=== PATIENT | female | born 1940 | race Caucasian/White ===

== ENCOUNTER 2018-02-03 22:22 | Emergency (ER) | payer OTHER ==
[2018-02-03 22:56] LABS: Absolute Lymphocytes (CBC) 1.5 K/uL (0.7-4.9); Absolute Monocytes 1.8 K/uL (0.1-1.3); Absolute Neutrophil 13.5 K/uL (1.8-8.0); Basophils % 0.5 % (0-1.3); Eosinophils % 0.7 % (0-4.4); Hematocrit 46.3 % (36.0-45.0); Lymphocytes % 8.8 % (15.3-44.8); MCH 29.5 pg (27.0-35.0); MCV 87.9 fL (80-100); Monocytes % 10.4 % (3.3-12.3); RBC Red Blood Cell Count 5.27 M/uL (3.86-4.86)
[2018-02-03 22:58] LABS: Protime INR 1.09
[2018-02-03] MEDS ORDERED: NA CHLORIDE 0.9% 1,000 ML ONE (23:01)
[2018-02-03] MEDS ORDERED: ONDANSETRON 4 MG/2 ML VIAL ONE (23:01)
[2018-02-03] MEDS ORDERED: FAMOTIDINE 20 MG/2 ML VIAL IV ONE (23:01)
[2018-02-03 23:16] LABS: ALT/SGPT 21 U/L (12-78); AST/SGOT 21 U/L (15-37); Albumin 3.5 g/dL (3.4-5.0); Alkaline Phosphatase 68 U/L (45-117); BUN Blood Urea Nitrogen 16 mg/dL (7-18); Bicarbonate 34 mmol/L (21-32); Bilirubin Direct 0.2 mg/dL (0-0.2); Bilirubin Total 0.7 mg/dL (0.2-1.0); Glucose Level 125 mg/dL (74-106); Magnesium 2.1 mg/dL (1.8-2.4); NT PRO-BNP 1253 pg/mL (<450); Potassium 3.6 mmol/L (3.5-5.1); Protein, Total 7.5 g/dL (6.4-8.2); Sodium Level 139 mmol/L (136-145); Troponin (Emerg Dept Use Only) < 0.02 ng/mL (0.0-0.045)
[2018-02-03] MEDS ORDERED: IPRATROPIUM BROM 0.5MG/2.5ML ONE (23:23)
[2018-02-03] MEDS ORDERED: ALBUTEROL 2.5 MG/3 ML NEB SOL ONE (23:23)
[2018-02-04] MEDS ORDERED: METHYLPREDNISOLONE 40 MG INJ ONE (00:29)
--- NOTE | 2018-02-04 00:34 | EDPHYS ---
Physician Documentation [facility] Name: Yeni Mcclendon Age: 77 yrs Sex: Female : 1940 Arrival Date: 02/03/2018 Time: 22:25 Bed 2 Private MD: Pasquale Catalan C ED Physician Ezequiel Alegre HPI: 02/03 22:37 This 77 yrs old Female presents to ER via Unassigned with complaints of High cp Blood Pressure, Nausea/Vomiting, took too much bp meds. 22:37 The patient complains of pain to the top of head and forehead. cp 22:37 The patient describes the headache as aching, constant. Onset: The symptoms/episode cp began/occurred suddenly, at 20:00. Associated signs and symptoms: Pertinent positives: nausea, vomiting. Historical: - Allergies: 22:41 CEPHALOSPORINS; ak1 22:41 PENICILLINS; ak1 22:41 Sulfa (Sulfonamide Antibiotics); ak1 22:41 Furadantin; ak1 22:41 duracef; ak1 - Home Meds: 22:41 aspirin 81 mg Oral chew 1 tab once daily [Active]; lisinopril 5 mg Oral tab 1 tab once ak1 daily [Active]; Livalo 2 mg Oral tab 1 tab once daily [Active]; Pepcid 20 mg Oral tab 1 tab 2 times per day [Active]; carvedilol 25 mg Oral tab 1 tab 2 times per day [Active]; Cardizem 120 mg Oral tab 1 tab daily [Active]; prednisone 5 mg Oral tab once daily [Active]; brimonidine 0.15 % ophthalmic drop 1 drop twice a day [Active]; multivitamin Oral tab daily [Active]; Advair Diskus 250-50 mcg/dose Inhl dsdv 1 puff 2 times per day [Active]; Claritin 10 mg Oral tab 1 tab as needed [Active]; cml rx 250/50 [Active]; lanaprost [Active]; imprimis [Active]; amlodipine 10 mg tab 1 tab once daily [Active]; - PMHx: 22:41 vasculitis; Hypertension; High Cholesterol; GERD; Asthma; ak1 - PSHx: 22:41 Heart stents; Appendectomy; Tonsillectomy; Tubal ligation; ak1 - Immunization history:: Adult Immunizations unknown. - Social history:: Smoking status: Patient/guardian denies using tobacco. - Ebola Screening: : No symptoms or risks identified at this time. ROS: 22:40 Constitutional: Negative for body aches, chills, fever, poor PO intake. cp 22:40 Eyes: Negative for injury, pain, redness, and discharge. cp 22:40 ENT: Negative for drainage from ear(s), ear pain, sore throat, difficulty swallowing, difficulty handling secretions. 22:40 Neck: Negative for pain with movement, pain at rest, stiffness, tenderness. 22:40 Cardiovascular: Negative for chest pain, edema, palpitations. 22:40 Respiratory: Negative for cough, shortness of breath, wheezing. 22:40 Abdomen/GI: Positive for nausea, vomiting, Negative for abdominal pain, diarrhea, constipation, anorexia, black/tarry stool, rectal bleeding. 22:40 Back: Negative for pain at rest, pain with movement, radiated pain. 22:40 : Negative for urinary symptoms. 22:40 Skin: Negative for cellulitis, rash. 22:40 Neuro: Positive for headache, Negative for altered mental status, syncope, near syncope, weakness. 22:40 All other systems are negative. Exam: 22:47 Constitutional: The patient appears in no acute distress, alert, awake, cp non-diaphoretic, well developed, well nourished, uncomfortable. 22:47 Head/Face: Normocephalic, atraumatic. Eyes: Pupils equal round and reactive to light, cp extra-ocular motions intact. Lids and lashes normal. Conjunctiva and sclera are non-icteric and not injected. Cornea within normal limits. Periorbital areas with no swelling, redness, or edema. ENT: Nares patent. No nasal discharge, no septal abnormalities noted. Tympanic membranes are normal and external auditory canals are clear. Oropharynx with no redness, swelling, or masses, exudates, or evidence of obstruction, uvula midline. Mucous membranes moist. Neck: Trachea midline, no thyromegaly or masses palpated, and no cervical lymphadenopathy. Supple, full range of motion without nuchal rigidity, or vertebral point tenderness. No Meningismus. Chest/axilla: Normal chest wall appearance and motion. Nontender with no deformity. No lesions are appreciated. 22:47 Cardiovascular: Rate: normal, Rhythm: regular, Pulses: Pulses are 2+ in right radial artery and left radial artery. Heart sounds: murmur, not appreciated, Edema: is not appreciated, JVD: is not appreciated. 22:47 Respiratory: the patient does not display signs of respiratory distress, Respirations: labored breathing, that is mild, intercostal retractions, are absent, Breath sounds: decreased breath sounds, that are mild, are located in both bases, stridor, is not appreciated, + upper airway congestion. wheezing: is not appreciated. 22:47 Abdomen/GI: Inspection: abdomen appears normal, Bowel sounds: active, all quadrants, Palpation: abdomen is soft and non-tender, in all quadrants, rebound tenderness, is not appreciated, voluntary guarding, is not appreciated, involuntary guarding, is not appreciated. 22:47 Back: pain, is absent, ROM is normal. 22:47 Skin: cellulitis, is not appreciated, no rash present. 22:47 Neuro: Orientation: to person, place \T\ time. Mentation: lucid, able to follow commands, Cerebellar function: is grossly normal, Motor: moves all fours, strength is normal, Sensation: no obvious gross deficits. 23:15 ECG was reviewed by the Attending Physician. cp Vital Signs: 22:42 BP 174 / 61; Pulse 88; Resp 20; Temp 98.4(O); Pulse Ox 90% on R/A; Weight 66.68 kg (R); ak1 Height 5 ft. 5 in. (165.10 cm) (R); Pain 5/10; 23:30 BP 158 / 54; Pulse 82; Resp 20; Pulse Ox 89% on R/A; Pain 0/10; ak1 02/04 00:06 BP 159 / 54; Pulse 85; Resp 20; Pulse Ox 86% on R/A; Pain 0/10; ak1 02/03 22:42 Body Mass Index 24.46 (66.68 kg, 165.10 cm) ak1 MDM: 02/03 22:30 Patient medically screened. cp 23:45 Data reviewed: vital signs, nurses notes, lab test result(s), EKG, radiologic studies, cp plain films. 23:45 Test interpretation: by ED physician or midlevel provider: ECG, plain radiologic cp studies. Response to treatment: the patient's symptoms have mildly improved after treatment, and as a result, I will admit patient. 02/04 00:25 Refusal of service: The patient/guardian displays adequate decision making capability cp and despite a detailed discussion of alternatives, benefits, risks, and consequences refuses: Admission to the hospital for further work-up and treatment. 01:01 ED course: Spoke with patient and informed her of [facility] chest xray results showing cp concerning for nodular densities in right midlung and right lung base. Concern for pneumonia expressed and recommend return to ED for admittance. Patient continues to refuse admittance and reports will f/u with DR Catalan. 02/03 22:36 Order name: Basic Metabolic Panel; Complete Time: 23:16 02/03 23:33 Interpretation: Normal except: CO2 34; GLUC 125; GFR 60. 02/03 22:36 Order name: CBC with Diff; Complete Time: 23:13 02/03 23:13 Interpretation: Normal except: WBC 16.9; RBC 5.27; HGB 15.5; HCT 46.3; ALMITA% 79.6; LYM% cp 8.8; NEUT A 13.5; MNA 1.8. 02/03 22:36 Order name: LFT's; Complete Time: 23:16 cp 02/04 00:02 Interpretation: Normal except: GLOB 4.0; A/G 0.9. 02/03 22:36 Order name: Magnesium; Complete Time: 23:16 02/03 22:36 Order name: NT PRO-BNP; Complete Time: 23:16 02/03 23:33 Interpretation: Abnormal: NT PRO-BNP 1253. 02/03 22:36 Order name: PT-INR; Complete Time: 23:32 cp 02/04 00:03 Interpretation: PT 12.9; Reviewed. 02/03 22:36 Order name: Troponin (emerg Dept Use Only); Complete Time: 23:16 cp 02/03 22:36 Order name: XRAY Chest (1 view) 02/03 22:36 Order name: CT Head Brain wo Cont cp 02/03 22:36 Order name: EKG; Complete Time: 22:37 02/03 22:36 Order name: Cardiac monitoring; Complete Time: 22:46 02/03 22:36 Order name: EKG - Nurse/Tech; Complete Time: 23:22 02/03 22:36 Order name: IV Saline Lock; Complete Time: 22:46 cp 09 22:36 Order name: Labs collected and sent; Complete Time: 22:46 cp 02/03 22:36 Order name: O2 Per Protocol; Complete Time: 22:46 cp 02/03 22:36 Order name: O2 Sat Monitoring; Complete Time: 22:46 cp EC/23 23:15 Rate is 83 beats/min. Rhythm is regular. [place] interval is normal. QRS interval is normal. cp QT interval is normal. Interpreted by me. Reviewed by me. Administered Medications: 23:05 Drug: NS 0.9% 500 ml Route: IV; Rate: bolus; Site: right antecubital; ak1 23:37 Follow up: IV Status: Completed infusion ak1 23:05 Not Given (Patient Refused): Pepcid 20 mg IVP once ak1 23:21 Drug: Albuterol - atroVENT (3:1) (2.5 mg - 0.5 mg) 3 ml Route: Nebulizer; ak1 02/04 00:13 Follow up: Response: No adverse reaction ak1 00:26 Drug: SOLU-Medrol 60 mg Route: IVP; Site: right antecubital; ak1 00:26 Follow up: Response: No adverse reaction ak1 00:32 Not Given (Patient Refused): Zofran 4 mg IVP once; over 2 minutes ak1 Disposition: 06:56 Co-signature as Attending Physician, Ezequiel Alegre MD. rn Disposition: 02/04/18 00:32 Patient has left against medical advice. - Patients states they are going to Home. - Condition is Stable. - Prescriptions for Zithromax Z- Karsten 250 mg Oral Tablet - take 1 tablet by ORAL route as directed for 5 days Day 1 - take two (2) tablets one time. Day 2, 3, 4 , 5 take one (1) tablet once daily.; 6 tablet. Prednisone 20 mg Oral Tablet - take 2 tablet by ORAL route once daily for 5 days; 10 tablet. Zofran 4 mg Oral Tablet - take 1 tablet by ORAL route every 12 hours As needed; 20 tablet. Signatures: Dispatcher [employer] EDEzequiel Sexton MD MD rn Krenek, Amber, RN RN ak1 Kings Fischer PA PA cp Corrections: (The following items were deleted from the chart) 02/03 22:46 22:00 Constitutional: Negative for body aches, chills, fever, cp cp 22:46 22:00 Eyes: Negative for injury, pain, redness, and discharge, cp cp 22:46 22:00 ENT: Negative for drainage from ear(s), ear pain, sore throat, difficulty cp swallowing, difficulty handling secretions, cp 22:46 22:00 Cardiovascular: Negative for chest pain, edema, palpitations, cp cp 22:46 22:00 Respiratory: Negative for cough, shortness of breath, wheezing, cp cp 22:46 22:00 Abdomen/GI: Positive for nausea, vomiting, Negative for abdominal pain, diarrhea, cp constipation, anorexia, black/tarry stool, rectal bleeding, cp 22:46 22:00 Back: Negative for pain at rest, pain with movement, cp cp 22:46 22:00 : Negative for urinary symptoms, cp cp :46 22:00 Skin: Negative for cellulitis, rash, cp cp 22:46 22:00 Neuro: Positive for headache, Negative for altered mental status, weakness, cp cp 22:46 22:00 All other systems are negative, cp cp 23:13 23:13 Normal except: WBC 16.9; RBC 5.27; HGB 15.5; HCT 46.3; ALMITA% 79.6; LYM% 8.8; NEUT cp A 13.5. cp
--- NOTE | 2018-02-04 00:34 | ER ---
Nurse's Notes [facility] Name: Yeni Mcclendon Age: 77 yrs Sex: Female : 1940 Arrival Date: 02/03/2018 Time: 22:25 Bed 2 Private MD: Pasquale Catalan C Diagnosis: Presentation: 02/03 22:42 Presenting complaint: Patient states: increased blood pressure with headache and ak1 vomiting starting at 2000. pt has been taking mucinex at home. pt took amlodipine 10mg prior to vomiting starting. Transition of care: patient was not received from another setting of care. Onset of symptoms was February 03, 2018. Risk Assessment: Do you want to hurt yourself or someone else? Patient reports no desire to harm self or others. Initial Sepsis Screen: Does the patient meet any 2 criteria? No. Patient's initial sepsis screen is negative. Does the patient have a suspected source of infection? No. Patient's initial sepsis screen is negative. Care prior to arrival: None. 22:42 Method Of Arrival: Wheelchair ak1 22:42 Acuity: DENISA 2 ak1 Triage Assessment: 22:42 General: Appears uncomfortable, Behavior is calm, cooperative. Pain: Complains of pain ak1 in headache. 23:14 GI: Reports nausea. ao Historical: - Allergies: 22:41 CEPHALOSPORINS; ak1 22:41 PENICILLINS; ak1 22:41 Sulfa (Sulfonamide Antibiotics); ak1 22:41 Furadantin; ak1 22:41 duracef; ak1 - Home Meds: 22:41 aspirin 81 mg Oral chew 1 tab once daily [Active]; lisinopril 5 mg Oral tab 1 tab once ak1 daily [Active]; Livalo 2 mg Oral tab 1 tab once daily [Active]; Pepcid 20 mg Oral tab 1 tab 2 times per day [Active]; carvedilol 25 mg Oral tab 1 tab 2 times per day [Active]; Cardizem 120 mg Oral tab 1 tab daily [Active]; prednisone 5 mg Oral tab once daily [Active]; brimonidine 0.15 % ophthalmic drop 1 drop twice a day [Active]; multivitamin Oral tab daily [Active]; Advair Diskus 250-50 mcg/dose Inhl dsdv 1 puff 2 times per day [Active]; Claritin 10 mg Oral tab 1 tab as needed [Active]; cml rx 250/50 [Active]; lanaprost [Active]; imprimis [Active]; amlodipine 10 mg tab 1 tab once daily [Active]; - PMHx: 22:41 vasculitis; Hypertension; High Cholesterol; GERD; Asthma; ak1 - PSHx: 22:41 Heart stents; Appendectomy; Tonsillectomy; Tubal ligation; ak1 - Immunization history:: Adult Immunizations unknown. - Social history:: Smoking status: Patient/guardian denies using tobacco. - Ebola Screening: : No symptoms or risks identified at this time. Screenin:44 Abuse screen: Denies threats or abuse. Denies injuries from another. Nutritional ak1 screening: No deficits noted. Tuberculosis screening: No symptoms or risk factors identified. Fall Risk None identified. Assessment: 22:50 General: Appears in no apparent distress. uncomfortable, Behavior is calm, cooperative, ao appropriate for age. Pain: Complains of pain in Headache. Neuro: Level of Consciousness is awake, alert, obeys commands, Oriented to person, place, time, situation, Appropriate for age Moves all extremities. Full function Speech is normal. Cardiovascular: Capillary refill is > 3 seconds Patient's skin is warm and dry. Respiratory: Airway is patent Respiratory effort is even, unlabored, Respiratory pattern is regular, symmetrical. GI: Abdomen is non-distended. : No signs and/or symptoms were reported regarding the genitourinary system. EENT: No signs and/or symptoms were reported regarding the EENT system. Derm: No signs and/or symptoms reported regarding the dermatologic system. Musculoskeletal: No signs and/or symptoms reported regarding the musculoskeletal system. 23:05 Reassessment: pt denies nausea asking to hold off on giving her Zofran. pt refused ak1 Pepcid stating she took Pepcid at home [employer]. 02/04 00:05 Reassessment: Patient appears in no apparent distress at this time. No changes from ak1 previously documented assessment. Patient states feeling better. Patient states symptoms have improved. 00:10 Reassessment: Patient O2 is low. Patient refused to get O2. Patient was educated in why ao O2 would benefic her. Patient stated she think she doesn't need O2. 00:27 Reassessment: pt refused admission, ERP notified. pt signed AMA form and instructed to ak1 follow up with PCP in the morning or return if she worsens. Vital Signs: 02/03 22:42 BP 174 / 61; Pulse 88; Resp 20; Temp 98.4(O); Pulse Ox 90% on R/A; Weight 66.68 kg (R); ak1 Height 5 ft. 5 in. (165.10 cm) (R); Pain 5/10; 23:30 BP 158 / 54; Pulse 82; Resp 20; Pulse Ox 89% on R/A; Pain 0/10; ak1 02/04 00:06 BP 159 / 54; Pulse 85; Resp 20; Pulse Ox 86% on R/A; Pain 0/10; ak1 02/03 22:42 Body Mass Index 24.46 (66.68 kg, 165.10 cm) ak1 ED Course: 02/03 22:25 Patient arrived in ED. es 22:26 Nam Austin MD is Private Physician. es 22:26 Pasquale Catalan MD is Private Physician. es 22:30 Kings Fischer PA is PHCP. cp 22:30 Ezequiel Alegre MD is Attending Physician. cp 22:42 Arm band placed on Patient placed in an exam room, on a stretcher, on cardiac specialist, ak1 on pulse oximetry, Patient notified of wait time. 22:43 Triage completed. ak1 22:44 Patient has correct armband on for positive identification. Placed in gown. Bed in low ak1 position. Call light in reach. Side rails up X 1. Adult w/ patient. awake overnight monitor on. Pulse ox on. NIBP on. 22:45 Brown Hooks RN is Primary Nurse. ao 22:46 Inserted saline lock: 20 gauge in right antecubital area, using aseptic technique. ao ,using aseptic technique. [facility] Blood collected. 22:50 CT completed. Patient moved to CT via stretcher. Patient moved back from CT. cw1 22:55 CT Head Brain wo Cont In Process Unspecified. EDMS 22:59 X-ray completed. Patient tolerated procedure well. tm4 22:59 Patient moved back from radiology. tm4 23:37 XRAY Chest (1 view) In Process Unspecified. EDMS 02/04 00:07 No provider procedures requiring assistance completed. ak1 00:28 IV discontinued, intact, bleeding controlled, No redness/swelling at site. Pressure ak1 dressing applied. Administered Medications: 02/03 23:05 Drug: NS 0.9% 500 ml Route: IV; Rate: bolus; Site: right antecubital; ak1 23:37 Follow up: IV Status: Completed infusion ak1 23:05 Not Given (Patient Refused): Pepcid 20 mg IVP once ak1 23:21 Drug: Albuterol - atroVENT (3:1) (2.5 mg - 0.5 mg) 3 ml Route: Nebulizer; ak1 02/04 00:13 Follow up: Response: No adverse reaction ak1 00:26 Drug: SOLU-Medrol 60 mg Route: IVP; Site: right antecubital; ak1 00:26 Follow up: Response: No adverse reaction ak1 00:32 Not Given (Patient Refused): Zofran 4 mg IVP once; over 2 minutes ak1 Outcome: 00:26 AMA AMA form signed ak1 00:26 Condition: stable 00:26 Instructed on the need for admit. 00:32 Patient left the ED. ak1 Signatures: Dispatcher [employer] Coral Abebe Tracy tm4 Iris Jarrett cw1 Cristy Elkins RN RN ak1 Kings Fischer PA PA cp Ortiz, Alex, SELVIN RN ao Corrections: (The following items were deleted from the chart) 02/03 23:06 22:42 BP 174 / 61; Pulse 88bpm; Resp 20bpm; Pulse Ox 97% RA; Temp 98.4F Oral; 66.68 kg ak1 Reported; Height 5 ft. 5 in. Reported; BMI: 24.4; Pain 5/10; ak1 02/04 00:07 02/03 22:42 BP 158 / 54; Pulse 82bpm; Resp 20bpm; Pulse Ox 89% RA; Pain 0/10; ak1 ak1
[2018-02-04 00:44] VITALS: TEMP 98.4
[2018-02-04 00:47] VITALS: BP 159/54; O2SAT 86
--- NOTE | 2018-02-04 07:55 | RAD REPORT ---
EXAM DESCRIPTION: RAD - Chest Single View - 02/03/2018 11:37 pm CLINICAL HISTORY: Abdominal pain, hypertension, vomiting A preliminary report was provided at the time of the study and reviewed prior to final report. COMPARISON: Chest exam November 19, 2016, CT chest November 17, 2016 TECHNIQUE: AP portable chest image was obtained 2236 hours . FINDINGS: Prior CT chest study showed multiple bilateral lung parenchymal opacities most likely a mu ltifocal pneumonia pattern. Those findings have generally cleared. However, the patient has ill-defin ed nodularity in the right mid lung field superimposed on the anterior right fourth rib. There is a s maller focus of nodularity near the diaphragm on the right. Interstitial markings are mildly prominen t believed to be baseline condition for the patient. Trachea is midline. Heart and vasculature are no rmal. No measurable pleural effusion and no pneumothorax. No gross bony abnormality seen. No acute ao rtic findings suspected. IMPRESSION: No large mass or consolidations seen. Areas of nodularity in the right lung field could be atypical pneumonia presentations. Neoplastic gabriele g nodules are not excluded in a patient this age. A follow-up CT chest study is recommended.
--- NOTE | 2018-02-04 07:58 | RAD REPORT ---
EXAM DESCRIPTION: CT - Head Brain Wo Cont - 02/04/2018 5:03 am CLINICAL HISTORY: Hypertension, headache A preliminary report was provided at the time of the study and reviewed prior to final report. COMPARISON: None. TECHNIQUE: Axial 5 mm thick images of the head were obtained without IV contrast. All CT scans are performed using dose optimization technique as appropriate and may include automated exposure control or mA/KV adjustment according to patient size. FINDINGS: No intracranial hemorrhage, mass, edema or shift of mid-line structures. No acute cortical based infarction. A couple small areas of volume averaging noted at the mckeon matter deep sulci front al lobe region. Patient has underlying mild atrophy and chronic ischemic change. No abnormal extra-ax ial fluid collections. Ventricles are in proportion to volume loss. Physiologic and arterial calcific ations are present. Mastoid air cells are clear. Patient has bilateral chronic and acute maxillary sinusitis. Frontal sin uses are not pneumatized as a normal variant. No acute bony findings. IMPRESSION: No hemorrhage, mass or acute intracranial finding identifiable. Mild atrophy and chronic ischemic changes are present. Nonhemorrhagic infarction and small neoplastic lesions can be obscured or occult on a noncontrast CT study. If there is concern for neoplastic process or the patient has persistent neurologic symptoms, contrast MRI imaging could be performed. Bilateral maxillary sinus acute and chronic sinusitis.
--- NOTE | 2018-02-04 08:07 | EKG ---
Test Date: 2018-02-03 Test Time: 23:07:05 [place]: KRYSTAL MEASUREMENT RESULTS: Intervals: Rate: 83 MT: 150 QRSD: 90 QT: 346 QTc: 406 [place]: P: 73 MT: 150 QRS: 80 T: 70 INTERPRETIVE STATEMENTS: Normal sinus rhythm Possible Left atrial enlargement Septal infarct, age undetermined Abnormal ECG Compared to ECG 11/17/2016 05:09:45 Myocardial infarct finding now present Electronically Signed On 02-04-18 08:06:42 CDT by Andrés Frias
--- OUTSIDE RECORDS SUMMARY | 2018-02-04 12:21 | XMS REPORT | Clinical Summary ---
:1940 Author Organization [facility] Address [address] [place] [address] Care Team Providers Name Role Phone Elver Catalan MD Primary Care Provider Allergies Active Allergy Reactions Severity Noted Date Comments Amoxicillin-Pot Clavulanate 02/18/2016 Ampicillin 02/18/2016 Cephalosporins 02/18/2016 Duract 02/18/2016 Penicillin G 02/18/2016 Sulfa (Sulfonamide Antibiotics) 02/18/2016 Current Medications Prescription Sig. Disp. Refills Start Date End Date Status NORVASC 5 mg tablet TAKE 1 3 01/25/2016 Active TABLET(S) EVERY DAY BY ORAL ROUTE. brimonidine PUT 1 DROP INTO 1 03/28/2016 Active (ALPHAGAN) 0.15 % BOTH EYES EVERY ophthalmic solution 12 HOURS clopidogrel Take 75 mg by 3 01/31/2016 Active (PLAVIX) 75 mg mouth once tablet daily. ciprofloxacin HCl Take 250 mg by 0 04/03/2016 Active (CIPRO) 250 MG mouth every 12 tablet (twelve) hours. diltiazem CD TAKE 1 6 02/15/2016 Active (CardIZEM CD) 180 CAPSULE(S) MG 24 hr capsule EVERY DAY BY ORAL ROUTE AT BEDTIME. gabapentin Take 100 mg by 3 03/23/2016 Active (NEURONTIN) 100 MG mouth 2 (two) capsule times a day. latanoprost USE 1 DROP IN 0 04/04/2016 Active (XALATAN) 0.005 % BOTH EYES AT ophthalmic solution BEDTIME LIVALO 2 mg tablet 1 mg nightly. 04/08/2016 Active predniSONE Take 5 mg by 3 03/09/2016 Active (DELTASONE) 5 MG mouth once tablet daily. fluticasone-salmete Inhale 1 puff 2 Active rol (ADVAIR) 250-50 (two) times a mcg/dose DISKUS day. MULTIVIT Take by mouth. Active &MINERALS/FERROUS FUM (MULTI VITAMIN ORAL) CALCIUM Take 600 mg by Active CARBONATE/VITAMIN mouth 2 (two) D3 (CALCIUM 600 + times a day. D,3, ORAL) aspirin (ECOTRIN) Take 81 mg by Active 81 MG enteric mouth daily. coated tablet famotidine (PEPCID) Take 20 mg by Active 20 MG tablet mouth 2 (two) times a day. LORATADINE Take by mouth. Active (CLARITIN ORAL) cycloSPORINE Administer 1 Active (RESTASIS) 0.05 % drop to both ophthalmic emulsion eyes 2 (two) times a day. potassium chloride Take 10 mEq by Active (K-DUR,KLOR-CON) 10 mouth daily. MEQ CR tablet ALPRAZolam (XANAX) Take 0.25 mg by Active 0.25 MG tablet mouth nightly as needed for anxiety. TRIAMCINOLONE into each Active ACETONIDE (NASACORT nostril. NASL) diltiazem CD Take 1 capsule 90 capsule 3 04/25/2017 Active (CardIZEM CD) 120 (120 mg total) MG 24 hr capsule by mouth once daily. lisinopril Take 1 tablet 90 tablet 3 04/25/2017 Active (PRINIVIL,ZESTRIL) (5 mg total) by 5 mg tablet mouth once daily. BUMETanide (BUMEX) Take 1 tablet 30 tablet 11 09/25/2017 Active 1 MG (1 mg total) by 9 tabletIndications: mouth daily. SOB (shortness of breath), Edema, unspecified type, Aortic valve disorder, Bilateral carotid artery disease, CAD in [place] artery carvedilol (COREG) Take 1 tablet 180 tablet 3 11/16/2017 Active 25 MG (25 mg total) tabletIndications: by mouth 2 Essential (two) times a hypertension day. diltiazem CD Take 120 mg by 3 02/16/2016 Discontinued (CardIZEM CD) 120 mouth once 7 MG 24 hr capsule daily. furosemide (LASIX) TAKE 1/2 TAB BY 3 01/12/2016 Discontinued 20 MG tablet MOUTH EVERY DAY 8 amLODIPine Take 1 tablet 30 tablet 11 04/14/2016 (NORVASC) 10 MG (10 mg total) 7 tablet by mouth daily. lisinopril Take 1 tablet 30 tablet 12 04/18/2016 Discontinued (PRINIVIL,ZESTRIL) (5 mg total) by 7 5 mg tablet mouth once daily. carvedilol (COREG) Take 1 tablet 180 tablet 3 08/16/2016 Discontinued 25 MG (25 mg total) 8 tabletIndications: by mouth 2 Essential (two) times a hypertension day. carvedilol (COREG) TAKE 1 TABLET 180 tablet 3 08/09/2017 Discontinued 25 MG BY MOUTH TWICE 8 tabletIndications: A DAY Essential hypertension Active Problems Problem Noted Date Edema 10/02/2017 Bilateral carotid bruits 01/30/2017 Stented coronary artery 07/25/2016 Essential hypertension 04/14/2016 AVD (aortic valve disease) 02/18/2016 Bilateral carotid artery disease 02/18/2016 Chest pain 02/18/2016 Coronary artery disease involving [place] coronary artery of [place] heart 02/17 without angina pectoris SOB (shortness of breath) 02/18/2016 Presence of stent in coronary artery 02/18/2016 Vasculitis 02/18/2016 Encounters Date Type Specialty Care Team Description 11/15/2017 Refill Cardiology Nettie Pfeiffer MD Med Refill 10/23/2017 Office Visit Cardiology Nettie Pfeiffer MD Bilateral carotid artery disease (Primary Dx); Coronary artery disease involving [place] coronary artery of [place] heart without angina pectoris; AVD (aortic valve disease) 10/11/2017 Telephone Cardiology Narciso Farfan MA Results (echo) 09/25/2017 Office Visit Cardiology Nettie Pfeiffer MD SOB (shortness of breath) (Primary Dx); Edema, unspecified type; Aortic valve disorder; Bilateral carotid artery disease; CAD in [place] artery 08/09/2017 Refill Cardiology Nettie Pfeiffer MD Med Refill 04/25/2017 Refill Cardiology Radha Be MA Med Refill 02/20/2017 Telephone Cardiology Radha Be MA patient question 02/07/2017 Orders Only Cardiology Radha Be MA Coronary artery disease involving [place] heart with angina pectoris, unspecified vessel or lesion type (Primary Dx) 02/07/2017 Telephone Cardiology Radha Be MA Results after 02/03/2017 Family History Medical History Relation Name Comments Heart disease Father Hypertension Father Hypertension Mother Stroke Mother Hypertension Sister Relation Name Status Comments Father (Age 91) Mother (Age 86) Sister Social History Tobacco Use Types Packs/Day Years Used Date Never Smoker Alcohol Use Drinks/Week oz/Week Comments Yes occasional Sex Assigned at Date Recorded Not on file Last Filed Vital Signs Vital Sign Reading Time Taken Blood Pressure 168/64 10/23/2017 2:32 PM CDT Pulse 65 10/23/2017 2:29 PM CDT Temperature - - Respiratory Rate - - Oxygen Saturation - - Inhaled Oxygen Concentration - - Weight 62.1 kg (137 lb) 10/23/2017 2:29 PM CDT Height 165.1 cm (5' 5") 10/23/2017 2:29 PM CDT Body Mass Index 22.8 10/23/2017 2:29 PM CDT Plan of Treatment Date Type Specialty Care Team Description 04/23/2018 Appointment Procedural Cardiology 04/23/2018 Appointment Procedural Cardiology 04/23/2018 Office Visit Cardiology Nettie Pfeiffer MD [address] [id number] Health Maintenance Due Date Last Done Comments SHINGRIX VACCINE (#1) 1988 ZOSTER VACCINE 1998 PNEUMOCOCCAL POLYSACCHARIDE VACCINE AGE 65 AND OVER 2003 PNEUMOCOCCAL-13 2003 INFLUENZA VACCINE 12/12/2017 Procedures Procedure Name Priority Date/Time Associated Comments Diagnosis ECHOCARDIOGRAM 2D Routine 10/04/2017 12:01 SOB (shortness of Results for this COMPLETE W MMODE PM CDT breath) procedure are in SPECTRAL COLOR DOPPLER Edema, unspecified the results (29780) type section. Aortic valve disorder Bilateral carotid artery disease CAD in [place] artery US CAROTID DUPLEX Routine 10/04/2017 12:01 SOB (shortness of Results for this BILATERAL PM CDT breath) procedure are in Edema, unspecified the results type section. Aortic valve disorder Bilateral carotid artery disease CAD in [place] artery ECG 12-LEAD Routine 09/25/2017 12:19 SOB (shortness of Results for this PM CDT breath) procedure are in the results section. US CAROTID DUPLEX Routine 02/06/2017 10:04 Bilateral carotid Results for this BILATERAL AM CDT bruits procedure are in the results section. after 02/03/2017 Results Echocardiogram complete w contrast and 3D if needed (10/04/2017 12:01 PM) Narrative Performed At [facility] Echocardiography Report Pat.Name:HANANE MCCLENDON Pat.ID:[id number] .Date: 10/04/2017 Refer.MD:NETTIE PFEIFFER MD Exam Time: 11:37:00 AM Study Type:Routine Echo Height:65inWeight: 135lb BSA: 1.68 m2 DOBAge:1940,77Y Sex: FEMALEBP:145/61 HR:88 bpmSonogrphr: Nidia Dyer RDCS, RVT Pat. Stat.:OutpatientRoom:[place] Study Status:Final Echo Event ID:[id number] Order ID:[id number] Reason for Study:Aortic Stenosis, SOB, suspected cardiac etiology Procedures:2D Echo, Colorflow Doppler Race:C SUMMARY: LV size is normal. LV EF is normal. Estimated EF is 65-69% Aortic valve not well seen. It appears thickened and calcified. Moderate to severe aortic valve stenosis. FINDINGS: LV: LV size is normal. Concentric left ventricular remodeling. LVEF is normal. Overall wall motion is normal. Estimated EFis 65-69% RV: RV size is normal. RV systolic function is normal. LA: LA volume is difficult to assess as it appears foreshortened. RA: RA size is normal. AO: Aortic root diameter is not well visualized. CHARISSE: No pericardial effusion. AV: Aortic valve not well seen. It appears thickened and calcified.Mild aortic regurgitation. Moderate to severe aorticvalve stenosis. MV: No structural MV abnormalities noted. Mild mitral regurgitation. PV: Pulmonic valve not well seen. TV: No structural TV abnormalities noted. [place]: LV relaxation is impaired. LV filling pressure is borderline elevated. Other:Insufficient TR jet to estimate PA systolic pressure. MEASUREMENTS: 2D Parasternal Long Printer LVIDd3.5 cmIndex2.1 cm/m LV Wssp260.8 g(87-129) IVSd 1.1 cmLVM Index 81.4 g/m2 LVPWd1.3 cmRWT0.8 DOPPLER AV For Flow/FELISA AV pkVel 296.4 cm/s (100-170) AV AC/ET 0.2 AV mnVel 221.5 cm/Eliana TVI82.9 cm AV pkPG 35.2 mmHgAVpkAcRt 73607.5 cm/s2 AV Mean G 22.6 mmHgAV JsRz869.8 cm/s2 AV AC 75 msec (83-118) AV Area0.9 cm2(3-5) AV ET374 msec LVOT For Flow LVOT Area2.5 cm2 LVOT SV 72 ml LVOTpkVel 86.7 cm/sHR52.9 bpm LVOTpkPG 3 mmHgLVOT CO3.8 l/min LVOTmnPG 1.9 mmHgLVOT CI2.3 l/m/m2 LVOT TVI28.3 cm Signed 10/05/2017 12:52 PM Soham Wolf M.D. Procedure Note Interface, Radiology Results In - 10/05/2017 12:53 PM CDT [facility] Echocardiography Report Pat.Name: HANANE MCCLENDON Pat.ID: [id number] .Date: 10/04/2017 Refer.MD: NETTIE PFEIFFER MD Exam Time: 11:37:00 AM Study Type:Routine Echo Height: 65in Weight: 135lb BSA: 1.68 m2 Age: 1 1940,77Y Sex: FEMALE BP: 145/61 HR: 88 bpm Sonogrphr: Nidia Dyer RDCS, RVT Pat. Stat.:Outpatient Room: [place] Study Status:Final Echo Event ID:[id number] Order ID: [id number] Reason for Study:Aortic Stenosis, SOB, suspected cardiac etiology Procedures:2D Echo, Colorflow Doppler Race: C SUMMARY: LV size is normal. LV EF is normal. Estimated EF is 65-69% Aortic valve not well seen. It appears thickened and calcified. Moderate to severe aortic valve stenosis. FINDINGS: LV: LV size is normal. Concentric left ventricular remodeling. LV EF is normal. Overall wall motion is normal. Estimated EF is 65-69% RV: RV size is normal. RV systolic function is normal. LA: LA volume is difficult to assess as it appears foreshortened. RA: RA size is normal. AO: Aortic root diameter is not well visualized. CHARISSE: No pericardial effusion. AV: Aortic valve not well seen. It appears thickened and calcified. Mild aortic regurgitation. Moderate to severe aortic valve stenosis. MV: No structural MV abnormalities noted. Mild mitral regurgitation. PV: Pulmonic valve not well seen. TV: No structural TV abnormalities noted. [place]: LV relaxation is impaired. LV filling pressure is borderline elevated. Other: Insufficient TR jet to estimate PA systolic pressure. MEASUREMENTS: 2D Parasternal Long Printer LVIDd 3.5 cm Index 2.1 cm/m LV Mass 136.8 g (87-129) IVSd 1.1 cm LVM Index 81.4 g/m2 LVPWd 1.3 cm RWT 0.8 DOPPLER AV For Flow/FELISA AV pkVel 296.4 cm/s (100-170) AV AC/ET 0.2 AV mnVel 221.5 cm/s AV TVI 82.9 cm AV pkPG 35.2 mmHg AVpkAcRt 64930.5 cm/s2 AV Mean G 22.6 mmHg AV DeRt 791.8 cm/s2 AV AC 75 msec (83-118) AV Area 0.9 cm2 (3-5) AV ET 374 msec LVOT For Flow LVOT Area 2.5 cm2 LVOT SV 72 ml LVOTpkVel 86.7 cm/s HR 52.9 bpm LVOTpkPG 3 mmHg LVOT CO 3.8 l/min LVOTmnPG 1.9 mmHg LVOT CI 2.3 l/m/m2 LVOT TVI 28.3 cm Signed 10/05/2017 12:52 PM Soham Wolf M.D. Performing Organization Address City/State/Zipcode Phone Number [facility] [address] [place] [address] carotid duplex (10/04/2017 12:01 PM)Only the most recent of2 resultswithin the time period is included. Narrative Performed At [facility] Carotid Artery Ultrasound Report Pat.Name:HANANE MCCLENDON Pat.ID:[id number] .Date: 10/04/2017 Refer.MD:NETTIE PFEIFFER MD Exam Time: 11:01:00 AM Study Type:Carotid DOBAge:1940,77YSex: FEMALE Sonogrphr: Nidia Dyer, DELMYMS, RDCS, RVT Pat. Stat.:Outpatient Room:[place] [address] Echo Event ID:[id number] Order ID:[id number] Reason for Study:Carotid artery stenosis History / Clinical:Known carotid stenosis based on prior test SUMMARY: PHYSICAL ASSESSMENT BloodPulsesCarotid Pressure Carotid TemporalBruit Right 145/61 ++0 Left 142/62 ++0 CAROTID ARTERY SCAN RIGHT:There is scattered hard plaquein the common carotid artery. Colorflow is normal. There is calcified plaque noted in the bulb extending into the proximal internal and external carotid artery. Colorflow is disturbed with elevated velocities noted.There is antegrade flow in the vertebral artery. Subclavian artery is triphasic. LEFT:There is intimal thickeningin the common carotid artery. Colorflow is normal.There is hard and soft plaque noted in the bulb extending into the internal and external carotid artery.Colorflow is disturbed.There is antegrade flow in the vertebral artery. Subclavian artery flow is triphasic. PRELIMINARY FINDINGS 1. >70% stenosis in the right internal carotid artery. 2. <50%stenosis in the left internal carotid artery. PHYSICIAN INTERPRETATION Bilateral carotid artery examination demonstrates plaque in the right internal carotid artery with >70% stenosis, and <50% stenosis in the left internal carotid artery. The right internal carotid artery stenosis has increased significantly since 2017. Carotid Findings:RightLeft Verteb.Flw AntegradeAntegrade Subclavian TriphasicTriphasic MEASUREMENTS: DOPPLER Right SCA Prox SCA Prox PSV97.2 cm/s Right CCA Dist CCA Dist PSV77 cm/sCCA Dist EDV9.57 cm/s Right CCA Mid CCA Mid PSV 63.3 cm/sCCA Mid EDV 7.76 cm/s Right CCA Prox CCA Prox PSV49.1 cm/sCCA Prox EDV8.37 cm/s Right Bulb Bulb PSV92.6 cm/sBulb EDV15.2 cm/s Right ECA Prox ECA Prox PSV 327 cm/s Right ICA Mid ICA Mid IYW627 cm/Tish Mid EDV 31 cm/s Right ICA Prox ICA Prox PSV 281 cm/Tish Prox EDV39 cm/s Right Vertebral Vertebral PSV 30 cm/s Left SCA Prox SCA Prox PSV 104 cm/s Left CCA Dist CCA Dist PSV68.9 cm/sCCA Dist EDV 0 cm/s Left CCA Mid CCA Mid PSV 70.7 cm/sCCA Mid EDV 3.72 cm/s Left CCA Prox CCA Prox PSV72.8 cm/sCCA Prox EDV 0 cm/s Left Bulb Bulb PSV55.9 cm/sBulb EDV9.19 cm/s Left ECA Prox ECA Prox PSV68.6 cm/sECA Prox EDV 0 cm/s Left ICA Dist ICA Dist PSV 133 cm/Tish Dist EDV15.7 cm/s Left ICA Mid ICA Mid PSV 97.6 cm/Tish Mid EDV 14.4 cm/s Left ICA Prox ICA Prox PSV73.1 cm/Tish Prox EDV7.97 cm/s Left Vertebral Vertebral PSV 77.8 cm/sVertebral EDV 9.76 cm/s Right ICA Dist ICA Dist PSV 132 cm/Tish Dist EDV15 cm/s Right ICA/CCA Ratio ICA/CCA PSV 4.44 Left ICA/CCA Ratio ICA/CCA PSV 1.03 Signed 10/12/2017 05:56 PM Nettie Pfeiffer MD Procedure Note Interface, Radiology Results In - 10/12/2017 5:57 PM CDT [facility] Carotid Artery Ultrasound Report Pat.Name: HANANE MCCLENDON Pat.ID: [id number] .Date: 10/04/2017 Refer.MD: NETTIE PFEIFFER MD Exam Time: 11:01:00 AM Study Type:Carotid Age: 1 1940,77Y Sex: FEMALE Sonogrphr: Nidia Dyer, [place], RDCS, RVT Pat. Stat.:Outpatient Room: [place] CPT - 4: 54592 Echo Event ID:[id number] Order ID: [id number] Reason for Study:Carotid artery stenosis History / Clinical:Known carotid stenosis based on prior test SUMMARY: PHYSICAL ASSESSMENT Blood Pulses Carotid Pressure Carotid Temporal Bruit Right 145/61 + + 0 Left 142/62 + + 0 CAROTID ARTERY SCAN RIGHT: There is scattered hard plaque in the common carotid artery. Colorflow is normal. There is calcified plaque noted in the bulb extending into the proximal internal and external carotid artery. Colorflow is disturbed with elevated velocities noted. There is antegrade flow in the vertebral artery. Subclavian artery is triphasic. LEFT: There is intimal thickening in the common carotid artery. Colorflow is normal. There is hard and soft plaque noted in the bulb extending into the internal and external carotid artery. Colorflow is disturbed. There is antegrade flow in the vertebral artery. Subclavian artery flow is triphasic. PRELIMINARY FINDINGS 1. >70% stenosis in the right internal carotid artery. 2. <50% stenosis in the left internal carotid artery. PHYSICIAN INTERPRETATION Bilateral carotid artery examination demonstrates plaque in the right internal carotid artery with >70% stenosis, and <50% stenosis in the left internal carotid artery. The right internal carotid artery stenosis has increased significantly since 2017. Carotid Findings: Right Left Verteb.Flw Antegrade Antegrade Subclavian Triphasic Triphasic MEASUREMENTS: DOPPLER Right SCA Prox SCA Prox PSV 97.2 cm/s Right CCA Dist CCA Dist PSV 77 cm/s CCA Dist EDV 9.57 cm/s Right CCA Mid CCA Mid PSV 63.3 cm/s CCA Mid EDV 7.76 cm/s Right CCA Prox CCA Prox PSV 49.1 cm/s CCA Prox EDV 8.37 cm/s Right Bulb Bulb PSV 92.6 cm/s Bulb EDV 15.2 cm/s Right ECA Prox ECA Prox PSV 327 cm/s Right ICA Mid ICA Mid PSV 262 cm/s ICA Mid EDV 31 cm/s Right ICA Prox ICA Prox PSV 281 cm/s ICA Prox EDV 39 cm/s Right Vertebral Vertebral PSV 30 cm/s Left SCA Prox SCA Prox PSV 104 cm/s Left CCA Dist CCA Dist PSV 68.9 cm/s CCA Dist EDV 0 cm/s Left CCA Mid CCA Mid PSV 70.7 cm/s CCA Mid EDV 3.72 cm/s Left CCA Prox CCA Prox PSV 72.8 cm/s CCA Prox EDV 0 cm/s Left Bulb Bulb PSV 55.9 cm/s Bulb EDV 9.19 cm/s Left ECA Prox ECA Prox PSV 68.6 cm/s ECA Prox EDV 0 cm/s Left ICA Dist ICA Dist PSV 133 cm/s ICA Dist EDV 15.7 cm/s Left ICA Mid ICA Mid PSV 97.6 cm/s ICA Mid EDV 14.4 cm/s Left ICA Prox ICA Prox PSV 73.1 cm/s ICA Prox EDV 7.97 cm/s Left Vertebral Vertebral PSV 77.8 cm/s Vertebral EDV 9.76 cm/s Right ICA Dist ICA Dist PSV 132 cm/s ICA Dist EDV 15 cm/s Right ICA/CCA Ratio ICA/CCA PSV 4.44 Left ICA/CCA Ratio ICA/CCA PSV 1.03 Signed 10/12/2017 05:56 PM Nettie Pfeiffer MD Performing Organization Address City/State[facility] Phone Number [employer] [address] [place] [address] ECG 12 lead (09/25/2017 12:19 PM) Ventricular rate 55 [facility] Atrial rate 55 [facility] HI interval 156 [facility] QRSD interval 98 [facility] QT interval 418 [facility] MUSE QTC interval 399 [facility] M[facility] P axis 1 76 [facility] QRS axis 1 77 [facility] T wave axis 70 [facility] M[facility] EKG impression Sinus bradycardia-Otherwise normal ECG-In [facility] automated comparison with ECG of 01-OCT-2015 12:22,-No significant change was found- Performing Organization Address City/[facility] Phone Number [facility] [employer] [address] [place] [address] after 02/03/2017 Insurance Payer Benefit Plan / Group Subscriber ID Type Phone Address AETNA MEDICARE AETNA MEDICARE HMO/PPO [facility] xxxxxxxx HMO y [phone] [place] [id number]
== END 2018-02-04 00:32 | disposition left against medical advice (07) ==
LOC: ER 22:22
DX: I10 Essential (primary) hypertension (principal); E78.00 Pure hypercholesterolemia, unspecified; K21.9 Gastro-esophageal reflux disease without esophagitis; J45.909 Unspecified asthma, uncomplicated; Z88.0 Allergy status to penicillin; Z88.2 Allergy status to sulfonamides; Z88.8 Allergy status to other drugs, medicaments and biological substances
CPT/HCPCS: 36415; 70450; 71045; 80048; 80076; 83735; 83880; 84484; 85025; 85610; 93005; 94640; 96361; 96374; 99285; J2920; J7030; J2405

== ENCOUNTER 2018-07-25 07:24 | Inpatient (IN) | payer OTHER ==
--- OUTSIDE RECORDS SUMMARY | 2018-07-25 07:26 | XMS REPORT | Clinical Summary ---
:1940 Author Organization [facility] Address [address] [place] [address] Care Team Providers Name Role Phone Elver Catalan MD Primary Care Provider Allergies Active Allergy Reactions Severity Noted Date Comments Amoxicillin-Pot Clavulanate 02/18/2016 Ampicillin 02/18/2016 Cephalosporins 02/18/2016 Duract 02/18/2016 Penicillin G 02/18/2016 Sulfa (Sulfonamide Antibiotics) 02/18/2016 Medications Medication Sig Dispensed Refills Start Date End Date Status NORVASC [...] LIVALO 2 mg tablet 1 mg nightly. 0 04/08/2016 Active predniSONE Take 5 mg by 3 03/09/2016 Active (DELTASONE) 5 MG mouth once tablet daily. fluticasone-salmete Inhale 1 puff 2 0 Active rol (ADVAIR) 250-50 (two) times a mcg/dose DISKUS day. MULTIVIT Take by mouth. 0 Active &MINERALS/FERROUS FUM (MULTI VITAMIN ORAL) CALCIUM Take 600 mg by 0 Active CARBONATE/VITAMIN mouth 2 (two) D3 (CALCIUM 600 + times a day. D,3, ORAL) aspirin (ECOTRIN) Take 81 mg by 0 Active 81 MG enteric mouth daily. coated tablet famotidine (PEPCID) Take 20 mg by 0 Active 20 MG tablet mouth 2 (two) times a day. LORATADINE Take by mouth. 0 Active (CLARITIN ORAL) cycloSPORINE Administer 1 0 Active (RESTASIS) 0.05 % drop to both ophthalmic emulsion eyes 2 (two) times a day. potassium chloride Take 10 mEq by 0 Active (K-DUR,KLOR-CON) 10 mouth daily. MEQ CR tablet ALPRAZolam (XANAX) Take 0.25 mg by 0 Active 0.25 MG tablet mouth nightly as needed for anxiety. TRIAMCINOLONE into each 0 Active ACETONIDE (NASACORT nostril. NASL) BUMETanide (BUMEX) Take 1 tablet 30 tablet 11 09/25/2017 Active 1 MG (1 mg total) by 9 tabletIndications: mouth daily. SOB (shortness of breath), Edema, unspecified type, Aortic valve disorder, Bilateral carotid artery disease (HCC), CAD in [place] artery carvedilol (COREG) Take 1 tablet 180 tablet 3 11/16/2017 Active 25 MG (25 mg total) tabletIndications: by mouth 2 Essential (two) times a hypertension day. isosorbide Take 1 tablet 90 tablet 3 04/03/2018 Active mononitrate (IMDUR) (30 mg total) 9 30 MG 24 hr tablet by mouth every morning. diltiazem CD TAKE ONE 90 capsule 3 04/11/2018 Active (CardIZEM CD) 120 CAPSULE BY MG 24 hr capsule MOUTH EVERY DAY lisinopril Take 1 tablet 90 tablet 3 04/23/2018 Active (PRINIVIL,ZESTRIL) (20 mg total) 9 20 mg by mouth tabletIndications: nightly. Coronary artery disease involving [place] coronary artery of [place] heart without angina pectoris, Essential hypertension, Aortic valve disease, Bilateral carotid artery stenosis furosemide (LASIX) TAKE 1/2 TAB BY 3 01/12/2016 Discontinued 20 MG tablet MOUTH EVERY DAY 8 carvedilol (COREG) Take 1 tablet 180 tablet 3 08/16/2016 Discontinued 25 MG (25 mg total) 8 tabletIndications: by mouth 2 Essential (two) times a hypertension day. diltiazem CD Take 1 capsule 90 capsule 3 04/25/2017 Discontinued (CardIZEM CD) 120 (120 mg total) 8 MG 24 hr capsule by mouth once daily. lisinopril Take 1 tablet 90 tablet 3 04/25/2017 Discontinued (PRINIVIL,ZESTRIL) (5 mg total) by 8 5 mg tablet mouth once daily. carvedilol (COREG) TAKE 1 TABLET 180 tablet 3 08/09/2017 Discontinued 25 MG BY MOUTH TWICE 8 tabletIndications: A DAY Essential hypertension isosorbide Take 1 tablet 30 tablet 0 03/13/2018 Discontinued mononitrate (IMDUR) (30 mg total) 8 30 MG 24 hr tablet by mouth every morning. lisinopril TAKE 1 TABLET 90 tablet 3 04/11/2018 Discontinued (PRINIVIL,ZESTRIL) BY MOUTH EVERY 8 5 mg tablet DAY Active Problems Problem Noted Date Edema 10/02/2017 Bilateral carotid bruits 01/30/2017 Stented coronary artery 07/25/2016 Essential hypertension 04/14/2016 Aortic valve disease 02/18/2016 Bilateral carotid artery disease 02/18/2016 Chest pain 02/18/2016 Coronary artery disease involving [place] coronary artery of [place] heart 02/17 without angina pectoris SOB (shortness of breath) 02/18/2016 Presence of stent in coronary artery 02/18/2016 Vasculitis 02/18/2016 Encounters Date Type Specialty Care Team Description 04/23/2018 Office Visit Cardiology Nettie Pfeiffer MD Coronary artery disease involving [place] coronary artery of [place] heart without angina pectoris (Primary Dx); Essential hypertension; Aortic valve disease; Bilateral carotid artery stenosis 04/11/2018 Refill Cardiology Nettie Pfeiffer MD Med Refill 04/03/2018 Refill Cardiology Nettie Pfeiffer MD Med Refill 03/15/2018 Office Visit Cardiology Nettie Pfeiffer MD Essential hypertension (Primary Dx); AVD (aortic valve disease); Bilateral carotid artery disease, unspecified type (HCC); Coronary artery disease involving [place] coronary artery of [place] heart without angina pectoris; Stented coronary artery 03/13/2018 Refill Cardiology Radha Be MA Hypertension 11/15/2017 Refill Cardiology Nettie Pfeiffer MD Med Refill 10/23/2017 Office Visit Cardiology Nettie Pfeiffer MD Bilateral carotid artery disease (Primary Dx); Coronary artery disease involving [place] coronary artery of [place] heart without angina pectoris; AVD (aortic valve disease) 10/11/2017 Telephone Cardiology Narciso Farfan MA Results (echo) 09/25/2017 Office Visit Cardiology Nettie Pfeiffer MD SOB (shortness of breath) (Primary Dx); Edema, unspecified type; Aortic valve disorder; Bilateral carotid artery disease; CAD in [place] artery 08/09/2017 Refill Cardiology Nettie Pfeiffer MD Med Refill after 07/24/2017 Family History Medical History Relation Name Comments Heart disease Father Hypertension Father Hypertension Mother Stroke Mother Hypertension Sister Relation Name Status Comments Father (Age 91) Mother (Age 86) Sister Social History Tobacco Use Types Packs/Day Years Used Date Never Smoker Smokeless Tobacco: Never Used Alcohol Use Drinks/Week oz/Week Comments Yes occasional Sex Assigned at Date Recorded Not on file Job Start Date Occupation Industry Not on file Not on file Not on file Travel History Travel Start Travel End No recent travel history available. Last Filed Vital Signs Vital Sign Reading Time Taken Blood Pressure 179/75 04/23/2018 11:18 AM [employer] [employer] Pulse 52 04/23/2018 11:18 AM [employer] Temperature - - Respiratory Rate - - Oxygen Saturation - - Inhaled Oxygen Concentration - - Weight 62.6 kg (138 lb) 04/23/2018 11:18 AM [employer] Height 165.1 cm (5' 5") 04/23/2018 11:18 AM [employer] Body Mass Index 22.96 04/23/2018 11:18 AM [employer] [employer] Plan of Treatment Date Type Specialty Care Team Description 10/21/2018 Appointment Procedural Cardiology Nettie Pfeiffer MD [address] [facility] [address] [place] [address] [phone] 10/22/2018 Appointment Procedural Cardiology Nettie Pfeiffer MD [address] [address] [phone] 10/22/2018 Office Visit Cardiology Nettie Pfeiffer MD [address] [address] [phone] Health Maintenance Due Date Last Done Comments SHINGLES VACCINES (#1) 1988 65+ PNEUMOCOCCAL VACCINE (1 of 2 - PCV13) 2003 PNEUMOCOCCAL POLYSACCHARIDE VACCINE AGE 65 AND OVER 2003 INFLUENZA VACCINE 12/12/2017 Procedures Procedure Name Priority Date/Time Associated Comments Diagnosis US CAROTID DUPLEX Routine 04/23/2018 11:35 Coronary artery Results for this BILATERAL AM [employer] disease involving procedure are in [place] coronary the results artery of [place] section. heart without angina pectoris AVD (aortic valve disease) Bilateral carotid artery disease (HCC) ECHOCARDIOGRAM 2D Routine 04/19/2018 5:39 Coronary artery Results for this COMPLETE W MMODE PM P[employer]ER STR[employer]PER disease involving procedure are in SPECTRAL COLOR DOPPLER [place] coronary the results ([address]) artery of [place] section. heart without angina pectoris AVD (aortic valve disease) Bilateral carotid artery disease (HCC) ECHOCARDIOGRAM 2D Routine 10/04/2017 12:01 SOB (shortness of Results for this COMPLETE W MMODE PM CDT breath) procedure are in SPECTRAL COLOR DOPPLER Edema, unspecified the results ([address]36[address]) type section. Aortic valve disorder Bilateral carotid artery disease CAD in [place] artery US CAROTID DUPLEX Routine 10/04/2017 12:01 SOB (shortness of Results for this BILATERAL PM CDT breath) procedure are in Edema, unspecified the results type section. Aortic valve disorder Bilateral carotid artery disease CAD in [place] artery ECG 12-LEAD Routine 09/25/2017 12:19 SOB (shortness of Results for this PM CDT breath) procedure are in the results section. after 07/24/2017 Results Us carotid duplex (04/23/2018 11:35 AM PAPER STRIPPER)Only the most recent of2 resultswithin the time period is included. Narrative Performed At [facility] Carotid Artery Ultrasound Report Pat.Name:HANANE MCCLENDON.ID:[id number] St.Date: 04/23/2018Refer.MD:FENG MCGOWAN MD Exam Time: 10:09:00 AM Study Type:Carotid DOBAge:1940,77YSex: FEMALE Sonogrphr: Dede Be RVT Pat. Stat.:Outpatient Room:[facility] TapeVol: DEDRA, CPT - 4: 47335 Echo Event ID:[id number] Order ID:[id number] Reason for Study:Carotid artery stenosis, Follow up study, Hx of CAD, S/P stenting, Aortic valve disease, Essential HTN. History / Clinical:Known carotid stenosis based on prior test Procedures:Colorflow, Grayscale/2D, Pulsed wave Doppler SUMMARY: PHYSICAL ASSESSMENT BloodPulsesCarotid Pressure Carotid TemporalBruit Right 172/84 ++0 Left 172/74 ++0 CAROTID ARTERY SCAN RIGHT:There is scattered hard plaquein the common carotid artery. There is hard and calcified plaque noted in the bulb extending into the internal and external carotid artery.Colorflow is disturbed with elevated velocities noted in the internal and external carotid artery. LEFT: There is smooth intimal lining in the common carotid artery. There is hard and calcified plaque noted in the bulb extending into the internal and external carotid artery. Colorflow is mildly disturbed. PRELIMINARY FINDINGS 1. >70%stenosis in the right internal carotid artery. 2. >50% stenosis in the right external carotid artery. 3. <50% stenosis in the left internal carotid artery. 4. Decreased flow in the right vertebral artery. PHYSICIAN INTERPRETATION Bilateral carotid artery duplex exam demonstrates atherosclerotic plaque in the bilateralcarotid artery with >70% stenosis in the right internal carotid artery and <50% stenosis in the left internal carotid artery(Findingsunchanged from the study done on 10/04/17). Antegrade flow noted in the vertebral artery, bilaterally. Carotid Findings:RightLeft Verteb.Flw AntegradeAntegrade Subclavian Biphasic Biphasic MEASUREMENTS: DOPPLER Right CCA Dist CCA Dist PSV52.2 cm/sCCA Dist EDV 0 cm/s Right CCA Mid CCA Mid PSV 56 cm/sCCA Mid EDV 6.53 cm/s Right CCA Prox CCA Prox PSV66.2 cm/sCCA Prox EDV 0 cm/s Right Bulb Bulb PSV87.3 cm/sBulb EDV5.37 cm/s Right ECA ECA YWH537 cm/sECA EDV0 cm/s Right ICA Dist ICA Dist PSV74.4 cm/Tish Dist EDV6.56 cm/s Right ICA Mid ICA Mid GEB675 cm/Tish Mid EDV 10.9 cm/s Right ICA Prox ICA Prox PSV 313 cm/Tish Prox EDV28.5 cm/s Right Vertebral Vertebral PSV 46 cm/sVertebral EDV0 cm/s Right Subclavian Subclavian PSV 103 cm/sSubclavian EDV8.07 cm/s Left CCA Dist CCA Dist PSV75.4 cm/sCCA Dist EDV 0 cm/s Left CCA Mid CCA Mid PSV 73.7 cm/sCCA Mid EDV 6.86 cm/s Left CCA Prox CCA Prox PSV84 cm/sCCA Prox EDV 0 cm/s Left Bulb Bulb PSV89.1 cm/sBulb EDV6.86 cm/s Left ECA ECA YTI231 cm/sECA EDV0 cm/s Left ICA Dist ICA Dist PSV 132 cm/Tish Dist EDV11.5 cm/s Left ICA Mid ICA Mid FAL796 cm/Tish Mid EDV 15.3 cm/s ICA Prox ICA Prox PSV 121 cm/Tish Prox EDV16 cm/s Left Vertebral Vertebral PSV 55 cm/sVertebral EDV0 cm/s Left Subclavian Subclavian PSV 177 cm/sSubclavian EDV7.69 cm/s Right ICA/CCA Ratio ICA/CCA PSV 5.59 ICA/CCA Ratio ICA/CCA PSV 1.64 Right ECA Prox ECA Prox PSV 178 cm/s Left ECA Prox ECA Prox PSV 111 cm/s Signed 04/25/2018 05:52 PM Nettie Pfeiffer MD Procedure Note Interface, Radiology Results In - 04/25/2018 5:52 PM [facility] Carotid Artery Ultrasound Report Pat.Name: HANANE MCCLENDON Pat.ID: [id number] .Date: 04/23/2018 Refer.MD: FENG MCGOWAN MD Exam Time: 10:09:00 AM Study Type:Carotid Age: 1 1940,77Y Sex: FEMALE Sonogrphr: Dede Be RVT Pat. Stat.:Outpatient Room: [facility] Vol: SD, CPT - 4: 76985 Echo Event ID:[id number] Order ID: [id number] Reason for Study:Carotid artery stenosis, Follow up study, Hx of CAD, S/P stenting, Aortic valve disease, Essential HTN. History / Clinical:Known carotid stenosis based on prior test Procedures:Colorflow, Grayscale/2D, Pulsed wave Doppler SUMMARY: PHYSICAL ASSESSMENT Blood Pulses Carotid Pressure Carotid Temporal Bruit Right 172/84 + + 0 Left 172/74 + + 0 CAROTID ARTERY SCAN RIGHT: There is scattered hard plaque in the common carotid artery. There is hard and calcified plaque noted in the bulb extending into the internal and external carotid artery.Colorflow is disturbed with elevated velocities noted in the internal and external carotid artery. LEFT: There is smooth intimal lining in the common carotid artery. There is hard and calcified plaque noted in the bulb extending into the internal and external carotid artery. Colorflow is mildly disturbed. PRELIMINARY FINDINGS 1. >70%stenosis in the right internal carotid artery. 2. >50% stenosis in the right external carotid artery. 3. <50% stenosis in the left internal carotid artery. 4. Decreased flow in the right vertebral artery. PHYSICIAN INTERPRETATION Bilateral carotid artery duplex exam demonstrates atherosclerotic plaque in the bilateral carotid artery with >70% stenosis in the right internal carotid artery and <50% stenosis in the left internal carotid artery(Findings unchanged from the study done on 10/04/17). Antegrade flow noted in the vertebral artery, bilaterally. Carotid Findings: Right Left Verteb.Flw Antegrade Antegrade Subclavian Biphasic Biphasic MEASUREMENTS: DOPPLER Right CCA Dist CCA Dist PSV 52.2 cm/s CCA Dist EDV 0 cm/s Right CCA Mid CCA Mid PSV 56 cm/s CCA Mid EDV 6.53 cm/s Right CCA Prox CCA Prox PSV 66.2 cm/s CCA Prox EDV 0 cm/s Right Bulb Bulb PSV 87.3 cm/s Bulb EDV 5.37 cm/s Right ECA ECA PSV 178 cm/s ECA EDV 0 cm/s Right ICA Dist ICA Dist PSV 74.4 cm/s ICA Dist EDV 6.56 cm/s Right ICA Mid ICA Mid PSV 120 cm/s ICA Mid EDV 10.9 cm/s Right ICA Prox ICA Prox PSV 313 cm/s ICA Prox EDV 28.5 cm/s Right Vertebral Vertebral PSV 46 cm/s Vertebral EDV 0 cm/s Right Subclavian Subclavian PSV 103 cm/s Subclavian EDV 8.07 cm/s Left CCA Dist CCA Dist PSV 75.4 cm/s CCA Dist EDV 0 cm/s Left CCA Mid CCA Mid PSV 73.7 cm/s CCA Mid EDV 6.86 cm/s Left CCA Prox CCA Prox PSV 84 cm/s CCA Prox EDV 0 cm/s Left Bulb Bulb PSV 89.1 cm/s Bulb EDV 6.86 cm/s Left ECA ECA PSV 111 cm/s ECA EDV 0 cm/s Left ICA Dist ICA Dist PSV 132 cm/s ICA Dist EDV 11.5 cm/s Left ICA Mid ICA Mid PSV 119 cm/s ICA Mid EDV 15.3 cm/s ICA Prox ICA Prox PSV 121 cm/s ICA Prox EDV 16 cm/s Left Vertebral Vertebral PSV 55 cm/s Vertebral EDV 0 cm/s Left Subclavian Subclavian PSV 177 cm/s Subclavian EDV 7.69 cm/s Right ICA/CCA Ratio ICA/CCA PSV 5.59 ICA/CCA Ratio ICA/CCA PSV 1.64 Right ECA Prox ECA Prox PSV 178 cm/s Left ECA Prox ECA Prox PSV 111 cm/s Signed 04/25/2018 05:52 PM Nettie Pfeiffer MD Performing Organization Address City/State/Zipcode Phone Number [facility] [address] [place] [address] Echocardiogram complete w contrast and 3D if needed (04/19/2018 5:39 PM PAPER STRIPPER) Narrative Performed At [facility] Echocardiography Report Pat.Name:HANANE MCCLENDON Pat.ID:[id number] .Date: 04/19/2018 Refer.MD:NETTIE PFEIFFER MD Exam Time: 4:05:00 PMStudy Type:Routine Echo Height:65inWeight: 137lb BSA: 1.69 m2 DOBAge:1940,77Y Sex: FEMALEBP:157/67 HR:51 bpm Sonogrphr: SANTA Jacobs FASE Pat. Stat.:OutpatientRoom:[place] Study Status:Final Echo Event ID:[id number] Order ID:[id number] Reason for Study:Aortic stenosis Procedures:2D Echo, Colorflow Doppler Race:C SUMMARY: LV EF is hyperdynamic. LA volume is mildly enlarged. Moderate to severe aortic valve stenosis. LV filling pressure is borderline elevated. FINDINGS: LV: LV size is normal. LV EF is hyperdynamic. Overall wall motionis normal. Estimated EF is >70%. RV: RV size is normal. RV systolic function is normal. LA: LA volume is mildly enlarged. RA: RA size is normal. AO: Aortic root diameter is normal. CHARISSE: No pericardial effusion. AV: Moderate to severe thickening and calcification of AV leaflets.Moderate to severe aortic valve stenosis. Estimatedmean aortic valve gradient 36 mmHg with a valve areaof 0.8 cm2. MV: No structural MV abnormalities noted. PV: No structural PV abnormalities noted. TV: No structural TV abnormalities noted. [place]: LV relaxation is impaired. LV filling pressure is borderline elevated. MEASUREMENTS: 2D Parasternal [place] LVOT 2 cmLA Ds3.7 cm LVIDd4.6 cmIndex2.7 cm/m Ao An2.4 cm LVIDs2.4 cmAo Rtd 2.9 cm Index1.7 cm/m LV%fs 48.5 % LV Vnao639.7 g(87-129) IVSd 0.9 cmLVM Index 96.3 g/m2 LVPWd1.1 cmRWT0.5 LA Sng Plane LA Area 20 cm2(8.8-23.4) LA Vol58.5 ml Index34.6 ml/m LA LngAx 5.6 cm DOPPLER AV For Flow/FELISA AV pkVel 406.8 cm/s (100-170) AV AC/ET 0.3 AV mnVel 269.8 cm/Eliana TVI 110.1 cm AV pkPG 66.2 mmHgAVpkAcRt 6494.9 cm/s2 AV Mean G 36.5 mmHgAV RoBo262.8 cm/s2 AV AC103 msec (83-118) AV Area0.8 cm2(3-5) AV ET408 msec LVOT For Flow LVOT Area3.1 cm2 LVOT SV 85.8 ml OJTYemFmx427.6 cm/sHR50 bpm LVOTpkPG 4.2 mmHgLVOT CO4.3 l/min LVOTmnPG 2.3 mmHgLVOT CI2.5 l/m/m2 LVOT TVI27.3 cm Signed 04/22/2018 11:44 AM Michelet Sinclair M.D. Procedure Note Interface, Radiology Results In - 04/22/2018 11:45 AM [facility] Ech[facility] Report Pat.Name: HANANE MCCLENDON Pat.ID: [id number] .Date: 04/19/2018 Refer.MD: NETTIE PFEIFFER MD Exam Time: 4:05:00 PM Study Type:Routine Echo Height: 65in Weight: 137lb BSA: 1.69 m2 Age: 1 1940,77Y Sex: FEMALE BP: 157/67 HR: 51 bpm Sonogrphr: SANTA Jacobs FASE Pat. Stat.:Outpatient Room: [place] Study Status:Final Echo Event ID:[id number] Order ID: [id number] Reason for Study:Aortic stenosis Procedures:2D Echo, Colorflow Doppler Race: C SUMMARY: LV EF is hyperdynamic. LA volume is mildly enlarged. Moderate to severe aortic valve stenosis. LV filling pressure is borderline elevated. FINDINGS: LV: LV size is normal. LV EF is hyperdynamic. Overall wall motion is normal. Estimated EF is >70%. RV: RV size is normal. RV systolic function is normal. LA: LA volume is mildly enlarged. RA: RA size is normal. AO: Aortic root diameter is normal. CHARISSE: No pericardial effusion. AV: Moderate to severe thickening and calcification of AV leaflets. Moderate to severe aortic valve stenosis. Estimated mean aortic valve gradient 36 mmHg with a valve area of 0.8 cm2. MV: No structural MV abnormalities noted. PV: No structural PV abnormalities noted. TV: No structural TV abnormalities noted. [place]: LV relaxation is impaired. LV filling pressure is borderline elevated. MEASUREMENTS: 2D Parasternal Long [place] LVOT 2 cm LA Ds 3.7 cm LVIDd 4.6 cm Index 2.7 cm/m Ao An 2.4 cm LVIDs 2.4 cm Ao Rtd 2.9 cm Index 1.7 cm/m LV%fs 48.5 % LV Mass 162.7 g (87-129) IVSd 0.9 cm LVM Index 96.3 g/m2 LVPWd 1.1 cm RWT 0.5 LA Sng Plane LA Area 20 cm2 (8.8-23.4) LA Vol 58.5 ml Index 34.6 ml/m LA LngAx 5.6 cm DOPPLER AV For Flow/FELISA AV pkVel 406.8 cm/s (100-170) AV AC/ET 0.3 AV mnVel 269.8 cm/s AV TVI 110.1 cm AV pkPG 66.2 mmHg AVpkAcRt 6494.9 cm/s2 AV Mean G 36.5 mmHg AV DeRt 996.8 cm/s2 AV AC 103 msec (83-118) AV Area 0.8 cm2 (3-5) AV ET 408 msec LVOT For Flow LVOT Area 3.1 cm2 LVOT SV 85.8 ml LVOTpkVel 102.6 cm/s HR 50 bpm LVOTpkPG 4.2 mmHg LVOT CO 4.3 l/min LVOTmnPG 2.3 mmHg LVOT CI 2.5 l/m/m2 LVOT TVI 27.3 cm Signed 04/22/2018 11:44 AM Michelet Sincliar M.D. Performing Organization Address City/State/Zipcode Phone Number [facility] [address] [place] [address] Echocardiogram complete w contrast and 3D if needed (10/04/2017 12:01 PM CDT) Narrative Performed At [facility] Ech[facility] Report Pat.Name:HANANE MCCLENDON Pat.ID:[id number] .Date: 10/04/2017 Refer.MD:NETTIE PFEIFFER MD Exam Time: 11:37:00 AM Study Type:Routine Echo Height:65inWeight: 135lb BSA: 1.68 m2 DOBAge:1940,77Y Sex: FEMALEBP:145/61 HR:88 bpmSonogrphr: Nidia Dyer RDCS, RVT Pat. Stat.:OutpatientRoom:[place] Study Status:Final Echo Event ID:[id number] Order ID:[id number] Reason for Study:Aortic Stenosis, SOB, suspected cardiac [...] PA systolic pressure. MEASUREMENTS: 2D Parasternal [place] LVIDd3.5 cmIndex2.1 cm/m LV Cfbk226.8 g(87-129) IVSd 1.1 cmLVM Index 81.4 g/m2 LVPWd1.3 cmRWT0.8 DOPPLER AV For Flow/FELISA AV pkVel 296.4 cm/s (100-170) AV AC/ET 0.2 AV mnVel 221.5 cm/Eliana TVI82.9 cm AV pkPG 35.2 mmHgAVpkAcRt 81417.5 cm/s2 AV Mean G 22.6 mmHgAV RvPz440.8 cm/s2 AV AC 75 msec (83-118) AV Area0.9 cm2(3-5) AV ET374 msec LVOT For Flow LVOT Area2.5 cm2 LVOT SV 72 ml LVOTpkVel 86.7 cm/sHR52.9 bpm LVOTpkPG 3 mmHgLVOT CO3.8 l/min LVOTmnPG 1.9 mmHgLVOT CI2.3 l/m/m2 LVOT TVI28.3 cm Signed 10/05/2017 12:52 PM Soham Wolf M.D. Procedure Note Interface, Radiology Results In - 10/05/2017 12:53 PM CDT [facility] Ech[facility] Report Pat.Name: HANANE MCCLENDON Isidro Pat.ID: [id number] .Date: 10/04/2017 Refer.MD: NETTIE PFEIFFER MD Exam Time: 11:37:00 AM Study Type:Routine Echo Height: 65in Weight: 135lb BSA: 1.68 m2 Age: 1 1940,77Y Sex: FEMALE BP: 145/61 HR: 88 bpm Sonogrphr: Nidia Dyer RDCS, RVT Pat. Stat.:Outpatient Room: [place] Study Status:Final Echo Event ID:[id number] Order ID: [id number] Reason for Study:Aortic Stenosis, SOB, suspected cardiac [...] PA systolic pressure. MEASUREMENTS: 2D Parasternal [place] LVIDd 3.5 cm Index 2.1 cm/m LV Mass 136.8 g (87-129) IVSd 1.1 cm LVM Index 81.4 g/m2 LVPWd 1.3 cm RWT 0.8 DOPPLER AV For Flow/FELISA AV pkVel 296.4 cm/s (100-170) AV AC/ET 0.2 AV mnVel 221.5 cm/s AV TVI 82.9 cm AV pkPG 35.2 mmHg AVpkAcRt 08911.5 cm/s2 AV Mean G 22.6 mmHg AV [...] PM Soham Wolf M.D. Performing Organization Address [facility] Phone Number [facility] [address] [place] [address] ECG 12 lead (09/25/2017 12:19 PM CDT) Ventricular rate 55 [facility] MUSE Atrial rate 55 [facility] MUSE NE interval 156 [facility] MUSE QRSD interval 98 [facility] MUSE QT interval 418 [facility] MUSE QTC interval 399 [facility] MUSE P axis 1 76 [facility] MUSE QRS axis 1 77 [facility] MUSE T wave axis 70 [facility] MUSE EKG impression Sinus bradycardia-Otherwise normal ECG-In [facility] MUSE automated comparison with ECG of 01-OCT-2015 12:22,-No significant change was found- Performing Organization Address [facility] Phone Number [facility] [address] [place] [address] after 07/24/2017 Insurance Payer Benefit Plan / Group Subscriber ID Type Phone Address AETNA MEDICARE AETNA MEDICARE HMO/PPO [facility] xxxxxxxx HMO ([place]) [place] [address] Advance Directives Patient has advance care planning documents on file. For more information, please contact:[place] [facility] [place] [address]
--- NOTE | 2018-07-25 07:59 | ER ---
Nurse's Notes [facility] Name: Yeni Mcclendon Age: 78 yrs Sex: Female : 1940 Arrival Date: 07/25/2018 Time: 07:28 Bed 18 Private MD: Diagnosis: Dyspnea;Hypoxemia;Acute upper respiratory infection, unspecified;Pneumonia due to other specified bacteria-right lower lobe;Elevated white blood cell count Presentation: 07/25 07:40 Presenting complaint: Productive cough, pain with cough, headache, body aches, and hb fever x 4-5 days. TMAX 101.5. Transition of care: patient was not received from another setting of care. Onset of symptoms was July 21, 2018. Risk Assessment: Do you want to hurt yourself or someone else? Patient reports no desire to harm self or others. Care prior to arrival: None. 07:40 Method Of Arrival: Ambulatory hb 07:40 Acuity: DENISA 2 hb 07:51 Initial Sepsis Screen: Does the patient meet any 2 criteria? No. Patient's initial ph sepsis screen is negative. Does the patient have a suspected source of infection? Yes: Productive cough/pneumonia. Historical: - Allergies: 07:42 CEPHALOSPORINS; hb 07:42 duracef; hb 07:42 Furadantin; hb 07:42 PENICILLINS; hb 07:42 Sulfa (Sulfonamide Antibiotics); hb - Home Meds: 07:42 Advair Diskus 250-50 mcg/dose Inhl dsdv 1 puff 2 times per day [Active]; amlodipine 10 hb mg tab 1 tab once daily [Active]; aspirin 81 mg Oral chew 1 tab once daily [Active]; brimonidine 0.15 % ophthalmic drop 1 drop twice a day [Active]; Cardizem 120 mg Oral tab 1 tab daily [Active]; carvedilol 25 mg Oral tab 1 tab 2 times per day [Active]; Claritin 10 mg Oral tab 1 tab as needed [Active]; cml rx 250/50 [Active]; lanaprost [Active]; lisinopril 5 mg Oral tab 1 tab once daily [Active]; multivitamin Oral tab daily [Active]; prednisone 5 mg Oral tab once daily [Active]; Livalo 2 mg Oral tab 1 tab once daily [Active]; imprimis [Active]; Pepcid 20 mg Oral tab 1 tab 2 times per day [Active]; - PMHx: 07:42 Asthma; GERD; High Cholesterol; Hypertension; vasculitis; hb - PSHx: 07:42 Heart stents; Appendectomy; Tonsillectomy; Tubal ligation; hb - Immunization history:: Adult Immunizations up to date. - Social history:: Smoking status: Patient/guardian denies using tobacco. - Ebola Screening: : No symptoms or risks identified at this time. - Family history:: not pertinent. Screenin:42 Abuse screen: Denies threats or abuse. Denies injuries from another. Nutritional hb screening: No deficits noted. Tuberculosis screening: No symptoms or risk factors identified. 09:14 Fall Risk No fall in past 12 months (0 pts). No secondary diagnosis (0 pts). IV access ph (20 points). Ambulatory Aid- None/Bed Rest/Nurse Assist (0 pts). Gait- Normal/Bed Rest/Wheelchair (0 pts) Mental Status- Oriented to own ability (0 pts). Total Shaw Fall Scale indicates Low Risk Score (25-44 pts). Fall prevention measures have been instituted. Side Rails Up X 2 Placed close to Nursing Station Frequent Obs/Assesments occuring Family Present and informed to notify staff if they need to leave bedside As available Patient and Family Educated on Fall Prevention Program and strategies. Assessment: 08:00 General: Appears in no apparent distress. uncomfortable, ill, slender, well groomed, ph Behavior is calm, cooperative, appropriate for age, Reports fever for > 3 days, feeling ill for > 3 days, fatigue for >3 days. Pain: Denies pain. Neuro: Level of Consciousness is awake, obeys commands, lethargic, Oriented to person, place, time, situation. Cardiovascular: Capillary refill < 3 seconds in bilateral fingers Patient's skin is warm and dry. Respiratory: Reports shortness of breath at rest cough that is productive, Airway is patent Respiratory effort is even, shallow, Respiratory pattern is regular, Breath sounds are diminished bilaterally. GI: No signs and/or symptoms were reported involving the gastrointestinal system. EENT: Eyes are tearing on right eye and left eye also appear reddened . Derm: Skin is intact, Skin is pink, warm \T\ dry. Musculoskeletal: Circulation, motion, and sensation intact. Range of motion: intact in all extremities. 09:00 Reassessment: Patient appears in no apparent distress at this time. Patient and/or ph family updated on plan of care and expected duration. Pain level reassessed. Patient is alert, oriented x 3, equal unlabored respirations, skin warm/dry/pink. Vital Signs: 07:39 BP 140 / 54; Pulse 77; Resp 20; Temp 99.2(TE); Pulse Ox 79% on R/A; Pain 0/10; hb 07:51 Pulse Ox 93% on 4 lpm NC; ph ED Course: 07:28 Patient arrived in ED. tw3 07:36 Kings Guo MD is Attending Physician. jose david 07:40 Triage completed. hb 07:41 Arm band placed on. hb 07:50 Lauren Guillermo, RN is Primary Nurse. ph 07:51 Patient has correct armband on for positive identification. Placed in gown. Bed in low ph position. Call light in reach. Side rails up X 1. finance assistant on. Pulse ox on. NIBP on. Door closed. Noise minimized. Warm blanket given. Head of bed elevated. 07:58 Elver Catalan MD is Hospitalizing Provider. jose david 08:15 X-ray completed. Portable x-ray completed in exam room. Patient tolerated procedure tm4 well. 08:16 XRAY Chest (1 view) In Process Unspecified. EDMS 08:45 Inserted saline lock: 22 gauge in right antecubital area, using aseptic technique. ph Blood collected. 08:54 Assist provider with bone marrow aspiration. ph 08:55 Patient admitted, IV remains in place. ph 09:01 EKG done, by reuse technician. reviewed by Kings Guo MD. at1 11:27 Urine collected: clean catch specimen, clear. mh5 11:28 Urine Culture Sent. mh5 Administered Medications: 08:45 Drug: Tamiflu 75 mg Route: PO; ph 09:00 Follow up: Response: No adverse reaction ph 08:50 Drug: Xopenex 2.5 mg Route: Inhalation; ph 09:00 Follow up: Response: No adverse reaction ph 08:50 Drug: AtroVENT Aerosol 0.5 mg Route: Inhalation; ph 09:00 Follow up: Response: No adverse reaction ph 08:50 Drug: NS 0.9% 500 ml Route: IV; Rate: bolus; Site: right antecubital; ph 09:30 Follow up: Response: No adverse reaction; IV Status: Completed infusion ph 08:50 Drug: NS 0.9% 1000 ml Route: IV; Rate: 125 ml/hr; Site: right antecubital; ph 09:00 Follow up: Response: No adverse reaction; IV Status: Infusion continued upon admission ph 08:52 Drug: SOLU-Medrol 125 mg Route: IVP; Site: right antecubital; ph 09:00 Follow up: Response: No adverse reaction ph 08:55 Drug: levofloxacin 500 mg Volume: 100 ml; Route: IVPB; Infused Over: 60 mins; Site: ph right antecubital; 10:00 Follow up: Response: No adverse reaction; IV Status: Completed infusion ph Outcome: 07:59 Decision to Hospitalize by Provider. jose david 08:55 Admitted to ER Hold. [facility] ph 08:55 Condition: stable 08:55 Instructed on the need for admit. 14:23 Patient left the ED. aj1 Signatures: Dispatcher [employer] Merary Tamayo RN RN aj1 Kings Guo MD MD cha Marroquin, Tracy tm4 Zuleyma Denise, perioperative educator EKG Tat1 Lauren Guillermo RN RN Dian Russell RN RN hb Martinez, Maria 5 Mariano, Brynn tw3 Corrections: (The following items were deleted from the chart) 07:45 07:39 Pulse Ox 79% RA; hb hb 09:03 09:01 Xopenex 2.5 mg Inhalation ph ph
--- NOTE | 2018-07-25 07:59 | EDPHYS ---
Physician Documentation [facility] Name: Yeni Mcclendon Age: 78 yrs Sex: Female : 1940 Arrival Date: 07/25/2018 Time: 07:28 Bed 18 Private MD: ED Physician Kings Guo HPI: 07/25 07:54 This 78 yrs old Female presents to ER via Ambulatory with complaints of jose david Cough, Chest Congestion. 07:54 The patient or guardian reports airway noise, cough, difficulty breathing. Onset: The jose david symptoms/episode began/occurred 3 day(s) ago. Severity of symptoms: At their worst the symptoms were mild, moderate, in the emergency department the symptoms are unchanged. Modifying factors: The symptoms are alleviated by nothing, the symptoms are aggravated by nothing. Associated signs and symptoms: The patient has no apparent associated signs or symptoms. Historical: - Allergies: 07:42 CEPHALOSPORINS; hb 07:42 duracef; hb 07:42 Furadantin; hb 07:42 PENICILLINS; hb 07:42 Sulfa (Sulfonamide Antibiotics); hb - Home Meds: 07:42 Advair Diskus 250-50 mcg/dose Inhl dsdv 1 puff 2 times per day [Active]; amlodipine 10 hb mg tab 1 tab once daily [Active]; aspirin 81 mg Oral chew 1 tab once daily [Active]; brimonidine 0.15 % ophthalmic drop 1 drop twice a day [Active]; Cardizem 120 mg Oral tab 1 tab daily [Active]; carvedilol 25 mg Oral tab 1 tab 2 times per day [Active]; Claritin 10 mg Oral tab 1 tab as needed [Active]; cml rx 250/50 [Active]; lanaprost [Active]; lisinopril 5 mg Oral tab 1 tab once daily [Active]; multivitamin Oral tab daily [Active]; prednisone 5 mg Oral tab once daily [Active]; Livalo 2 mg Oral tab 1 tab once daily [Active]; imprimis [Active]; Pepcid 20 mg Oral tab 1 tab 2 times per day [Active]; - PMHx: 07:42 Asthma; GERD; High Cholesterol; Hypertension; vasculitis; hb - PSHx: 07:42 Heart stents; Appendectomy; Tonsillectomy; Tubal ligation; hb - Immunization history:: Adult Immunizations up to date. - Social history:: Smoking status: Patient/guardian denies using tobacco. - Ebola Screening: : No symptoms or risks identified at this time. - Family history:: not pertinent. ROS: 07:54 Eyes: Negative for injury, pain, redness, and discharge, ENT: Negative for injury, jose david pain, and discharge, Neck: Negative for injury, pain, and swelling, Cardiovascular: Negative for chest pain, palpitations, and edema, Abdomen/GI: Negative for abdominal pain, nausea, vomiting, diarrhea, and constipation, Back: Negative for injury and pain, : Negative for injury, bleeding, discharge, and swelling, MS/Extremity: Negative for injury and deformity, Skin: Negative for injury, rash, and discoloration, Neuro: Negative for headache, weakness, numbness, tingling, and seizure, Psych: Negative for depression, anxiety, suicide ideation, homicidal ideation, and hallucinations, Allergy/Immunology: Negative for hives, rash, and allergies, Endocrine: Negative for neck swelling, polydipsia, polyuria, polyphagia, and marked weight changes, Hematologic/Lymphatic: Negative for swollen nodes, abnormal bleeding, and unusual bruising. 07:54 Respiratory: Positive for cough, shortness of breath, wheezing, expiratory. Exam: 07:54 Constitutional: This is a well developed, well nourished patient who is awake, alert, jose david and in no acute distress. Head/Face: Normocephalic, atraumatic. Eyes: Pupils equal round and reactive to light, extra-ocular motions intact. Lids and lashes normal. Conjunctiva and sclera are non-icteric and not injected. Cornea within normal limits. Periorbital areas with no swelling, redness, or edema. ENT: Nares patent. No nasal discharge, no septal abnormalities noted. Tympanic membranes are normal and external auditory canals are clear. Oropharynx with no redness, swelling, or masses, exudates, or evidence of obstruction, uvula midline. Mucous membranes moist. Neck: Trachea midline, no thyromegaly or masses palpated, and no cervical lymphadenopathy. Supple, full range of motion without nuchal rigidity, or vertebral point tenderness. No Meningismus. Chest/axilla: Normal chest wall appearance and motion. Nontender with no deformity. No lesions are appreciated. Cardiovascular: Regular rate and rhythm with a normal S1 and S2. No gallops, murmurs, or rubs. Normal PMI, no JVD. No pulse deficits. Abdomen/GI: Soft, non-tender, with normal bowel sounds. No distension or tympany. No guarding or rebound. No evidence of tenderness throughout. Back: No spinal tenderness. No costovertebral tenderness. Full range of motion. Female : Normal external genitalia. Skin: Warm, dry with normal turgor. Normal color with no rashes, no lesions, and no evidence of cellulitis. MS/ Extremity: Pulses equal, no cyanosis. Neurovascular intact. Full, normal range of motion. Neuro: Awake and alert, GCS 15, oriented to person, place, time, and situation. Cranial nerves II-XII grossly intact. Motor strength 5/5 in all extremities. Sensory grossly intact. Cerebellar exam normal. Normal gait. Psych: Awake, alert, with orientation to person, place and time. Behavior, mood, and affect are within normal limits. 07:54 Respiratory: the patient does not display signs of respiratory distress, Respirations: labored breathing, that is mild, Breath sounds: decreased breath sounds, rhonchi, wheezing: expiratory is heard in the right posterior upper lobe and right posterior middle lobe. Vital Signs: 07:39 BP 140 / 54; Pulse 77; Resp 20; Temp 99.2(TE); Pulse Ox 79% on R/A; Pain 0/10; hb 07:51 Pulse Ox 93% on 4 lpm NC; ph MDM: 07:37 Patient medically screened. jose david 07:39 Patient medically screened. jose david 07:57 Data reviewed: vital signs, nurses notes, lab test result(s), EKG, radiologic studies, [facility] CT scan, plain films. 07/25 07:54 Order name: Basic Metabolic Panel; Complete Time: 09:40 [facility] 07/25 07:54 Order name: CBC with Diff; Complete Time: 09:01 [facility] 07/25 07:54 Order name: LFT's; Complete Time: 09:40 [facility] 07/25 07:54 Order name: Magnesium; Complete Time: 09:40 [facility] 07/25 07:54 Order name: NT PRO-BNP; Complete Time: 09:40 [facility] 07/25 07:54 Order name: PT-INR; Complete Time: 09:01 [facility] 07/25 07:54 Order name: Troponin (emerg Dept Use Only); Complete Time: 09:40 [facility] 07/25 07:54 Order name: Blood Culture Adult (2) [facility] 07/25 07:54 Order name: Influenza Screen (a \T\ B); Complete Time: 09:40 [facility] 07/25 07:54 Order name: Procalcitonin; Complete Time: 09:40 [facility] 07/25 07:59 Order name: Urine Culture [facility] 07/25 11:30 Order name: Urine Dipstick--Ancillary (enter results) 07/25 11:59 Order name: Urine Dipstick-Ancillary [facility] 07/25 13:50 Order name: Troponin I EDCT 07/25 07:54 Order name: XRAY Chest (1 view); Complete Time: 09:40 [facility] 07/25 07:54 Order name: EKG; Complete Time: 07:55 [facility] 07/25 07:54 Order name: Cardiac monitoring; Complete Time: 09:06 [facility] 07/25 07:54 Order name: EKG - Nurse/Tech; Complete Time: 19:52 [facility] 07/25 07:54 Order name: IV Saline Lock; Complete Time: 09:06 [facility] 07/25 07:54 Order name: Labs collected and sent; Complete Time: 09:06 [facility] 07/25 07:54 Order name: O2 Per Protocol; Complete Time: 09:06 [facility] 07/25 07:54 Order name: O2 Sat Monitoring; Complete Time: 09:06 [facility] 07/25 07:59 Order name: Urine Dipstick-Ancillary (obtain specimen); Complete Time: 11:28 [facility] 07/25 11:31 Order name: Urine Test (obtain specimen) bd Administered Medications: 08:45 Drug: Tamiflu 75 mg Route: PO; ph 09:00 Follow up: Response: No adverse reaction ph 08:50 Drug: Xopenex 2.5 mg Route: Inhalation; ph 09:00 Follow up: Response: No adverse reaction ph 08:50 Drug: AtroVENT Aerosol 0.5 mg Route: Inhalation; ph 09:00 Follow up: Response: No adverse reaction ph 08:50 Drug: NS 0.9% 500 ml Route: IV; Rate: bolus; Site: right antecubital; ph 09:30 Follow up: Response: No adverse reaction; IV Status: Completed infusion ph 08:50 Drug: NS 0.9% 1000 ml Route: IV; Rate: 125 ml/hr; Site: right antecubital; ph 09:00 Follow up: Response: No adverse reaction; IV Status: Infusion continued upon admission ph 08:52 Drug: SOLU-Medrol 125 mg Route: IVP; Site: right antecubital; ph 09:00 Follow up: Response: No adverse reaction ph 08:55 Drug: levofloxacin 500 mg Volume: 100 ml; Route: IVPB; Infused Over: 60 mins; Site: ph right antecubital; 10:00 Follow up: Response: No adverse reaction; IV Status: Completed infusion ph Disposition: 07/25/18 07:59 Hospitalization ordered by Elver Catalan for Inpatient Admission. Preliminary diagnosis are Dyspnea, Hypoxemia, Acute upper respiratory infection, unspecified, Pneumonia due to other specified bacteria - right lower lobe, Elevated white blood cell count. - Bed requested for Telemetry/MedSurg (Inpatient). - Status is Inpatient Admission. aj1 - Condition is Fair. - Problem is new. - Symptoms have improved. UTI on Admission? No Signatures: Dispatcher [employer] EDMS Jenae Martinez Angela, RN RN aj1 Diana Rivas RN RN 5 Kings Guo MD MD cha Hall, Patricia, RN RN Dian Russell RN RN Corrections: (The following items were deleted from the chart) 08:43 07:59 Hospitalization Ordered by Elver Catalan MD for Inpatient Admission. Preliminary [facility] diagnosis is Dyspnea; Hypoxemia; Acute upper respiratory infection, unspecified. Bed requested for Telemetry/MedSurg (Inpatient). Status is Inpatient Admission. Condition is Fair. Problem is new. Symptoms have improved. UTI on Admission? No. jose david 08:54 08:43 07/25/2018 07:59 Hospitalization Ordered by Elver Catalan MD for Inpatient 5 Admission. Preliminary diagnosis is Dyspnea; Hypoxemia; Acute upper respiratory infection, unspecified; Pneumonia due to other specified bacteria - right lower lobe. Bed requested for Telemetry/MedSurg (Inpatient). Status is Inpatient Admission. Condition is Fair. Problem is new. Symptoms have improved. UTI on Admission? No. jose david 09:40 08:54 07/25/2018 07:59 Hospitalization Ordered by Elver Catalan MD for Inpatient [facility] Admission. Preliminary diagnosis is Dyspnea; Hypoxemia; Acute upper respiratory infection, unspecified; Pneumonia due to other specified bacteria - right lower lobe. Bed requested for [facility] ER HOLD. Status is Inpatient Admission. Condition is Fair. Problem is new. Symptoms have improved. UTI on Admission? No. dm5 13:27 09:40 07/25/2018 07:59 Hospitalization Ordered by Elver Catalan MD for Inpatient bd Admission. Preliminary diagnosis is Dyspnea; Hypoxemia; Acute upper respiratory infection, unspecified; Pneumonia due to other specified bacteria - right lower lobe; Elevated white blood cell count. Bed requested for [facility] ER HOLD. Status is Inpatient Admission. Condition is Fair. Problem is new. Symptoms have improved. UTI on Admission? No. jose david 14:23 13:27 07/25/2018 07:59 Hospitalization Ordered by Elver Catalan MD for Inpatient aj1 Admission. Preliminary diagnosis is Dyspnea; Hypoxemia; Acute upper respiratory infection, unspecified; Pneumonia due to other specified bacteria - right lower lobe; Elevated white blood cell count. Bed requested for Telemetry/MedSurg (Inpatient). Status is Inpatient Admission. Condition is Fair. Problem is new. Symptoms have improved. UTI on Admission? No. bd
[2018-07-25] MEDS ORDERED: METHYLPREDNISOLONE 125 MG INJ ONE (08:50)
[2018-07-25] MEDS ORDERED: IPRATROPIUM BROM 0.5MG/2.5ML ONE (08:51)
[2018-07-25] MEDS ORDERED: NA CHLORIDE 0.9% 0 ML ONE (08:51)
[2018-07-25] MEDS ORDERED: LEVALBUTEROL 1.25 MG/3 ML NEB ONE (08:51)
[2018-07-25] MEDS ORDERED: OSELTAMIVIR 75 MG CAP ONE (08:51)
[2018-07-25] MEDS ORDERED: NA CHLORIDE 0.9% 1,000 ML ONE ×2 (08:51→12:47)
[2018-07-25] MEDS ORDERED: Levofloxacin500mg IV 500 MG/100 ML BAG IV ONE (08:51)
[2018-07-25 08:54] LABS: Absolute Lymphocytes (CBC) 0.7 K/uL (0.7-4.9); Absolute Monocytes 2.3 K/uL (0.1-1.3); Absolute Neutrophil 14.8 K/uL (1.8-8.0); Basophils % 0.3 % (0-1.3); Eosinophils % 0.1 % (0-4.4); Hematocrit 40.4 % (36.0-45.0); Lymphocytes % 3.8 % (15.3-44.8); MPV 9.7 fL (7.6-11.3); Monocytes % 12.7 % (3.3-12.3); RBC Red Blood Cell Count 4.56 M/uL (3.86-4.86)
[2018-07-25 08:55] LABS: Protime INR 1.22
[2018-07-25 09:04] LABS: ALT/SGPT 19 U/L (12-78); AST/SGOT 19 U/L (15-37); Albumin 2.7 g/dL (3.4-5.0); Alkaline Phosphatase 82 U/L (45-117); BUN Blood Urea Nitrogen 14 mg/dL (7-18); Bicarbonate 34 mmol/L (21-32); Bilirubin Direct 0.2 mg/dL (0-0.2); Bilirubin Total 0.7 mg/dL (0.2-1.0); Glucose Level 161 mg/dL (74-106); Magnesium 2.3 mg/dL (1.8-2.4); NT PRO-BNP 1691 pg/mL (<450); Potassium 4.2 mmol/L (3.5-5.1); Protein, Total 7.2 g/dL (6.4-8.2); Sodium Level 138 mmol/L (136-145); Troponin (Emerg Dept Use Only) < 0.02 ng/mL (0.0-0.045)
--- NOTE | 2018-07-25 09:12 | RAD REPORT ---
EXAM DESCRIPTION: [facility] Single View07/25/2018 8:16 am CLINICAL HISTORY: Cough COMPARISON: January 2018 FINDINGS: Right basilar consolidation Left lung appears clear of acute infiltrate The heart is normal size IMPRESSION: Right basilar consolidation consistent with pneumonia. This should be followed until it has cleared to help exclude post obstructive process/underlying mass
[2018-07-25] MEDS ORDERED: ONDANSETRON 4 MG/2 ML VIAL IV PRN (10:52)
[2018-07-25] MEDS ORDERED: ACETAMINOPHEN 325 MG TABLET PO PRN (10:52)
[2018-07-25] MEDS ORDERED: ALBUTEROL 2.5 MG/3 ML NEB SOL NEB PRN (10:52)
[2018-07-25] MEDS ORDERED: IPRATROPIUM BROM 0.5MG/2.5ML NEB PRN (10:52)
[2018-07-25 11:58] LABS: Urine Blood NEGATIVE (NEG); Urine Glucose NEGATIVE (NEG); Urine Protein 1+ (NEG); Urine pH 6.5 (5.0-7.0)
[2018-07-25] MEDS: CLINDAMYCIN INJ 900 MG in NA CHLORIDE 0.9% 50 ML IV SCH ×2 (12:30→17:30)
[2018-07-25] MEDS: NA CHLORIDE 0.9% 1,000 ML IV SCH ×2 (13:32→20:52)
[2018-07-25] MEDS: METHYLPREDNISOLONE 40 MG INJ IV SCH (17:30)
[2018-07-25] MEDS ORDERED: FAMOTIDINE 20 MG/2 ML VIAL IV SCH (21:00)
[2018-07-25] MEDS ORDERED: BRIMONIDINE TARTRATE 0.15% 5 ML EACH EYE SCH (21:00)
[2018-07-25] MEDS ORDERED: LATANOPROST 0.005% 2.5ML OPTH OPTH SCH (21:00)
[2018-07-25] MEDS ORDERED: HOME MED 1 EA UNK (Cyclosporine [Restasis] 1 DROP) EACH EYE SCH (21:00)
[2018-07-25] MEDS: DILTIAZEM HCL 120 MG SR CAP PO SCH (21:00)
[2018-07-25] MEDS: CARVEDILOL 25 MG TAB PO SCH (21:00)
[2018-07-25] MEDS: ATORVASTATIN 10 MG TAB PO SCH (21:00)
[2018-07-25] MEDS: FAMOTIDINE 20 MG TAB PO SCH (21:00)
[2018-07-25] MEDS: OSELTAMIVIR 75 MG CAP PO SCH (21:00)
[2018-07-25] MEDS: ENOXAPARIN 30 MG/0.3 ML SQ SCH (21:54)
[2018-07-25] MEDS: AZITHROMYCIN IV 500 MG in NA CHLORIDE 0.9% 250 ML IVPB SCH (21:55)
[2018-07-25] MEDS: CEFTRIAXONE/SWI 1gm 1 GM/10 ML SYR IVP SCH (21:55)
[2018-07-26] MEDS: NA CHLORIDE 0.9% 1,000 ML IV SCH ×2 (00:24→11:01)
[2018-07-26] MEDS: METHYLPREDNISOLONE 40 MG INJ IV SCH ×3 (00:24→18:12)
--- NOTE | 2018-07-26 02:17 | HP ---
Date of Admission: 07/25/2018 Chief Complaint: Shortness of breath. History Of Present Illness: An 78-year-old female patient, who came into emergency room with about 4 days' history of increasing shortness of breath and cough, congestion, and wheezing. She is coughin g up some mucus. No vomiting. No diarrhea. With worsening of symptoms, she came into emergency [place]ta[place] today after she was evaluated. She was diagnosed as having pneumonia and was admitted to the [facility]. I saw her in the emergency room this morning after this admission. Allergies: AMOXICILLIN CAUSING SWELLING OF MOUTH, LIPITOR CAUSING RASH OVER LEGS, LAUREN CAUSING RA SH, LEVAQUIN CAUSED BLURRED VISION AND SHE DID NOT FEEL GOOD WHILE TAKING IT; NITROFURANTOIN, DETAILS UNKNOWN; CRESTOR, RASH OVER LEGS; SULFA, DETAILS UNKNOWN. Medications: Advair 250/50 one puff 2 times a day, alprazolam 0.25 mg at bedtime as needed for sleep , aspirin 81 mg daily, carvedilol 25 mg 2 times a day, diltiazem ER 120 mg daily, furosemide 20 mg ta kes half a tablet every day, isosorbide mononitrate 30 mg daily, lisinopril 10 mg 2 times a day, Liva lo 2 mg daily, Pepcid 20 mg 2 times a day, prednisone 5 mg daily, Zyrtec 10 mg daily, and MiraLAX p.r .n. Past Medical History: Significant for type 2 diabetes mellitus, gastroesophageal reflux disease, eso phageal stenosis, hypertension, chronic diastolic congestive heart failure, diverticulosis, hyperlipi demia, aortic valve stenosis, coronary artery disease, and asthma. Past Surgical History: Appendectomy, tubal ligation, and tonsillectomy. Family History: Significant for hypertension, stroke, hypothyroidism, and kidney and bladder cancer. Social History: Negative for smoking and alcohol use. Review of Systems: Constitutional: As mentioned above. Respiratory: As mentioned above. All other systems reviewed and negative. Physical Examination: Vital Signs: When I saw her, her initial vital signs in the emergency room, temperature 99.2, pulse 77, respiratory rate 20, blood pressure 140/54, oxygen saturation when she came in for 79%. Subseque ntly with oxygen, it was 93%. General: Awake, alert, oriented, not in distress. HEENT: Head atraumatic, normocephalic. Conjunctivae nonerythematous. Sclerae white. Mouth, no thr ush or edema noted. Ears/Nose, no mass, lesion, discharge noted. Neck: Supple. No JVD, lymph nodes, bruit, thyromegaly noted. Lungs: Bilateral good equal air entry. Clear to auscultation. No rhonchi. Presence of rales in th e right lower lung region. Not using any accessory muscles of respiration. Heart: Normal heart sounds, no murmur or gallop. Abdomen: Soft, bowel sounds normal. No guarding, rigidity, tenderness, mass, hepatosplenomegaly, di stention, or bruit noted. Extremities: No leg edema. No calf tenderness. Skin: No rash, ulcer, cellulitis. Lymphatics: No lymph node enlargement in neck, supraclavicular, infraclavicular region. Neuro: No focal neurological deficit. Chest: Unremarkable. External Genitalia: Deferred. Rectal: Deferred. Laboratory Data: White count 17.9, hemoglobin 13.3, and platelets 274. INR 1.22. Sodium 138, potas sium 4.2, chloride 101, bicarb 34, BUN 14, creatinine 0.94, and glucose 161. Liver function tests un remarkable. Troponin less than 0.02. Procalcitonin 0.18. Urinalysis; 1+ protein, otherwise negativ e. Chest x-ray, right basilar consolidation consistent with pneumonia. Impression: 1.Pneumonia. 2.Mild intermittent asthma with acute exacerbation. 3.Coronary artery disease. 4.Aortic valve stenosis. 5.Type 2 diabetes mellitus. 6.Hypertension. 7.Hyperlipidemia. 8.Chronic diastolic congestive heart failure. 9.Allergic rhinitis. 10.Diverticulosis. 11.Gastroesophageal reflux disease. Plan: Admit the patient to hospital for further evaluation and management of this problem. The scooby ent is appropriate for inpatient and is expected to spend 2 midnights in hospital. We will go ahead and continue her home medications per order. DVT prophylaxis will be given per order. We will start empiric antibiotics. Oxygen, nebulizer treatment will be given. We will repeat blood work tomorrow . Chest x-ray will be repeated tomorrow, and I will see her tomorrow for followup. Details and plan of treatment discussed with her. She received Levaquin in the emergency room, but I will discontinu e that in view of her office record showing side effect from that. So, what we will do is we will go ahead and give her azithromycin and ceftriaxone. NYDIA/CHRISTINA Voice ID: [id number]
--- NOTE | 2018-07-26 05:36 | EKG ---
Test Date: 2018-07-25 Test Time: 08:42:52 Finish Photographer: GEGE MEASUREMENT RESULTS: Intervals: Rate: 80 [place]: 148 QRSD: 94 QT: 348 QTc: 401 [place]: P: 77 [place]: 148 QRS: 79 T: 68 INTERPRETIVE STATEMENTS: Normal sinus rhythm Normal ECG Compared to ECG 02/03/2018 23:07:05 Myocardial infarct finding no longer present Electronically Signed On 07-26-18 05:36:22 CDT by Andrés Frias
[2018-07-26 06:32] LABS: Potassium 4.2 mmol/L (3.5-5.1)
[2018-07-26 06:37] LABS: Absolute Lymphocytes (CBC) 0.7 K/uL (0.7-4.9); Absolute Monocytes 0.7 K/uL (0.1-1.3); Absolute Neutrophil 15.6 K/uL (1.8-8.0); Basophils % 0.1 % (0-1.3); Hematocrit 35.3 % (36.0-45.0); Lymphocytes % 4.2 % (15.3-44.8); MPV 10.1 fL (7.6-11.3); RBC Red Blood Cell Count 3.95 M/uL (3.86-4.86)
--- NOTE | 2018-07-26 06:54 | RAD REPORT ---
EXAM DESCRIPTION: RAD - Chest Single View - 07/26/2018 6:31 am CLINICAL HISTORY: Chest pain COMPARISON: July 25 TECHNIQUE: AP portable chest image was obtained 0614 hours . FINDINGS: Lung volumes are decreased from comparison. Focal opacification right base has substantial ly improved. There is still some remnant infiltrate. Heart and vasculature are normal. No measurable pleural effusion and no pneumothorax. No acute bony abnormality seen. No acute aortic findings suspec kiley. IMPRESSION: Significant clearing of right base infiltrate since prior day study.
[2018-07-26] MEDS ORDERED: MAGNESIUM HYDROXIDE 8% 30 ML PO PRN (07:22)
[2018-07-26] MEDS ORDERED: ALPRAZOLAM 0.25 MG TABLET PO PRN (07:22)
[2018-07-26] MEDS ORDERED: PITAVASTATIN CALCIUM 2 MG PO SCH (09:00)
[2018-07-26] MEDS: ISOSORBIDE MONO SR 30 MG TAB PO SCH ×2 (09:00→11:02)
[2018-07-26] MEDS: FAMOTIDINE 20 MG TAB PO SCH ×3 (09:00→20:55)
[2018-07-26] MEDS: CARVEDILOL 25 MG TAB PO SCH ×3 (09:00→20:55)
[2018-07-26] MEDS ORDERED: Levofloxacin500mg IV 500 MG/100 ML BAG IV SCH (09:00)
[2018-07-26] MEDS: ASPIRIN EC 81 MG TAB PO SCH ×2 (09:00→10:56)
[2018-07-26] MEDS: OSELTAMIVIR 75 MG CAP PO SCH ×3 (09:00→20:56)
[2018-07-26 09:17] LABS: Blood Morphology Comment NOT SEEN (NOT SEEN); Platelet Estimate ADEQ
[2018-07-26] MEDS: CEFTRIAXONE/SWI 1gm 1 GM/10 ML SYR IVP SCH ×2 (10:56→20:55)
[2018-07-26] MEDS: ENOXAPARIN 30 MG/0.3 ML SQ SCH (10:57)
[2018-07-26] MEDS: LISINOPRIL 10 MG TAB PO SCH (10:58)
[2018-07-26] MEDS: CETIRIZINE HCL 5 MG TABLET PO SCH (10:58)
[2018-07-26] MEDS: AZITHROMYCIN IV 500 MG in NA CHLORIDE 0.9% 250 ML IVPB SCH (11:11)
--- NOTE | 2018-07-26 12:53 | PN ---
Date of Progress Note: 07/26/2018 Subjective: The patient was seen this morning for followup. No new complaints or problems reported by her except she did not feel good this morning. She did not sleep well last night. Still has lot of cough, congestion, has not ambulated yet. Objective: Vital signs: Reviewed. HEENT: Unremarkable. Lungs: Bilateral good equal air entry. Presence of rales noted in right lower lung field, slightly better today than yesterday. Not using any accessory muscles of respiration. Heart: Sounds normal. Abdomen: Soft. Bowel sounds normal. No guarding, rigidity, tenderness, distention. Extremities: No leg edema. Laboratory Data: White count 17, hemoglobin 11.5, platelets 268. Sodium 137, potassium 4.2, chlorid e 105, bicarb 27, BUN 25, creatinine 1.02, glucose 216. Impression: 1.Pneumonia. 2.Mild intermittent asthma with acute exacerbation. 3.Hypertension. 4.Aortic valve stenosis. 5.Diabetes mellitus. Plan: We will go ahead and continue current medications. Continue oxygen nebulizer treatment, IV st eroid, and antibiotic. NYDIA/MODL Voice ID: [id number] Report ID: [id number]
[2018-07-26] MEDS: DILTIAZEM HCL 120 MG SR CAP PO SCH (20:55)
[2018-07-26] MEDS: ATORVASTATIN 10 MG TAB PO SCH (20:56)
[2018-07-27] MEDS: METHYLPREDNISOLONE 40 MG INJ IV SCH ×3 (00:52→16:57)
[2018-07-27] MEDS: NA CHLORIDE 0.9% 1,000 ML IV SCH (04:00)
[2018-07-27] MEDS: LISINOPRIL 10 MG TAB PO SCH ×2 (09:00→09:13)
[2018-07-27] MEDS: AZITHROMYCIN IV 500 MG in NA CHLORIDE 0.9% 250 ML IVPB SCH ×2 (09:00→16:58)
[2018-07-27] MEDS: CEFTRIAXONE/SWI 1gm 1 GM/10 ML SYR IVP SCH ×2 (09:00→21:00)
[2018-07-27] MEDS: ASPIRIN EC 81 MG TAB PO SCH (09:12)
[2018-07-27] MEDS: CETIRIZINE HCL 5 MG TABLET PO SCH (09:13)
[2018-07-27] MEDS: FAMOTIDINE 20 MG TAB PO SCH ×2 (09:13→20:43)
[2018-07-27] MEDS: CARVEDILOL 25 MG TAB PO SCH ×2 (09:14→20:42)
[2018-07-27] MEDS: ISOSORBIDE MONO SR 30 MG TAB PO SCH (09:14)
[2018-07-27] MEDS: ENOXAPARIN 30 MG/0.3 ML SQ SCH (09:14)
[2018-07-27] MEDS: OSELTAMIVIR 75 MG CAP PO SCH ×2 (09:21→20:42)
--- NOTE | 2018-07-27 09:25 | EKG ---
Test Date: 2018-07-26 Test Time: 11:23:22 Oim Consultant: NADIR MEASUREMENT RESULTS: Intervals: Rate: 59 [place]: 136 QRSD: 90 QT: 422 QTc: 417 [place]: P: 61 [place]: 136 QRS: 78 T: 74 INTERPRETIVE STATEMENTS: Sinus bradycardia Otherwise normal ECG Compared to ECG 07/25/2018 08:42:52 Sinus rhythm no longer present Electronically Signed On 07-27-18 09:21:56 CDT by Kenney Lawrence
--- NOTE | 2018-07-27 12:28 | RAD REPORT ---
EXAM DESCRIPTION: RAD - Chest Pa And Lat (2 Views) - 07/27/2018 12:10 pm CLINICAL HISTORY: pneumonia Chest pain. COMPARISON: Chest Single View dated 07/26/2018; Chest Single View dated 07/25/2018; Chest Single View dated 02/03/2018; Chest Pa And Lat (2 Views) dated 11/19/2016 FINDINGS: Right basilar lung opacity with a small right pleural effusion appears mildly improved com pared to 07/25/2018 study. Opacity and pleural fluid persists, however. A small left pleural effusion is also seen. The heart is mildly enlarged in size. No displaced fractures.
--- NOTE | 2018-07-27 15:47 | PN ---
Date of Progress Note: 07/27/2018 Subjective: The patient was seen this morning for followup. No new complaints or problems reported by patient. She was sitting at bedside. Her was with her. Objective: Vital Signs: Reviewed. HEENT: Examination unremarkable. Lungs: Bilateral good equal air entry. Presence of rales noted in right lower lung bob. Not usi ng any accessory muscles of respiration. Heart: Sounds normal. Abdomen: Soft. Bowel sounds normal. No guarding, rigidity, tenderness, or distention. Extremities: No leg edema. Laboratory Data: Chest x-ray done today shows improvement in right lower lobe pneumonia. Impression: 1.Pneumonia. 2.Mild intermittent asthma, with acute exacerbation. 3.Hypertension. Plan: We will go ahead and continue current steroid, antibiotics, and oxygen nebulizer treatment. Nafisa lemus will reassess her tomorrow morning. When I saw her today, she was on 2 L nasal cannula oxygen and we did try to lower it down to 1 L while I was in the room and she is on continuous pulse ox monitor. Her oxygen saturation remained between 92-94 percent and she did fine. Subsequently, when the nurs e tried to lower it down to 0.5 L/minute she had hypoxia with oxygen saturation dropping into 84-86 p ercent while she was sleeping and oxygen was increased to 1 L/minute and she is 92-94 percent on 1 L. The patient lost her IV access, but after looking at this oxygen level as well as on x-ray, the pat ient is not ready for discharge, so we will go ahead and have nursing staff re-establish IV access, c ontinue current IV steroid, antibiotic, and oxygen nebulizer treatment and I will see her tomorrow for followup. NYDIA/MODL Voice ID: [id number] Report ID: [id number]
[2018-07-27] MEDS: DILTIAZEM HCL 120 MG SR CAP PO SCH (20:43)
[2018-07-27] MEDS: ATORVASTATIN 10 MG TAB PO SCH (21:00)
[2018-07-27] MEDS ORDERED: LISINOPRIL 10 MG TAB PO SCH (21:00)
[2018-07-27] MEDS ORDERED: FUROSEMIDE 20 MG/ 2ML VIAL IV ONE (22:56)
[2018-07-28] MEDS: METHYLPREDNISOLONE 40 MG INJ IV SCH ×3 (00:45→16:25)
[2018-07-28 06:37] LABS: Absolute Lymphocytes (CBC) 0.5 K/uL (0.7-4.9); Absolute Monocytes 0.4 K/uL (0.1-1.3); Absolute Neutrophil 13.3 K/uL (1.8-8.0); Basophils % 0.2 % (0-1.3); Hematocrit 38.3 % (36.0-45.0); Lymphocytes % 3.4 % (15.3-44.8); MPV 9.8 fL (7.6-11.3); Monocytes % 3.1 % (3.3-12.3); RBC Red Blood Cell Count 4.34 M/uL (3.86-4.86)
[2018-07-28 06:46] LABS: Magnesium 2.6 mg/dL (1.8-2.4); Potassium 3.9 mmol/L (3.5-5.1)
[2018-07-28] MEDS: CETIRIZINE HCL 5 MG TABLET PO SCH (09:00)
[2018-07-28] MEDS: ASPIRIN EC 81 MG TAB PO SCH (09:00)
[2018-07-28] MEDS: CARVEDILOL 25 MG TAB PO SCH ×2 (09:00→21:00)
[2018-07-28] MEDS: ISOSORBIDE MONO SR 30 MG TAB PO SCH (09:00)
[2018-07-28] MEDS: ENOXAPARIN 30 MG/0.3 ML SQ SCH (09:42)
[2018-07-28] MEDS: CEFTRIAXONE/SWI 1gm 1 GM/10 ML SYR IVP SCH ×2 (09:42→20:40)
[2018-07-28] MEDS: OSELTAMIVIR 75 MG CAP PO SCH ×2 (09:43→20:40)
[2018-07-28] MEDS: AZITHROMYCIN IV 500 MG in NA CHLORIDE 0.9% 250 ML IVPB SCH (09:46)
[2018-07-28] MEDS ORDERED: MAGNESIUM HYDROXIDE 8% 30 ML PO ONE (10:28)
[2018-07-28] MEDS ORDERED: FLUTICASONE IH PRN (10:28)
[2018-07-28] MEDS ORDERED: SALMETEROL IH PRN (10:28)
--- NOTE | 2018-07-28 15:56 | PN ---
Date of Progress Note: 07/28/2018 Subjective: The patient was seen this morning for followup. Her daughter was with her at bedside. She is back on oxygen 2 L/minute. Yesterday, she was on 1 L, but during nighttime, her oxygen satura tion dropped down to like 88%, so oxygen was increased from 1-2 L/minute. 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 She is complaining of some c onstipation problem. Also complaining of some leg swelling. Objective: Vital Signs: Reviewed this morning. HEENT: Unremarkable. Lungs: Bilateral good equal air entry. Presence of rales noted in right lung bob. Left side danita ar to auscultation. Not using accessory muscles of respiration. Heart: Sounds normal. Abdomen: Soft. Bowel sounds normal. No guarding, rigidity, tenderness, distention. Extremities: Bilateral grade 1 pedal edema, more on the left leg than the right leg. Laboratory Data: White count 14.3, hemoglobin 12.7, platelets 371. Sodium 146, potassium 3.9, chlor diana 109, bicarb 33, BUN 29, creatinine 0.80, glucose 219. Impression: 1.Pneumonia. 2.Mild intermittent asthma, with acute exacerbation. 3.Constipation. 4.Paroxysmal atrial fibrillation. 5.Hypertension. 6.Coronary artery disease. 7.Aortic valve stenosis. Plan: We will go ahead and continue current DVT prophylaxis using Lovenox. Continue current oxygen, nebulizer treatment, antibiotic. She will start using her Advair inhaler that her family will bring from home and the patient would like to use her home medication supply instead of using medication f rom the hospital and appropriate nursing orders were written. The patient was instructed not to take prednisone considering she is taking IV steroids in the hospital. Ambulation was encouraged. Hopef ully, we might be able to start weaning off oxygen once her condition improves and respiratory therap ist to try it sometime later today to see if it is possible to wean off oxygen or not. Our plan is t o discharge her to go home hopefully in next day or 2 days as I suspect it will take that much time t o wean off oxygen and meanwhile we will continue to treat her pneumonia with IV antibiotics per order and asthma with inhaler, steroid, and nebulizer treatment. Lasix will be given for leg swelling pro blem, but she has used it from time to time. The patient had lot of questions and concerns about haily sing staff issues and spend a lot of time talking to her today. We will see her tomorrow for followgarth sparrow ACA/CHRISTINA Voice ID: [id number] Report ID: [id number]
[2018-07-28] MEDS: DILTIAZEM HCL 120 MG SR CAP PO SCH (16:26)
[2018-07-28] MEDS: FAMOTIDINE 20 MG TAB PO SCH (16:26)
[2018-07-28] MEDS: LISINOPRIL 10 MG TAB PO SCH (21:00)
[2018-07-28] MEDS: ATORVASTATIN 10 MG TAB PO SCH (21:00)
[2018-07-29] MEDS: METHYLPREDNISOLONE 40 MG INJ IV SCH ×3 (01:41→17:58)
[2018-07-29 06:49] VITALS: BMI 24.4
[2018-07-29] MEDS: FAMOTIDINE 20 MG TAB PO SCH ×2 (07:30→16:30)
[2018-07-29] MEDS ORDERED: FUROSEMIDE 20 MG/ 2ML VIAL IV ONE (07:33)
[2018-07-29] MEDS: CARVEDILOL 25 MG TAB PO SCH ×2 (08:40→21:00)
[2018-07-29] MEDS: ASPIRIN EC 81 MG TAB PO SCH (08:40)
[2018-07-29] MEDS: ISOSORBIDE MONO SR 30 MG TAB PO SCH (08:40)
[2018-07-29] MEDS: CETIRIZINE HCL 5 MG TABLET PO SCH (08:41)
[2018-07-29] MEDS: ENOXAPARIN 30 MG/0.3 ML SQ SCH (08:43)
[2018-07-29] MEDS: AZITHROMYCIN IV 500 MG in NA CHLORIDE 0.9% 250 ML IVPB SCH (08:44)
[2018-07-29] MEDS: CEFTRIAXONE/SWI 1gm 1 GM/10 ML SYR IVP SCH ×2 (08:44→19:51)
[2018-07-29] MEDS: OSELTAMIVIR 75 MG CAP PO SCH ×2 (09:36→19:52)
--- NOTE | 2018-07-29 12:25 | EKG ---
Test Date: 2018-07-28 Test Time: 05:29:07 Endband Cutter Hand: RT-O MEASUREMENT RESULTS: Intervals: Rate: 100 [place]: QRSD: 102 QT: 334 QTc: 430 [place]: P: [place]: QRS: 68 T: 11 INTERPRETIVE STATEMENTS: Atrial fibrillation with premature ventricular or aberrantly conducted complexes Abnormal ECG Compared to ECG 07/26/2018 11:23:22 Ventricular premature complex(es) now present Sinus bradycardia no longer present Electronically Signed On 07-29-18 12:24:55 CDT by Andrés Frias
[2018-07-29] MEDS ORDERED: AMLODIPINE 5 MG TAB PO ONE (12:46)
[2018-07-29] MEDS ORDERED: LISINOPRIL 10 MG TAB PO ONE (15:54)
[2018-07-29] MEDS: DILTIAZEM HCL 120 MG SR CAP PO SCH (17:00)
[2018-07-29] MEDS: cloNIDine HCl 0.1 MG TAB PO PRN (19:52)
[2018-07-29] MEDS: TIOTROPIUM 5 SPRAYS/INHALER IH SCH (21:00)
[2018-07-29] MEDS: ATORVASTATIN 10 MG TAB PO SCH (21:00)
[2018-07-29] MEDS: LISINOPRIL 10 MG TAB PO SCH (21:00)
[2018-07-30] MEDS: METHYLPREDNISOLONE 40 MG INJ IV SCH (00:30)
--- NOTE | 2018-07-30 02:40 | PN ---
Date of Progress Note: 07/29/2018 Subjective: The patient was seen this morning for followup, lying in bed, not in distress. Her daug hter was with her at bedside. She slept well last night. Continues to remain on oxygen because of h ypoxia problem. She did ambulate yesterday and she did have bowel movement yesterday. Objective: Vital Signs: Reviewed. HEENT: Unremarkable. Lungs: Bilateral good equal air entry. No wheezing. Presence of some rales noted in lower lung fie ld, more so on right side than the left side. Heart: Heart sounds normal. Abdomen: Soft. Bowel sounds normal. No guarding, rigidity, tenderness, or distention. Extremities: Bilateral trace leg edema. Impression: 1.Pneumonia. 2.Mild intermittent asthma, with acute exacerbation. 3.Hypertension. 4.Chronic diastolic congestive heart failure. Plan: We will go ahead and continue current antibiotic, inhaler, steroid, antibiotic nebulizer treat ment and IV dose of Lasix 20 mg was ordered x1. We will continue other current medications. Through out the course of day today, her blood pressure was elevated, so in the afternoon, 1 dose of amlodipi ne and subsequently 1 dose of lisinopril were ordered and then later on we added clonidine for p.r.n. purpose for hypertension. As of this evening, we will start her on Spiriva inhaler. We will see he r tomorrow for followup. Possible discharge to go home once we are able to wean off oxygen. Details were discussed with the patient. NYDIA/MODL Voice ID: [id number] Report ID: [id number]
[2018-07-30] MEDS: cloNIDine HCl 0.1 MG TAB PO PRN ×3 (05:45→21:26)
[2018-07-30 07:01] LABS: Potassium 3.9 mmol/L (3.5-5.1)
[2018-07-30] MEDS: FAMOTIDINE 20 MG TAB PO SCH ×2 (07:30→16:29)
[2018-07-30] MEDS: ISOSORBIDE MONO SR 30 MG TAB PO SCH (08:41)
[2018-07-30] MEDS: CARVEDILOL 25 MG TAB PO SCH ×2 (08:42→21:00)
[2018-07-30] MEDS: ASPIRIN EC 81 MG TAB PO SCH (08:42)
[2018-07-30] MEDS: ENOXAPARIN 30 MG/0.3 ML SQ SCH (08:43)
[2018-07-30] MEDS: predniSONE 20 MG TAB PO SCH ×2 (08:43→21:26)
[2018-07-30] MEDS: AZITHROMYCIN IV 500 MG in NA CHLORIDE 0.9% 250 ML IVPB SCH (08:44)
[2018-07-30] MEDS: CEFTRIAXONE/SWI 1gm 1 GM/10 ML SYR IVP SCH ×2 (08:44→21:25)
[2018-07-30] MEDS: CETIRIZINE HCL 5 MG TABLET PO SCH (08:45)
[2018-07-30] MEDS ORDERED: POTASSIUM 25 MEQ EFFERV TAB PO ONE (11:00)
[2018-07-30] MEDS: TIOTROPIUM 5 SPRAYS/INHALER IH SCH ×2 (14:20→21:00)
[2018-07-30] MEDS: DILTIAZEM HCL 120 MG SR CAP PO SCH (16:29)
[2018-07-30 21:00] VITALS: O2SAT 92
[2018-07-30] MEDS: LISINOPRIL 10 MG TAB PO SCH (21:00)
[2018-07-30] MEDS: ATORVASTATIN 10 MG TAB PO SCH (21:00)
--- NOTE | 2018-07-30 22:01 | PN ---
Date of Progress Note: 07/30/2018 Subjective: The patient was seen this morning for followup. She was lying in bed, not in any distre ss. Slept well last night. Continues to require oxygen for hypoxia. Had a bowel movement yesterday . No nausea, no vomiting. Objective: Vital Signs: Reviewed. HEENT: Examination unremarkable. Lungs: Bilateral good equal entry. Clear to auscultation. No rhonchi. No rales. Heart: Sounds normal. Abdomen: Soft. Bowel sounds normal. No guarding, rigidity, tenderness, or distention. Extremities: No leg edema. Laboratory Data: Sodium 143, potassium 3.9, chloride 103, bicarb 35, BUN 26, creatinine 0.86, glucos e 279. Impression: 1.Pneumonia. 2.Mild intermittent asthma, with acute exacerbation. 3.Hypertension. 4.Impaired fasting glucose. Plan: The patient is currently on IV steroid which is raising her blood sugar. As of today, we will discontinue IV steroid, start her on oral prednisone. Continue Advair. Spiriva was started last ni ght, but she did not take it last night, so she will start it today. We will go ahead and continue c urrent antibiotics. Ambulation was encouraged. Respiratory therapist to try to wean off oxygen. On ce oxygen is weaned off, we will be able to discharge her to go home. Continue current antihypertensive medication. NYDIA/MODL Voice ID: [id number] Report ID: [id number]
[2018-07-31] MEDS: cloNIDine HCl 0.1 MG TAB PO PRN ×2 (04:47→12:15)
[2018-07-31 06:53] LABS: Potassium 4.1 mmol/L (3.5-5.1)
[2018-07-31] MEDS: FAMOTIDINE 20 MG TAB PO SCH (07:21)
[2018-07-31] MEDS: ISOSORBIDE MONO SR 30 MG TAB PO SCH (07:21)
[2018-07-31] MEDS: ASPIRIN EC 81 MG TAB PO SCH (08:24)
[2018-07-31] MEDS: CARVEDILOL 25 MG TAB PO SCH (08:25)
[2018-07-31] MEDS: CEFTRIAXONE/SWI 1gm 1 GM/10 ML SYR IVP SCH (08:26)
[2018-07-31] MEDS: CETIRIZINE HCL 5 MG TABLET PO SCH (08:26)
[2018-07-31] MEDS: ENOXAPARIN 30 MG/0.3 ML SQ SCH (08:26)
[2018-07-31] MEDS: predniSONE 20 MG TAB PO SCH (08:27)
[2018-07-31] MEDS: AZITHROMYCIN IV 500 MG in NA CHLORIDE 0.9% 250 ML IVPB SCH (09:17)
[2018-07-31 12:44] VITALS: TEMP 96.6
[2018-07-31 14:50] VITALS: BP 158/54
--- NOTE | 2018-08-01 06:57 | DS ---
Date of Discharge: 07/31/2018 Subjective: The patient was seen this morning for followup. No new complaints or problems reported. She has not used any oxygen all day yesterday, and this morning when I saw her, she was still not u sing oxygen. She was on continuous pulse ox monitor, and while I was in room with her, her oxygen sa turation was ranging anywhere from 92% to 95%. She ambulates well. Denies any abdominal pain, nause a, vomiting, diarrhea. Objective: Vital Signs: Reviewed. HEENT: Unremarkable. Lungs: Clear to auscultation. No rhonchi. No rales. Heart: Sounds normal. Abdomen: Soft. Bowel sounds normal. No guarding, rigidity, tenderness, distention. Extremities: No leg edema. Laboratory Data: Last chemistry today, sodium 143, potassium 4.1, chloride 104, bicarb 35, BUN 25, c reatinine 0.78, glucose 231. White count when she first came in was 17.9, hemoglobin 13.3, platelets 274, and on 07/28/2018, white count was 14.3, hemoglobin 12.7, platelets 371. Hospital Course: An 78-year-old female patient admitted to the hospital after she presented to emerg ency room with complaints of shortness of breath. Please see dictated H and P for more information. The patient was admitted to the hospital with pneumonia, and she had exacerbation of her mild interm ittent asthma. She was treated with IV antibiotics, oxygen nebulizer treatment. Her home medication s were continued. Cultures remained negative. Her influenza test was negative. Her pneumonia start ed improving with appropriate antibiotics, which were azithromycin and ceftriaxone. We gave her IV s teroids also to help with her acute exacerbation of mild intermittent asthma. Physical Therapy was c onsulted. She started ambulating well. She had some insomnia problem and alprazolam was given to he r during this hospitalization and that actually helped her very well with her insomnia problem. She did require oxygen use up until last 36 hours prior to the discharge; up until that point, she requir ed oxygen, but we continued to work on trying to wean off her oxygen. At home, she has Advair inhale r that she uses it from time to time when she gets sick, and she did start using her Advair while she was in the hospital, and we actually added Spiriva inhaler in last 2 to 3 days and she started using that as well. From IV steroid, we changed it to oral steroid in last 2 to 3 days. She had 1 episod e of paroxysmal atrial fibrillation over the weekend. After that, she has not had any atrial fibrill ation. In last few days, we had a lot of trouble with her blood pressure going up, and she required extra uses of antihypertensive medications including amlodipine, extra dose of lisinopril, and p.r.n. use of clonidine. Overall, she is feeling much better, medically stable for discharge with followin g discharge medications and instructions. 1.Continue all prior home medications. 2.Amlodipine 5 mg p.o. daily. 3.Cefuroxime 250 mg p.o. twice a day for 1 week. 4.Spiriva 1 puff daily. 5.Clonidine 0.1 mg 3 times a day as needed for systolic blood pressure higher than 150. 6.Prednisone 10 mg tablet, the patient to take 3 tablets daily for 4 days, then 2 tablets daily for 4 days, then 1 tablet daily for 4 days, then stop, and after that to restart her usual dose of predni sone 5 mg daily. 7.Follow up at my office in 1 week. Final Diagnoses: 1.Pneumonia. 2.Mild intermittent asthma, with acute exacerbation. 3.Paroxysmal atrial fibrillation. 4.Coronary artery disease. 5.Hypertension. 6.Type 2 diabetes mellitus. 7.Hyperlipidemia. 8.Congestive heart failure, chronic, diastolic. 9.Aortic valve stenosis. 10.Allergic rhinitis. 11.Diverticulosis. 12.Gastroesophageal reflux disease. NYDIA/MODL Voice ID: [id number] Report ID: [id number]
== END 2018-07-31 14:40 | disposition home or self-care (01) | DRG 194 ==
LOC: ER 07:24 → ERHOLD 08:03 → 4TH 14:11
PROVIDERS: ADMIT Internal Medicine; ATTEND Internal Medicine
DX: J18.9 Pneumonia, unspecified organism (principal); J45.21 Mild intermittent asthma with (acute) exacerbation; I50.32 Chronic diastolic (congestive) heart failure; I48.0 Paroxysmal atrial fibrillation; I25.10 Atherosclerotic heart disease of native coronary artery without angina pectoris; E11.9 Type 2 diabetes mellitus without complications; E78.5 Hyperlipidemia, unspecified; I35.0 Nonrheumatic aortic (valve) stenosis; J30.9 Allergic rhinitis, unspecified; K57.90 Diverticulosis of intestine, part unspecified, without perforation or abscess without bleeding; K21.9 Gastro-esophageal reflux disease without esophagitis; I11.0 Hypertensive heart disease with heart failure; Z88.2 Allergy status to sulfonamides
CPT/HCPCS: 36415; 71045; 71046; 80048; 80076; 81003; 83735; 83880; 84145; 84484; 85025; 85610; 87040; 87804; 93005; 94640; 94760; 96365; 96375; 97161; 99285; J0456; J0696; J1650; J1940; J2920; J2930; J7030; J7512

== ENCOUNTER 2018-12-30 02:20 | Emergency (ER) | payer OTHER ==
--- OUTSIDE RECORDS SUMMARY | 2018-12-30 02:23 | XMS REPORT | Clinical Summary ---
:1940 Author Organization [facility] Address [address] [place] [address] Care Team Providers Name Role Phone Elver Catalan MD Primary Care Provider Allergies Active Allergy Reactions Severity Noted Date Comments Amoxicillin-Pot Clavulanate 02/18/2016 Ampicillin 02/18/2016 Cephalosporins 02/18/2016 Duract 02/18/2016 Penicillin G 02/18/2016 Sulfa (Sulfonamide Antibiotics) 02/18/2016 Medications Medication Sig Dispensed Refills Start End Date Status Date brimonidine PUT 1 DROP INTO 1 Active (ALPHAGAN) 0.15 % BOTH EYES EVERY 6 ophthalmic 12 HOURS solution latanoprost USE 1 DROP IN 0 Active (XALATAN) 0.005 % BOTH EYES AT 6 ophthalmic BEDTIME solution predniSONE Take 5 mg by 3 Active (DELTASONE) 5 MG mouth once 6 tablet daily. MULTIVIT Take by mouth. 0 Active &MINERALS/FERROUS FUM (MULTI VITAMIN ORAL) CALCIUM Take 600 mg by 0 Active CARBONATE/VITAMIN mouth 2 (two) D3 (CALCIUM 600 + times a day. D,3, ORAL) aspirin (ECOTRIN) Take 81 mg by 0 Active 81 MG enteric mouth daily. coated tablet isosorbide Take 1 tablet 90 tablet 3 04/03/20 Active mononitrate (30 mg total) 8 19 (IMDUR) 30 MG 24 by mouth every hr tablet morning. lisinopril TAKE 1 TABLET 90 tablet 0 Active (PRINIVIL,ZESTRIL) BY MOUTH EVERY 9 20 mg DAY AT NIGHT tabletIndications: Coronary artery disease involving [place] coronary artery of [place] heart without angina pectoris, Essential hypertension, Aortic valve disease, Bilateral carotid artery stenosis diltiazem CD TAKE 1 90 capsule 3 Active (CardIZEM CD) 180 CAPSULE(S) 9 MG 24 hr EVERY DAY BY capsuleIndications ORAL ROUTE AT : Coronary artery BEDTIME. disease involving [place] coronary artery of [place] heart without angina pectoris carvedilol (COREG) TAKE 1 TABLET 180 tablet 3 Active 25 MG BY MOUTH TWICE 9 tabletIndications: A DAY Essential hypertension pitavastatin Take 2 mg by 0 Active calcium (LIVALO) 2 mouth nightly. mg tablet MULTIVIT,[id number] Take by mouth. 0 Active [id number] ORAL pantoprazole Take 1 tablet 90 tablet 3 12/23/19 Active (PROTONIX) 40 MG (40 mg total) 9 20 EC by mouth daily. tabletIndications: Dysphagia, unspecified type, Schatzki's ring, Hiatus hernia syndrome NORVASC 5 mg TAKE 1 3 12/24/19 Discontinued tablet TABLET(S) EVERY 6 19 DAY BY ORAL ROUTE. clopidogrel Take 75 mg by 3 10/23/19 Discontinued (PLAVIX) 75 mg mouth once 10 30 (Discontinued by tablet daily. another clinician) ciprofloxacin HCl Take 250 mg by 0 10/23/19 Discontinued (CIPRO) 250 MG mouth every 12 10 30 (Discontinued by tablet (twelve) hours. another clinician) diltiazem CD TAKE 1 6 10/10/19 Discontinued (CardIZEM CD) 180 CAPSULE(S) 6 (Reorder) MG 24 hr capsule EVERY DAY BY ORAL ROUTE AT BEDTIME. gabapentin Take 100 mg by 3 10/23/19 Discontinued (NEURONTIN) 100 MG mouth 2 (two) 6 (Discontinued by capsule times a day. another clinician) LIVALO 2 mg tablet 1 mg nightly. 0 10/23/19 Discontinued 6 (Discontinued by another clinician) fluticasone-salmet Inhale 1 puff 2 0 12/24/19 Discontinued miguel a (ADVAIR) (two) times a 19 250-50 mcg/dose day. DISKUS famotidine Take 20 mg by 0 10/23/19 Discontinued (PEPCID) 20 MG mouth 2 (two) 19 (Discontinued by tablet times a day. another clinician) LORATADINE Take by mouth. 0 12/24/19 Discontinued (CLARITIN ORAL) 19 cycloSPORINE Administer 1 0 12/24/19 Discontinued (RESTASIS) 0.05 % drop to both 19 ophthalmic eyes 2 (two) emulsion times a day. potassium chloride Take 10 mEq by 0 12/24/19 Discontinued (K-DUR,KLOR-CON) mouth daily. 19 10 MEQ CR tablet ALPRAZolam (XANAX) Take 0.25 mg by 0 12/24/19 Discontinued 0.25 MG tablet mouth nightly 19 as needed for anxiety. TRIAMCINOLONE into each 0 10/23/19 Discontinued ACETONIDE nostril. 19 (Discontinued by (NASACORT NASL) another clinician) diltiazem CD Take 1 capsule 90 capsule 3 04/11/20 Discontinued (CardIZEM CD) 120 (120 mg total) 7 18 (Reorder) MG 24 hr capsule by mouth once daily. lisinopril Take 1 tablet 90 tablet 3 04/11/20 Discontinued (PRINIVIL,ZESTRIL) (5 mg total) by 7 18 (Reorder) 5 mg tablet mouth once daily. BUMETanide (BUMEX) Take 1 tablet 30 tablet 11 09/26/19 1 MG (1 mg total) by 8 19 tabletIndications: mouth daily. SOB (shortness of breath), Edema, unspecified type, Aortic valve disorder, Bilateral carotid artery disease (HCC), CAD in [place] artery carvedilol (COREG) Take 1 tablet 180 tablet 3 11/03/19 Discontinued 25 MG (25 mg total) 8 19 (Reorder) tabletIndications: by mouth 2 Essential (two) times a hypertension day. isosorbide Take 1 tablet 30 tablet 0 04/03/20 Discontinued mononitrate (30 mg total) 8 18 (Reorder) (IMDUR) 30 MG 24 by mouth every hr tablet morning. lisinopril TAKE 1 TABLET 90 tablet 3 04/23/20 Discontinued (PRINIVIL,ZESTRIL) BY MOUTH EVERY 8 18 (Dose 5 mg tablet DAY adjustment) diltiazem CD TAKE ONE 90 capsule 3 10/23/19 Discontinued (CardIZEM CD) 120 CAPSULE BY 8 19 (Dose MG 24 hr capsule MOUTH EVERY DAY adjustment) lisinopril Take 1 tablet 90 tablet 3 07/30/19 Discontinued (PRINIVIL,ZESTRIL) (20 mg total) 8 19 (Reorder) 20 mg by mouth tabletIndications: nightly. 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 carvedilol (COREG) TAKE 1 TABLET 180 tablet 3 12/24/19 Discontinued 25 MG BY MOUTH TWICE 9 19 tabletIndications: A DAY Essential hypertension omeprazole Take 20 mg by 0 12/24/19 Discontinued (PriLOSEC) 20 MG mouth daily. 19 capsule Active Problems Problem Noted Date Schatzki's ring 12/23/2018 Edema 10/02/2017 Bilateral carotid bruits 01/30/2017 Stented coronary artery 07/25/2016 Essential hypertension 04/14/2016 Aortic valve disorder 02/18/2016 Bilateral carotid artery disease 02/18/2016 Chest pain 02/18/2016 Coronary artery disease involving [place] coronary artery of [place] heart 02/17 without angina pectoris SOB (shortness of breath) 02/18/2016 Presence of stent in coronary artery 02/18/2016 Vasculitis 02/18/2016 Dysphagia Hiatus hernia syndrome Carotid arterial disease Encounters Date Type Specialty Care Team Description 12/23/2018 Hospital Encounter Radiology Vitor Alicia Dysphagia, unspecified type; MD Lexx Conner; Hiatus hernia syndrome 12/23/2018 Office Visit Gastroenterology Vitor Alicia Dysphagia, unspecified type (Primary Dx); MD Lexx Conner; Hiatus hernia syndrome 11/05/2018 Refill Cardiology Nettie Pfeiffer, Med Refill 11/02/2018 Refill Cardiology Nettie Pfeiffer, Med Refill 10/29/2018 Orders Only Cardiology Nettie Pfeiffer MD 10/28/2018 Telephone Cardiology Radha Be, Medication Reaction MA 10/22/2018 Office Visit Cardiology Nettie Pfeiffer, Coronary artery disease involving [place] coronary artery of [place] heart without angina pectoris (Primary Dx); Essential hypertension; Bilateral carotid artery stenosis; Aortic valve disorder 10/21/2018 Refill Cardiology Nettie Pfeiffer, Med Refill 10/17/2018 Orders Only Cardiology Radha Be, MOE 10/09/2018 Orders Only Cardiology Narciso Farfan MA 07/29/2018 Refill Cardiology Nettie Pfeiffer, Med Refill 04/23/2018 Office Visit Cardiology Nettie Pfeiffer, Coronary artery disease involving [place] coronary artery of [place] heart without angina pectoris (Primary Dx); Essential hypertension; Aortic valve disease; Bilateral carotid artery stenosis 04/11/2018 Refill Cardiology Nettie Pfeiffer, Med Refill 04/03/2018 Refill Cardiology Nettie Pfeiffer, Med Refill 03/15/2018 Office Visit Cardiology Nettie Pfeiffer, Essential hypertension (Primary Dx); MD JHAVERI (aortic valve disease); Bilateral carotid artery disease, unspecified type (HCC); Coronary artery disease involving [place] coronary artery of [place] heart without angina pectoris; Stented coronary artery 03/13/2018 Refill Cardiology Radha Be, Hypertension MA after 12/29/2017 Family History Medical History Relation Name Comments [...] Vital Signs Vital Sign Reading Time Taken Comments Blood Pressure 172/62 12/23/2018 2:26 PM CDT Pulse 75 12/23/2018 2:26 PM CDT Temperature 36.8 C (98.2 F) 12/23/2018 2:26 PM CDT Respiratory Rate - - Oxygen Saturation - - Inhaled Oxygen Concentration - - Weight 58.5 kg (129 lb) 12/23/2018 2:26 PM CDT Height 165.1 cm (5' 5") 10/22/2018 10:52 AM CDT Body Mass Index 21.47 10/22/2018 10:52 AM CDT Plan of Treatment Date Type Specialty Care Team Description 01/01/2019 External Contact Gastroenterology Vitor Alicia MD [address] [facility] [address] [place] [address] [phone] 04/21/2019 Appointment Procedural Cardiology Nettie Pfeiffer MD [address] [facility] [address] [place] [address] [phone] 04/22/2019 Appointment Procedural Cardiology Nettie Pfeiffer MD [address] [facility] [address] [place] [address] [phone] 04/22/2019 Office Visit Cardiology Nettie Pfeiffer MD [address] [facility] [address] [place] [address] [phone] Health Maintenance Due Date Last Done Comments SHINGLES VACCINES (#1) 1988 65+ PNEUMOCOCCAL VACCINE (1 of 2 - PCV13) 2003 INFLUENZA VACCINE 12/12/2018 Procedures Procedure Name Priority Date/Time Associated Comments Diagnosis FL ESOPHAGRAM COMPLETE Routine 12/23/2018 4:08 Dysphagia, Results for this PM CDT unspecified type procedure are in Schatzki's ring the results Hiatus hernia section. syndrome US CAROTID DUPLEX Routine 10/29/2018 US CAROTID DUPLEX Routine 10/22/2018 10:58 Coronary artery Results for this BILATERAL AM CDT disease involving procedure are in [place] coronary the results artery of [place] section. heart without angina pectoris Essential hypertension Aortic valve disease Bilateral carotid artery stenosis ECHOCARDIOGRAM 2D Routine 10/21/2018 5:01 Coronary artery Results for this COMPLETE W MMODE PM CDT disease involving procedure are in SPECTRAL COLOR DOPPLER [place] coronary the results (22858) artery of [place] section. heart without angina pectoris Essential hypertension Aortic valve disease Bilateral carotid artery stenosis US CAROTID DUPLEX Routine 04/23/2018 11:35 Coronary artery Results for this BILATERAL AM DIRECTOR PEOPLESOFT disease involving procedure are in [place] coronary the results artery of [place] section. heart without angina pectoris AVD (aortic valve disease) Bilateral carotid artery disease (HCC) ECHOCARDIOGRAM 2D Routine 04/19/2018 5:39 Coronary artery Results for this COMPLETE W MMODE PM DIRECTOR PEOPLESOFT disease involving procedure are in SPECTRAL COLOR DOPPLER [place] coronary the results (34938) artery of [place] section. heart without angina pectoris AVD (aortic valve disease) Bilateral carotid artery disease (HCC) after 12/29/2017 Results FL Esophagram Complete (12/23/2018 4:08 PM CDT) Specimen Narrative Performed At EXAMINATION:FL ESOPHAGRAM COMPLETE RADIANT CLINICAL HISTORY:R13.10 Dysphagiaunspecified, K22.2 Esophageal obstruction, Dysphagiaunexplained COMPARISON:None. TECHNIQUE:Esophagram was performed with effervescent granules and barium. RADIATION DOSE:2 minutes of fluoroscopic time.9 fluoroscopic exposures. FINDINGS: 1.Esophagus:The esophagus is normally distensible. Note is made of a mildly prominent cricopharyngeal bar. There is no obstructing esophageal mass or stricture otherwise.Normal motility.No mucosal abnormality identified. 2.Gastroesophageal junction:GE junction is patent. There is a small sliding-type hiatal hernia. Moderate gastroesophageal reflux with provocative maneuvers. IMPRESSION: 1.Mildly prominent cricopharyngeal bar. 2.Small sliding-type hiatal hernia. 3.Moderate gastroesophageal reflux. [facility]-[id number] Procedure Note Interface, Radiology Results Incoming - 12/23/2018 4:54 PM CDT EXAMINATION: FL ESOPHAGRAM COMPLETE CLINICAL HISTORY: R13.10 Dysphagia unspecified, K22.2 Esophageal obstruction , Dysphagia unexplained COMPARISON: None. TECHNIQUE: Esophagram was performed with effervescent granules and barium. RADIATION DOSE: 2 minutes of fluoroscopic time. 9 fluoroscopic exposures. FINDINGS: 1. Esophagus: The esophagus is normally distensible. Note is made of a mildly prominent cricopharyngeal bar. There is no obstructing esophageal mass or stricture otherwise. Normal motility. No mucosal abnormality identified. 2. Gastroesophageal junction: GE junction is patent. There is a small sliding -type hiatal hernia. Moderate gastroesophageal reflux with provocative maneuvers. IMPRESSION: 1. Mildly prominent cricopharyngeal bar. 2. Small sliding-type hiatal hernia. 3. Moderate gastroesophageal reflux. [facility]-[id number] Performing Organization Address City/State/Zipcode Phone Number [facility] [address] [place] [address] carotid duplex (10/29/2018)Only the most recent of3 resultswithin the time period is included. Narrative Performed At Echocardiogram complete w contrast and 3D if needed (10/21/2018 5:01 PM CDT) Specimen Narrative Performed At [facility] Echocardiography Report Pat.Name:HANANE MCCLENDON Pat.ID:[id number] St.Date: 10/21/2018 Refer.MD:NETTIE PFEIFFER MD Exam Time: 10:07:00 AM Study Type:Routine Echo Height:65inWeight: 135lb BSA: 1.68 m2 DOBAge:1940,78Y Sex: FEMALEBP:179/75 HR:58 bpm Sonogrphr: SANTA Jacobs FASE Pat. Stat.:OutpatientRoom:[place] Study Status:Final Echo Event ID:[id number] Order ID:[id number] Reason for Study:Aortic Stenosis Procedures:2D Echo, Colorflow Doppler Race:C SUMMARY: Estimated EF is >70%. Moderate to severe aortic valve stenosis. Diastolic dysfunction Grade I (Mild): Impaired relaxation with normal LV filling pressures. Unchanged from Apr 2018. FINDINGS: LV: LV size is normal. There is mild concentric LV hypertrophy. LVEF is normal. Overall wall motion is hyperdynamic. EstimatedEF is >70%. RV: RV systolic function is normal. RV wall motion is normal. LA: LA volume is mild to moderately enlarged. RA: RA size is normal. CHARISSE: No pericardial effusion. AV: Severe thickening and calcification of AV leaflets. Tri cuspidaortic valve. Mild aortic regurgitation. Moderate to severeaortic valve stenosis. Estimated mean aortic valve liklwxpl61 mmHg with a valve area of 0.9 cm2. MV: Mild thickening and calcification of mitral leaflets. Mild mitralannular calcification. Mild mitral regurgitation. PV: Pulmonic valve not well seen. TV: No structural TV abnormalities noted. [place]: Diastolic dysfunction Grade I (Mild): Impaired relaxation withnormal LV filling pressures. Other:PA systolic pressure cannot be calculated. MEASUREMENTS: 2D Parasternal Long Britt Ao An2 cmIVSd 1.1 cm Ao Rtd 2.8 cmIndex1.7 cm/m LVPWd1.2 cm LVOT 2 cmLA Ds3.6 cm LVIDd4 cmIndex2.4 cm/m LV Konr163 g(87-129) LVIDs2.3 cmLVM Index 92.8 g/m2 LV%fs 41.6 % RWT0.6 LA Sng Plane LA Area 20 cm2(8.8-23.4) LA Vol66.8 ml Index39.8 ml/m LA LngAx 5.2 cm Sng Plane Area19.7 cm2 DOPPLER AV For Flow/FELISA AV pkVel 361.4 cm/s (100-170) AV AC/ET 0.3 AV mnVel 266.1 cm/Eliana TVI97.2 cm AV pkPG 52.2 mmHgAVpkAcRt 8216.1 cm/s2 AV Mean G 32.8 mmHgAV ZuLf996.8 cm/s2 AV AC101 msec (83-118) AV Area0.9 cm2(3-5) AV ET365 msec LVOT For Flow LVOT Area3.1 cm2 LVOT SV 89.6 ml LVOTpkVel 93.9 cm/sHR61.6 bpm LVOTpkPG 3.5 mmHgLVOT CO5.5 l/min LVOTmnPG 2.2 mmHgLVOT CI3.3 l/m/m2 LVOT TVI28.5 cm Signed 10/22/2018 09:27 AM Michelet Sinclair M.D. Procedure Note Interface, Radiology Results In - 10/22/2018 9:27 AM CDT [facility] Echocardiography Report Pat.Name: HANANE MCCLENDON Pat.ID: [id number] .Date: 10/21/2018 Refer.MD: NETTIE PFEIFFER MD Exam Time: 10:07:00 AM Study Type:Routine Echo Height: 65in Weight: 135lb BSA: 1.68 m2 Age: 1 1940,78Y Sex: FEMALE BP: 179/75 HR: 58 bpm Sonogrphr: SANTA Jacobs FASE Pat. Stat.:Outpatient Room: [place] Study Status:Final Echo Event ID:[id number] Order ID: [id number] Reason for Study:Aortic Stenosis Procedures:2D Echo, Colorflow Doppler Race: C SUMMARY: Estimated EF is >70%. Moderate to severe aortic valve stenosis. Diastolic dysfunction Grade I (Mild): Impaired relaxation with normal LV filling pressures. Unchanged from Apr 2018. FINDINGS: LV: LV size is normal. There is mild concentric LV hypertrophy. LV EF is normal. Overall wall motion is hyperdynamic. Estimated EF is >70%. RV: RV systolic function is normal. RV wall motion is normal. LA: LA volume is mild to moderately enlarged. RA: RA size is normal. CHARISSE: No pericardial effusion. AV: Severe thickening and calcification of AV leaflets. Tri cuspid aortic valve. Mild aortic regurgitation. Moderate to severe aortic valve stenosis. Estimated mean aortic valve gradient 33 mmHg with a valve area of 0.9 cm2. MV: Mild thickening and calcification of mitral leaflets. Mild mitral annular calcification. Mild mitral regurgitation. PV: Pulmonic valve not well seen. TV: No structural TV abnormalities noted. [place]: Diastolic dysfunction Grade I (Mild): Impaired relaxation with normal LV filling pressures. Other: PA systolic pressure cannot be calculated. MEASUREMENTS: 2D Parasternal Long Britt Ao An 2 cm IVSd 1.1 cm Ao Rtd 2.8 cm Index 1.7 cm/m LVPWd 1.2 cm LVOT 2 cm LA Ds 3.6 cm LVIDd 4 cm Index 2.4 cm/m LV Mass 156 g (87-129) LVIDs 2.3 cm LVM Index 92.8 g/m2 LV%fs 41.6 % RWT 0.6 LA Sng Plane LA Area 20 cm2 (8.8-23.4) LA Vol 66.8 ml Index 39.8 ml/m LA LngAx 5.2 cm Sng Plane Area 19.7 cm2 DOPPLER AV For Flow/FELISA AV pkVel 361.4 cm/s (100-170) AV AC/ET 0.3 AV mnVel 266.1 cm/s AV TVI 97.2 cm AV pkPG 52.2 mmHg AVpkAcRt 8216.1 cm/s2 AV Mean G 32.8 mmHg AV DeRt 988.8 cm/s2 AV AC 101 msec (83-118) AV Area 0.9 cm2 (3-5) AV ET 365 msec LVOT For Flow LVOT Area 3.1 cm2 LVOT SV 89.6 ml LVOTpkVel 93.9 cm/s HR 61.6 bpm LVOTpkPG 3.5 mmHg LVOT CO 5.5 l/min LVOTmnPG 2.2 mmHg LVOT CI 3.3 l/m/m2 LVOT TVI 28.5 cm Signed 10/22/2018 09:27 AM Michelet Sinclair M.D. Performing Organization Address City/State/Zipcode Phone Number [facility] [address] [place] [address] Echocardiogram complete w contrast and 3D if needed (04/19/2018 5:39 PM DIRECTOR PEOPLESOFT) Specimen Narrative Performed At [facility] Echocardiography Report Pat.Name:HANANE MCCLENDON Pat.ID:[id number] .Date: 04/19/2018 Refer.MD:NETTIE PFEIFFER MD Exam Time: 4:05:00 PMStudy Type:Routine Echo Height:65inWeight: 137lb BSA: 1.69 m2 DOBAge:1940,77Y Sex: FEMALEBP:157/67 HR:51 bpm Sonogrphr: SANTA Jacobs FASE Pat. Stat.:OutpatientRoom:[place] Study Status:Final Echo Event ID:[id number] Order ID:[id number] Reason for Study:Aortic stenosis Procedures:2D Echo, Colorflow [...] is borderline elevated. MEASUREMENTS: 2D Parasternal Long Britt LVOT 2 cmLA Ds3.7 cm LVIDd4.6 cmIndex2.7 cm/m Ao An2.4 cm LVIDs2.4 cmAo Rtd 2.9 cm Index1.7 cm/m LV%fs 48.5 % LV Zrof308.7 g(87-129) IVSd 0.9 cmLVM Index 96.3 g/m2 LVPWd1.1 cmRWT0.5 LA Sng Plane LA Area 20 cm2(8.8-23.4) LA Vol58.5 ml Index34.6 ml/m LA LngAx 5.6 cm DOPPLER AV For Flow/FELISA AV pkVel 406.8 cm/s (100-170) AV AC/ET 0.3 AV mnVel 269.8 cm/Eliana TVI 110.1 cm AV pkPG 66.2 mmHgAVpkAcRt 6494.9 cm/s2 AV Mean G 36.5 mmHgAV XtVd144.8 cm/s2 AV AC103 msec (83-118) AV Area0.8 cm2(3-5) AV ET408 msec LVOT For Flow LVOT Area3.1 cm2 LVOT SV 85.8 ml ALPMkvCyb905.6 cm/sHR50 bpm LVOTpkPG 4.2 mmHgLVOT CO4.3 l/min LVOTmnPG 2.3 mmHgLVOT CI2.5 l/m/m2 LVOT TVI27.3 cm Signed 04/22/2018 11:44 AM Michelet Sinclair M.D. Procedure Note Interface, Radiology Results In - 04/22/2018 11:45 AM [facility] Ech[facility] Report Pat.Name: HANANE MCCLENDON Pat.ID: [id number] .Date: 04/19/2018 Refer.MD: NETTIE PFEIFFER MD Exam Time: 4:05:00 PM Study Type:Routine Echo Height: 65in Weight: 137lb BSA: 1.69 m2 Age: 1 1940,77Y Sex: FEMALE BP: 157/67 HR: 51 bpm Sonogrphr: SANTA Jacobs FASE Pat. Stat.:Outpatient Room: [place] Study Status:Final Echo Event ID:[id number] Order ID: [id number] Reason for Study:Aortic stenosis Procedures:2D Echo, Colorflow [...] is borderline elevated. MEASUREMENTS: 2D Parasternal Long Britt LVOT 2 cm LA Ds 3.7 cm [...] 27.3 cm Signed 04/22/2018 11:44 AM Michelet Sinclair M.D. Performing Organization Address City/State/Zipcode Phone Number [facility] [address] [place] [address] after 12/29/2017 Advance Directives Type Date Recorded Patient Business Development Representative Explanation Advance Directives, Living Will and Medical Power of Product Manager
[2018-12-30] MEDS ORDERED: cloNIDine HCl 0.1 MG TAB ONE (02:36)
--- NOTE | 2018-12-30 04:01 | ER ---
Nurse's Notes [facility] Name: Yeni Mcclendon Age: 78 yrs Sex: Female : 1940 Arrival Date: 12/30/2018 Time: 02:21 Bed 16 Private MD: Diagnosis: Hypertensive crisis Presentation: 12/30 02:35 Presenting complaint: Patient states: Reports she woke up and felt her pressure is ea high. States "the top number was over 200's and kept going up". Transition of care: patient was not received from another setting of care. Onset of symptoms was December 30, 2018. Risk Assessment: Do you want to hurt yourself or someone else? Patient reports no desire to harm self or others. Initial Sepsis Screen: Does the patient meet any 2 criteria? No. Patient's initial sepsis screen is negative. Does the patient have a suspected source of infection? No. Patient's initial sepsis screen is negative. Care prior to arrival: None. 02:35 Method Of Arrival: Ambulatory ea 02:35 Acuity: DENISA 3 ea Triage Assessment: 02:30 General: Appears in no apparent distress. uncomfortable, Behavior is calm, cooperative, cc3 appropriate for age. Pain: Denies pain. EENT: No signs and/or symptoms were reported regarding the EENT system. Neuro: Level of Consciousness is awake, alert, obeys commands, Oriented to person, place, time, situation, Appropriate for age Electromyographic Technician are equal bilaterally Moves all extremities. Gait is steady, Speech is normal, Facial symmetry appears normal, Pupils are PERRLA, Intact. Cardiovascular: Denies chest pain, Capillary refill < 3 seconds Patient's skin is warm and dry. Respiratory: Airway is patent Respiratory effort is even, unlabored, Respiratory pattern is regular, symmetrical. GI: Abdomen is flat. : No signs and/or symptoms were reported regarding the genitourinary system. Derm: Skin is intact, is fragile, Skin is pink, warm \\T\\ dry. normal. Musculoskeletal: Circulation, motion, and sensation intact. Range of motion: intact in all extremities. Historical: - Allergies: 02:44 CEPHALOSPORINS; ea 02:44 Furadantin; ea 02:44 Sulfa (Sulfonamide Antibiotics); ea 02:44 PENICILLINS; ea 02:44 duracef; ea - Home Meds: 02:44 prednisone 5 mg Oral tab once daily [Active]; Pepcid 20 mg Oral tab 1 tab 2 times per ea day [Active]; multivitamin Oral tab daily [Active]; Livalo 2 mg Oral tab 1 tab once daily [Active]; lisinopril 5 mg Oral tab 1 tab once daily [Active]; Advair Diskus 250-50 mcg/dose Inhl dsdv 1 puff 2 times per day [Active]; amlodipine 10 mg tab 1 tab once daily [Active]; aspirin 81 mg Oral chew 1 tab once daily [Active]; brimonidine 0.15 % ophthalmic drop 1 drop twice a day [Active]; Cardizem 120 mg Oral tab 1 tab daily [Active]; carvedilol 25 mg Oral tab 1 tab 2 times per day [Active]; Claritin 10 mg Oral tab 1 tab as needed [Active]; cml rx 250/50 [Active]; imprimis [Active]; lanaprost [Active]; - PMHx: 02:44 vasculitis; Hypertension; High Cholesterol; GERD; Asthma; ea - PSHx: 02:44 Tubal ligation; Tonsillectomy; Appendectomy; Heart stents; ea - Immunization history:: Adult Immunizations up to date. - Social history:: Smoking status: Patient/guardian denies using tobacco. - Ebola Screening: : No symptoms or risks identified at this time. Screenin:39 Abuse screen: Denies threats or abuse. Nutritional screening: No deficits noted. ea Tuberculosis screening: No symptoms or risk factors identified. Fall Risk None identified. Assessment: 02:30 General: see triage assessment. cc3 03:18 Reassessment: Patient appears in no apparent distress at this time. Patient and/or cc3 family updated on plan of care and expected duration. Pain level reassessed. Patient is alert, oriented x 3, equal unlabored respirations, skin warm/dry/pink. 04:16 Reassessment: Patient appears in no apparent distress at this time. Patient and/or cc3 family updated on plan of care and expected duration. Pain level reassessed. Patient is alert, oriented x 3, equal unlabored respirations, skin warm/dry/pink. Dr. Wong discharged the patient home, no prescription given. No IV cannula in situ. Patient left ER vitally stable and ambulatory with her . No valuables left in the patient's room. Patient denies pain at this time. Patient states feeling better. Patient states symptoms have improved. Vital Signs: 02:40 BP 219 / 52; Pulse 70; Resp 18; Temp 98.2; Pulse Ox 94% on R/A; Weight 60.33 kg; Height ea 5 ft. 5 in. (165.10 cm); Pain 0/10; 03:03 BP 184 / 39; Pulse 58; Resp 16 S; Pulse Ox 96% on R/A; Pain 0/10; cc3 03:34 BP 158 / 39; Pulse 52; Resp 17 S; Pulse Ox 95% on R/A; Pain 0/10; cc3 03:45 BP 168 / 38; Pulse 52; Resp 17 S; Pulse Ox 96% on R/A; Pain 0/10; cc3 04:16 BP 166 / 40; Pulse 58; Resp 16 S; Pulse Ox 96% on R/A; Pain 0/10; cc3 02:40 Body Mass Index 22.13 (60.33 kg, 165.10 cm) ea ED Course: 02:21 Patient arrived in ED. ds1 02:27 Gill Persaud is Primary Nurse. cc3 02:38 Dexter Wong MD is Attending Physician. tw4 02:39 Triage completed. ea 02:39 Arm band placed on right wrist. Patient placed in an exam room, on a stretcher, on ea pulse oximetry. 02:40 Patient has correct armband on for positive identification. Bed in low position. Call ea light in reach. Side rails up X2. 04:15 No provider procedures requiring assistance completed. Patient did not have IV access cc3 during this emergency room visit. Administered Medications: 02:40 Drug: cloNIDine 0.2 mg Route: PO; cc3 03:09 Follow up: Response: No adverse reaction; Blood pressure is lowered cc3 Outcome: 04:00 Discharge ordered by . tw4 04:16 Discharged to home ambulatory, with family. cc3 04:16 Condition: stable 04:16 Discharge instructions given to patient, family, Instructed on discharge instructions, follow up and referral plans. Demonstrated understanding of instructions, follow-up care. 04:25 Patient left the ED. cc3 Signatures: Tonja Ramirez ds1 Thuy Wing RN RN Dexter King MD MD tw4 Gill Persaud cc3 Corrections: (The following items were deleted from the chart) 04:24 03:03 BP 184 / 39; Pulse 58bpm; Resp 16bpm; Spontaneous; Pulse Ox 96% RA; cc3 cc3 04:24 03:34 BP 158 / 39; Pulse 52bpm; Resp 17bpm; Spontaneous; Pulse Ox 95% RA; cc3 cc3 04:24 03:45 BP 168 / 38; Pulse 52bpm; Resp 17bpm; Spontaneous; Pulse Ox 96% RA; cc3 cc3 04:24 04:16 BP 166 / 40; Pulse 58bpm; Resp 16bpm; Spontaneous; Pulse Ox 96% RA; cc3 cc3
--- NOTE | 2018-12-30 04:01 | EDPHYS ---
Physician Documentation [facility] Name: Yeni Mcclendon Age: 78 yrs Sex: Female : 1940 Arrival Date: 12/30/2018 Time: 02:21 Bed 16 Private MD: ED Physician Dexter Wong HPI: 12/30 03:14 This 78 yrs old Female presents to ER via Ambulatory with complaints of High tw4 Blood Pressure. 03:14 The patient has elevated blood pressure and discovered this at home. Onset: The tw4 symptoms/episode began/occurred today. Modifying factors: The symptoms are aggravated by. Associated signs and symptoms: The patient has no apparent associated signs or symptoms. Severity of symptoms: At its worst the blood pressure was severe, in the emergency department the blood pressure is unchanged. The patient has not experienced similar symptoms in the past. Historical: - Allergies: 02:44 CEPHALOSPORINS; ea 02:44 Furadantin; ea 02:44 Sulfa (Sulfonamide Antibiotics); ea 02:44 PENICILLINS; ea 02:44 duracef; ea - Home Meds: 02:44 prednisone 5 mg Oral tab once daily [Active]; Pepcid 20 mg Oral tab 1 tab 2 times per ea day [Active]; multivitamin Oral tab daily [Active]; Livalo 2 mg Oral tab 1 tab once daily [Active]; lisinopril 5 mg Oral tab 1 tab once daily [Active]; Advair Diskus 250-50 mcg/dose Inhl dsdv 1 puff 2 times per day [Active]; amlodipine 10 mg tab 1 tab once daily [Active]; aspirin 81 mg Oral chew 1 tab once daily [Active]; brimonidine 0.15 % ophthalmic drop 1 drop twice a day [Active]; Cardizem 120 mg Oral tab 1 tab daily [Active]; carvedilol 25 mg Oral tab 1 tab 2 times per day [Active]; Claritin 10 mg Oral tab 1 tab as needed [Active]; cml rx 250/50 [Active]; imprimis [Active]; lanaprost [Active]; - PMHx: 02:44 vasculitis; Hypertension; High Cholesterol; GERD; Asthma; ea - PSHx: 02:44 Tubal ligation; Tonsillectomy; Appendectomy; Heart stents; ea - Immunization history:: Adult Immunizations up to date. - Social history:: Smoking status: Patient/guardian denies using tobacco. - Ebola Screening: : No symptoms or risks identified at this time. ROS: 03:14 Constitutional: Negative for fever, chills, and weight loss, Eyes: Negative for injury, tw4 pain, redness, and discharge, Cardiovascular: Negative for chest pain, palpitations, and edema, Respiratory: Negative for shortness of breath, cough, wheezing, and pleuritic chest pain, Abdomen/GI: Negative for abdominal pain, nausea, vomiting, diarrhea, and constipation, Back: Negative for injury and pain, MS/Extremity: Negative for injury and deformity, Skin: Negative for injury, rash, and discoloration, Neuro: Negative for headache, weakness, numbness, tingling, and seizure. Exam: 03:14 Constitutional: This is a well developed, well nourished patient who is awake, alert, tw4 and in no acute distress. Head/Face: Normocephalic, atraumatic. Chest/axilla: Normal chest wall appearance and motion. Nontender with no deformity. No lesions are appreciated. Cardiovascular: Regular rate and rhythm with a normal S1 and S2. No gallops, murmurs, or rubs. Normal PMI, no JVD. No pulse deficits. Respiratory: Lungs have equal breath sounds bilaterally, clear to auscultation and percussion. No rales, rhonchi or wheezes noted. No increased work of breathing, no retractions or nasal flaring. Abdomen/GI: Soft, non-tender, with normal bowel sounds. No distension or tympany. No guarding or rebound. No evidence of tenderness throughout. Back: No spinal tenderness. No costovertebral tenderness. Full range of motion. MS/ Extremity: Pulses equal, no cyanosis. Neurovascular intact. Full, normal range of motion. Neuro: Awake and alert, GCS 15, oriented to person, place, time, and situation. Cranial nerves II-XII grossly intact. Motor strength 5/5 in all extremities. Sensory grossly intact. Cerebellar exam normal. Normal gait. Vital Signs: 02:40 BP 219 / 52; Pulse 70; Resp 18; Temp 98.2; Pulse Ox 94% on R/A; Weight 60.33 kg; Height ea 5 ft. 5 in. (165.10 cm); Pain 0/10; 03:03 BP 184 / 39; Pulse 58; Resp 16 S; Pulse Ox 96% on R/A; Pain 0/10; cc3 03:34 BP 158 / 39; Pulse 52; Resp 17 S; Pulse Ox 95% on R/A; Pain 0/10; cc3 03:45 BP 168 / 38; Pulse 52; Resp 17 S; Pulse Ox 96% on R/A; Pain 0/10; cc3 04:16 BP 166 / 40; Pulse 58; Resp 16 S; Pulse Ox 96% on R/A; Pain 0/10; cc3 02:40 Body Mass Index 22.13 (60.33 kg, 165.10 cm) ea MDM: 02:38 Patient medically screened. tw4 03:54 Differential diagnosis: hypertensive crisis. Data reviewed: vital signs, nurses notes. tw4 Data interpreted: Pulse oximetry: Interpretation: normal. Counseling: I had a detailed discussion with the patient and/or guardian regarding: the historical points, exam findings, and any diagnostic results supporting the discharge/admit diagnosis. Medication response: clonidine reduced the patient's elevated blood pressure to within acceptable limits. Response to treatment: and as a result, I will discharge patient. Special discussion: I discussed with the patient/guardian in detail that at this point there is no indication for admission to the hospital. It is understood, however, that if the symptoms persist or worsen the patient needs to return immediately for re-evaluation. Administered Medications: 02:40 Drug: cloNIDine 0.2 mg Route: PO; cc3 03:09 Follow up: Response: No adverse reaction; Blood pressure is lowered cc3 Disposition: 12/30/18 04:00 Discharged to Home. Impression: Hypertensive crisis. - Condition is Stable. - Discharge Instructions: Hypertension. - Medication Reconciliation Form, Thank You Letter, Antibiotic Education, Prescription Opioid Use form. - Follow up: Private Physician; When: Upon discharge from the Emergency Department; Reason: If symptoms return, Recheck today's complaints, Continuance of care. - Problem is new. - Symptoms have improved. Signatures: Thuy Wing RN RN Dexter King MD MD tw4 Gill Persaud cc3 Corrections: (The following items were deleted from the chart) 04:25 04:00 12/30/2018 04:00 Discharged to Home. Impression: Hypertensive crisis. Condition cc3 is Stable. Forms are Medication Reconciliation Form, Thank You Letter, Antibiotic Education, Prescription Opioid Use. Follow up: Private Physician; When: Upon discharge from the Emergency Department; Reason: If symptoms return, Recheck today's complaints, Continuance of care. Problem is new. Symptoms have improved. tw4
[2018-12-30 04:31] VITALS: TEMP 98.2
[2018-12-30 04:36] VITALS: O2SAT 96
[2018-12-30 04:37] VITALS: BP 166/40
== END 2018-12-30 04:25 | disposition home or self-care (01) ==
LOC: ER 02:20
DX: I16.9 Hypertensive crisis, unspecified (principal); I10 Essential (primary) hypertension; E78.00 Pure hypercholesterolemia, unspecified; J45.909 Unspecified asthma, uncomplicated; Z79.82 Long term (current) use of aspirin; Z88.0 Allergy status to penicillin; Z88.2 Allergy status to sulfonamides; Z88.3 Allergy status to other anti-infective agents; Z88.8 Allergy status to other drugs, medicaments and biological substances
CPT/HCPCS: 99283

== ENCOUNTER 2021-01-22 08:47 | Inpatient (IN) | payer OTHER ==
--- OUTSIDE RECORDS SUMMARY | 2021-01-22 08:51 | XMS REPORT | Continuity of Care Document ---
:1940 Author Organization [facility] t Address [address] [place] [address] Care Team Providers Name Role Phone Fredo Catalan MD Primary Care Physician Kentrell BRADY, RJaylen Attending Clinician Garrett Silva Attending Clinician Maksim Perez MD Attending Clinician Naheed ROSA Attending Clinician Unavailable QUINTIN Attending Clinician Unavailable Evelio Camarillo Attending Clinician QUINTIN Admitting Clinician Unavailable KENTRELL Admitting Clinician Unavailable Payers Payer Name Policy Type Policy Number Effective Date Expiration Date S ource Problems Condition Condition Condition Status Onset Resolution Last Treating Co mments Source Name Details Category Date Date Treatment Clinician Date S/p TAVR S/p TAVR Disease Active Metho di (transcath (transcath 5-06 st eter eter 00:00: Hospita aortic aortic 00 l valve valve replacemen replacemen t), t), bioprosthe bioprosthe tic tic Carotid Carotid Disease Active 2018-05 Overview: Meth ginette artery artery 2-[address] disease disease 00:00: g of this Hospi ta 00 note l might be different from the original. Added automatic ally from request for surgery [id number] Schatzki's Schatzki's Disease Active M ethodi ring ring 8-12 st 00:00: Hospita 00 l I82.413 - Diagnosis Active 2017-10-17 Memoria ACUTE 6-06 13:01:00 l EMBOLISM I82.413 00:01: Tahira nn AND - ACUTE 00 THROMBOSIS EMBOLISM AND THROMBOSIS Active 10/17/2017 MH OPID Friendswo[facility] d Edema Edema Disease Active Methodi 5-22 st 00:00: Hospita 00 l Bilateral Bilateral Disease Active Met hodi carotid carotid 9-19 st bruits bruits 00:00: Hospita 00 l Stented Stented Disease Active Methodi coronary coronary 3-14 st artery artery 00:00: Hospita 00 l Essential Essential Disease Active 2015-05 Met hodi hypertensi hypertensi 2-02 st on on 00:00: Hospita 00 l Aortic Aortic Disease Active 2015-05 Methodi valve valve 0-07 st disorder disorder 00:00: Hospit a 00 l Bilateral Bilateral Disease Active 2015-05 Met hodi carotid carotid 0-07 st artery artery 00:00: Hospita disease disease 00 l Chest pain Chest pain Disease Active 2015-05 M ethodi 0-07 st 00:00: Hospita 00 l 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 Active 2015-05 Methodi [place] 0-07 st artery artery 00:00: Hospita 00 l SOB SOB Disease Active 2015-05 Methodi (shortness (shortness 0-07 st of breath) of breath) 00:00: Ho spita 00 l Presence Presence Disease Active 2015-05 Metho di of stent of stent 0-07 st in in 00:00: Hospita coronary coronary 00 l artery artery Vasculitis Vasculitis Disease Active 2015-05 M ethodi 0-07 st 00:00: Hospita 00 l Hypertensi Problem Active 2020-12-27 M emoria ve 00:41:43 l disorder, Clint systemic Hypertensi arterial ve (disorder) disorder, systemic arterial (disorder) Active Problem 12/27/2020 [facility] Hyperlipid Problem Active 2020-12-27 M emoria emia 00:41:43 l (disorder) Rick n Hyperlipid emia (disorder) Active Problem 12/27/2020 [facility] Lumbar Problem Active 2020-12-27 Memor ia radiculopa 00:41:43 l thy Lumbar Bronson (disorder) radiculopa thy (disorder) Active Problem 12/27/2020 [facility] Peripheral Problem Active 2020-12-27 M emoria nerve 00:41:43 l disease Bronson (disorder) Peripheral nerve disease (disorder) Active Problem 12/27/2020 [facility] Diabetes Problem Active 2020-12-27 Mem oria mellitus 00:41:43 l type 2 Diabetes Rick n (disorder) mellitus type 2 (disorder) Active Problem 12/27/2020 [facility] 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 Spinal Tahira nn region stenosis (disorder) of lumbar region (disorder) Active Problem 12/27/2020 [facility] Dysphagia Dysphagia Disease Active Met hodi st Hospita l Hiatus Hiatus Disease Active Methodi hernia hernia st syndrome syndrome Hospit a l Allergies, Adverse Reactions, Alerts Allergy Allergy Status Severity Reaction(s) Onset Inactive Treating Comm ents Source Name Type Date Date Clinician Amoxicil Propensi Active Rash 2015-05 Swelling Meth ginette odalis-Pot ty to 0-[address] Clavulan adverse 00:00: her lips Hospi ta ate reaction 00 and l s to rashPatie drug nt states this happened a long time ago and do not remember what the reaction what.Alma ent states she can take Levaquin without any problems. Ampicill Propensi Active Rash 2015-05 Swelling Meth ginette in ty to 0-[address] adverse 00:00: her lips Hospita reaction 00 and l s to rashPatie drug nt states this happened a long time ago and do not remember what the reaction what.Alma ent states she can take Levaquin without any problems. Cephalos Propensi Active Rash 2015-05 Swelling Meth ginette porins ty to 0-[address] adverse 00:00: her lips Hospita reaction 00 and l s to rashPatie drug nt states this happened a long time ago and do not remember what the reaction what.Alma ent states she can take Levaquin without any problems. Duract Propensi Active Swelling 2015-05 Swelling Meth ginette ty to 0-[address] adverse 00:00: her Hospita reaction 00 lipsPatie l s to nt states drug this happened a long time ago and do not remember what the reaction what.Alma ent states she can take Levaquin without any problems. Penicill Propensi Active Other (See 2015-05 Patient Isidro root in G ty to Comments) 0-[address] adverse 00:00: this Hospita reaction 00 happened l s to a long drug time ago and do not remember what the reaction what.Alma ent states she can take Levaquin without any problems. Sulfa Propensi Active Rash 2015-05 Swelling Method i (Sulfona ty to 0-[address] mide adverse 00:00: her Hospita Antibiot reaction 00 lipsPatie l ics) s to nt states drug this happened a long time ago and do not remember what the reaction what.Alma ent states she can take Levaquin without any problems. cephalos cephalos Active Memori a porins porins l Clint penicill penicill Active Memori a ins ins l Bronson sulfa sulfa Active Memoria drugs drugs l Bronson ampicill ampicill Active Memori a in in l Bronson cefadrox cefadrox Active Memori a il il l Bronson Augmenti Augmenti Active Memori a n n l Clint Family History Family Member Diagnosis Comments Start Date Stop Date Source Natural father Heart disease [facility] Natural father Hypertension [facility] mother Hypertension [facility] mother Stroke [facility] sister Hypertension [facility] Social History Social Habit Start Date Stop Date Quantity Comments Source Tobacco use and 2020-07-28 2020-07-28 Never used [facility] exposure 00:00:00 00:00:00 Hospital Alcohol intake 2020-07-28 2020-07-28 Current drinker of Mo thodist 00:00:00 00:00:00 [facility] 2016-02-18 2016-02-18 occasional [facility]ist 00:00:00 00:00:00 [facility] Sex Ass[birth year] At [birth year] [facility] 00:00:00 00:00:00 Hospital Smoking Status Start Date Stop Date Source Never smoker [facility] Medications Ordered Filled Start Stop Current Ordering Indication Dosage Frequency Signature Comments Components Source Medication Medication Date Date Medication? Clinician (SIG) Name Name amLODIPine Yes TAKE 1 Metho di (NORVASC) 5 8-30 TABLET (5 st mg tablet 00:00: MG TOTAL) Hos shaneka 00 BY MOUTH l EVERY EVENING. HOLD FOR SBP LESS THAN 120 carvediloL Yes TAKE 1 Metho di (COREG) 25 7-[address] MG tablet 00:00: MOUTH Hospita 00 TWICE A l DAY WITH FOOD amLODIPine 2020- TAKE 1 Meth ginette (NORVASC) 5 6-07 08-30 TABLET (5 st mg tablet 00:00: 00:00 MG TOTAL) Ho spita 00 :00 BY MOUTH l EVERY EVENING. HOLD FOR SBP LESS THAN 120 carvediloL 0 2020- No 25mg Q.5D Take 1 Meth ginette (COREG) 25 4-26 07-19 tablet (25 st MG tablet 00:00: 00:00 mg total) Ho spita 00 :00 by mouth 2 l (two) times a day with meals. MULTIVIT Yes 1{tbl} QD Take 1 Metho di &MINERALS/F 3-[address] ERROUS FUM 17:01: mouth Hospit a (MULTI 25 nightly. l VITAMIN ORAL) CALCIUM Yes 600mg Q.5D Take 600 Metho di CARBONATE/V 3-[address] ITAMIN D3 17:01: mouth 2 Hospi ta (CALCIUM 25 (two) l 600 + D,3, times a ORAL) day. fluticasone Yes 1{puff} Inhale 1 Methodi propion-colton 3-[address] meterol 17:01: needed. Hospita (ADVAIR) 25 l 250-50 mcg/dose DISKUS UNABLE TO Yes ophthalmic Me thodi FIND 3-[address] 17:01: drop in Hospita 25 both eyes l twice a day for dry eyes coenzyme Yes 100mg QD Take 100 Meth ginette Q10 100 mg 3-[address] capsule 17:01: mouth Hospita 25 daily. l cholecalcif Yes 1000U QD Take 1,000 Methodi miguel a, 3-[address] vitamin D3, 17:01: mouth Hospi ta (VITAMIN 25 daily. l D3) 1,000 unit tablet amLODIPine 0 2020- No TAKE 1 Meth ginette (NORVASC) 5 3-15 06-07 TABLET (5 st mg tablet 00:00: 00:00 MG TOTAL) Ho spita 00 :00 BY MOUTH l EVERY EVENING. HOLD FOR SBP LESS THAN 120 Famotidine Yes 20 mg = 1 Me moria 20 MG Oral 2-26 tab, PO, l Tablet 17:51: Daily, # Clint [Pepcid] 00 60 tab, 0 Refill(s) brimonidine Yes Q12H, 0 Mem oria / Timolol 2-26 Refill(s) l 17:47: Bronson 00 CoQ10 Yes 300 mg, Memoria 2-26 PO, Daily, l 17:47: 0 Clint 00 Refill(s) D3 1000 Yes 25 Memoria 2-26 microgram, l 17:47: PO, Daily, Clint 00 0 Refill(s) latanoprost Yes QAM, 0 Ramana andrew 2-26 Refill(s) l 17:47: Clint 00 carvediloL 2020- No 25mg Q.5D Take 1 Meth ginette (COREG) 25 2 04-26 tablet (25 st MG tablet 00:00: 00:00 mg total) Ho spita 00 :00 by mouth 2 l (two) times a day with meals. latanoprost 2019-05 Yes 1 drp, Ramana andrew 0.05 MG/ML 2-30 QPM, 0 l Ophthalmic 18:00: Refill(s) He rmann Solution 00 predniSONE 2019-05 Yes 5 mg = 1 Mem oria 5 mg oral 2-30 tab, PO, l tablet 17:51: Daily, 0 Bronson Refill(s) carvedilol 2019-05 Yes 25 mg = 1 Me moria 25 mg oral 2-30 tab, PO, l tablet 17:51: BID, 0 Clint 00 Refill(s) Rosuvastati 2019-05 Yes 5 mg = 1 Me moria n calcium 5 2-30 tab, PO, l MG Oral 17:51: Daily, 0 Rick n Tablet 00 Refill(s) [Crestor] amLODIPine 2019-05 Yes 5 mg = 1 Mem oria 5 mg oral 2-30 tab, PO, l tablet 17:51: Daily, 0 Clint Refill(s) lisinopril 2019-05 Yes 10 mg = 1 Me moria 10 mg oral 2-30 tab, PO, l tablet 17:51: Daily, 0 Bronson 00 Refill(s) amLODIPine 2019-05- No TAKE 1 Meth ginette (NORVASC) 5 2-17 03-15 TABLET (5 st mg tablet 00:00: 00:00 MG TOTAL) Ho spita 00 :00 BY MOUTH l EVERY EVENING. HOLD FOR SBP LESS THAN 120 pitavastati 2019-05- No 4mg QD Take 4 mg Methodi n calcium 2-15 12-[address] (LIVALO) 2 16:57: 00:00 nightly. Ho spita mg tablet 40 :00 l cetirizine 2019-05- No 10mg Q24H Take 10 mg Methodi (ZyrTEC) 10 2-15 12-[address] MG tablet 16:57: 00:00 daily as Hos shaneka 40 :00 needed for l allergies. rosuvastati 2019-05 Yes 5mg QD Take 5 mg M ethodi n (CRESTOR) 2-[address] 5 mg tablet 00:00: nightly. Ho spita 00 l carvediloL 2019-05- No TAKE 1 Meth ginette (COREG) 25 1-12 01-[address] MG tablet 00:00: 00:00 MOUTH Hospit a 00 :00 TWICE A l DAY WITH MEAL HOLD IF SYSTOLIC BP LESS THAN 120 OR HEART RATE LESS THAN 60 famotidine 2019-05 Yes 20mg QD Take 20 mg M ethodi (PEPCID) 20 1-[address] MG tablet 00:00: nightly. Hosp shahrzad 00 l amLODIPine 2019- No 5mg QD Take 1 Meth ginette (NORVASC) 5 9-14 12-17 tablet (5 st mg tablet 00:00: 00:00 mg total) Ho spita 00 :00 by mouth l every evening. Hold for SBP<120 carvediloL 2019- No TAKE 1 Meth ginette (COREG) 25 8-10 11-[address] MG tablet 00:00: 00:00 MOUTH 2 Hosp shahrzad 00 :00 (TWO) l TIMES A DAY WITH MEALS. HOLD FOR SBP <120 OR HR <60 pantoprazol 2019- No [id number] TAKE 1 Methodi e 7-18 12-[address] (PROTONIX) 00:00: 00:00 MOUTH Hospi ta 40 MG EC 00 :00 EVERY DAY l tablet isosorbide 2019- No TAKE 1 Meth ginette mononitrate 6-23 12-[address] (IMDUR) 30 00:00: 00:00 MOUTH Hospi ta MG 24 hr 00 :00 EVERY DAY l tablet IN THE MORNING lisinopriL Yes 10mg QD Take 1 Metho di (PRINIVIL) 3-12 tablet (10 st 10 mg 00:00: mg total) Hospita tablet 00 by mouth l nightly. Hold for SBP<120 clonIDINE 2019- No .1mg QD Take 1 Metho di (CATAPRES) 12 12-[address] 0.1 MG 00:00: 00:00 (0.1 mg Hospita tablet 00 :00 total) by l mouth nightly as needed for high blood pressure (SBP >160). amLODIPine No 5mg QD Take 1 Meth ginette (NORVASC) 5 07-23 09-14 tablet (5 st mg tablet 00:00: 00:00 mg total) Ho spita 00 :00 by mouth l every evening. Hold for SBP<120 clopidogreL No 75mg QD Take 1 Met hodi (PLAVIX) 75 3 12-15 tablet (75 s t mg tablet 00:00: 00:00 mg total) Ho spita 00 :00 by mouth l daily. latanoprost 2015-05 Yes 1[drp] QD Administer Methodi (XALATAN) 1-[address] 0.005 % 00:00: both eyes Hospi ta ophthalmic 00 nightly. l solution brimonidine 2015-05 Yes 1[drp] Q.5D Administer Methodi (ALPHAGAN) 1-[address] 0.15 % 00:00: both eyes Hospit a ophthalmic 00 2 (two) l solution times a day. predniSONE 2015-05 Yes 5mg QD Take 5 mg Me thodi (DELTASONE) 0-[address] 5 MG tablet 00:00: daily. Hosp shahrzad 00 l Immunizations Ordered Immunization Filled Immunization Date Status Commen ts Source Name Name [facility] COVID-19 2020-06-15 Completed Methodis t MRNA VACCINATION 00:00:00 [facility] COVID-19 2020-05-18 Completed Methodis t MRNA VACCINATION 00:00:00 Hospital Vital Signs Vital Name Observation Time Observation Value Comments Source Systolic (mm Hg) 2020-12-24 16:16:00 Ramana rial Clint Diastolic (mm Hg) 2020-12-24 16:16:00 Mem orial Bronson Heart Rate 2020-12-24 16:16:00 [facility] Bronson Respitory Rate 2020-12-24 16:16:00 Memori al Clint Height 2020-12-24 16:16:00 160.02 cm Memorial Clint Weight 2020-12-24 16:16:00 [facility] Bronson BMI Calculated 2020-12-24 16:16:00 Memori al Bronson Systolic (mm Hg) 2020-08-25 16:15:00 Ramana rial Bronson Diastolic (mm Hg) 2020-08-25 16:15:00 Mem orial Clint Heart Rate 2020-08-25 16:15:00 Memorial Bronson Respitory Rate 2020-08-25 16:15:00 Memori al Bronson Height 2020-08-25 16:15:00 162.56 cm Memorial Clint Weight 2020-08-25 16:15:00 Memorial Clint BMI Calculated 2020-08-25 [facility] Body weight 2020-07-27 17:02:00 61.689 kg [facility] BMI 2020-07-27 17:02:00 22.63 kg/m2 [facility] Oxygen saturation in 2020-07-27 17:02:00 92 /min [facility] Arterial blood by Pulse oximetry Systolic blood 2020-07-27 17:02:00 163 mm[Hg] [facility] pressure Diastolic blood 2020-07-27 17:02:00 69 mm[Hg] [facility] pressure Heart rate 2020-07-27 17:02:00 70 /min [facility] Body height 2020-07-27 17:02:00 165.1 cm [facility] Systolic (mm Hg) 2020-07-09 17:34:00 Ramana rial Bronson Diastolic (mm Hg) 2020-07-09 17:34:00 Mem orial Bronson Heart Rate 2020-07-09 17:34:00 Memorial Bronson Respitory Rate 2020-07-09 17:34:00 Memori al Bronson Height 2020-07-09 17:34:00 162.56 cm Memorial Clint Weight 2020-07-09 17:34:00 Memorial Clint BMI Calculated 2020-07-09 17:34:00 Memori al Clint Height 2020-06-10 19:25:00 165.1 cm Memorial Clint Weight 2020-06-10 19:25:00 Memorial Clint BMI Calculated 2020-06-10 19:25:00 Memori al Bronson Systolic (mm Hg) 2020-06-10 19:25:00 Ramana rial Bronson Diastolic (mm Hg) 2020-06-10 19:25:00 Mem orial Clint Heart Rate 2020-06-10 19:25:00 Memorial Bronson Respitory Rate 2020-06-10 19:25:00 Memori al Bronson Systolic (mm Hg) 2020-05-12 17:40:00 Ramana rial Clint Diastolic (mm Hg) 2020-05-12 17:40:00 Mem orial Clint Height 2020-05-12 17:40:00 160.02 cm [facility] Bronson Weight 2020-05-12 17:40:00 [facility] Bronson BMI Calculated 2020-05-12 17:40:00 Memori al Bronson Procedures Procedure Date / Time Performed Performing Clinician [facility] e US CAROTID DUPLEX 2020-10-26 15:53:26 [facility] Nettie [facility] BILATERAL HC COMPLETE BLD COUNT 2020-07-28 18:58:00 Ana [facility] W/AUTO DIFF [facility] BASIC METABOLIC PANEL 2020-07-28 18:58:00 Ana [facility] ESTIMATED GFR 2020-07-28 18:58:00 [facility] ECG 12-LEAD 2020-07-28 18:08:31 Ana [facility] TTE COMPLETE, W 2020-07-28 17:16:35 [facility] CONTRAST, W DOPPLER Jeramy (C8929) TTE COMPLETE, W 2020-04-21 20:57:53 Nettie Pfeiffer [facility] spital CONTRAST, W DOPPLER (C8929) Plan of Care Planned Activity Planned Date Details Comments Source Future Scheduled Test 65+ PNEUMOCOCCAL [facility] VACCINE (1 of 2 - PPSV23) [code = 65+ PNEUMOCOCCAL VACCINE (1 of 2 - PPSV23)] Future Scheduled Test SHINGLES VACCINES (#1) [facility] [code = SHINGLES VACCINES (#1)] Future Scheduled Test INFLUENZA VACCINE [code [facility] = INFLUENZA VACCINE] Encounters Start End Encounter Admission Attending Care Care Encounter Source Date/Time Date/Time Type Type Clinicians Facility Department ID 2021-06-30 2021-06-30 Outpatient RAFA RAFA [id number] Memoria 10:30:00 10:30:00 05 l Clint 2021-01-09 2021-01-09 Aryan Pfeiffer 1.2.840.1 [id number] Methodi 00:00:00 00:00:00 Nettie Becker [address]113.1.[address] 3.430.2.7 Hospit a .3.556470 l .8 2020-12-24 2020-12-25 Outpatient [facility] [id number] Memoria 16:00:00 04:59:59 r Neurology 04 l Oswaldo Jaramillo 2020-12-24 2020-12-24 Outpatient [facility] [id number] 11:00:00 23:59:59 Rigo 04 Garrett 2020-12-24 2020-12-24 Outpatient RAFA RAFA [id number] Memoria 11:00:00 11:00:00 04 sherly Jaramillo 2020-11-28 2020-11-28 Aryan Pfeiffre 1.2.840.1 [id number] Methodi 00:00:00 00:00:00 Nettie Becker 92748.1.[address] 3.430.2.7 Hospit a .3.722469 l .8 2020-10-26 2020-10-26 Travel 1.2.840.1 1.2.870.308 [id number] Methodi 00:00:00 00:00:[address] 3.430.2.7 0.2.7.3.698 Ho spita .3.492577 084.8 l .8 2020-10-26 2020-10-26 Outpatient KENTRELL [facility] [id number] [address] [place] [address] 00:00:00 00:00:00 NETTIE [address] 2020-10-18 2020-10-18 Refill Pfeiffer, 1.2.840.1 [id number] Methodi 00:00:00 00:00:00 Nettie R[address] 30730.1.[address] 3.430.2.7 Hospit a .3.657029 l .8 2020-09-06 2020-09-06 Aryan Pfeiffer, 1.2.840.1 [id number] Methodi 00:00:00 00:00:[address] 3.430.2.7 Hospit a .3.044714 l .8 2020-08-25 2020-08-26 Outpatient nullFlavo MNA [id number] Memoria 16:00:00 04:59:59 r Neurology 03 l Oswaldo Jaramillo 2020-08-25 2020-08-25 Outpatient Shira MISCHER [facility] [id number] 11:00:00 23:59:59 Rigo 03 Garrett 2020-08-25 2020-08-25 Outpatient MHIE IE [id number] Memoria 11:00:00 11:00:00 03 l Clint 2020-07-28 2020-07-28 [facility] Ana, 1.2.840.1 [id number] Methodi 13:34:10 13:39:[address] Maksim 3.430.2.7 Hospit a Jeramy .3.505912 l .8 2020-07-28 2020-07-28 [facility] Ana, 1.2.840.1 [id number] Methodi 12:40:16 13:29:54 plinary Rebecca 38952.1.[address] Visit Maksim 3.430.2.7 Hospit a Jeramy .3.354239 l .8 2020-07-28 2020-07-28 Outpatient ANA, [facility] [id number] [place] 00:00:00 00:00:00 REBECCA [address] 2020-07-28 2020-07-28 [facility] [id number] [place] 00:00:00 00:00:00 REBECCA [address] 2020-07-28 2020-07-28 Outpatient ANA [facility] [id number] [address] [place] [address] 00:00:00 00:00:00 REBECCA [address] 2020-07-27 2020-07-27 Travel 1.2.840.1 1.2.165.684 [id number] Methodi 00:00:00 00:00:[address] 3.430.2.7 0.2.7.3.698 Ho spita .3.822622 084.8 l .8 2020-06-15 2020-07-26 Clinical 1.2.840.1 [id number] Methodi 10:32:50 14:52:[address] 3.430.2.7 Hospit a .3.378460 l .8 2020-07-25 2020-07-25 Aryan Pfeiffer, 1.2.840.1 [id number] Methodi 00:00:00 00:00:00 [address]ett[address] RJaylen 7[address]83.1.[address] 3.430.2.7 Hospit a .3.192512 l .8 2020-07-13 2020-07-15 Outside nullFlavo MNA [id number] Memoria 14:37:12 05:59:59 Medical r Neurology 01 l Records Oswaldo Jaramillo 2020-07-13 2020-07-14 Outpatient MHMISCHER MHMISCHER [id number] 08:37:12 23:59:59 2020-07-09 2020-07-10 Outpatient nullFlavo MNA [id number] Memoria 17:15:00 05:59:59 r Neurology 02 sherly Jaramillo 2020-07-09 2020-07-09 Outpatient JESSE SilvaMISCHER MHMISCHER [id number] 11:15:00 23:59:59 Rigo Tucker 2020-07-09 2020-07-09 Outpatient JESSEIE JESSEIE [id number] Memoria 11:15:00 11:15:00 02 sherly Jaramillo 2020-06-17 2020-06-17 Travel 1.2.840.1 1.2.052.472 [id number] Methodi 00:00:00 00:00:[address] 3.430.2.7 0.2.7.3.698 Ho spita .3.646354 084.8 l .8 2020-06-15 2020-06-15 Outpatient [facility] [id number] [address] [place] 00:00:00 00:00:[address] 2020-06-12 2020-06-12 Refbakari Pfeiffer 1.2.840.1 [id number] Methodi 00:00:00 00:00:00 Nettie Becker 42884.1.[address] 3.430.2.7 Hospit a .3.071391 l .8 2020-06-10 2020-06-11 Outpatient nullFlavo MNA [id number] Memoria 19:00:00 05:59:59 r Neurology 01 sherly Jaramillo 2020-06-10 2020-06-10 Outpatient DILLON Silva MHMISCHER [id number] 13:00:00 23:59:59 Rigo 01 Garrett 2020-06-10 2020-06-10 Outpatient MHIE JESSEIE [id number] Memoria 13:00:00 13:00:00 01 sherly Jaramillo 2020-05-18 2020-05-18 Clinical 1.2.840.1 [id number] Methodi 11:18:07 12:02:[address] 3.430.2.7 Hospit a .3.111118 l .8 2020-05-18 2020-05-18 Outpatient [facility] [id number] [place] 00:00:00 00:00:[address] 2020-05-12 2020-05-13 Outpatient nullFlavo MNA [id number] Memoria 17:15:00 05:59:59 r Neurology 00 l Oswaldo Jaramillo 2020-05-12 2020-05-12 Outpatient JESSE SilvaMISCHER MHMISCHER [id number] 11:15:00 23:59:59 Rigo 00 Garrett 2020-05-12 2020-05-12 [facility] [id number] Memoria 11:15:00 11:15:00 00 l Clint 2020-04-29 2020-04-29 Refill Pfeiffer, 1.2.840.1 [id number] Methodi 00:00:00 00:00:00 Nettie Becker 71115.1.[address] 3.430.2.7 Hospit a .3.340331 l .8 2020-04-27 2020-04-27 Office Pfeiffer, 1.2.840.1 [id number] Methodi 10:50:00 11:50:53 Visit Nettie Becker 56666.1.[address] 3.430.2.7 Hospit a .3.089406 l .8 2020-04-27 2020-04-27 Travel 1.2.840.1 1.2.099.219 [id number] Methodi 00:00:00 00:00:[address] 3.430.2.7 0.2.7.3.698 Ho spita .3.786203 084.8 l .8 2020-04-27 2020-04-27 Outpatient [facility] [id number] [address] [place] [address] 00:00:00 00:00:00 NETTIE [address] 2020-04-21 2020-04-21 Travel 1.2.840.1 1.2.120.797 [id number] Methodi 00:00:00 00:00:[address] 3.430.2.7 0.2.7.3.698 Ho spita .3.153251 084.8 l .8 2020-04-21 2020-04-21 Outpatient [facility] [id number] [address] [place] [address] 00:00:00 00:00:00 NETTIE [address] 2020-03-25 2020-03-25 Refill Pfeiffer, 1.2.840.1 [id number] Methodi 00:00:00 00:00:00 Nettie Becker 29060.1.[address] 3.430.2.7 Hospit a .3.184990 l .8 2020-01-26 2020-01-26 Orders Narciso Farfan 1.2.840.1 [id number] Methodi 00:00:00 00:00:[address] 3.430.2.7 Hospit a .3.058386 l .8 2019-10-28 2019-10-28 Outpatient PFEIFFER, [facility] [id number] [place] 00:00:00 00:00:00 NETTIE [address] 2019-09-23 2019-09-23 Outpatient FAZA, [facility] [id number] [address] [place] 00:00:00 00:00:00 REBECCA [address] 2019-09-19 2019-09-19 Outpatient FAZA, [facility] [id number] [place] 00:00:00 00:00:00 REBECCA [address] 2019-09-17 2019-09-18 Outpatient [facility] [id number] [place] 00:00:00 00:00:[address] 2019-07-23 2019-07-24 Inpatient QUINTIN, [facility] [id number] [place] 00:00:00 00:00:00 RAMSES [address] 2019-07-17 2019-07-18 Inpatient PFEIFFER, [facility] 021 [id number] [place] 00:00:00 00:00:00 NETTIE [address] [facility] 2019-05-22 2019-05-22 [id number] [place] 00:00:00 00:00:00 NETTIE [address] 2017-10-17 2017-10-18 Outpt Diag nullFlavo [facility] [id number] Memoria 17:51:00 04:59:00 Services r Outpatient 00 l Richa Jaramillo [place] 2017-10-17 2017-10-17 Outpatient Marquise, [id number] 12:51:00 23:59:00 Poppy Fraser [id number] Results Test Description Test Time Test Comments Results Result Comments Source ECG 12 lead 2020-07-29 03:24:53 Test Item Value Reference Range Interpretation Comme nts Ventricular rate (test code = 253) Atrial rate (test code = 255) NC interval (test code = 266) QRSD interval (test code = 260) QT interval (test code = 264) QTC interval (test code = 265) P axis 1 (test code = 267) QRS axis 1 (test code = 268) T wave axis (test code = 270) EKG impression (test code = 273) Sinus rhythm with occasional edelmira ture ventricular complexes-Septal infarct , age undetermined-Abnormal ECG-In automated comparison with ECG of 24-JUL-2019 05:39,-premature ventricular complexes are now [id number] change in ST segment in Lateral leads- [facility]
[2021-01-22 09:24] LABS: Protime INR 1.07
--- NOTE | 2021-01-22 09:37 | RAD REPORT ---
EXAM DESCRIPTION: RAD - Chest Single View - 01/22/2021 9:13 am CLINICAL HISTORY: CHEST PAIN COMPARISON: Chest Pa And Lat (2 Views) dated 07/27/2018; Chest Single View dated 07/26/2018; Chest Sin gle View dated 07/25/2018; Chest Single View dated 02/03/2018 FINDINGS: Lines: None. Lungs: Persistent patchy right basilar airspace disease . Pleural: Right pleural effusion is decreased. Cardiac: The heart size is within normal limits. Bones: No acute fractures. Other: IMPRESSION: Persistent patchy right basilar airspace disease which may reflect pneumonia. The right pleural effusion is decreased.
[2021-01-22 09:38] LABS: Absolute Lymphocytes (CBC) 1.6 K/uL (0.7-4.9); Basophils % 1.1 % (0-1.3); Hematocrit 42.9 % (36.0-45.0); Lymphocytes % 15.4 % (15.3-44.8); MPV 9.9 fL (7.6-11.3); RBC Red Blood Cell Count 4.89 M/uL (3.86-4.86)
[2021-01-22 09:40] LABS: Magnesium 2.2 mg/dL (1.8-2.4); Potassium 3.9 mmol/L (3.5-5.1); Troponin (Emerg Dept Use Only) 0.46 ng/mL (0.0-0.045)
--- NOTE | 2021-01-22 09:51 | ER ---
Nurse's Notes [facility] Name: Yeni Mcclendon Age: 80 yrs Sex: Female : 1940 Arrival Date: 01/22/2021 Time: 08:53 Bed 26 Private MD: Diagnosis: Chest pain, unspecified;Subsequent non-ST elevation (NSTEMI) myocardial infarction Presentation: 01/22 08:55 Chief complaint: EMS states: Left sided chest pain, radiated to left arm, pressure, jl7 started at 0200; resolved with 324 mg Aspirin and Nitro spray x 1; initial oxygen sat was 89% on room air, 2 lpm via NC and sats up to 99%. Coronavirus screen: Vaccine status: Patient reports receiving the 2nd dose of the covid vaccine. Date June 2020 Moderna At this time, the client does not indicate any symptoms associated with coronavirus-19. Ebola Screen: No symptoms or risks identified at this time. Initial Sepsis Screen: Does the patient meet any 2 criteria? No. Patient's initial sepsis screen is negative. Does the patient have a suspected source of infection? No. Patient's initial sepsis screen is negative. Risk Assessment: Do you want to hurt yourself or someone else? Patient reports no desire to harm self or others. Onset of symptoms was January 22, 2021 at 02:00. Care prior to arrival: Medication(s) given: ASA, 81 mg, x 4, Nitro spray x1. 08:55 Method Of Arrival: EMS: [facility] jl7 08:55 Acuity: DENISA 2 jl7 Triage Assessment: 08:59 General: Appears in no apparent distress. uncomfortable, Behavior is calm, cooperative, jl7 appropriate for age. Pain: Complains of pain in anterior aspect of left upper chest Pain radiates to left arm Pain currently is 0 out of 10 on a pain scale. at worst was 5 out of 10 on a pain scale. Quality of pain is described as pressure, Pain began 0200 Is continuous. Neuro: Level of Consciousness is awake, alert, obeys commands, Oriented to person, place, time, situation. Cardiovascular: Reports chest pain, resolved Patient's skin is warm and dry. Respiratory: Airway is patent Respiratory effort is even, unlabored, Respiratory pattern is regular, symmetrical. Derm: Skin is pink, warm \T\ dry. Historical: - Allergies: 08:59 CEPHALOSPORINS; jl7 08:59 duracef; jl7 08:59 Furadantin; jl7 08:59 PENICILLINS; jl7 08:59 Sulfa (Sulfonamide Antibiotics); jl7 - Home Meds: 10:50 carvedilol 25 mg Oral tab 1 tab 2 times per day [Active]; prednisone 5 mg Oral tab once jl7 daily [Active]; brimonidine 0.15 % ophthalmic drop 1 drop twice a day [Active]; Pepcid 20 mg Oral tab 1 tab 2 times per day [Active]; amlodipine 5 mg oral tab 1 tab once daily [Active]; rosuvastatin 5 mg oral cpSP 1 cap once daily [Active]; lisinopril 10 mg oral tab 1 tab once daily [Active]; multivitamin Oral tab daily [Active]; Restasis 0.05 % ophthalmic (eye) dpet 1 drop every 12 hours [Active]; latanoprost 0.005 % ophthalmic (eye) drop 1 drop once daily [Active]; Advair Diskus 250-50 mcg/dose Inhl dsdv 1 puff 2 times per day [Active]; - PMHx: 08:59 Asthma; vasculitis; Hypertension; High Cholesterol; GERD; jl7 - Immunization history:: Adult Immunizations up to date. - Social history:: Smoking status: Patient denies any tobacco usage or history of. - Family history:: not pertinent. - Hospitalizations: : No recent hospitalization is reported. Screenin:00 Abuse screen: Denies threats or abuse. Denies injuries from another. Nutritional jl7 screening: No deficits noted. Tuberculosis screening: No symptoms or risk factors identified. Fall Risk IV access (20 points). Total Shaw Fall Scale indicates No Risk (0-24 pts). Assessment: 09:10 General: See traige. jl7 09:43 Reassessment: Dr. Alegre at bedside discussing results and POC. jl7 10:58 Reassessment: Patient appears in no apparent distress at this time. No changes from jl7 previously documented assessment. Patient and/or family updated on plan of care and expected duration. Pain level reassessed. Patient is alert, oriented x 3, equal unlabored respirations, skin warm/dry/pink. Vital Signs: 08:55 BP 147 / 68; Pulse 77; Resp 15 S; Temp 98.1(O); Pulse Ox 94% on R/A; Weight 61.23 kg; jl7 Height 5 ft. 5 in. (165.10 cm); Pain 0/10; 09:48 BP 157 / 66; Pulse 65; Resp 15; Pulse Ox 94% ; Pain 0/10; jl7 11:04 BP 156 / 69; Pulse 66; Resp 15; Pulse Ox 94% ; jl7 08:55 Body Mass Index 22.46 (61.23 kg, 165.10 cm) jl7 ED Course: 08:53 Patient arrived in ED. ss 08:53 Ezequiel Alegre MD is Attending Physician. rn 08:55 Sonya Raymond, SELVIN is Primary Nurse. jl7 08:59 Triage completed. jl7 08:59 Arm band placed on right wrist. jl7 09:04 Initial lab(s) drawn, by ED staff, sent to lab. EKG done, by ED staff, reviewed by [facility] Ezequiel Alegre MD COVID swab sent to lab. 09:09 Initial lab(s) drawn, by nj, sent to lab. Inserted saline lock: 20 gauge in right jl7 forearm, using aseptic technique. Blood collected. 09:13 XRAY Chest (1 view) In Process Unspecified. EDMS 09:16 Patient has correct armband on for positive identification. Placed in gown. Bed in low 5 position. Call light in reach. Side rails up X2. Warm blanket given. Pillow given. cardiac monitor technician on. Pulse ox on. NIBP on. 09:50 Pasquale Catalan MD is Hospitalizing Provider. rn 10:33 CT Chest Wo Con In Process Unspecified. EDMS 12:00 No provider procedures requiring assistance completed. Patient admitted, IV remains in jl7 place. intact, No redness/swelling at site. Administered Medications: 10:50 Drug: Lovenox (enoxaparin) 1 mg/kg Route: Sub-Q; Site: abdomen; jl7 11:42 Follow up: Response: No adverse reaction jl7 Outcome: 09:50 Decision to Hospitalize by Provider. rn 12:00 Admitted to ER Hold. Please see [facility] for further documentation. jl7 12:00 Condition: stable 12:00 Discharge instructions given to patient, family, Instructed on the need for admit, Demonstrated understanding of instructions. 15:08 Patient left the ED. jl7 Signatures: Dispatcher [employer] EDEzequiel Sexton MD MD rn Smirch, Shelby, RN RN ss Martinez, Maria [facility] Sonya Raymond RN RN jl7
--- NOTE | 2021-01-22 09:51 | EDPHYS ---
Physician Documentation [facility] Name: Yeni Mcclendon Age: 80 yrs Sex: Female : 1940 Arrival Date: 01/22/2021 Time: 08:53 Bed 26 Private MD: ED Physician Ezequiel Alegre HPI: 01/22 09:14 This 80 yrs old Female presents to ER via EMS with complaints of Chest pain. rn 09:14 The patient or guardian reports chest pain that is located primarily in the substernal rn area. Onset: this morning, at 02:00. The pain radiates to the left arm. Associated signs and symptoms: Pertinent positives: None. Pertinent negatives: abdominal pain, cough, diaphoresis, lightheadedness, palpitations, shortness of breath, syncope, vomiting. The chest pain is described as a heaviness, a pressure. Duration: The patient or guardian reports a single episode, that is now resolved. Modifying factors: The symptoms are alleviated by ASA, NTG, X1. the symptoms are aggravated by nothing. Severity of pain: At its worst the pain was moderate in the emergency department the pain is unchanged. The patient has not experienced similar symptoms in the past. The patient has not recently seen a physician. Patient woke up around 2 AM with chest pain, substernal, radiates to left arm. No diaphoresis or nausea. Denies any previous heart attack. Chest pain resolved after nitroglycerin and aspirin administered by EMS. Has not felt ill recently, denies fever cough.. Historical: - Allergies: 08:59 CEPHALOSPORINS; jl7 08:59 duracef; jl7 08:59 Furadantin; jl7 08:59 PENICILLINS; jl7 08:59 Sulfa (Sulfonamide Antibiotics); jl7 - Home Meds: 10:50 carvedilol 25 mg Oral tab 1 tab 2 times per day [Active]; prednisone 5 mg Oral tab once jl7 daily [Active]; brimonidine 0.15 % ophthalmic drop 1 drop twice a day [Active]; Pepcid 20 mg Oral tab 1 tab 2 times per day [Active]; amlodipine 5 mg oral tab 1 tab once daily [Active]; rosuvastatin 5 mg oral cpSP 1 cap once daily [Active]; lisinopril 10 mg oral tab 1 tab once daily [Active]; multivitamin Oral tab daily [Active]; Restasis 0.05 % ophthalmic (eye) dpet 1 drop every 12 hours [Active]; latanoprost 0.005 % ophthalmic (eye) drop 1 drop once daily [Active]; Advair Diskus 250-50 mcg/dose Inhl dsdv 1 puff 2 times per day [Active]; - PMHx: 08:59 Asthma; vasculitis; Hypertension; High Cholesterol; GERD; jl7 - Immunization history:: Adult Immunizations up to date. - Social history:: Smoking status: Patient denies any tobacco usage or history of. - Family history:: not pertinent. - Hospitalizations: : No recent hospitalization is reported. ROS: 09:14 Constitutional: Negative for fever, chills, and weight loss, Eyes: Negative for injury, rn pain, redness, and discharge, ENT: Negative for injury, pain, and discharge, Neck: Negative for injury, pain, and swelling, Cardiovascular: Positive for chest pain Respiratory: Negative for shortness of breath, cough, wheezing, and pleuritic chest pain, Abdomen/GI: Negative for abdominal pain, nausea, vomiting, diarrhea, and constipation, Back: Negative for injury and pain, : Negative for injury, bleeding, discharge, and swelling, MS/Extremity: Negative for injury and deformity, Skin: Negative for injury, rash, and discoloration, Neuro: Negative for headache, weakness, numbness, tingling, and seizure. 09:14 All other systems are negative. Exam: 09:14 Constitutional: This is a well developed, well nourished patient who is awake, alert, rn and in no acute distress. Head/Face: Normocephalic, atraumatic. Eyes: Periorbital areas with no swelling, redness, or edema. ENT: No stridor Cardiovascular: Regular rate and rhythm. No pulse deficits. Respiratory: Speaking full sentences, unlabored. No increased work of breathing, no retractions or nasal flaring. Abdomen/GI: Soft, non-tender Skin: Warm, dry MS/ Extremity: Pulses equal, no cyanosis. Neuro: Awake and alert, GCS 15 09:18 ECG was reviewed by the Attending Physician. rn Vital Signs: 08:55 BP 147 / 68; Pulse 77; Resp 15 S; Temp 98.1(O); Pulse Ox 94% on R/A; Weight 61.23 kg; jl7 Height 5 ft. 5 in. (165.10 cm); Pain 0/10; 09:48 BP 157 / 66; Pulse 65; Resp 15; Pulse Ox 94% ; Pain 0/10; jl7 11:04 BP 156 / 69; Pulse 66; Resp 15; Pulse Ox 94% ; jl7 08:55 Body Mass Index 22.46 (61.23 kg, 165.10 cm) jl7 MDM: 08:53 Patient medically screened. rn 09:47 Differential diagnosis: acute myocardial infarction, acute pericarditis, anxiety, rn coronary artery disease chest wall pain, costochondritis, pericarditis, pleurisy, pneumonia, pneumothorax, stable angina. The patient was not given aspirin in the Emergency Department. Administered by EMS. The patient's pulmonary embolism risk score was calculated as follows: No Risks (0 Pts) Total Score: 0-2 points. This patient was found to be at low risk for a pulmonary embolism by using the Well's assessment criteria. SOHAM Risk Score: 1 - patient's age is greater or equal to 65 years, 1 - Three or more CAD risk factors, 1 - Recent [<24hrs] Severe Angina, 1 - Elevated Cardiac Markers, TOTAL SCORE = 4. Data reviewed: vital signs, nurses notes, lab test result(s), EKG, radiologic studies, plain films, and as a result, I will admit patient. Data interpreted: build master: rate is 77 beats/min, rhythm is normal sinus rhythm, regular, with no ectopy, Interpretation: normal rate, normal rhythm, Pulse oximetry: on room air is 94 %. Interpretation: acceptable. Test interpretation: by ED physician or midlevel provider: ECG, plain radiologic studies, Chest x-ray with right lower lobe opacity that has been seen been seen on previous x-rays as well. Counseling: I had a detailed discussion with the patient and/or guardian regarding: the historical points, exam findings, and any diagnostic results supporting the discharge/admit diagnosis, lab results, radiology results, the need for further work-up and treatment in the hospital. Response to treatment: the patient's symptoms have markedly improved after treatment, the patient's symptoms have resolved after treatment, the patient's condition has returned to base line, the patient is now symptom free, and as a result, I will admit patient. Admission orders: after a detailed discussion of the patient's condition and case, the admit orders are written by me. ED course: Patient with mild elevation in troponin. Nonspecific ECG. Chest x-ray that shows right lower lobe pulmonary opacity that has been there previously, patient without any infectious symptoms, no elevation of WBC, afebrile, and no cough. Will admit to Dr. Catalan for further care with cardiology consultation.. 01/22 08:54 Order name: Basic Metabolic Panel; Complete Time: 09:41 rn 01/22 08:54 Order name: CBC with Diff; Complete Time: : rn 01/22 08:54 Order name: Magnesium; Complete Time: : rn 01/22 08:54 Order name: NT PRO-BNP; Complete Time: : rn 01/22 08:54 Order name: PT-INR; Complete Time: : rn 01/22 08:54 Order name: Troponin (emerg Dept Use Only); Complete Time: : rn 01/22 08:54 Order name: XRAY Chest (1 view); Complete Time: : rn 01/22 08:54 Order name: EKG; Complete Time: 08:55 rn 01/22 10:09 Order name: CT Chest Wo Con; Complete Time: 10:50 rn 01/22 11:40 Order name: SARS-COV-2 RT PCR [facility] 01/22 13:11 Order name: Diet Heart Healthy; Complete Time: 13:11 jl7 01/22 14:56 Order name: Troponin I [facility] 01/22 08:54 Order name: Cardiac monitoring; Complete Time: 09:04 rn 01/22 08:54 Order name: EKG - Nurse/Tech; Complete Time: : rn 01/22 08:54 Order name: IV Saline Lock; Complete Time: :46 rn 01/22 08:54 Order name: Labs collected and sent; Complete Time: :46 rn 01/22 08:54 Order name: O2 Per Protocol; Complete Time: :46 rn 01/22 08:54 Order name: O2 Sat Monitoring; Complete Time: 09:46 rn EC:18 Rate is 74 beats/min. Rhythm is regular. QRS [place] is Normal. NM interval is normal. QRS rn interval is normal. QT interval is normal. No Q waves. T waves are Normal. No ST changes noted. Clinical impression: Normal ECG and PVCs. Interpreted by me. Reviewed by me. Administered Medications: 10:50 Drug: Lovenox (enoxaparin) 1 mg/kg Route: Sub-Q; Site: abdomen; jl7 11:42 Follow up: Response: No adverse reaction jl7 Disposition Summary: 01/22/21 09:50 Hospitalization Ordered Hospitalization Status: Inpatient Admission rn Provider: Pasquale Catalan rn Location: Telemetry/MedSurg (Inpatient) rn Condition: Stable rn Problem: new rn Symptoms: have improved rn Bed/Room Type: Standard rn Room Assignment: 231(01/22/21 14:08) dw Diagnosis - Chest pain, unspecified rn - Subsequent non-ST elevation (NSTEMI) myocardial infarction rn Forms: - Medication Reconciliation Form rn - SBAR form rn Signatures: Dispatcher [employer] EDPeace Tirado RN RN dw Nieto, Roman, MD MD rn Leal, Jahala, RN RN jl7 Corrections: (The following items were deleted from the chart) 10:43 08:55 CORONAVIRUS+MR.LAB.BRZ ordered. EDKS EDKS 14:08 09:50 rn pepper
--- NOTE | 2021-01-22 10:49 | RAD REPORT ---
EXAM DESCRIPTION: CT - Thorax Con - 01/22/2021 10:34 am CLINICAL HISTORY: chest pain COMPARISON: Thorax Wo Con dated 11/17/2016 FINDINGS: Chest Wall: No suspicious thyroid nodules or pathologic lymphadenopathy. Lungs: Nodular airspace disease in the lower lungs bilaterally. This is improved since 11/17/2016. Pleura: No significant effusions or pneumothorax. Mediastinum/jeff: No pathologic lymphadenopathy. Small hiatal hernia. Pulmonary arteries/Aorta: No filling defect identified. No aortic aneurysm. Heart: No significant pericardial effusion. Normal heart size. Aortic valve replacement. Coronary art [place] calcifications. Upper abdomen: No acute abnormality. Bones: No acute abnormality. All CT scans are performed using dose optimization technique as appropriate and may include automated exposure control or mA/KV adjustment according to patient size. IMPRESSION: Though improved compared with 11/17/2016, there are some mild nodular airspace opacities in the lower lungs that could reflect infection or inflammation.
[2021-01-22] MEDS ORDERED: ENOXAPARIN 60 MG/0.6 ML SQ ONE (11:06)
[2021-01-22] MEDS ORDERED: ONDANSETRON 4 MG/2 ML VIAL IV PRN (12:28)
[2021-01-22 13:18] VITALS: BMI 22.4
[2021-01-22] MEDS ORDERED: predniSONE 5 MG TAB PO ONE ×2 (15:00→16:00)
--- NOTE | 2021-01-22 15:02 | HP ---
Date of Admission: 01/22/2021 Chief Complaint: Chest pain. History Of Present Illness: This is an 80-year-old pleasant female patient who came into emergency room with complaints of chest pain and left arm pain. The patient says she was sleeping and she woke up from her sleep with this left- sided chest pain which she describes as heaviness as if somebody is sitting on her chest, and she has some pain in her left arm. She came into emergency room. She called ambulance and was brought into ER. She was given 1 aspirin and nitroglycerin sublingual tablet in ambulance and that resulted in resolution of her symptoms and she has not had any recurrence since that time. After she was evaluated in the ER, I was contacted requesting admission to the hospital and I saw her in the emergency room this morning. She was asymptomatic when I saw her. Allergies: AMOXICILLIN CAUSING MILD SWELLING. SULFA, DETAILS UNKNOWN. NITROFURANTOIN, DETAILS UNKNOWN. LEVAQUIN CAUSING BLURRED VISION. Medications: Amlodipine 5 mg 2 times a day, aspirin 81 mg daily, carvedilol 25 mg 2 times a day, famotidine 20 mg at bedtime, Advair Diskus 1 puff 2 times a day and it is 250/50 mcg dose, lisinopril 10 mg 2 times a day, prednisone 5 mg daily, rosuvastatin 5 mg daily at bedtime. Review of Systems: Cardiovascular: As mentioned above. All other systems reviewed and negative. Past Medical History: Allergic rhinitis, type 2 diabetes mellitus, mild persistent asthma, hypertension, hyperlipidemia, coronary artery disease, diastolic congestive heart failure, paroxysmal atrial fibrillation, aortic stenosis, carotid artery stenosis, bilateral gastroesophageal reflux disease, constipation, diverticulosis, lumbar radiculopathy, osteopenia. 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 Family History: Father , had kidney cancer, bladder cancer, and hypertension. Mother , had thyroid cancer, hypertension, and stroke. Sister with thyroid disease. Social History: Negative for smoking. Use of alcohol, occasional glass of wine. Immunization History: The patient had her first dose of COVID-19 vaccine on May 18, 2020, and second dose was on June 15, 2020. Physical Examination: Vital Signs: When patient came into emergency room, blood pressure 147/68, pulse 77, respiratory rate 15, temperature 98.1, pulse ox 94%. Weight 61.23 kg, height 5 feet 5 inches. General: Awake, alert, oriented, not in distress. HEENT: Head atraumatic, normocephalic. Conjunctivae nonerythematous. Sclerae white. Mouth, no thrush or edema noted. Ears/Nose, no mass, lesion, discharge noted. Neck: Supple. No JVD, lymph nodes, bruit, thyromegaly noted. Lungs: Bilateral good equal air entry. Clear to auscultation. No rhonchi. No rales. Heart: Normal heart sounds, no murmur or gallop. Abdomen: Soft, bowel sounds normal. No guarding, rigidity, tenderness, mass, hepatosplenomegaly, distention, or bruit noted. Extremities: No leg edema. No calf tenderness. Skin: No rash, ulcer, cellulitis. Lymphatics: No lymph node enlargement in neck, supraclavicular, infraclavicular region. Neuro: No focal neurological deficit. Chest: Unremarkable. External Genitalia: Deferred. Rectal: Deferred. Laboratory Data: EKG; normal sinus rhythm. No acute ST-T changes. Chest x- ray, persistent patchy right basilar airspace disease and CAT scan of the chest done without contrast compared to November 2016, this right basilar opacity appears improved compared to before. There is some mild nodular airspace opacity in the right lower lung field, which was noted in 2017, but it is better compared to before. Labs: Sodium 142, potassium 3.9, chloride 108, bicarb 31, BUN 11, creatinine 0.65, glucose 138. Troponin 0.46. White count 10.3, hemoglobin 14.2, platelets 206. INR 1.07. COVID-19 test negative. Impression: 1. Non-ST elevation myocardial infarction. 2. Coronary artery disease. 3. Hypertension. 4. Hyperlipidemia. 5. Paroxysmal atrial fibrillation. 6. Carotid artery stenosis, bilateral. 7. Type 2 diabetes mellitus. 8. Chronic steroid therapy. Plan: We will go ahead and admit the patient to hospital for further evaluation and management of this problem. The patient is appropriate for inpatient and is expected to spend 2 midnights in hospital. We will continue home medications per order and we will go ahead and get serial cardiac enzymes. Continue aspirin. Start the patient on Lovenox. We will consult Cardiology and I will discuss details with baking assistant regarding possibility of doing cardiac cath procedure day after tomorrow. The patient normally sees Dr. Clifford, baking assistant in [place], but has not seen him lately and when I communicated with her in the emergency room, she informed me that she does not want to be transferred to [place] and she would like to stay here at our hospital and use our local baking assistant for further care. NYDIA/CHRISTINA Voice ID: [id number] SERENA
--- NOTE | 2021-01-22 15:31 | HP ---
Date of Admission: 01/22/2021 NYDIA/MODL Voice ID: [id number] MTDD
[2021-01-22] MEDS: FAMOTIDINE 20 MG TAB PO SCH (17:10)
[2021-01-22] MEDS: carvediloL 25 MG TAB PO SCH (21:00)
[2021-01-22] MEDS: ENOXAPARIN 60 MG/0.6 ML SQ SCH ×2 (21:00→21:47)
[2021-01-22] MEDS: HOME MED 1 EA UNK (Cyclosporine [Restasis] Droperette) OPTH SCH (21:00)
[2021-01-22] MEDS: lisinopriL 5 MG TAB PO SCH (21:00)
[2021-01-22] MEDS: BRIMONIDINE TARTRATE 0.15% 5 ML OPTH SCH (21:00)
[2021-01-22] MEDS: ROSUVASTATIN 10 MG TAB PO SCH (21:46)
[2021-01-23 06:01] LABS: Absolute Lymphocytes (CBC) 1.5 K/uL (0.7-4.9); Basophils % 0.9 % (0-1.3); Hematocrit 42.9 % (36.0-45.0); Lymphocytes % 15.3 % (15.3-44.8); MPV 9.6 fL (7.6-11.3); RBC Red Blood Cell Count 4.86 M/uL (3.86-4.86)
[2021-01-23 06:22] LABS: Albumin 2.9 g/dL (3.4-5.0); Bilirubin Total 0.3 mg/dL (0.2-1.0); Potassium 3.7 mmol/L (3.5-5.1); Protein, Total 6.5 g/dL (6.4-8.2)
[2021-01-23] MEDS: FAMOTIDINE 20 MG TAB PO SCH ×2 (08:30→16:04)
[2021-01-23] MEDS: predniSONE 5 MG TAB PO SCH (08:33)
[2021-01-23] MEDS: ENOXAPARIN 60 MG/0.6 ML SQ SCH ×2 (08:33→20:56)
[2021-01-23] MEDS: AMLODIPINE 5 MG TAB PO SCH (08:34)
[2021-01-23] MEDS: carvediloL 25 MG TAB PO SCH ×2 (08:34→20:39)
[2021-01-23] MEDS: CETIRIZINE HCL 5 MG TABLET PO SCH (08:34)
[2021-01-23] MEDS: ASPIRIN EC 81 MG TAB PO SCH (08:35)
[2021-01-23] MEDS: HOME MED 1 EA UNK (Fluticasone/Salmeterol [Advair 250-50 Diskus] Blst.W.Dev) IH SCH (08:35)
[2021-01-23] MEDS: HOME MED 1 EA UNK (Cyclosporine [Restasis] Droperette) OPTH SCH ×2 (08:35→20:43)
[2021-01-23] MEDS: BRIMONIDINE TARTRATE 0.15% 5 ML OPTH SCH ×2 (08:36→20:43)
--- NOTE | 2021-01-23 11:57 | PN ---
Date of Progress Note: 01/23/2021 Subjective: The patient was seen for followup this morning. She denies any chest pain, shortness of breath. No nausea, no vomiting. She has not had any recurrence of chest pain all day yesterday or today. Yesterday, she did not feel quite well, but today she feels a lot better. Objective: Vital Signs: Reviewed. HEENT: Unremarkable. Lungs: Clear to auscultation. Heart: Sounds normal. Abdomen: Soft. Bowel sounds normal. No guarding, rigidity, tenderness, or distention. Extremities: No leg edema. Laboratory Data: White count 9.9, hemoglobin 14, platelets 238. Sodium 145, potassium 3.7, chloride 112, bicarb 30, BUN 14, creatinine 0.66, glucose 120. Liver function tests unremarkable. Total cho lesterol 169, triglyceride 99, LDL 83, HDL 66. Last troponin 2.48. Impression: 1.Non-ST segment elevation myocardial infarction. 2.Coronary artery disease. 3.Hypertension. 4.Hyperlipidemia. 5.Chronic steroid therapy. Plan: We will go ahead and continue current medications. Continue rosuvastatin 20 mg at bedtime and continue aspirin, Lovenox. I did talk to basting cleaner, Dr. Elena, who was on-call last night and d etails were discussed with him and he will plan to do cardiac cath procedure tomorrow morning. Details were discussed with the patient. Further plan of treatment will depend on cardiac cath finding. NYDIA/MODL Voice ID: [id number] Report ID: [id number]
--- NOTE | 2021-01-23 16:17 | CON ---
Date of Consultation: 01/23/2021 Reason For Consultation: Elevated troponin. History Of Present Illness: An 80-year-old female with history of diabetes, hypertension, coronary a rtery disease, CHF, atrial fibrillation, carotid stenosis, presented with chest pain, pressure-like, radiates to the left side, lasted about 45 minutes, resolved, and has been chest pain free. Troponin went up to the range of 3. The patient does not have any symptoms at the present time. Past Medical History: As outlined above in the HPI. Medications: Refer reconciliation sheet for detailed list. Allergies: ALLERGY LIST WAS REVIEWED. PLEASE REFER TO THE NURSE'S NOTES. Family History: No premature coronary artery disease or cancer. Social History: Does not smoke or drink. Does not use any drugs. Review of Systems: All systems reviewed and they were negative except as mentioned in the HPI. Physical Examination: Vital Signs: Temperature is 98.2, pulse 68, breathing 18, blood pressure 153/69, and saturating 91% on room air. General: Pleasant elderly female, in no apparent distress. Head and Neck: Pupils are equal and reactive to light. Intact eye movements. No JVD. No cervical lymphadenopathy. Neck is supple. Thyroid is not enlarged. Lungs: Clear to auscultation bilaterally. No rhonchi, rales, or crackles. No accessory muscle use. Heart: Regular rate and rhythm. No extra sounds. Abdomen: Soft, nontender. Bowel sounds positive. No organomegaly. No masses or hernia. No rigidi ty or rebound. Extremities: No edema, clubbing, or cyanosis. Intact pulses. Skin: No rashes. Neurologic: Alert and oriented x3. No acute focal deficits appreciated. Investigations: Troponin peaked at 2.48. Creatinine 0.66. Assessment And Recommendations: Rab-HT-wywdpfttc myocardial infarction. Discussed the case with Dr. Catalan. The patient was placed on Lovenox and aspirin, and plan to keep n.p.o. past midnight for mery nary angiogram tomorrow and please use nitroglycerin patches for pain control as needed. SR/MODL Voice ID: [id number] Report ID: [id number]
[2021-01-23] MEDS: ROSUVASTATIN 10 MG TAB PO SCH (20:38)
[2021-01-23] MEDS: lisinopriL 5 MG TAB PO SCH (20:57)
[2021-01-24] MEDS: ASPIRIN EC 81 MG TAB PO SCH (05:53)
[2021-01-24] MEDS: AMLODIPINE 5 MG TAB PO SCH (05:54)
[2021-01-24] MEDS: carvediloL 25 MG TAB PO SCH ×2 (05:57→21:33)
[2021-01-24] MEDS: FAMOTIDINE 20 MG TAB PO SCH ×2 (07:30→16:26)
[2021-01-24] MEDS: predniSONE 5 MG TAB PO SCH (08:19)
[2021-01-24] MEDS: HOME MED 1 EA UNK (Cyclosporine [Restasis] Droperette) OPTH SCH ×2 (08:19→21:00)
[2021-01-24] MEDS: HOME MED 1 EA UNK (Fluticasone/Salmeterol [Advair 250-50 Diskus] Blst.W.Dev) IH SCH (08:19)
[2021-01-24] MEDS: BRIMONIDINE TARTRATE 0.15% 5 ML OPTH SCH ×2 (08:19→21:00)
[2021-01-24] MEDS: CETIRIZINE HCL 5 MG TABLET PO SCH (08:20)
[2021-01-24] MEDS ORDERED: HEPA 1000U/500MLS 2,000 UNIT/1,000 ML BAG IV ONE (12:16)
[2021-01-24] MEDS ORDERED: ATROPINE SULF 1 MG/10 ML SYR IV ONE (12:18)
[2021-01-24] MEDS ORDERED: FENTANYL CITR 100 MCG/2 ML ONE (12:18)
[2021-01-24] MEDS ORDERED: VERAPAMIL HCL 10 MG/4 ML VIAL IV ONE (12:18)
[2021-01-24] MEDS ORDERED: HEPARIN 5000 UNIT/ML 1 ML VIAL ONE (12:18)
[2021-01-24] MEDS ORDERED: MIDAZOLAM HCL 2 MG/2 ML INJ ONE (12:18)
[2021-01-24] MEDS ORDERED: NA CHLORIDE 0.9% 500 ML ONE (12:19)
[2021-01-24] MEDS ORDERED: TICAGRELOR 90 MG TABLET PO ONE (12:58)
--- NOTE | 2021-01-24 14:10 | OP ---
Date of Procedure: 01/24/2021 Surgeon: LACEY SANTOS Procedures Performed: 1.Selective coronary angiogram. 2.IVUS mid LAD. 3.Left heart catheterization. 4.PCI of severe mid LAD stenosis, which is a culprit using a 2.75 x 60 mm Synergy drug-eluting stent , overlapped distally using 2.5 x 12 mm Synergy drug-eluting stent. Access: Right radial artery 6-Georgian closed with TR band. Indication: Non-ST elevation myocardial infarction. Complications: None. Bleeding: Less than 10 mL. Description Of Procedure: After risks, benefits, and alternatives were explained, the patient agreed to the procedure and signed informed consent. The patient was prepped and draped in usual sterile f ashion and then accessed right radial artery using pediatric micropuncture kit and placed a 6-Georgian Slender sheath. Fentanyl and Versed were given in incremental doses to achieve adequate moderate sed ation. Total sedation time was 55 minutes. Then, I took a 6-Georgian JR4 diagnostic catheter into the aortic root, engaged the right coronary artery, took standard views, then exchanged for a 6-Georgian J L3.5 diagnostic catheter, engaged the left main and took standard views and then we moved to interven tional part. The JR4 was advanced through the aortic valve prosthesis and measured the LVEDP, which was normal and upon pullback, there was no gradient. Intervention Details: The patient was given heparin to assure ACT level above 250 and given 180 mg o f Brilinta and aspirin. Then, I took a Run-Through wire into the JL3.5 into the left main in the LAD and placed a wire distal LAD and decided to exchange the diagnostic catheter for the guide over the Run-Through due to difficulty engaging the left main due to the presence of CoreValve. Then, I took a 3.5 guide over the Run-Through wire and engaged the left main successfully. Subsequentl y, we took our first catheter into the distal portion of the LAD and it was an area of haziness. It was very tight with luminal area of 2.7 sq mm and likely presence of thrombus. It looked very hazy o n angiogram, so I decided to proceed with PCI, so the area was bumped using a 2.75 x 12 mm balloon an d then I took a 2.75 x 60 mm stent, overlapped with the mid LAD stent, and then distal portion did no t expand very well and the stent did not cover the whole disease, so I took another 2.5 x 12 mm stent , overlapped with the previous stent and inflated to high pressure distal from the stent given a size of about 3 mm stent and then I took the IVUS catheter back and showed that the stent is well apposed . Final angiograms were satisfactory with SOHAM-3 flow and there were no complications. Then, we rem espinoza the wire and the guide, and there were no complications. Findings: 1.Left main is normal. 2.LAD; proximal to mid patent stent. Then mid LAD, very hazy significant stenosis from around 80% w ith a of 2.7 mm suggestive of lesion being a culprit, likely thrombus status po st successful PCI as above. Rest of the LAD is with luminal irregularity. 3.Left circumflex is normal. 4.RCA is large dominant with proximal to mid stent that is patent and luminal . 5.LVEDP of 10 and no gradient across the aortic valve prosthesis. Conclusions: 1.Severe mid LAD stenosis, likely the culprit, likely with a plaque rupture and thrombus. Status po st PCI as above. 2.Normally functioning prosthesis with no gradient across the aortic valve. 3.LVEDP normal at 10 mmHg. Plan: Brilinta, aspirin, and statin. SR/MODL Voice ID: [id number] Report ID: [id number]
[2021-01-24] MEDS: ROSUVASTATIN 10 MG TAB PO SCH (21:31)
[2021-01-24] MEDS: lisinopriL 5 MG TAB PO SCH (21:31)
[2021-01-25] MEDS: HOME MED 1 EA UNK (Cyclosporine [Restasis] Droperette) OPTH SCH (09:00)
[2021-01-25] MEDS: HOME MED 1 EA UNK (Fluticasone/Salmeterol [Advair 250-50 Diskus] Blst.W.Dev) IH SCH (09:00)
[2021-01-25] MEDS: BRIMONIDINE TARTRATE 0.15% 5 ML OPTH SCH (09:00)
[2021-01-25] MEDS: carvediloL 25 MG TAB PO SCH (09:43)
[2021-01-25] MEDS: ASPIRIN EC 81 MG TAB PO SCH (09:43)
[2021-01-25] MEDS: FAMOTIDINE 20 MG TAB PO SCH (09:43)
[2021-01-25] MEDS: CETIRIZINE HCL 5 MG TABLET PO SCH (09:43)
[2021-01-25] MEDS: AMLODIPINE 5 MG TAB PO SCH (09:43)
[2021-01-25] MEDS: predniSONE 5 MG TAB PO SCH (09:49)
[2021-01-25] MEDS ORDERED: CLOPIDOGREL 75 MG TABLET PO ONE (12:09)
--- NOTE | 2021-01-25 15:46 | DS ---
Date of Discharge: 01/25/2021 Disposition: Discharged to go home. Physical Examination: HEENT: Unremarkable. Lungs: Clear to auscultation. Heart: Sounds normal. Abdomen: Soft. Bowel sounds normal. No guarding, rigidity, tenderness, or distention. Extremities: No leg edema. The patient has a small dressing present over right radial arterial aspect, that is where she had cardiac cath procedure done yesterday. No evidence of swelling and no tenderness. Her neurovascular status of right hand is normal. Laboratory Data: Last CBC from 01/23/2021; white count 9.9, hemoglobin 14, platelets 238. Last chemistry from 01/23/2021; sodium 145, potassium 3.7, chloride 112, bicarb 30, BUN 14, creatinine 0.66, glucose 120. Liver function tests unremarkable and her LDL cholesterol was 83, HDL 66, triglyceride 99, total cholesterol 169. Hospital Course: This is an 80-year-old pleasant female patient, came into emergency room with complaints of chest pain. Please see dictated H and P for more information. The patient came into ER, was evaluated and admitted to hospital with non-STEMI. Her chest x-ray had shown persistent patchy right basilar airspace disease. CAT scan of the chest without contrast showed right basilar opacity, improved compared to 2017, and no other concerning abnormality noted. Her initial troponin level was 0.4 and the highest troponin level was 2.4. COVID-19 test was negative. The patient was started on aspirin and Lovenox and overall her condition remained stable. Cardiology consultation was obtained and yesterday the patient had a cardiac cath done and that did show significant stenosis of mid LAD portion and she had angioplasty with stent placement in this area. She received Brilinta after the cardiac cath procedure and today she will be discharged to go home. I have discussed with ct technician and he has given me his okay for the patient to go home with Plavix, but he has advised the patient to take loading dose of Plavix today which is 300 mg and starting tomorrow, she will take 75 mg daily. Nurse was advised to give loading dose of Plavix 300 mg p.o. x1 dose per order. At home, she was taking Crestor 5 mg daily and I have increased dose to 20 mg daily and I have discussed all the discharge medication details with the patient. Final Diagnoses: 1. Non-ST segment elevation myocardial infarction. 2. Coronary artery disease. 3. Hypertension. 4. Hyperlipidemia. 5. Paroxysmal atrial fibrillation. 6. Carotid artery stenosis, bilateral. 7. Type 2 diabetes mellitus. 8. Chronic steroid therapy. Discharge Medications And Instructions: 1. Continue prior home medications except change rosuvastatin 5 mg, the patient to take 4 tablets by mouth daily until you run out and then change to 20 mg tablet and take 1 tablet by mouth daily at bedtime, clopidogrel 75 mg p.o. daily starting tomorrow morning. 2. Take aspirin 81 mg by mouth daily. 3. Follow up at my office on 01/31/2021 and call office for appointment. 4. Follow up with ct technician in 2-3 weeks. 5. The patient was advised to avoid using right arm, right hand for any kind of strenuous activity and was instructed not to carry anything more than a small cup of glass with her right hand for next 2 weeks. NYDIA/MODL Voice ID: [id number] Report ID: [id number] SERENA
[2021-01-25 15:56] VITALS: O2SAT 92
[2021-01-25 17:39] VITALS: BP 101/58; TEMP 98.3
--- NOTE | 2021-01-25 18:02 | PN ---
Date of Progress Note: 01/24/2021 Subjective: The patient was seen this morning for followup. No new complaints or problems reported by the patient. No chest pain. No shortness of breath. Objective: Vital Signs: Reviewed. HEENT: Unremarkable. Lungs: Clear to auscultation. Heart: Sounds normal. Abdomen: Soft. Bowel sounds normal. No guarding, rigidity, or distention. Extremities: No leg edema. Impression: 1.Non-ST segment elevation myocardial infarction. 2.Coronary artery disease. 3.Hypertension. 4.Hyperlipidemia. Plan: The patient had a cardiac cath procedure and LAD stent placed by Dr. Elena and he did contact me and informed me about this intervention and from his point, the patient can go home tomorrow. I will see her tomorrow morning and then we will plan for discharge to home. NYDIA/MODL Voice ID: [id number] Report ID: [id number]
== END 2021-01-25 16:03 | disposition home or self-care (01) | DRG 247 ==
LOC: ER 08:47 → ERHOLD 10:53 → 2ND 15:20
PROVIDERS: ADMIT Internal Medicine; ATTEND Internal Medicine
PROC: 027035Z Dilation of Coronary Artery, One Artery with Two Drug-eluting Intraluminal Devices, Percutaneous Approach (ICD-10-PCS; principal; 2021-01-24)
PROC: 4A023N7 Measurement of Cardiac Sampling and Pressure, Left Heart, Percutaneous Approach (ICD-10-PCS; 2021-01-24)
PROC: B201YZZ Plain Radiography of Multiple Coronary Arteries using Other Contrast (ICD-10-PCS; 2021-01-24)
DX: I21.4 Non-ST elevation (NSTEMI) myocardial infarction (principal); I25.10 Atherosclerotic heart disease of native coronary artery without angina pectoris; I10 Essential (primary) hypertension; E78.5 Hyperlipidemia, unspecified; I48.0 Paroxysmal atrial fibrillation; I65.23 Occlusion and stenosis of bilateral carotid arteries; E11.9 Type 2 diabetes mellitus without complications; Z79.52 Long term (current) use of systemic steroids; Z88.0 Allergy status to penicillin; Z88.2 Allergy status to sulfonamides; Z20.822 Contact with and (suspected) exposure to COVID-19
CPT/HCPCS: 36415; 71045; 71250; 80048; 80053; 80061; 82947; 83735; 83880; 84484; 85025; 85347; 85610; 92978; 93005; 93458; 96372; 99285; C1725; C1893; C9600; J1644; J1650; J2250; J3010; J7040; J7512; U0003

== ENCOUNTER 2022-12-04 18:02 | Inpatient (IN) | payer OTHER ==
--- OUTSIDE RECORDS SUMMARY | 2022-12-04 18:10 | XMS REPORT | Continuity of Care Document ---
:1940 Author Organization [facility] t Address [address] [facility] [address] [place] [address] Care Team Providers Name Role Phone Alayna BRADY, Elver Yoo Primary Care Physician Kentrell BRADY, Nettie Becker Attending Clinician Preet Kong Attending Clinician Unavailable Narciso Farfan MA Attending Clinician Unavailable Rigo Silva Attending Clinician Radha Be MA Attending Clinician Unavailable Isaiah Del Cid Attending Clinician Unavailable Rebecca Perez MD Attending Clinician [phone] Poppy Camarillo Attending Clinician Isaiah Del Cid Admitting Clinician Unavailable Physician, No Primary or Family Admitting Clinician Unavaila ble Payers Payer Name Policy Type Policy Number Effective Date Expiration Date S ource Problems Condition Condition Condition Status Onset Resolution Last Treating Co mments Source Name Details Category Date Date Treatment Clinician Date S/p TAVR S/p TAVR Disease Active Metho di (transcath (transcath 06 st eter eter 00:00: Hospita aortic aortic 00 l valve valve replacemen replacemen t), t), bioprosthe bioprosthe tic tic S/p TAVR S/p TAVR Disease Active Metho [...] Added automatic ally from request for surgery [id number] Schatzki's Schatzki's Disease Active M ethodi ring ring 8-12 st 00:00: Hospita 00 l I82.413 - I82.413 - Diagnosis Active 2017-10-17 Memoria ACUTE ACUTE 10-17 13:01:00 l EMBOLISM EMBOLISM 00:01: Rick n AND AND 00 THROMBOSIS THROMBOSIS Active 10/17/2017 OPID [facility] Edema Edema Disease Active Methodi 5-22 st 00:00: Hospita 00 l Edema Edema Disease Active Methodi 5-22 st 00:00: Hospita 00 l Bilateral Bilateral Disease Active Met hodi carotid carotid 9-19 st bruits bruits 00:00: Hospita 00 l Stented Stented Disease Active Methodi coronary coronary 3-14 st artery artery 00:00: Hospita 00 l History of History of Disease Active M ethodi coronary coronary 3-14 st artery artery 00:00: Hospita stent stent 00 l placement placement Essential Essential Disease Active 2015-05 Met hodi [...] 00 l 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 2015-05 [facility]i [place] nce 0-07 st artery artery 00:00: Hospita 00 l SOB SOB Disease Active 2015-05 Method[facility] (shortness (shortness 0-07 st of breath) of breath) 00:00: Ho spita 00 l Presence Presence Disease Active 2015-05 Metho di of stent of stent 007 st in in 00:00: Hospita coronary coronary 00 l artery artery Vasculitis Vasculitis Disease Active 2015-[address] 00:00: Hospita 00 l Hypertensi Hypertens Problem Active 2021-12-19 Memoria ve ayo 02:47:43 l disorder, disorder, Herm abhay systemic systemic arterial arterial (disorder) (disorder) Active Problem 12/19/2021 [facility] Hyperlipid Hyperlipi Problem Active 2021-12-19 Memoria emia demia 02:47:43 l (disorder) (disorder) He rmann Active Problem 12/19/2021 [facility] Lumbar Lumbar Problem Active 2021-12-19 Ramana andrew radiculopa radiculopa 02:47:43 l thy thy Clint (disorder) (disorder) Active Problem 12/19/2021 [facility] Peripheral Periphera Problem Active 2021-12-19 Memoria nerve l nerve 02:47:43 l disease disease [place] (disorder) (disorder) Active Problem 12/19/2021 [facility] 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 [place] (disorder) (disorder) Active Problem 12/19/2021 [facility] 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:43 l of lumbar of lumbar Herm abhay region region (disorder) (disorder) Active Problem 12/19/2021 [facility] Dysphagia Dysphagia Disease Active Met hodi st Hospita l [place] Disease Active Methodi hernia hernia st syndrome syndrome Hospit a l Allergies, Adverse Reactions, Alerts Allergy Allergy Status Severity Reaction(s) Onset Inactive Treating Comm ents Source Name Type Date Date Clinician nitrofur DA Active [place] RASH/SWELLIN HC A antoin G 08-25 00:00: Orthope 00 dic [facility]ospita l amoxicil DA Active [facility] [place] [facility] te 00 dic [facility]ospita l Penicill DA Active U U [facility] ins 08-25 00:00: Orthope 00 dic [facility]ospita l Cephalos DA Active [facility] porins [place] [facility] l Sulfa DA Active SV ALL OVER [facility] ([facility]ulf[place] [facility]:[facility] [facility] Antibiot 00 dic ics) Hospita l ampicill DA Active [facility] [place] [facility] dic [facility] l potassiu DA Active [facility] [place]:[facility] Orthope ate 00 dic Hospita l Penicill DA Active U U [facility] ins 4-12 [place] 00:00: Orthope 00 dic [facility]ospita l amoxicil DA Active [facility] odalis [place] 1[place]:[facility] Orthope te 00 dic [facility]ospita l Cephalos DA Active [facility] porins [place] [facility] dic [facility] l Sulfa DA Active SV ALL OVER [facility] (Sulfona [place] 1[place] [facility]:[facility] Antibiot 00 dic ics) Hospita l ampicill DA Active [facility] [place] [facility] 00 dic [facility]osp[facility] l potassiu DA Active [facility]ACIAL 0 [facility] [place]:[facility] Orthope ate 00 dic Hospita l nitrofur DA Active [place] RASH/SWELLIN HC A antoin G 1-14 00:00: Orthope 00 dic Hospita l Cephalos Propensi Active Rash 2015-05 Swelling Meth ginette porins ty to 0-[address] adverse 00:00: her lips Hospita reaction 00 and l s to rashPatie drug nt states this happened a long time ago and do not remember what the reaction what.Alma ent states she can take Levaquin without any problems. Amoxicil Propensi Active Rash 2015-05 Swelling Meth [...] she can take Levaquin without any problems. amoxicil DA Active [facility] odalis [place] 2[place] Orthope te 00 dic [facility]ospita l Cephalos DA Active [facility] porins [place] [facility] 00 dic [facility]osp[facility] l Sulfa DA Active SV ALL OVER [facility] (Sulfona [place] 2-[place] [facility]:[facility]: [facility] Antibiot 00 dic ics) Hospita l ampicill DA Active [facility] [place] [facility] 00 dic [facility]ospita l potassiu DA Active [facility] [place] 2-[place]: Orthope ate 00 dic Hospita l nitrofur DA Active [place] RASH/SWELLIN HC A antoin G 06-17 [place] 00:00: Orthope 00 dic Hospita l DURACEF DA Active [place] RASH;FACIAL [facility] SWELLING 06-09 [place] 00:00: Orthope 00 dic Hospita l cephalos cephalos Active Memori a porins porins l [place] penicill penicill Active Memori a ins ins l Clint ampicill ampicill Active Memori a in in l [place] Augmenti Augmenti Active Memori a n n l [place] sulfa sulfa Active Memoria drugs drugs l [place] cefadrox cefadrox Active Memori a il il l [place] Family History Family Member Diagnosis Comments Start Date Stop Date Source Natural father Heart disease [facility] Natural father Hypertension [facility] Natural mother Hypertension [facility] Natural mother Stroke [facility] Natural sister Hypertension [facility] Social History Social Habit Start Date Stop Date Quantity Comments Source Gender identity [facility] Sexual orientation Method ist [facility] Alcohol intake 2021-03-08 2021-03-08 Current drinker Metho dist 00:00:00 00:00:00 of alcohol Hospital (finding) History of Social 2021-03-08 2021-03-[address] function 00:00:00 00:00:00 Hospital Tobacco use and 2018-03-15 2018-03-15 Smokeless tobacco Me thodist exposure 00:00:00 00:00:00 non-user Hospital Alcohol Comment 2016-02-18 2016-02-18 occasional [facility] 00[facility]00:00 00:00:00 Hospital Sex Ass[birth year] At [birth year] [facility] 00:00:00 00:00:00 Hospital Smoking Status Start Date Stop Date Source Social History [facility] Medications Ordered Filled Start Stop Current Ordering Indication Dosage Frequency Signature Comments Components Source Medication Medication Date Date Medication? Clinician (SIG) Name Name amLODIPine Yes TAKE 1 Metho di (NORVASC) 5 7-[address] mg tablet 00:00: MOUTH Hospita 00 EVERY DAY l IN THE EVENING. HOLD FOR SBP LESS THAN 120 carvediloL Yes Take Methodi (COREG) 25 5-[address] MG tablet 00:00: Hospita 00 l metFORMIN Yes TAKE 1 Method i XR 2-[address] (GLUCOPHAGE 00:00: MOUTH Hospi ta -XR) 500 mg 00 DAILY IN l 24 hr EVENING tablet WITH MEAL amLODIPine 2022- No TAKE 1 Meth ginette (NORVASC) 5 2-14 07-24 TABLET (5 st mg tablet 00:00: 00:00 MG TOTAL) Ho spita 00 :00 BY MOUTH l EVERY EVENING. HOLD FOR SBP LESS THAN 120 amLODIPine 2022- No TAKE 1 Meth ginette (NORVASC) 5 2-02 02-14 TABLET (5 st mg tablet 00:00: 00:00 MG TOTAL) Ho spita 00 :00 BY MOUTH l EVERY EVENING. HOLD FOR SBP LESS THAN 120 MULTIVIT 2021-05 Yes 1{tbl} QD Take 1 Metho di &MINERALS/F 0-[address] ERROUS FUM 11:22: mouth Hospit a (MULTI 30 nightly. l VITAMIN ORAL) CALCIUM 2021-05 Yes 600mg Q.5D Take 600 Metho di CARBONATE/V 0-[address] ITAMIN D3 11:22: mouth 2 Hospi ta (CALCIUM 30 (two) l 600 + D,3, times a ORAL) day. fluticasone 2021-05 Yes 1{puff} Inhale 1 Methodi propion-colton 0-[address] meterol 11:22: needed. Hospita (ADVAIR) 30 l 250-50 mcg/dose DISKUS UNABLE TO 2021-05 Yes ophthalmic Me thodi FIND 0-[address] 11:22: drop in Hospita 30 both eyes l twice a day for dry eyes coenzyme 2021-05 Yes 100mg QD Take 100 Meth ginette Q10 100 mg 0-[address] capsule 11:22: mouth Hospita 30 daily. l cholecalcif 2021-05 Yes 1000U QD Take 1,000 Methodi miguel a, 0-[address] vitamin D3, 11:22: mouth Hospi ta (VITAMIN 30 daily. l D3) 1,000 unit tablet MULTIVIT 2021-05 Yes 1{tbl} QD Take 1 Metho di &MINERALS/F 0-[address] ERROUS FUM 11:22: mouth Hospit a (MULTI 30 nightly. l VITAMIN ORAL) CALCIUM 2021-05 Yes 600mg Q.5D Take 600 Metho di CARBONATE/V 0-[address] ITAMIN D3 11:22: mouth 2 Hospi ta (CALCIUM 30 (two) l 600 + D,3, times a ORAL) day. fluticasone 2021-05 Yes 1{puff} Inhale 1 Methodi propion-colton 0-[address] meterol 11:22: needed. Hospita (ADVAIR) 30 l 250-50 mcg/dose DISKUS UNABLE TO 2021-05 Yes ophthalmic Me thodi FIND 0-[address] 11:22: drop in Hospita 30 both eyes l twice a day for dry eyes coenzyme 2021-05 Yes 100mg QD Take 100 Meth ginette Q10 100 mg 0-[address] capsule 11:22: mouth Hospita 30 daily. l cholecalcif 2021-05 Yes 1000U QD Take 1,000 Methodi miguel a, 0-[address] vitamin D3, 11:22: mouth Hospi ta (VITAMIN 30 daily. l D3) 1,000 unit tablet MULTIVIT 2021-05 Yes 1{tbl} QD Take 1 Metho di &MINERALS/F 0-[address] ERROUS FUM 11:22: mouth Hospit a (MULTI 30 nightly. l VITAMIN ORAL) CALCIUM 2021-05 Yes 600mg Q.5D Take 600 Metho di CARBONATE/V 0-[address] ITAMIN D3 11:22: mouth 2 Hospi ta (CALCIUM 30 (two) l 600 + D,3, times a ORAL) day. fluticasone 2021-05 Yes 1{puff} Inhale 1 Methodi propion-colton 0-[address] meterol 11:22: needed. Hospita (ADVAIR) 30 l 250-50 mcg/dose DISKUS UNABLE TO 2021-05 Yes ophthalmic Me thodi FIND 0-[address] 11:22: drop in Hospita 30 both eyes l twice a day for dry eyes coenzyme 2021-05 Yes 100mg QD Take 100 Meth ginette Q10 100 mg 0-[address] capsule 11:22: mouth Hospita 30 daily. l cholecalcif 2021-05 Yes 1000U QD Take 1,000 Methodi miguel a, 0-[address] vitamin D3, 11:22: mouth Hospi ta (VITAMIN 30 daily. l D3) 1,000 unit tablet MULTIVIT 2021-05 Yes 1{tbl} QD Take 1 Metho di &MINERALS/F 0-[address] ERROUS FUM 11:22: mouth Hospit a (MULTI 30 nightly. l VITAMIN ORAL) CALCIUM 2021-05 Yes 600mg Q.5D Take 600 Metho di CARBONATE/V 0-[address] ITAMIN D3 11:22: mouth 2 Hospi ta (CALCIUM 30 (two) l 600 + D,3, times a ORAL) day. fluticasone 2021-05 Yes 1{puff} Inhale 1 Methodi propion-colton 0-[address] meterol 11:22: needed. Hospita (ADVAIR) 30 l 250-50 mcg/dose DISKUS UNABLE TO 2021-05 Yes ophthalmic Me thodi FIND 0-[address] 11:22: drop in Hospita 30 both eyes l twice a day for dry eyes coenzyme 2021-05 Yes 100mg QD Take 100 Meth ginette Q10 100 mg 0-[address] capsule 11:22: mouth Hospita 30 daily. l cholecalcif 2021-05 Yes 1000U QD Take 1,000 Methodi miguel a, 0-[address] vitamin D3, 11:22: mouth Hospi ta (VITAMIN 30 daily. l D3) 1,000 unit tablet MULTIVIT 2021-05 Yes 1{tbl} QD Take 1 Metho di &MINERALS/F 0-[address] ERROUS FUM 11:22: mouth Hospit a (MULTI 30 nightly. l VITAMIN ORAL) CALCIUM 2021-05 Yes 600mg Q.5D Take 600 Metho di CARBONATE/V 0-[address] ITAMIN D3 11:22: mouth 2 Hospi ta (CALCIUM 30 (two) l 600 + D,3, times a ORAL) day. fluticasone 2021-05 Yes 1{puff} Inhale 1 Methodi propion-colton 0-[address] meterol 11:22: needed. Hospita (ADVAIR) 30 l 250-50 mcg/dose DISKUS UNABLE TO 2021-05 Yes ophthalmic Me thodi FIND 0-[address] 11:22: drop in Hospita 30 both eyes l twice a day for dry eyes coenzyme 2021-05 Yes 100mg QD Take 100 Meth ginette Q10 100 mg 0-[address] capsule 11:22: mouth Hospita 30 daily. l cholecalcif 2021-05 Yes 1000U QD Take 1,000 Methodi miguel a, 0-[address] vitamin D3, 11:22: mouth Hospi ta (VITAMIN 30 daily. l D3) 1,000 unit tablet MULTIVIT 2021-05 Yes 1{tbl} QD Take 1 Metho di &MINERALS/F 0-[address] ERROUS FUM 11:22: mouth Hospit a (MULTI 30 nightly. l VITAMIN ORAL) CALCIUM 2021-05 Yes 600mg Q.5D Take 600 Metho di CARBONATE/V 0-[address] ITAMIN D3 11:22: mouth 2 Hospi ta (CALCIUM 30 (two) l 600 + D,3, times a ORAL) day. fluticasone 2021-05 Yes 1{puff} Inhale 1 Methodi propion-colton 0-[address] meterol 11:22: needed. Hospita (ADVAIR) 30 l 250-50 mcg/dose DISKUS UNABLE TO 2021-05 Yes ophthalmic Me thodi FIND 0-[address] 11:22: drop in Hospita 30 both eyes l twice a day for dry eyes coenzyme 2021-05 Yes 100mg QD Take 100 Meth ginette Q10 100 mg 0-[address] capsule 11:22: mouth Hospita 30 daily. l cholecalcif 2021-05 Yes 1000U QD Take 1,000 Methodi miguel a, 0-[address] vitamin D3, 11:22: mouth Hospi ta (VITAMIN 30 daily. l D3) 1,000 unit tablet amLODIPine Yes TAKE 1 Metho di (NORVASC) 5 - TABLET (5 st mg tablet 00:00: MG TOTAL) Hos [place] 00 BY MOUTH l EVERY EVENING. HOLD FOR SBP LESS THAN 120 amLODIPine Yes TAKE 1 Metho di (NORVASC) 5 - TABLET (5 st mg tablet 00:00: MG TOTAL) Hos [place] 00 BY MOUTH l EVERY EVENING. HOLD FOR SBP LESS THAN 120 amLODIPine 0 Yes TAKE 1 Metho di (NORVASC) 5 - TABLET (5 st mg tablet 00:00: MG TOTAL) Hos [place] 00 BY MOUTH l EVERY EVENING. HOLD FOR SBP LESS THAN 120 amLODIPine Yes TAKE 1 Metho di (NORVASC) 5 - TABLET (5 st mg tablet 00:00: MG TOTAL) Hos [place] 00 BY MOUTH l EVERY EVENING. HOLD FOR SBP LESS THAN 120 amLODIPine 0 Yes TAKE 1 Metho di (NORVASC) 5 01-13 TABLET (5 st mg tablet 00:00: MG TOTAL) Hos [place] 00 BY MOUTH l EVERY EVENING. HOLD FOR SBP LESS THAN 120 amLODIPine 0 2022- No TAKE 1 Meth ginette (NORVASC) 5 01-13 TABLET (5 st mg tablet 00:00: 00:00 MG TOTAL) Ho spita 00 :00 BY MOUTH l EVERY EVENING. HOLD FOR SBP LESS THAN 120 amLODIPine 0 2021- No TAKE 1 Meth ginette (NORVASC) 5 12-26 TABLET (5 st mg tablet 00:00: 00:00 MG TOTAL) Ho spita 00 :00 BY MOUTH l EVERY EVENING. HOLD FOR SBP LESS THAN 120 amLODIPine 0 2021- No TAKE 1 Meth ginette (NORVASC) 5 12-26 TABLET (5 st mg tablet 00:00: 00:00 MG TOTAL) Ho spita 00 :00 BY MOUTH l EVERY EVENING. HOLD FOR SBP LESS THAN 120 amLODIPine 0 2021- No TAKE 1 Meth ginette (NORVASC) 5 12-26 TABLET (5 st mg tablet 00:00: 00:00 MG TOTAL) Ho spita 00 :00 BY MOUTH l EVERY EVENING. HOLD FOR SBP LESS THAN 120 amLODIPine 2021- No TAKE 1 Meth ginette (NORVASC) 5 12-26- TABLET (5 st mg tablet 00:00: 00:00 MG TOTAL) Ho spita 00 :00 BY MOUTH l EVERY EVENING. HOLD FOR SBP LESS THAN 120 amLODIPine 0 2021- No TAKE 1 Meth ginette (NORVASC) 5 12-26- TABLET (5 st mg tablet 00:00: 00:00 MG TOTAL) Ho spita 00 :00 BY MOUTH l EVERY EVENING. HOLD FOR SBP LESS THAN 120 amLODIPine 2021-0 2021- No TAKE 1 Meth ginette (NORVASC) 5 12-26- TABLET (5 st mg tablet 00:00: 00:00 MG TOTAL) Ho spita 00 :00 BY MOUTH l EVERY EVENING. HOLD FOR SBP LESS THAN 120 carvediloL 2021-0 Yes Take Methodi (COREG) 25 6-[address] MG tablet 00:00: Hospita 00 l carvediloL 2-0 Yes Take Methodi (COREG) 25 6-[address] MG tablet 00:00: Hospita 00 l carvediloL 2-0 Yes Take Methodi (COREG) 25 6-[address] MG tablet 00:00: Hospita 00 l carvediloL 2-0 Yes Take [facility]i (COREG) 25 6-[address] MG tablet 00:00: Hospita 00 l carvediloL 2-0 Yes Take Methodi (COREG) 25 6-[address] MG tablet 00:00: Hospita 00 l carvediloL 2-0 3- No Take Method i (COREG) 25 6-23 05-[address] MG tablet 00:00: 00:00 Hospita 00 :00 l amLODIPine 2021-0 2021- No TAKE 1 Meth ginette (NORVASC) 5 08-11-15 TABLET (5 st mg tablet 00:00: 00:00 MG TOTAL) Ho spita 00 :00 BY MOUTH l EVERY EVENING. HOLD FOR SBP LESS THAN 120 amLODIPine 2-0 2021- No TAKE 1 Meth ginette (NORVASC) 5 08-11 08-15 TABLET (5 st mg tablet 00:00: 00:00 MG TOTAL) Ho spita 00 :00 BY MOUTH l EVERY EVENING. HOLD FOR SBP LESS THAN 120 amLODIPine 2-0 2021- No TAKE 1 Meth ginette (NORVASC) 5 - 08-15 TABLET (5 st mg tablet 00:00: 00:00 MG TOTAL) Ho spita 00 :00 BY MOUTH l EVERY EVENING. HOLD FOR SBP LESS THAN 120 amLODIPine 2021- No TAKE 1 Meth ginette (NORVASC) 5 08-11-15 TABLET (5 st mg tablet 00:00: 00:00 MG TOTAL) Ho spita 00 :00 BY MOUTH l EVERY EVENING. HOLD FOR SBP LESS THAN 120 amLODIPine 2021- No TAKE 1 Meth ginette (NORVASC) 5 08-11-15 TABLET (5 st mg tablet 00:00: 00:00 MG TOTAL) Ho spita 00 :00 BY MOUTH l EVERY EVENING. HOLD FOR SBP LESS THAN 120 amLODIPine 2021- No TAKE 1 Meth ginette (NORVASC) 5 08-11-15 TABLET (5 st mg tablet 00:00: 00:00 MG TOTAL) Ho spita 00 :00 BY MOUTH l EVERY EVENING. HOLD FOR SBP LESS THAN 120 carvediloL 2021- No Take Method i (COREG) 25 07-27- 37.5mg BID st MG tablet 00:00: 00:00 Hospita 00 :00 l carvediloL 2021-2021- No Take Method i (COREG) 25 07-27- 37.5mg BID st MG tablet 00:00: 00:00 Hospita 00 :00 l carvediloL 2021-0 2021- No Take Method i (COREG) 25 -27 10- 37.5mg BID st MG tablet 00:00: 00:00 Hospita 00 :00 l carvediloL 2021-0 2021- No Take Method i (COREG) 25 07-27- 37.5mg BID st MG tablet 00:00: 00:00 Hospita 00 :00 l carvediloL 2021-0 2021- No Take Method i (COREG) 25 07-27- 37.5mg BID st MG tablet 00:00: 00:00 Hospita 00 :00 l amLODIPine 2021- No TAKE 1 Meth ginette (NORVASC) 5 07-22 TABLET (5 st mg tablet 00:00: 00:00 MG TOTAL) Ho spita 00 :00 BY MOUTH l EVERY EVENING. HOLD FOR SBP LESS THAN 120 amLODIPine 2021- No TAKE 1 Meth ginette (NORVASC) 5 07-22 TABLET (5 st mg tablet 00:00: 00:00 MG TOTAL) Ho spita 00 :00 BY MOUTH l EVERY EVENING. HOLD FOR SBP LESS THAN 120 amLODIPine 2021- No TAKE 1 Meth ginette (NORVASC) 5 07-22 TABLET (5 st mg tablet 00:00: 00:00 MG TOTAL) Ho spita 00 :00 BY MOUTH l EVERY EVENING. HOLD FOR SBP LESS THAN 120 amLODIPine 2021- No TAKE 1 Meth ginette (NORVASC) 5 07-22 TABLET (5 st mg tablet 00:00: 00:00 MG TOTAL) Ho spita 00 :00 BY MOUTH l EVERY EVENING. HOLD FOR SBP LESS THAN 120 amLODIPine 2021- No TAKE 1 Meth ginette (NORVASC) 5 07-22 TABLET (5 st mg tablet 00:00: 00:00 MG TOTAL) Ho spita 00 :00 BY MOUTH l EVERY EVENING. HOLD FOR SBP LESS THAN 120 carvediloL 2021- No Take Method i (COREG) 25 06-[address] MG tablet 00:00: 00:00 Hospita 00 :00 l carvediloL 2021-0 2021- No Take Method i (COREG) 25 06-[address] MG tablet 00:00: 00:00 Hospita 00 :00 l carvediloL 2021-0 2021- No Take Method i (COREG) 25 06-[address] MG tablet 00:00: 00:00 Hospita 00 :00 l carvediloL 2021-0 2021- No Take Method i (COREG) 25 06-[address] MG tablet 00:00: 00:00 Hospita 00 :00 l carvediloL 2021-0 2021- No Take Method i (COREG) 25 06-[address] MG tablet 00:00: 00:00 Hospita 00 :00 l carvediloL 2021-0 2021- No TAKE 1 Meth ginette (COREG) 06-[address] MG tablet 00:00: 00:00 MOUTH Hospit a 00 :00 TWICE A l DAY WITH FOOD carvediloL 2021- No TAKE 1 Meth ginette (COREG) 25 06-[address] MG tablet 00:00: 00:00 MOUTH Hospit a 00 :00 TWICE A l DAY WITH FOOD carvediloL 2021- No TAKE 1 Meth ginette (COREG) 25 06-[address] MG tablet 00:00: 00:00 MOUTH Hospit a 00 :00 TWICE A l DAY WITH FOOD carvediloL 2021- No TAKE 1 Meth ginette (COREG) 25 06-[address] MG tablet 00:00: 00:00 MOUTH Hospit a 00 :00 TWICE A l DAY WITH FOOD carvediloL 2021- No TAKE 1 Meth ginette (COREG) 25 06-[address] MG tablet 00:00: 00:00 MOUTH Hospit a 00 :00 TWICE A l DAY WITH FOOD amLODIPine 2020-05- No TAKE 1 Meth ginette (NORVASC) 5 06-29-11 TABLET (5 st mg tablet 00:00: 00:00 MG TOTAL) Ho spita 00 :00 BY MOUTH l EVERY EVENING. HOLD FOR SBP LESS THAN 120 amLODIPine 2020-05- No TAKE 1 Meth ginette (NORVASC) 5 -27 07-11 TABLET (5 st mg tablet 00:00: 00:00 MG TOTAL) Ho spita 00 :00 BY MOUTH l EVERY EVENING. HOLD FOR SBP LESS THAN 120 amLODIPine 2020-05- No TAKE 1 Meth ginette (NORVASC) 5 06-29-11 TABLET (5 st mg tablet 00:00: 00:00 MG TOTAL) Ho spita 00 :00 BY MOUTH l EVERY EVENING. HOLD FOR SBP LESS THAN 120 amLODIPine 2020-05- No TAKE 1 Meth ginette (NORVASC) 5 2-16 -11 TABLET (5 st mg tablet 00:00: 00:00 MG TOTAL) Ho spita 00 :00 BY MOUTH l EVERY EVENING. HOLD FOR SBP LESS THAN 120 amLODIPine 2020-05- No TAKE 1 Meth ginette (NORVASC) 5 2-16 -11 TABLET (5 st mg tablet 00:00: 00:00 MG TOTAL) Ho spita 00 :00 BY MOUTH l EVERY EVENING. HOLD FOR SBP LESS THAN 120 clopidogreL 2020-0 Yes Method i (PLAVIX) 75 9-15 st mg tablet 00:00: Hospita 00 l rosuvastati 2020-0 Yes Method i n (CRESTOR) 9-15 st 20 mg 00:00: Hospita tablet 00 l clopidogreL 2020-0 Yes Method i (PLAVIX) 75 9-15 st mg tablet 00:00: Hospita 00 l rosuvastati 2020-0 Yes Method i n (CRESTOR) 9-15 st 20 mg 00:00: Hospita tablet 00 l clopidogreL 2020-0 Yes Method i (PLAVIX) 75 9-15 st mg tablet 00:00: Hospita 00 l rosuvastati 2020-0 Yes Method i n (CRESTOR) 9-15 st 20 mg 00:00: Hospita tablet 00 l clopidogreL 2020-0 Yes Method i (PLAVIX) 75 9-15 st mg tablet 00:00: Hospita 00 l rosuvastati 2020-0 Yes Method i n (CRESTOR) 9-15 st 20 mg 00:00: Hospita tablet 00 l clopidogreL 2020-0 Yes Method i (PLAVIX) 75 9-15 st mg tablet 00:00: Hospita 00 l rosuvastati 2020-0 Yes Method i n (CRESTOR) 9-15 st 20 mg 00:00: Hospita tablet 00 l clopidogreL 2020-0 Yes Method i (PLAVIX) 75 9-15 st mg tablet 00:00: Hospita 00 l rosuvastati 2020-0 Yes Method i n (CRESTOR) 9-15 st 20 mg 00:00: Hospita tablet 00 l amLODIPine 2020-0 Yes TAKE 1 Metho di (NORVASC) 5 8-30 TABLET (5 st mg tablet 00:00: MG TOTAL) Hos [place] 00 BY MOUTH l EVERY EVENING. HOLD FOR SBP LESS THAN 120 carvediloL 0 Yes TAKE 1 Metho di (COREG) 25 7-[address] MG tablet 00:00: MOUTH Hospita 00 TWICE A l DAY WITH FOOD carvediloL 0 2021- No TAKE 1 Meth ginette (COREG) 25 7-19 01-[address] MG tablet 00:00: 00:00 MOUTH Hospit a 00 :00 TWICE A l DAY WITH FOOD carvediloL 2021- No TAKE 1 Meth ginette (COREG) 25 11-[address] MG tablet 00:00: 00:00 MOUTH Hospit a 00 :00 TWICE A l DAY WITH FOOD carvediloL 2020-0 2021- No TAKE 1 Meth ginette (COREG) 25 11-[address] MG tablet 00:00: 00:00 MOUTH Hospit a 00 : TWICE A l DAY WITH FOOD carvediloL 2021- No TAKE 1 Meth ginette (COREG) 25 11-[address] MG tablet 00:00: 00:00 MOUTH Hospit a 00 : TWICE A l DAY WITH FOOD carvediloL 2021- No TAKE 1 Meth ginette (COREG) 25 11-[address] MG tablet 00:00: 00:00 MOUTH Hospit a 00 :00 TWICE A l DAY WITH FOOD amLODIPine 2020- No TAKE 1 Meth ginette (NORVASC) 5 6-07 08-30 TABLET (5 st mg tablet 00:00: 00:00 MG TOTAL) [facility] 00 :00 BY MOUTH l EVERY EVENING. HOLD FOR SBP LESS THAN 120 carvediloL 2020- No 25mg Q.5D Take 1 Meth ginette (COREG) 25 4-19 tablet (25 st MG tablet 00:00: 00:00 [...] daily. l D3) 1,000 unit tablet amLODIPine 2020- No TAKE 1 Meth ginette (NORVASC) 5 3-15 06-07 TABLET (5 st mg tablet 00:00: 00:00 MG TOTAL) [facility] 00 :00 BY MOUTH l EVERY EVENING. HOLD FOR SBP LESS THAN 120 Famotidine Yes 20 mg = 1 Me moria 20 MG Oral 2-26 tab, PO, l Tablet 17:51: Daily, # Clint [Pepcid] 00 60 tab, 0 Refill(s) Famotidine Yes 20 mg = 1 Me moria 20 MG Oral 2-26 tab, PO, l Tablet 17:51: Daily, # Clint [Pepcid] 00 60 tab, 0 Refill(s) Famotidine 0 Yes 20 mg = 1 Me moria 20 MG Oral 2-26 tab, PO, l Tablet 17:51: Daily, # Clint [Pepcid] 00 60 tab, 0 Refill(s) Famotidine 0 Yes 20 mg = 1 Me moria 20 MG Oral 2-26 tab, PO, l Tablet 17:51: Daily, # [place] [Pepcid] 00 60 tab, 0 Refill(s) Famotidine 2020-0 Yes 20 mg = 1 Me moria 20 MG Oral 2-26 tab, PO, l Tablet 17:51: Daily, # [place] [Pepcid] 00 60 tab, 0 Refill(s) Famotidine 2020-0 Yes 20 mg = 1 Me moria 20 MG Oral 2-26 tab, PO, l Tablet 17:51: Daily, # [place] [Pepcid] 00 60 tab, 0 Refill(s) Famotidine 2021-0 Yes 20 mg = 1 Me moria 20 MG Oral 2-26 tab, PO, l Tablet 17:51: Daily, # [place] [Pepcid] 00 60 tab, 0 Refill(s) Famotidine Yes 20 mg = 1 Me moria 20 MG Oral 2-26 tab, PO, l Tablet 17:51: Daily, # [place] [Pepcid] 00 60 tab, 0 Refill(s) brimonidine 0 Yes Q12H, 0 [facility] / Timolol 2-26 Refill(s) l 17:47: CoQ10 0 Yes 300 mg, Memoria 2-26 PO, Daily, l 17:47: 0 Refill(s) D3 1000 0 Yes 25 [facility] 2-26 microgram, l 17:47: PO, Daily, 0 Refill(s) latanoprost 0 Yes QAM, 0 Ramana andrew 2-26 Refill(s) l 17:47: brimonidine 0 Yes Q12H, 0 [facility] / Timolol 2-26 Refill(s) l 17:47: CoQ10 0 Yes 300 mg, [facility] 2-26 PO, Daily, l 17:47: 0 Refill(s) D3 1000 0 Yes 25 [facility] 2-26 microgram, l 17:47: PO, Daily, 0 Refill(s) latanoprost 0 Yes QAM, 0 Ramana andrew 2-26 Refill(s) l 17:47: brimonidine 0 Yes Q12H, 0 [facility] / Timolol 2-26 Refill(s) l 17:47: CoQ10 0 Yes 300 mg, [facility] 2-26 PO, Daily, l 17:47: 0 Refill(s) D3 1000 0 Yes 25 [facility] 2-26 microgram, l 17:47: PO, Daily, 0 Refill(s) latanoprost 0 Yes QAM, 0 Ramana andrew 2-26 Refill(s) l 17:47: [place] 00 brimonidine 0 Yes Q12H, 0 [facility] / Timolol 2-26 Refill(s) l 17:47: CoQ10 0 Yes 300 mg, [facility]oria 2-26 PO, Daily, l 17:47: 0 Refill(s) D3 1000 0 Yes 25 [facility] 2-26 microgram, l 17:47: PO, Daily, 0 Refill(s) latanoprost 0 Yes QAM, 0 Ramana andrew 2-26 Refill(s) l 17:47: brimonidine 0 Yes Q12H, 0 [facility] / Timolol 2-26 Refill(s) l 17:47: CoQ10 0 Yes 300 mg, [facility] 2-26 PO, Daily, l 17:47: 0 Refill(s) D3 1000 0 Yes 25 [facility] 2-26 microgram, l 17:47: PO, Daily, 0 Refill(s) latanoprost 0 Yes QAM, 0 Ramana andrew 2-26 Refill(s) l 17:47: brimonidine 0 Yes Q12H, 0 [facility] / Timolol 2-26 Refill(s) l 17:47: CoQ10 0 Yes 300 mg, [facility] 2-26 PO, Daily, l 17:47: 0 Refill(s) D3 1000 0 Yes 25 [facility] 2-26 microgram, l 17:47: PO, Daily, 0 Refill(s) latanoprost 0 Yes QAM, 0 Ramana andrew 2-26 Refill(s) l 17:47: brimonidine 0 Yes Q12H, 0 [facility] / Timolol 2-26 Refill(s) l 17:47: CoQ10 2020-0 Yes 300 mg, [facility] 2-26 PO, Daily, l 17:47: 0 Refill(s) D3 1000 0 Yes 25 [facility] 2-26 microgram, l 17:47: PO, Daily, 0 Refill(s) latanoprost Yes QAM, 0 Ramana andrew 2-26 Refill(s) l 17:47: [place] 00 brimonidine 0 Yes Q12H, 0 [facility] / Timolol 2-26 Refill(s) l 17:47: [place] 00 CoQ10 Yes 300 mg, [facility] 2-26 PO, Daily, l 17:47: 0 Refill(s) D3 1000 Yes 25 [facility] 2-26 microgram, l 17:47: PO, Daily, [place] 00 0 Refill(s) latanoprost Yes QAM, 0 Ramana andrew 2-26 Refill(s) l 17:47: carvediloL 2020- No 25mg Q.5D Take 1 Meth ginette (COREG) 25 06-14 04-26 tablet (25 st MG tablet 00:00: 00:00 mg total) [facility] 00 :00 by mouth 2 l (two) times a day with meals. latanoprost 2019-05 Yes 1 drp, Ramana andrew 0.05 MG/ML 2-30 QPM, 0 l Ophthalmic 18:00: Refill(s) [facility] Solution 00 latanoprost 2019-05 Yes 1 drp, Ramana andrew 0.05 MG/ML 2-30 QPM, 0 l Ophthalmic 18:00: Refill(s) He [facility]mann Solution latanoprost 2019-05 Yes 1 drp, Ramana andrew 0.05 MG/ML 2-30 QPM, 0 l Ophthalmic 18:00: Refill(s) [facility] Solution 00 latanoprost 2019-05 Yes 1 drp, Ramana andrew 0.05 MG/ML 2-30 QPM, 0 l Ophthalmic 18:00: Refill(s) [facility] Solution 00 latanoprost 2019-05 Yes 1 drp, Ramana andrew 0.05 MG/ML 2-30 QPM, 0 l Ophthalmic 18:00: Refill(s) [facility] Solution 00 latanoprost 2019-05 Yes 1 drp, Ramana andrew 0.05 MG/ML 2-30 QPM, 0 l Ophthalmic 18:00: Refill(s) [facility] Solution 00 latanoprost 2019-05 Yes 1 drp, Ramana andrew 0.05 MG/ML 2-30 QPM, 0 l Ophthalmic 18:00: Refill(s) [facility] Solution latanoprost 2019-05 Yes 1 drp, Ramana andrew 0.05 MG/ML 2-30 QPM, 0 l Ophthalmic 18:00: Refill(s) He [facility]mann Solution predniSONE 2019-05 Yes 5 mg = 1 [facility] 5 mg oral 2-30 tab, PO, l tablet 17:51: Daily, 0 [place] 00 Refill(s) carvedilol 2019-05 Yes 25 mg = [...] PO, l tablet 17:51: Daily, 0 [place] 00 Refill(s) lisinopril 2019-05 Yes 10 mg = 1 Me moria 10 mg oral 2-30 tab, PO, l tablet 17:51: Daily, 0 [place] 00 Refill(s) predniSONE 2019-05 Yes 5 mg = 1 [facility] 5 mg oral 2-30 tab, PO, l tablet 17:51: Daily, 0 [place] 00 Refill(s) carvedilol 2019-05 Yes 25 mg = 1 Me mor[facility] 25 mg oral 2-30 tab, PO, l tablet 17:51: BID, 0 [place] 00 Refill(s) Rosuvastati 2019-05 Yes 5 mg = 1 Me moria n calcium 5 2-30 tab, PO, l MG Oral 17:51: Daily, 0 Rick n Tablet 00 Refill(s) [Crestor] amLODIPine 2019-05 Yes 5 mg = 1 [facility] 5 mg oral 2-30 tab, PO, l tablet 17:51: Daily, 0 [place] 00 Refill(s) lisinopril 2019-05 Yes 10 mg = 1 Me moria 10 mg oral 2-30 tab, PO, l tablet 17:51: Daily, 0 [place] 00 Refill(s) predniSONE 2019-05 Yes 5 mg = 1 [facility] 5 mg oral 2-30 tab, PO, l tablet 17:51: Daily, 0 [place] 00 Refill(s) carvedilol 2019-05 Yes 25 mg = [...] PO, l tablet 17:51: Daily, 0 [place] 00 Refill(s) lisinopril 2019-05 Yes 10 mg = 1 Me mor[facility] 10 mg oral 2-30 tab, PO, l tablet 17:51: Daily, 0 [place] 00 Refill(s) predniSONE 2019-05 Yes 5 mg = 1 [facility] 5 mg oral 2-30 tab, PO, l tablet 17:51: Daily, 0 [place] 00 Refill(s) carvedilol 2019-05 Yes 25 mg = [...] PO, l tablet 17:51: Daily, 0 [place] 00 Refill(s) lisinopril 2019-05 Yes 10 mg = 1 Me mor[facility] 10 mg oral 2-30 tab, PO, l tablet 17:51: Daily, 0 [place] 00 Refill(s) predniSONE 2019-05 Yes 5 mg = 1 [facility] 5 mg oral 2-30 tab, PO, l tablet 17:51: Daily, 0 [place] 00 Refill(s) carvedilol 2019-05 Yes 25 mg = 1 Me moria 25 mg oral 2-30 tab, PO, l tablet 17:51: BID, 0 [place] 00 Refill(s) Rosuvastati 2019-05 Yes 5 mg = 1 Me moria n calcium 5 2-30 tab, PO, l MG Oral 17:51: Daily, 0 Rick n Tablet 00 Refill(s) [Crestor] amLODIPine 2019-05 Yes 5 mg = 1 [facility] 5 mg oral 2-30 tab, PO, l tablet 17:51: Daily, 0 [place] 00 Refill(s) lisinopril 2019-05 Yes 10 mg = 1 Me moria 10 mg oral 2-30 tab, PO, l tablet 17:51: Daily, 0 [place] 00 Refill(s) predniSONE 2019-05 Yes 5 mg = 1 [facility] 5 mg oral 2-30 tab, PO, l tablet 17:51: Daily, 0 [place] 00 Refill(s) carvedilol 2019-05 Yes 25 mg = [...] PO, l tablet 17:51: Daily, 0 [place] 00 Refill(s) lisinopril 2019-05 Yes 10 mg = 1 Me moria 10 mg oral 2-30 tab, PO, l tablet 17:51: Daily, 0 [place] 00 Refill(s) predniSONE 2019-05 Yes 5 mg = 1 [facility] 5 mg oral 2-30 tab, PO, l tablet 17:51: Daily, 0 [place] 00 Refill(s) carvedilol 2019-05 Yes 25 mg = 1 Me mor[facility] 25 mg oral 2-30 tab, PO, l tablet 17:51: BID, 0 [place] 00 Refill(s) Rosuvastati 2019-05 Yes 5 mg = 1 Me moria n calcium 5 2-30 tab, PO, l MG Oral 17:51: Daily, 0 Rick n Tablet 00 Refill(s) [Crestor] amLODIPine 2019-05 Yes 5 mg = 1 [facility] 5 mg oral 2-30 tab, PO, l tablet 17:51: Daily, 0 [place] 00 Refill(s) lisinopril 2019-05 Yes 10 mg = 1 Me moria 10 mg oral 2-30 tab, PO, l tablet 17:51: Daily, 0 [place] 00 Refill(s) predniSONE 2019-05 Yes 5 mg = 1 [facility] 5 mg oral 2-30 tab, PO, l tablet 17:51: Daily, 0 [place] 00 Refill(s) carvedilol 2019-05 Yes 25 mg = 1 Me moria 25 mg oral 2-30 tab, PO, l tablet 17:51: BID, 0 [place] 00 Refill(s) Rosuvastati 2019-05 Yes 5 mg = 1 Me moria n calcium 5 2-30 tab, PO, l MG Oral 17:51: Daily, 0 Rick n Tablet 00 Refill(s) [Crestor] amLODIPine 2019-05 Yes 5 mg = 1 [facility] 5 mg oral 2-30 tab, PO, l tablet 17:51: Daily, 0 [place] 00 Refill(s) lisinopril 2019-05 Yes 10 mg = 1 Me moria 10 mg oral 2-30 tab, PO, l tablet 17:51: Daily, 0 [place] 00 Refill(s) amLODIPine 2019-05- No TAKE 1 [...] 00:00: nightly. [facility] 00 l carvediloL 2019-05 No TAKE 1 [facility] ginette (COREG) 25 1-12 01-[address] [facility] tablet 00:00: 00:00 MOUTH Hospit a 00 :00 TWICE A l DAY WITH MEAL HOLD IF SYSTOLIC BP LESS THAN 120 OR HEART RATE LESS THAN 60 famotidine 2019-05 Yes 20mg QD Take 20 mg [facility] (PEPCID) 20 1-[address] [facility] tablet 00:00: [facility]. [facility] famotidine 2019-05 Yes 20mg QD Take 20 mg [facility] (PEPCID) 20 1-[address] [facility] tablet 00:00: nightly. [facility] 00 l famotidine 2019-05 Yes 20mg QD Take 20 mg [facility] (PEPCID) 20 1-[address] [facility] tablet 00:00: nightly. [facility] famotidine 2019-05 Yes 20mg QD Take 20 mg [facility] (PEPCID) 20 1-[address] [facility] tablet 00:00: nightly. [facility] famotidine 2019-05 Yes 20mg QD Take 20 mg [facility] (PEPCID) 20 1-[address] MG tablet 00:00: nightly. [facility] 00 l famotidine 2019-05 Yes 20mg QD Take 20 mg [facility] (PEPCID) 20 1-[address] MG tablet 00:00: nightly. [facility] 00 l famotidine 2019-05 Yes 20mg QD Take 20 mg [facility] (PEPCID) 20 1-[address] MG tablet 00:00: nightly. [facility] 00 l amLODIPine No 5mg QD Take 1 [facility] (NORVASC) 5 9-14 12-17 tablet (5 st mg tablet 00:00: 00:00 mg total) [facility] 00 :00 by mouth l every evening. Hold for SBP<120 carvediloL No TAKE 1 Meth ginette (COREG) 25 8-10 11-[address] MG tablet 00:00: 00:00 MOUTH 2 [facility] 00 :00 (TWO) l TIMES A DAY WITH MEALS. HOLD FOR SBP <120 OR HR <60 pantoprazol 2019- No [id number] TAKE 1 [facility] 7-18 12-[address] (PROTONIX) 00:00: 00:00 MOUTH Hos[facility] ta 40 MG EC 00 :00 EVERY DAY l tablet isosorbide 2020-0 2020- No TAKE 1 [facility] mononitrate 6-23 12-[address] (IMDUR) 30 00:00: 00:00 MOUTH [facility] ta MG 24 hr 00 :00 EVERY DAY l tablet IN THE MORNING lisinopriL 2020-0 Yes 10mg QD Take 1 [facility] (PRINIVIL) 3-12 tablet (10 st 10 mg 00:00: mg total) [facility]ospita tablet 00 by mouth l nightly. Hold for SBP<120 lisinopriL 2020-0 Yes 10mg QD Take 1 [facility] (PRINIVIL) 3-12 tablet (10 st 10 mg 00:00: mg total) [facility]ospita tablet 00 by mouth l nightly. Hold for SBP<120 lisinopriL 2020-0 Yes 10mg QD Take 1 [facility] (PRINIVIL) 3-12 tablet (10 st 10 mg 00:00: mg total) [facility]ospita tablet 00 by mouth l nightly. Hold for SBP<120 lisinopriL 2020-0 Yes 10mg QD Take 1 [facility] (PRINIVIL) 3-12 tablet (10 st 10 mg 00:00: mg total) [facility]ospita tablet 00 by mouth l nightly. Hold for SBP<120 lisinopriL 2020-0 Yes 10mg QD Take 1 [facility] (PRINIVIL) 3-12 tablet (10 st 10 mg 00:00: mg total) [facility]ospita tablet 00 by mouth l nightly. Hold for SBP<120 lisinopriL 2020-0 Yes 10mg QD Take 1 [facility] (PRINIVIL) 3-12 tablet (10 st 10 mg 00:00: mg total) [facility]ospita tablet 00 by mouth l nightly. Hold for SBP<120 lisinopriL 2020-0 Yes 10mg QD Take 1 [facility] (PRINIVIL) 3-12 tablet (10 st 10 mg 00:00: mg total) [facility]ospita tablet 00 by mouth l nightly. Hold for SBP<120 clonIDINE 2020-0 2020- No .1mg QD Take 1 [facility] (CATAPRES) 3-12 12-[address] 0.1 MG 00:00: 00:00 [...] QD Take 1 [facility] (PLAVIX) 75 07-17-15 tablet (75 s t mg tablet 00:00: 00:00 mg total) [facility] 00 :00 by mouth l daily. latanoprost 2015-05 Yes 1[drp] QD Administer [facility] (XALATAN) [address] 0.005 % 00:00: both eyes [facility] ta ophthalmic 00 nightly. l solution latanoprost 2015-05 Yes 1[drp] QD Administer [facility] (XALATAN) [address] 0.005 % 00:00: both eyes [facility] ophthalmic 00 nightly. l solution latanoprost 2015-05 Yes 1[drp] QD Administer [facility] (XALATAN) -[address] 0.005 % 00:00: both eyes [facility] ophthalmic 00 nightly. l solution latanoprost 2015-05 Yes 1[drp] QD Administer [facility] (XALATAN) -[address] 0.005 % 00:00: both eyes [facility] ta ophthalmic 00 nightly. l solution latanoprost 2015-05 Yes 1[drp] QD Administer [facility] (XALATAN) [address] 0.005 % 00:00: both eyes [facility] ta ophthalmic 00 nightly. l solution latanoprost 2015-05 Yes 1[drp] QD Administer [facility] (XALATAN) [address] 0.005 % 00:00: both eyes [facility] ophthalmic 00 nightly. l solution latanoprost 2015-05 Yes 1[drp] QD Administer [facility] (XALATAN) -[address] 0.005 % 00:00: both eyes [facility] ta ophthalmic 00 nightly. l solution brimonidine 2015-05 Yes 1[drp] Q.5D Admin[facility] (ALPHAGAN) 1-[address] 0.15 % 00:00: both eyes Hospit a ophthalmic 00 2 (two) l solution times a day. brimonidine 2015-05 Yes 1[drp] Q.5D Administer [facility] (ALPHAGAN) 1-[address] 0.15 % 00:00: both eyes Hospit a ophthalmic 00 2 (two) l solution times a day. brimonidine 2015-05 Yes 1[drp] Q.5D Administer [facility] (ALPHAGAN) 1-[address] 0.15 % 00:00: both eyes Hospit a ophthalmic 00 2 (two) l solution times a day. brimonidine 2015-05 Yes 1[drp] Q.5D Administer [facility] (ALPHAGAN) 1-[address] 0.15 % 00:00: both eyes Hospit a ophthalmic 00 2 (two) l solution times a day. brimonidine 2015-05 Yes 1[drp] Q.5D Administer [facility] (ALPHAGAN) 1-[address] 0.15 % 00:00: both eyes Hospit a ophthalmic 00 2 (two) l solution times a day. brimonidine 2015-05 Yes 1[drp] Q.5D [facility] (ALPHAGAN) 1-[address] 0.15 % 00:00: both eyes Hospit a ophthalmic 00 2 (two) l solution times a day. brimonidine 2015-05 Yes 1[drp] Q.5D Administer [facility] (ALPHAGAN) 1-[address] 0.15 % 00:00: both eyes Hospit a ophthalmic 00 2 (two) l solution times a day. predniSONE 2015-05 Yes 5mg QD Take 5 mg [facility] (DELTASONE) 0-[address] 5 MG tablet 00:00: daily. [facility] 00 l predniSONE 2015-05 Yes 5mg QD Take 5 mg [facility] (DELTASONE) 0-[address] 5 MG tablet 00:00: daily. [facility] 00 l predniSONE 2015-05 Yes 5mg QD Take 5 mg [facility] (DELTASONE) 0-[address] 5 MG tablet 00:00: daily. [facility] 00 l predniSONE 2015-05 Yes 5mg QD Take 5 mg [facility] (DELTASONE) 0-[address] 5 MG tablet 00:00: daily. [facility] 00 l predniSONE 2015-05 Yes 5mg QD Take 5 mg [facility] (DELTASONE) 0-[address] 5 MG tablet 00:00: daily. [facility] 00 l predniSONE 2015-05 Yes 5mg QD Take 5 mg [facility] (DELTASONE) 0-[address] 5 MG tablet 00:00: daily. [facility] 00 l predniSONE 2015-05 Yes 5mg QD Take 5 mg [facility] (DELTASONE) 0-[address] 5 MG tablet 00:00: daily. [facility] 00 l Immunizations Ordered Immunization Filled Immunization Date Status Commen ts Source Name Name [facility] 2020-06-15 Completed [facility] [place] [id number] 2020-06-15 Completed [facility] 00:00:[place] [id number] 2020-06-15 Completed [facility]ACC[facility] 00:00:00 [place] [id number] 2020-06-15 Completed [facility] VACCINATION 00:00:00 [place] [id number] 2020-06-15 Completed [facility] VACCINATION 00:00:00 [place] [id number] 2020-06-15 Completed [facility] VACCINATION 00:00:00 [place] [id number] 2020-06-15 Completed [facility] VACCINATION 00:00:00 [place] [id number] 2020-05-18 Completed [facility] VACCINATION 00:00:00 [place] [id number] 2020-05-18 Completed [facility]RNA VACCINATION 00:00:00 [place] [id number] 2020-05-18 Completed [facility] VACCINATION 00:00:00 [place] [id number] 2020-05-18 Completed [facility]RNA VACCINATION 00:00:00 [place] [id number] 2020-05-18 Completed [facility] VACCINATION 00:00:00 [place] [id number] 2020-05-18 Completed [facility] VACCINATION 00:00:00 [place] [id number] 2020-05-18 Completed [facility] 00:00:00 Hospital Vital Signs Vital Name Observation Time Observation Value Comments Source Systolic blood 2022-09-05 16:46:00 137 mm[Hg] [facility] pressure Diastolic blood 2022-09-05 16:46:00 62 mm[Hg] [facility] pressure Heart rate 2022-09-05 16:46:00 62 /min [facility] Body height 2022-09-05 16:46:00 165.1 cm [facility] Body weight 2022-09-05 16:46:00 59.421 kg [facility] BMI 2022-09-05 16:46:00 21.80 kg/m2 [facility]st[facility] 2022-03-07 16:22:00 146 mm[Hg] [facility] pressure Diastolic blood 2022-03-07 16:22:00 63 mm[Hg] [facility] pressure Heart rate 2022-03-07 16:22:00 63 /min [facility] Body height 2022-03-07 16:22:00 165.1 cm [facility] Body weight 2022-03-07 16:22:00 60[facility]782 [facility] BMI 2022-03-07 16:22:00 22.30 kg/m2 [facility] Systolic (mm Hg) 2020-12-24 16:16:00 Ramana rial [place] Diastolic (mm Hg) 2020-12-24 16:16:00 [facility] [place] Heart Rate 2020-12-24 16:16:00 [facility] [place] Respitory Rate 2020-12-24 16:16:00 [facility] [place] Height 2020-12-24 16:16:00 160.02 cm [facility] [place] Weight 2020-12-24 16:16:00 [facility] [place] BMI Calculated 2020-12-24 16:16:00 [facility] [place] Systolic (mm Hg) 2020-08-25 16:15:00 Ramana rial [place] Diastolic (mm Hg) 2020-08-25 16:15:00 [facility] [place] Heart Rate 2020-08-25 16:15:00 [facility] [place] Respitory Rate 2020-08-25 16:15:00 [facility] [place] Height 2020-08-25 16:15:00 162.56 cm [facility] [place] Weight 2020-08-25 16:15:00 [facility] [place] BMI Calculated 2020-08-25 16:15:00 [facility] [place] Systolic blood 2020-07-27 17:02:00 163 mm[Hg] Method [facility] pressure Diastolic blood 2020-07-27 17:02:00 69 mm[Hg] [facility] pressure Heart rate 2020-07-27 17:02:00 70 /min [facility] Body height 2020-07-27 17:02:00 165.1 cm [facility] Body weight 2020-07-27 17:02:00 61.689 kg [facility] BMI 2020-07-27 17:02:00 22.63 kg/m2 [facility] Oxygen saturation in 2020-07-27 17:02:00 92 /min [facility] Arterial blood by Pulse oximetry Systolic (mm Hg) 2020-07-09 17:34:00 Ramana rial [place] Diastolic (mm Hg) 2020-07-09 17:34:00 Mem [facility] [place] Heart Rate 2020-07-09 17:34:00 [facility] [place] Respitory Rate 2020-07-09 17:34:00 [facility] [place] Height 2020-07-09 17:34:00 162.56 cm [facility] [place] Weight 2020-07-09 17:34:00 [facility] [place] BMI Calculated 2020-07-09 17:34:00 [facility] [place] Systolic (mm Hg) 2020-06-10 19:25:00 Ramana rial [place] Diastolic (mm Hg) 2020-06-10 19:25:00 [facility] [place] Heart Rate 2020-06-10 19:25:00 [facility] [place] Respitory Rate 2020-06-10 19:25:00 [facility] [place] Height 2020-06-10 19:25:00 165.1 cm [facility] [place] Weight 2020-06-10 19:25:00 [facility] BMI Calculated 2020-06-10 19:25:00 [facility] [place] Systolic (mm Hg) 2020-05-12 17:40:00 Ramana rial [place] Diastolic (mm Hg) 2020-05-12 17:40:00 Mem orial [place] Height 2020-05-12 17:40:00 160.02 cm [facility] [place] Weight 2020-05-12 17:40:00 [facility] BMI Calculated 2020-05-12 17:40:00 Sangita Marmolejo Procedures Procedure Date / Time Performed Performing Clinician Sourc e US CAROTID DUPLEX 2022-09-26 19:03:53 [facility] BILATERAL ECG 12-LEAD 2021-09-06 16:26:15 [facility] Ho spital US CAROTID DUPLEX 2020-10-26 15:53:26 [facility] BILATERAL HC COMPLETE BLD COUNT 2020-07-28 18:58[facility] BASIC METABOLIC PANEL 2020-07-28 18:58:00 Ana [facility] Jeramy ESTIMATED GFR 2020-07-28 18:58[facility] 12-LEAD 2020-07-28 18:08:31 Jaye [facility] Jeramy TTE COMPLETE, W 2020-07-28 17:16:35 [facility] CONTRAST, W DOPPLER Jeramy ([id number]) TTE COMPLETE, W 2020-04-21 20:57:53 [facility] spital CONTRAST, W DOPPLER ([id number]) Plan of Care Planned Activity Planned Date Details Comments Source Future Scheduled 2022-12-04 65+ PNEUMOCOCCAL [facility] Test 08:08:32 VACCINE (1 - PCV) [code = 65+ PNEUMOCOCCAL VACCINE (1 - PCV)] Future Scheduled 2022-12-04 SHINGLES VACCINES (1 Met [facility] Test 08:08:32 of 2) [code = SHINGLES VACCINES (1 of 2)] Future Scheduled 2022-12-04 COVID-19 VACCINE (3 - [facility] Test 08:08:32 Moderna series) [code = COVID-19 VACCINE (3 - Moderna series)] Future Scheduled 2022-12-04 INFLUENZA VACCINE Method [facility] Test 08:08:32 [code = INFLUENZA VACCINE] Future Scheduled 2022-05-29 65+ PNEUMOCOCCAL [facility] Test 17:09:28 VACCINE (1 - PCV) [code = 65+ PNEUMOCOCCAL VACCINE (1 - PCV)] Future Scheduled 2022-05-29 SHINGLES VACCINES (1 Met [facility] Test 17:09:28 of 2) [code = SHINGLES VACCINES (1 of 2)] Future Scheduled 2022-05-29 COVID-19 VACCINE (3 - [facility] Test 17:09:28 Booster for Moderna series) [code = COVID-19 VACCINE (3 - Booster for Moderna series)] Future Scheduled 2022-05-29 INFLUENZA VACCINE [facility] Test 17:09:28 [code = INFLUENZA VACCINE] Future Scheduled 2022-04-27 65+ P[facility]UMOCOCCAL [facility] Test 13:34:28 VACCINE (1 - PCV) [code = 65+ PNEUMOCOCCAL VACCINE (1 - PCV)] Future Scheduled 2022-04-27 SHINGLES VACCINES (1 Met [facility] Test 13:34:28 of 2) [code = SHINGLES VACCINES (1 of 2)] Future Scheduled 2022-04-27 COVID-19 VACCINE (3 - [facility] Test 13:34:28 Booster for Moderna series) [code = COVID-19 VACCINE (3 - Booster for Moderna series)] Future Scheduled 2022-04-27 INFLUENZA VACCINE [facility] Test 13:34:28 [code = INFLUENZA VACCINE] Future Scheduled 2022-04-27 65+ P[facility]UMOCOCCAL [facility] Test 13:34:28 VACCINE (1 - PCV) [code = 65+ PNEUMOCOCCAL VACCINE (1 - PCV)] Future Scheduled 2022-04-27 SHINGLES VACCINES (1 Met [facility] Test 13:34:28 of 2) [code = SHINGLES VACCINES (1 of 2)] Future Scheduled 2022-04-27 COVID-19 VACCINE (3 - [facility] Test 13:34:28 Booster for Moderna series) [code = COVID-19 VACCINE (3 - Booster for Moderna series)] Future Scheduled 2022-04-27 INFLUENZA VACCINE Method [facility] Test 13:34:28 [code = INFLUENZA VACCINE] Future Scheduled 2022-04-27 65+ PNEUMOCOCCAL [facility] Test 13:34:28 VACCINE (1 - PCV) [code = 65+ PNEUMOCOCCAL VACCINE (1 - PCV)] Future Scheduled 2022-04-27 SHINGLES VACCINES (1 Met [facility] Test 13:34:28 of 2) [code = SHINGLES VACCINES (1 of 2)] Future Scheduled 2022-04-27 COVID-19 VACCINE (3 - [facility] 13:34:28 Booster for Moderna series) [code = COVID-19 VACCINE (3 - Booster for Moderna series)] Future Scheduled 2022-04-27 INFLUENZA VACCINE [facility] Test 13:34:28 [code = INFLUENZA VACCINE] Future Scheduled 2022-04-27 65+ PNEUMOCOCCAL [facility] Test 13:34:28 VACCINE (1 - PCV) [code = 65+ PNEUMOCOCCAL VACCINE (1 - PCV)] Future Scheduled 2022-04-27 SHINGLES VACCINES (1 [facility] Test 13:34:28 of 2) [code = SHINGLES VACCINES (1 of 2)] Future Scheduled 2022-04-27 COVID-19 VACCINE (3 - [facility] 13:34:28 [employer] for [employer] series) [code = COVID-19 VACCINE (3 - Booster for [employer] series)] Future Scheduled 2022-04-27 INFLUENZA VACCINE [facility] 13:34:28 [code = INFLUENZA VACCINE] Future Scheduled 65+ PNEUMOCOCCAL [facility] VACCINE (1 of 2 - PPSV23) [code = 65+ PNEUMOCOCCAL VACCINE (1 of 2 - PPSV23)] Future Scheduled SHINGLES VACCINES (#1) [facility] [code = SHINGLES VACCINES (#1)] Future Scheduled INFLUENZA VACCINE [facility] [code = INFLUENZA VACCINE] Encounters Start End Encounter Admission Attending Care Care Encounter Source Date/Time Date/Time Type Type Clinicians Facility Department ID 2022-12-03 2022-12-03 Aryan Pfeiffer 1.2.840.1 [id number] Methodi 00:00:00 00:00:[address] 3.430.2.7 Hospit a .3.425897 l .8 2022-10-04 2022-10-04 Aryan Pfeiffer 1.2.840.1 [id number] [facility] 00:00:00 00:00:00 Nettie Becker [address]25.1.[address] 3.430.2.7 Hospit a .3.034510 l .8 2022-09-26 2022-09-26 Outpatient [facility] [id number] [place] 00:00:00 00:00:[address] 2022-09-26 2022-09-26 Travel 1.2.840.1 1.2.777.927 [id number] [facility]i 00:00:00 00:00:[address] 3.430.2.7 0.2.7.3.698 Ho spita .3.294488 084.8 l .8 2022-09-05 2022-09-05 Office Pfeiffer, 1.2.840.1 [id number] Methodi 11:00:00 14:12:54 Visit Nettie R. 62101.1.[address] 3.430.2.7 Hospit a .3.865494 l .8 2022-09-05 2022-09-05 [id number] [place] 00:00:00 00:00:[address] 2022-09-05 2022-09-05 Travel 1.2.840.1 1.2.231.637 9383 621906 Methodi 00:00:00 00:00:[address] 3.430.2.7 0.2.7.3.698 Ho spita .3.480849 084.8 l .8 2022-06-27 2022-06-27 Refill Kentrell, 1.2.840.1 [id number] 126160 3521 Methodi 00:00:00 00:00:00 N[address] 3.430.2.7 Hospit a .3.662491 l .8 2022-06-15 2022-06-15 Refill Kentrell, 1.2.840.1 [id number] 666516 4543 Methodi 00:00:00 00:00:[address] 3.430.2.7 Hospit a .3.080465 l .8 2022-03-07 2022-03-07 Office Pfeiffer, 1.2.840.1 [id number] 333223 9947 Methodi 11:10:00 14:06:43 Visit Nettie Rosita 99956.1.[address] 3.430.2.7 Hospit a .3.590013 l .8 2022-03-07 2022-03-07 Office Pfeiffer, 1.2.840.1 [id number] 741196 8049 Methodi 11:10:00 14:06:43 Visit Nettie Becker 60977.1.[address] 3.430.2.7 Hospit a .3.522579 l .8 2022-03-07 2022-03-07 Travel 1.2.840.1 1.2.280.660 7411 155134 Methodi 00:00:00 00:00:[address] 3.430.2.7 0.2.7.3.698 Ho spita .3.628053 084.8 l .8 2022-03-07 2022-03-07 Travel 1.2.840.1 1.2.562.897 3026 099268 Methodi 00:00:00 00:00:[address] 3.430.2.7 0.2.7.3.698 Ho spita .3.429920 084.8 l .8 2022-01-12 2022-01-12 Refill Kentrell, 1.2.840.1 660176408 248956 8469 Methodi 00:00:00 00:00:00 Nettie Becker 32379.1.[address] 3.430.2.7 Hospit a .3.483200 l .8 2022-01-12 2022-01-12 Refill Kentrell, 1.2.840.1 203298100 902995 8715 Methodi 00:00:00 00:00:[address] 3.430.2.7 Hospit a .3.495002 l .8 2021-12-25 2021-12-25 Refill Kentrell, 1.2.840.1 [id number] 354385 1441 Methodi 00:00:00 00:00:00 [address] 3.430.2.7 Hospit a .3.840137 l .8 2021-12-25 2021-12-25 Refill Kentrell, 1.2.840.1 294410441 841700 2920 Methodi 00:00:00 00:00:[address] 3.430.2.7 Hospit a .3.911691 l .8 2021-12-15 2021-12-17 Outside nullFlavo MNA [id number] Memoria 13:23:59 04:59:59 Medical r Neurology 02 l Records Oswaldo Jaramillo 2021-12-15 2021-12-17 Outside nullFlavo MNA [id number] Memoria 13:23:59 04:59:59 Medical r Neurology 02 l Records Oswaldo Whiteann 2021-12-15 2021-12-16 Outpatient MHMISCHER MHMISCHER 927 [id number] 08:23:59 23:59:59 02 2021-11-02 2021-11-02 Telephone Kentrell 1.2.840.1 [id number] 2100 621404 Methodi 00:00:00 00:00:[address] 3.430.2.7 Hospit a .3.965440 l .8 2021-10-21 2021-10-21 Refill Kentrell, 1.2.840.1 [id number] 133731 4892 Methodi 00:00:00 00:00:00 [address] 3.430.2.7 Hospit a .3.280723 l .8 2021-09-06 2021-09-06 Office Kentrell 1.2.840.1 [id number] 002522 4651 Methodi 11:30:00 16:14:26 Visit Nettie RJaylen 01942.1.[address] 3.430.2.7 Hospit a .3.247767 l .8 2021-09-06 2021-09-06 Travel 1.2.840.1 1.2.425.079 2312 845085 Methodi 00:00:00 00:00:[address] 3.430.2.7 0.2.7.3.698 Ho spita .3.422943 084.8 l .8 2021-08-25 2021-08-25 Outpatient ONESIMO Kong, HCATO PAIN [id number] [facility] 08:13:00 08:13:[address] [place] [address] [facility] l 2021-08-11 2021-08-11 Aryan Pfeiffer 1.2.840.1 [id number] [id number] 1219 Methodi 00:00:00 00:00:00 Nettie Becker 73546.1.[address] 3.430.2.7 Hospit a .3.723794 l .8 2021-07-27 2021-07-27 Narciso Vazquez 1.2.840.1 443420695 2100 018415 Methodi 00:00:00 00:00:[address] 3.430.2.7 Hospit a .3.381512 l .8 2021-07-22 2021-07-22 Aryan Pfeiffer 1.2.840.1 733738375 258557 5977 Methodi 00:00:00 00:00:00 Nettie Becker 12054.1.[address] 3.430.2.7 Hospit a .3.892543 l .8 2021-06-30 2021-06-30 Ambulatory nullFlavo MNA 39499 07534 Memoria 16:30:00 16:30:00 Pre-Reg r Neurology 05 l Quinlan Clint 2021-06-30 2021-06-30 Ambulatory nullFlavo MNA [id number] [id number] Memoria 16:30:00 16:30:00 Pre-Reg r Neurology 05 l Oswaldo Jaramillo 2021-06-30 2021-06-30 Outpatient MHIE LINDSEY [id number] Memoria 10:30:00 10:30:00 05 l Clint 2021-06-30 2021-06-30 [facility] 516 [id number] 10:30:00 10:30:00 Rigo Tucker 2021-06-15 2021-06-15 Refbakari Be, 1.2.840.1 [id number] 353 [id number] Methodi 00:00:00 00:00:[address] 3.430.2.7 Hospit a .3.654051 l .8 2021-06-10 2021-06-10 Wayne Pfeiffer, 1.2.840.1 [id number] 2100 583605 Methodi 00:00:00 00:00:00 N[address] 3.430.2.7 Hospit a .3.375672 l .8 2021-06-09 2021-06-09 Aryan Pfeiffer 1.2.840.1 653434599 624937 1632 Methodi 00:00:00 00:00:[address] 3.430.2.7 Hospit a .3.954977 l .8 2021-06-08 2021-06-08 Aryan Pfeiffer 1.2.840.1 [id number] 704478 6355 Methodi 00:00:00 00:00:[address] 3.430.2.7 Hospit a .3.240059 l .8 2021-05-27 2021-05-27 Outpatient ONESIMO Del Cid, HCATO PAIN [id number] [facility] 10:29:00 10:29:00 Isaiah Weathers [facility] 2021-03-08 2021-03-08 [id number] 808 [place] 00:00:00 00:00:00 NETTIE [address] 2021-01-09 2021-01-09 Aryan Pfeiffer 1.2.840.1 [id number] [id number] 0758 Methodi 00:00:00 00:00:00 N[address] 3.430.2.7 Hospit a .3.132966 l .8 2020-12-24 2020-12-25 Outpatient nullFlavo MNA 75436 13247 Memoria 16:00:00 04:59:59 r Neurology 04 l Oswaldo Whiteann 2020-12-24 2020-12-25 Outpatient nullFlavo MNA 71720 93176 Memoria 16:00:00 04:59:59 r Neurology 04 l Oswaldo Whiteann 2020-12-24 2020-12-24 Outpatient Hollycolin [facility] 767 [id number] 11:00:00 23:59:59 Rigo Froilan Tucker 2020-12-24 2020-12-24 Outpatient IE [facility] [id number] 165 Memoria 11:00:00 11:00:00 04 sherly Jaramillo 2020-11-28 2020-11-28 Refill Kentrell, 1.2.840.1 [id number] 223560 2286 Methodi 00:00:00 00:00:[address]18.[address] 3.430.2.7 Hospit a .3.070620 l .8 2020-10-26 2020-10-26 Travel 1.2.840.1 1.2.404.728 6567 518356 Methodi 00:00:00 00:00:[address] 3.430.2.7 0.2.7.3.698 Ho spita .3.569031 084.8 l .8 2020-10-18 2020-10-18 Refill Kentrell, 1.2.840.1 [id number] 667039 3026 Methodi 00:00:00 00:00:00 Nettie [address] 3.430.2.7 Hospit a .3.903411 l .8 2020-09-06 2020-09-06 Refill Kentrell, 1.2.840.1 [id number] 653159 2394 Methodi 00:00:00 00:00:[address] 3.430.2.7 Hospit a .3.476436 l .8 2020-08-25 2020-08-26 Outpatient nullFlavo MNA 77151 48249 Memoria 16:00:00 04:59:59 r Neurology 03 l Quinlanrigoberto Whiteann 2020-08-25 2020-08-26 Outpatient nullFlavo MNA 61367 63031 Memoria 16:00:00 04:59:59 r Neurology 03 l Oswaldo Clint 2020-08-25 2020-08-25 Outpatient PASTOR SilvaSCHJD MERLINESCHER [id number] 11:00:00 23:59:59 Rigo 03 Garrett 2020-08-25 2020-08-25 Outpatient MHIE IE [id number] 165 Memoria 11:00:00 11:00:00 03 l Clint 2020-07-28 2020-07-28 Lab Fasandra, 1.2.840.1 [id number] 0003 Methodi 13:34:10 13:39:[address] Maksim 3.430.2.7 Hospit a Jeramy .3.575138 l .8 2020-07-28 2020-07-28 Multidisci Fasandra, 1.2.840.1 992018699 455 1365362 Methodi 12:40:16 13:29:54 plinary Rebecca 50837.1.[address] Visit Maksim 3.430.2.7 Hospit a Jeramy .3.527170 l .8 2020-07-27 2020-07-27 Travel 1.2.840.1 1.2.686.003 8681 252084 Methodi 00:00:00 00:00:[address] 3.430.2.7 0.2.7.3.698 Ho spita .3.013397 084.8 l .8 2020-06-15 2020-07-26 Clinical 1.2.840.1 484823787 39287 65096 Methodi 10:32:50 14:52:[address] 3.430.2.7 Hospit a .3.068345 l .8 2020-07-25 2020-07-25 Refill Kentrell, 1.2.840.1 530157214 390239 3509 Methodi 00:00:00 00:00:00 Nettie Becker 69545.1.[address] 3.430.2.7 Hospit a .3.677749 l .8 2020-07-13 2020-07-15 Outside nullFlavo MNA [id number] Memoria 14:37:12 05:59:59 Medical r Neurology 01 l Records Oswaldo Jaramillo 2020-07-13 2020-07-15 Outside nullFlavo MNA [id number] Memoria 14:37:12 05:59:59 Medical r Neurology 01 l Records Oswaldo Jaramillo 2020-07-13 2020-07-14 [facility] [id number] 08:37:12 23:59:59 01 2020-07-09 2020-07-10 Outpatient nullFlavo MNA 80488 08288 Memoria 17:15:00 05:59:59 r Neurology 02 l Oswaldo Jaramillo 2020-07-09 2020-07-10 Outpatient nullFlavo MNA [id number] [id number] Memoria 17:15:00 05:59:59 r Neurology 02 l Oswaldo Jaramillo 2020-07-09 2020-07-09 [facility] 267 [id number] 11:15:00 23:59:59 Rigo Truman Tucker 2020-07-09 2020-07-09 Outpatient MHIE IE [id number] 165 Memoria 11:15:00 11:15:00 02 sherly Jaramillo 2020-06-17 2020-06-17 Travel 1.2.840.1 1.2.813.037 5773 070148 Methodi 00:00:00 00:00:[address] 3.430.2.7 0.2.7.3.698 Ho spita .3.116490 084.8 l .8 2020-06-12 2020-06-12 Refill Kentrell 1.2.840.1 [id number] [id number] 8622 Methodi 00:00:00 00:00:00 Nettie Becker 25226.1.[address] 3.430.2.7 Hospit a .3.948479 l .8 2020-06-10 2020-06-11 Outpatient nullFlavo MNA 81705 06020 Memoria 19:00:00 05:59:59 r Neurology 01 l Oswaldo Jaramillo 2020-06-10 2020-06-11 Outpatient nullFlavo MNA [id number] 56261 Memoria 19:00:00 05:59:59 r Neurology 01 l Oswaldo Jaramillo 2020-06-10 2020-06-10 Outpatient JESSE SilvaMISCHER MHMISCHER 380 [id number] 13:00:00 23:59:59 Rigo 01 Garrett 2020-06-10 2020-06-10 Outpatient MHIE MHIE [id number] 165 Memoria 13:00:00 13:00:00 01 sherly Jaramillo 2020-05-18 2020-05-18 Clinical 1.2.840.1 [id number] 03822 Methodi 11:18:07 12:02:[address] 3.430.2.7 Hospit a .3.302052 l .8 2020-05-12 2020-05-13 Outpatient nullFlavo MNA 91734 48220 Memoria 17:15:00 05:59:59 r Neurology 00 l Oswaldo Jaramillo 2020-05-12 2020-05-13 Outpatient nullFlavo MNA 91491 17592 Memoria 17:15:00 05:59:59 r Neurology 00 l Oswaldo Jaramillo 2020-05-12 2020-05-12 Outpatient JESSE SilvaMISCHER MHMISCHER 072 [id number] 11:15:00 23:59:59 Rigo 00 Garrett 2020-05-12 2020-05-12 Outpatient MHIE MHIE [id number] Memoria 11:15:00 11:15:00 00 l Clint 2020-04-29 2020-04-29 Refill Kentrell 1.2.840.1 [id number] [id number] 8242 Methodi 00:00:00 00:00:[address] 3.430.2.7 Hospit a .3.097704 l .8 2020-04-27 2020-04-27 Zeny Pfeiffer 1.2.840.1 [id number] 219498 9921 Methodi 10:50:00 11:50:53 Visit Nettie Gunn50.1.[address] 3.430.2.7 Hospit a .3.705997 l .8 2020-04-27 2020-04-27 Travel 1.2.840.1 1.2.142.516 8636 661873 Methodi 00:00:00 00:00:[address] 3.430.2.7 0.2.7.3.698 Ho spita .3.520587 084.8 l .8 2020-04-21 2020-04-21 Travel 1.2.840.1 1.2.665.062 0081 641828 Methodi 00:00:00 00:00:[address] 3.430.2.7 0.2.7.3.698 Ho spita .3.422437 084.8 l .8 2020-03-25 2020-03-25 Refbakari Pfeiffer, 1.2.840.1 [id number] 159237 2705 Methodi 00:00:00 00:00:00 [address] 3.430.2.7 Hospit a .3.558747 l .8 2020-01-26 2020-01-26 Narciso Vazquez 1.2.840.1 [id number] 2099 643429 Methodi 00:00:00 00:00:[address] 3.430.2.7 Hospit a .3.614167 l .8 2017-10-17 2017-10-18 Outpt Diag nullFlavo [facility] [id number] 70945 Memoria 17:51:00 04:59:00 Services r Outpatient 00 l [facility] 2017-10-17 2017-10-18 Outpt Diag nullFlavo [facility] [id number] Memoria 17:51:00 04:59:00 Services r Outpatient 00 l [facility] 2017-10-17 2017-10-17 Outpatient Marquise 2.16.840. 2.16.840.1. 4 [id number] 12:51:00 23:59:00 Poppy Fraser 1.993491. 257692.3.61 00 3.615.24 5.24 Results Test Description Test Time Test Comments Results Result Comments Source ECG 12 lead 2021-09-06 17:57:14 Test Item Value Reference Range Interpretation Comme nts Ventricular rate (test code = 253) Atrial rate (test code = 255) KY interval (test code = 266) QRSD interval (test code = 260) QT interval (test code = 264) QTC interval (test code = 265) P axis 1 (test code = 267) QRS axis 1 (test code = 268) T wave axis (test code = 270) EKG impression (test code = 273) Normal sinus rhythm-Septal infarct (cited on or before 28-JUL-2020)-Abnormal ECG-In automated comparison with ECG of 28-JUL-2020 13:08,-premature ventricular complexes are no longer present- [address]2022-04-26 17:57:14 Test Item Value Reference Range Interpretation Comments Ventricular rate (test code = 253) Atrial rate (test code = 255) KY interval (test code = 266) QRSD interval (test code = 260) QT interval (test code = 264) QTC interval (test code = 265) P axis 1 (test code = 267) QRS axis 1 (test code = 268) T wave axis (test code = 270) EKG impression (test Normal sinus code = 273) rhythm-Septal infarct (cited on or before 28-JUL-2020)-Abnormal ECG-In automated comparison with ECG of 28-JUL-2020 13:08,-premature ventricular complexes are no longer present- [address]2022-04-26 17:57:14 Test Item Value Reference Range Interpretation Comments Ventricular rate (test code = 253) Atrial rate (test code = 255) KY interval (test code = 266) QRSD interval (test code = 260) QT interval (test code = 264) QTC interval (test code = 265) P axis 1 (test code = 267) QRS axis 1 (test code = 268) T wave axis (test code = 270) EKG impression (test Normal sinus code = 273) rhythm-Septal infarct (cited on or before 28-JUL-2020)-Abnormal ECG-In automated comparison with ECG of 28-JUL-2020 13:08,-premature ventricular complexes are no longer present- [address]2022-04-26 17:57:14 Test Item Value Reference Range Interpretation Comments Ventricular rate (test code = 253) Atrial rate (test code = 255) KY interval (test code = 266) QRSD interval (test code = 260) QT interval (test code = 264) QTC interval (test code = 265) P axis 1 (test code = 267) QRS axis 1 (test code = 268) T wave axis (test code = 270) EKG impression (test Normal sinus code = 273) rhythm-Septal infarct (cited on or before 28-JUL-2020)-Abnormal ECG-In automated comparison with ECG of 28-JUL-2020 13:08,-premature ventricular complexes are no longer present- [address]2022-04-26 17:57:14 Test Item Value Reference Range Interpretation Comments Ventricular rate (test code = 253) Atrial rate (test code = 255) KY interval (test code = 266) QRSD interval (test code = 260) QT interval (test code = 264) QTC interval (test code = 265) P axis 1 (test code = 267) QRS axis 1 (test code = 268) T wave axis (test code = 270) EKG impression (test Normal sinus code = 273) rhythm-Septal infarct (cited on or before 28-JUL-2020)-Abnormal ECG-In automated comparison with ECG of 28-JUL-2020 13:08,-premature ventricular complexes are no longer present- [facility] FLUORO FOR SPINE [id number] 13:52:00 [facility] : 1940 Sex: F Patient Name: HANANE HARRINGTON Unit No: [id number] EXAMS: CPT CODE: [id number] XR FLUORO FOR SPINE [id number] LUMBAR EPIRADICULAR INJECTION REFERRAL PHYSICIAN: Dr. Orellana PREOPERATIVE DIAGNOSIS: Lumbar Radiculitis POSTOPERATIVE DIAGNOSIS: Lumbar radiculitis PROCEDURES PERFORMED: Fluoroscopically guided needle localization of the bilateral L3 and bilateral L4 spinal nerves with transforaminal epidurograms and epidural injection of local anesthetic and steroid. FINDINGS: Severe degenerative changes at every level of the disc spaces and vertebral endplates. Bony foraminal narrowing is also noted especially so at right L4/5. Contrast is seen to extrude 4 5 due to difficult needle placement. PreinjectionVAS 5-7/10. Postinjection VAS 0/10. Steroid response pending follow-up. ESTIMATED BLOOD LOSS: Minimal ANESTHESIA: TIVA COMPLICATIONS: None DETAILS OF PROCEDURE: After obtaining stable vital signs, informed consent and IV access, with no contraindications, the patient was taken to the operating room and placed in a prone position with all extremities padded and appropriate monitors placed. The patientwas sterilely prepped and draped over the lumbosacral spine. Using fluoroscopic visualization the insertion sites were marked for paravertebral approaches and using standard technique, a 22 gauge needle was advanced to the base of each pedicle without paresthesias. Isovue-300 contrast 0.2 mL of was inj ected incrementally with frequent negative aspirations to produce each epidurogram. There were no signs of intravascular or intrathecal uptake. Bupivicaine 0.75% 0.25 mL with lidocaine 4% 0.25 mL and Decadron 5 mg was then incrementally injected with frequent negative aspirations and again there were n o signs of intravascular or intrathecal uptake. The needles were removed and the patient was taken to the PACU in good condition. Image: Image 1 Image: Image 2 at 1352 Reported and signed by: PREET KONG MD CC: Technologist: Michelle Kurtz(R) Transcribed D/ (3134) AlfonsoJMA2 [facility] NAME: HANANE HARRINGTON SEPTEMBER [address] [facility] PHYS: Preet Paige MD [place], [place] [address] : 1940 AGE: 81 SEX: F LOC: BENJI PHONE #: [phone] EXAM DATE: 08/25/2021 STATUS: [facility] FAX #: [phone] RAD #: D/C DT PAGE 1 Signed Report Patient Name: HANANE HARRINGTON Unit No: [id number] EXAMS: CPT CODE: [id number] XR FLUORO FOR SPINE INJ [id number] (Continued) Orig Print D/T: S:08/25/2021 (1952) [facility] NAME: HANANE HARRINGTON SEPTEMBER [address] [facility] PHYS: Preet Paige MD [place], [place] [address] : 1940 AGE: 81 SEX: F LOC: BENJI PHONE #: [phone] EXAM DATE: 08/25/2021 STATUS: [facility] FAX #: [phone] RAD #: D/C DT PAGE 2 Signed Report- XR FLUORO FOR SPINE [id number] 15:23:00 [facility] SEPTEMBER : 1940 Sex: F Patient Name: HANANE HARRINGTON Unit No: [id number] EXAMS: CPT CODE: [id number] XR FLUORO FOR SPINE [id number] LUMBAR EPIRADICULAR INJECTION REFERRAL PHYSICIAN: Kash Orellana M.D. PREOPERATIVE DIAGNOSIS: Lumbar Radiculitis POSTOPERATIVE DIAGNOSIS: Multilevel lumbar disc degeneration with scoliosis, stenosis and lumbar radiculitis PROCEDURES PERFORMED: Fluoroscopically guided needle localization of the bilateral L3 and bilateral L4 spinal nerves with transforaminal epidurograms and epidural injection of local anesthetic and steroid. FINDINGS: Flow was obtained through all foramen with horizontal root sign on the left at L3. Proximal flow was markedly displaced across the L3-4 disc and limited cephalad across the L2-3 disc. Provocation with injection was negative. Anesthetic response was positive with the patient noting relief of her low back and radiating pain. Preinjection VAS 7/10. Postinjection VAS0/10. Steroid response pending follow-up. ESTIMATED BLOOD LOSS: Minimal ANESTHESIA: TIVA COMPLICATIONS: None DETAILS OF PROCEDURE: After obtaining stable vital signs, informed consent and IV access, with no contraindications, the patient was taken to the operating room and placed in a prone position with all extremities padded and appropriate monitors placed. The patient was sterilely prepped and draped over the lumbosacral spine. Using fluoroscopic visualization the insertion sites were marked for paravertebral approaches and using standard technique, a 25 gauge needle was advanced to the base of each pedicle without paresthesias. Isovue-300 contrast 0.2 mL of was injected at each level incrementally with frequent negative aspirations to produce each epidurogram. There were no signs of intravascular or intrathecal uptake. Bupivicaine 0.75% 0.25 mL with lidocaine 4% 0.5 mL and Decadron 5 mg was then incrementally injected with frequent negative aspirations at each level and again there were no signs of intravascular or intrathecal uptake. The needles were removed and the patient was taken tothe PACU in good condition. Image: Image 1 Image: Image 2 at 1523 Reported and signed by: Isaiah Del Cid M.D. [facility] NAME: HANANE HARRINGTON SEPTEMBER [address] [facility] PHYS: Isaiah Gunter MD [place], [place] [address] : 1940 AGE: 81 SEX: F LOC: BENJI PHONE #: [phone] EXAM DATE: 05/27/2021 STATUS: [facility] FAX #: [phone] RAD #: D/C DT PAGE 1 Signed Report (CONTINUED) Patient Name: HANANE HARRINGTON Unit No: [id number] EXAMS: CPT CODE: [id number] XR FLUORO FOR SPINE [id number] (Continued) CC: Technologist: Michelle Kurtz(R) Transcribed D/ (1523) [facility] NAME: HANANE HARRINGTON SEPTEMBER [address] [facility] PHYS: Isaiah Gunter MD [place] [address] : 1940 AGE: 81 SEX: F LOC: BENJIPHONE #: [phone] EXAM DATE: 05/27/2021 STATUS: [facility] FAX #: [phone] RAD #: D/C DT PAGE 2 Signed Report Patient Name: HANANE HARRINGTON Unit No: [id number] EXAMS: CPT CODE: [id number] XR FLUORO FOR SPINE INJ 21546 (Continued) Orig Print D/T: S: 05/27/2021 (1526) [facility] NAME: HANANE HARRINGTON SEPTEMBER [address] [facility] PHYS: Isaiah Gunter MD [place] [address] : 1940 AGE: 81 SEX: F LOC: BENJI PHONE #: [phone] EXAM DATE: 05/27/2021 STATUS: [facility] FAX #: [phone] RAD #: D/C DT PAGE 3 Signed ReportECG [id number] 03:24:53 Test Item Value Reference Range Interpretation Comments Ventricular rate (test code = 253) Atrial rate (test code = 255) KY interval (test code = 266) QRSD interval (test code = 260) QT interval (test code = 264) QTC interval (test code = 265) P axis 1 (test code = 267) QRS axis 1 (test code = 268) T wave axis (test code = 270) EKG impression (test Sinus rhythm with code = 273) occasional premature ventricular complexes-Septal infarct , age undetermined-Abnormal ECG-In automated comparison with ECG of 24-JUL-2019 05:39,-premature ventricular complexes are now pszptly-Mwy-mnjsxvop change in ST segment in Lateral leads- [facility]
[2022-12-04 19:45] LABS: Absolute Lymphocytes (CBC) 1.8 K/uL (0.7-4.9); Hematocrit 42.8 % (36.0-45.0); Lymphocytes % 18.6 % (15.3-44.8); MCV 85.5 fL (80-100); MPV 9.4 fL (7.6-11.3); RBC Red Blood Cell Count 5.01 M/uL (3.86-4.86)
[2022-12-04] MEDS ORDERED: VANCOMYCIN 1 GM in NA CHLORIDE 0.9% 250 ML IVPB SCH (20:00)
[2022-12-04 20:05] VITALS: BMI 21.7
[2022-12-04 20:06] LABS: Albumin 3.1 g/dL (3.4-5.0); Bilirubin Total 0.3 mg/dL (0.2-1.0); C-Reactive Protein 10.7 mg/L (<3.00); Magnesium 2.3 mg/dL (1.6-2.4); Potassium 3.9 mEq/L (3.5-5.1)
[2022-12-04] MEDS: CEFTRIAXONE 1,000 MG in NA CHLORIDE 0.9% 50 ML IVPB SCH (21:22)
[2022-12-04] MEDS ORDERED: carvediloL 25 MG TAB PO ONE (22:38)
[2022-12-04] MEDS ORDERED: lisinopriL 10 MG TAB PO ONE (22:38)
[2022-12-04] MEDS ORDERED: AMLODIPINE 5 MG TAB PO ONE (22:38)
--- NOTE | 2022-12-05 04:54 | HP ---
Date of Admission: 12/04/2022 Chief Complaint: Right foot redness. History Of Present Illness: This is an 82-year-old very pleasant female patient, who had a pedicure done a little over a month ago and after that, she started to have some redness of her right foot involving distal dorsum aspect of the foot and third toe. This actually started while she was in [place] and [facility] [place] where she was evaluated and sent home with oral antibiotic, which was Augmentin and she took it for 1 week without any side effect, but it did not help her right foot cellulitis, so I saw her so far 4 times at office for this right foot cellulitis problem. First time I saw her on October 30 when she came back from [place] when she was prescribed Augmentin and we decided to continue Augmentin and then I saw her on November 06 and considering her cellulitis was not improving, I started her on doxycycline 100 mg twice a day for 10 days and saw her for followup on November 15, 2022, and her cellulitis was improving, but not back to normal, so I gave her another 10 days of doxycycline. Her foot x-ray done on October 30 was negative for any acute changes. She took her doxycycline as prescribed and 2 days after she finished her doxycycline, she started to have redness coming back again and her redness had almost completely resolved with doxycycline, but within 2 days after discontinuation of therapy, it started to get worse again, so she saw me on November 29 and at that time, we prescribed her doxycycline again. Repeat foot x-ray from November 30, again did not show any acute changes and I saw her today and there was no improvement on doxycycline, so decision was made to admit her to hospital as we need to rule out possibility of now osteomyelitis and failure of oral antibiotic therapy. She denies any pain except every now and then she has some discomfort in the foot. Allergies: TO SULFA, DETAILS UNKNOWN. NITROFURANTOIN, DETAILS UNKNOWN. LEVAQUIN, CAUSING BLOOD OOZE. Medications: Doxycycline 100 mg 2 times a day, amlodipine 5 mg 2 times a day, carvedilol 25 mg she takes 1-1/2 tablet 2 times a day, famotidine 20 mg daily at bedtime, Advair 1 puff 2 times a day, lisinopril 10 mg 2 times a day, metformin 500 mg daily with evening meal, prednisone 5 mg daily, rosuvastatin 20 mg daily at bedtime, and she uses topical urea solution to her callus on the right plantar foot daily. Review of Systems: Dermatology: As mentioned above. Musculoskeletal: As mentioned above. All other systems reviewed and negative. Past Medical History: Significant for allergic rhinitis, type 2 diabetes mellitus, mild persistent asthma, hypertension, hyperlipidemia, coronary artery disease, chronic diastolic heart failure, paroxysmal atrial fibrillation, aortic stenosis, carotid artery stenosis, bilateral gastroesophageal reflux disease, diverticulosis, lumbar radiculopathy, and osteopenia. 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 It is important to note that the patient has metal present in right foot 3rd toe involving proximal and distal phalanx as well as right foot second metatarsal bone. Social History: Negative for smoking. Use of alcohol occasional. Family History: Father , had kidney cancer, bladder cancer, and hypertension. Mother , had thyroid cancer, hypertension, and stroke. Sister has hypertension and hypothyroidism. Physical Examination: Vital Signs: Today at office, blood pressure 125/65, pulse 74, temperature 97.5, weight 132 pounds, height 65 inches. General: Awake, alert, oriented, not in distress. HEENT: Head atraumatic, normocephalic. Conjunctivae nonerythematous. Sclerae white. Mouth, no thrush or edema noted. Ears/Nose, no mass, lesion, discharge noted. Neck: Supple. No JVD, lymph nodes, bruit, thyromegaly noted. Lungs: Bilateral good equal air entry. Clear to auscultation. No rhonchi. No rales. Heart: Normal heart sounds, no murmur or gallop. Abdomen: Soft, bowel sounds normal. No guarding, rigidity, tenderness, mass, hepatosplenomegaly, distention, or bruit noted. Musculoskeletal: Right dorsum foot, distal 1/3rd has warm skin involving area proximal to 2nd, 3rd, and 4th toe. Right foot 3rd toe is also showing erythematous skin involving entire toe and dorsum of this toe still has puncture wounds. No discharge. No bleeding. Plantar aspect of the right foot has callus, which is much better now than before. Skin: No rash, ulcer, cellulitis. Lymphatics: No lymph node enlargement in neck, supraclavicular, infraclavicular region. Neuro: No focal neurological deficit. Chest: Unremarkable. External Genitalia: Deferred. Rectal: Deferred. Laboratory Data: Right foot x-ray from 11/30 and 10/30/2022, no acute changes indicating osteomyelitis. WBC 9.6, hemoglobin 13.9, platelets 219, sodium 141, potassium 3.9, chloride 112, bicarb 27, BUN 22, creatinine 0.68, glucose 141, liver function tests unremarkable, CRP 10.7. Impression: 1. Cellulitis, right foot. 2. Rule out osteomyelitis, right foot. 3. Type 2 diabetes mellitus. 4. Hypertension. 5. Hyperlipidemia. 6. Coronary artery disease. 7. Paroxysmal atrial fibrillation. 8. Chronic diastolic heart failure. 9. Mild persistent asthma. 10. Gastroesophageal reflux disease. 11. Diverticulosis. Plan: We will admit the patient to hospital for further evaluation and management of this problem. The patient is appropriate for inpatient and is expected to spend 2 midnights in hospital. The patient has failed outpatient antibiotic therapy, which she has received for almost 1 month. I will go ahead and start her on IV vancomycin and IV ceftriaxone. I will communicate with radiologist and we will order either MRI of the right foot without contrast or bone scan to rule out osteomyelitis. For her asthma, we will continue her inhaler, which is Advair. For hypertension, we will continue her antihypertensive medication per order. Monitor blood pressure, make adjustment on antihypertensive medication as it becomes necessary. For hyperlipidemia, we will continue her statin therapy and for diabetes mellitus, we will continue her metformin. Details and plan of treatment discussed with the patient and her son at office today. I will see her tomorrow morning for followup. NYDIA/MODL Voice ID: [id number] [email or web address]
[2022-12-05] MEDS ORDERED: METFORMIN HCL 500 MG TAB PO SCH (08:00)
[2022-12-05] MEDS: CEFTRIAXONE 1,000 MG in NA CHLORIDE 0.9% 50 ML IVPB SCH ×2 (08:53→20:38)
[2022-12-05] MEDS ORDERED: predniSONE 5 MG TAB PO SCH (09:00)
[2022-12-05] MEDS ORDERED: carvediloL 25 MG TAB PO SCH (09:00)
[2022-12-05] MEDS ORDERED: AMLODIPINE 5 MG TAB PO SCH (09:00)
[2022-12-05] MEDS ORDERED: lisinopriL 10 MG TAB PO SCH (09:00)
[2022-12-05] MEDS ORDERED: FAMOTIDINE 20 MG TAB PO SCH (09:00)
--- NOTE | 2022-12-05 15:09 | RAD REPORT ---
EXAM DESCRIPTION: NM - Bone Imaging Three Phase - 12/05/2022 2:53 pm CLINICAL HISTORY: Foot pain and swelling COMPARISON: November 30, 2022 x-ray TECHNIQUE: 25.4 Mci Tc MDPwas administered intravenously. Three-phase bone scan the feet obtained. FINDINGS: Marked increased radiotracer activity involves distal third phalanx on all 3 phases. Moder ate increased radiotracer activity involves third middle phalanx IMPRESSION: Marked increased radiotracer activity distal third phalanx likely osteomyelitis Moderate increased radiotracer activity involving the third middle phalanx probably representing oste omyelitis as well Dr Catalan notified
[2022-12-05] MEDS: VANCOMYCIN 1 GM in NA CHLORIDE 0.9% 250 ML IVPB SCH (15:49)
[2022-12-05] MEDS: Mupirocin NASAL 2 APPL/1 GM TUBE NAS SCH (20:41)
[2022-12-05] MEDS: CARVEDILOL 25 MG PO SCH (20:42)
[2022-12-05] MEDS: HOME MED [FAMOTIDINE 20 MG TAB] PO SCH (20:42)
[2022-12-05] MEDS: AMLODIPINE 5 MG PO SCH (20:44)
[2022-12-05] MEDS: LISINOPRIL 10 MG PO SCH (21:00)
[2022-12-06] MEDS: CARVEDILOL 25 MG PO SCH ×2 (05:55→20:42)
--- NOTE | 2022-12-06 08:02 | PN ---
Date of Progress Note: 12/05/2022 Subjective: The patient was seen this morning for followup. No new complaints or problems reported by patient. She was lying in bed, not in distress. No new complaints overnight reported. Objective: Vital Signs: Reviewed. HEENT Examination: Unremarkable. Lungs: Clear to auscultation. Heart: Sounds normal. Abdomen: Soft, bowel sounds normal. No guarding, rigidity, tenderness, distention. Extremities: No leg edema. Right foot examination remains unchanged from yesterday. Labs: Three-phase bone scan of the right foot done today showing evidence of osteomyelitis involving right foot third toe. Impression: 1.Osteomyelitis, right foot. 2.Hypertension. 3.Hyperlipidemia. 4.Coronary artery disease. Plan: We will go ahead and continue antibiotics per order, which is ceftriaxone and vancomycin. Aft er bone scan result was available today, PICC line was ordered. Social Service consultation was orde red to help make arrangements for 6 weeks of IV antibiotic therapy at home and once that is arranged, plan is to discharge her to go home with home IV antibiotic therapy. NYDIA/MODL Voice ID: [id number] Report ID: [id number]
[2022-12-06] MEDS: AMLODIPINE 5 MG PO SCH ×2 (08:11→21:00)
[2022-12-06] MEDS: VANCOMYCIN 1 GM in NA CHLORIDE 0.9% 250 ML IVPB SCH (08:11)
[2022-12-06] MEDS: LISINOPRIL 10 MG PO SCH ×2 (08:11→22:47)
[2022-12-06] MEDS: HOME MED [FAMOTIDINE 20 MG TAB] PO SCH ×2 (08:11→20:42)
[2022-12-06] MEDS: Mupirocin NASAL 2 APPL/1 GM TUBE NAS SCH ×2 (08:11→20:40)
[2022-12-06] MEDS: PREDNISONE 5 MG PO SCH (08:11)
[2022-12-06] MEDS: CEFTRIAXONE 1,000 MG in NA CHLORIDE 0.9% 50 ML IVPB SCH ×2 (08:12→20:49)
[2022-12-06] MEDS ORDERED: VANCOMYCIN 500 MG in NA CHLORIDE 0.9% 100 ML IVPB ONE (08:30)
[2022-12-06] MEDS: METFORMIN HCL 500 MG PO SCH (16:22)
[2022-12-07] MEDS: Mupirocin NASAL 2 APPL/1 GM TUBE NAS SCH ×2 (08:34→21:00)
[2022-12-07] MEDS: CEFTRIAXONE 1,000 MG in NA CHLORIDE 0.9% 50 ML IVPB SCH ×2 (08:34→21:00)
[2022-12-07] MEDS: VANCOMYCIN 1.25 GM in NA CHLORIDE 0.9% 250 ML IVPB SCH (08:34)
[2022-12-07] MEDS: LISINOPRIL 10 MG PO SCH ×2 (08:50→21:00)
[2022-12-07] MEDS: PREDNISONE 5 MG PO SCH (08:50)
[2022-12-07] MEDS: HOME MED [FAMOTIDINE 20 MG TAB] PO SCH ×2 (08:50→21:00)
[2022-12-07] MEDS: AMLODIPINE 5 MG PO SCH ×2 (08:50→21:00)
[2022-12-07] MEDS: CARVEDILOL 25 MG PO SCH ×2 (08:51→21:00)
--- NOTE | 2022-12-07 09:06 | PN ---
Date of Progress Note: 12/06/2022 Subjective: The patient was seen this morning for followup. No new complaints or problems reported by the patient. Lying in bed, not in any distress. Her son was present with her at bedside. Objective: Vital Signs: Reviewed. HEENT: Unremarkable. Lungs: Clear to auscultation. Heart: Sounds normal. Abdomen: Soft. Bowel sounds normal. No guarding, rigidity, tenderness, distention. Extremities: No leg edema. Right foot exam looks significantly better with improvement in redness f rom dorsum foot and third toe. Laboratory Data: Bone scan results reviewed showing osteomyelitis. Impression: 1.Right foot osteomyelitis. 2.Hypertension. 3.Coronary artery disease. 4.Hyperlipidemia. Plan: We will go ahead and continue current antibiotic therapy, which is vancomycin and ceftriaxone. The patient to get a PICC line placement and Social Service will assist us with home IV antibiotic therapy for 6 weeks. Details of plan of treatment discussed with the patient and son. As soon as PI CC line placement is done and home IV antibiotic gets arranged, the patient will be discharged to go home. NYDIA/MODL Voice ID: [id number] Report ID: [id number]
--- NOTE | 2022-12-07 14:06 | RAD REPORT ---
EXAM DESCRIPTION: XR Chest, 1 View CLINICAL HISTORY: PICC placement TECHNIQUE: Frontal view of the chest. COMPARISON: No relevant prior studies available. FINDINGS: Lungs: Unremarkable. No consolidation. Pleural space: Unremarkable. No pneumothorax. Heart: Aortic valvular stent. Mediastinum: Unremarkable. Bones/joints: Multilevel spondylosis. No acute fracture. Moderate degenerative changes at the g lenohumeral joints bilaterally. Osteochondral bodies present on the left. Vasculature: Thoracic aortic atherosclerosis. Tubes, lines and devices: Right upper extremity PICC tip projects over the mid superior vena cava. IMPRESSION: Right upper extremity PICC tip projects over the mid superior vena cava. Electronically signed by: Beth Thomas MD 12/07/2022 3:32 AM CDT Due to temporary technical issues with the PACS/Fluency reporting system, reports are being signed by the in house radiologists without review as a courtesy to insure prompt reporting. The interpreting radiologist is fully responsible for the content of the report.
[2022-12-07] MEDS: METFORMIN HCL 500 MG PO SCH (17:17)
[2022-12-07 22:28] VITALS: O2SAT 93
[2022-12-08 08:17] VITALS: BP 127/54; TEMP 97.7
[2022-12-08] MEDS: Mupirocin NASAL 2 APPL/1 GM TUBE NAS SCH (08:39)
[2022-12-08] MEDS: VANCOMYCIN 1.25 GM in NA CHLORIDE 0.9% 250 ML IVPB SCH (08:40)
[2022-12-08] MEDS: CEFTRIAXONE 1,000 MG in NA CHLORIDE 0.9% 50 ML IVPB SCH (08:40)
[2022-12-08] MEDS: LISINOPRIL 10 MG PO SCH (08:41)
[2022-12-08] MEDS: HOME MED [FAMOTIDINE 20 MG TAB] PO SCH (08:41)
[2022-12-08] MEDS: PREDNISONE 5 MG PO SCH (08:42)
[2022-12-08] MEDS: CARVEDILOL 25 MG PO SCH (08:42)
[2022-12-08] MEDS: AMLODIPINE 5 MG PO SCH (08:42)
--- NOTE | 2022-12-09 18:24 | PN ---
Date of Progress Note: 12/07/2022 Subjective: The patient was seen this morning for followup. No new complaints or problems reported by her. Denies any pain in her foot. No chest pain, shortness of breath, nausea, vomiting. Objective: Vital Signs: Reviewed. HEENT: Unremarkable. Lungs: Clear to auscultation. Heart: Sounds normal. Abdomen: Soft. Bowel sounds normal. No guarding, rigidity, tenderness, or distention. Extremities: No leg edema. Right foot examination shows very minimal area of pink discoloration on the skin proximal to the second and third toe. Overall, this is significantly better and right foot third toe skin is almost completely back to normal and once again this is significantly better compar ed to before. Impression: 1.Osteomyelitis, right foot. 2.Hypertension. 3.Coronary artery disease. 4.Hyperlipidemia. Plan: We will go ahead and continue current empiric antibiotic therapy. Patient is responding very well and plan is to possibly discharge her tomorrow soon as we have PICC line in place and Social Ser vice is able to make antibiotic arrangements, then we will be able to discharge her. Details and tova n of treatment discussed with the patient and her son was present with her at bedside. NYDIA/MODL Voice ID: [id number] Report ID: [id number]
--- NOTE | 2022-12-11 01:27 | DS ---
Date of Discharge: 12/08/2022 Disposition: Discharged to go home. Physical Examination: HEENT: Unremarkable. Lungs: Clear to auscultation. Heart: Sounds normal. Abdomen: Soft. Bowel sounds normal. No guarding, rigidity, tenderness, or distention. Extremities: No leg edema. Right foot exam, redness from the right foot second toe and dorsum aspec t of the distal part of the foot has significantly improved compared to the time of admission, it is about 80% to 90% better. Discharge Medications And Instructions: 1.Continue all prior home medication. 2.Continue to take ceftriaxone and vancomycin IV antibiotics for 6 weeks at home. 3.Home Health nurse to assist the patient with PICC line care, flush PICC line per protocol, change PICC line dressing per protocol, and remove PICC line after 6 weeks of IV antibiotic therapy complete d. 4.Home Health nurse to draw CBC, BMP that is basic metabolic panel, and vancomycin trough level with every third dose of vancomycin and bring specimen to [facility] for testin g. 5.The patient to follow up in my office next week on . Laboratory Data: Upon admission, white count 9.6, hemoglobin 13.9, platelets 219. Sodium 141, potas sium 3.9, chloride 112, bicarb 27, BUN 22, creatinine 0.68, glucose 141. Liver function tests unrema rkable. CRP 10.7. Last vancomycin trough level today 13.8 and the patient currently is on vancomyci n 1.25 g every 24 hours and ceftriaxone 1 g every 12 hours. Hospital Course: This is an 82-year-old female patient, admitted to the hospital with right foot red ness. Please see dictated H and P for more information. The patient did not improve on outpatient b asis with oral antibiotic and was admitted to the hospital. After she was admitted to the hospital, bone scan was done to rule out osteomyelitis and bone scan came back abnormal, consistent with osteom yelitis of the right foot third toe. The patient was started on ceftriaxone and vancomycin and this actually has helped to provide significant improvement. PICC line was placed and once her PICC line was in place, Social Service was able to complete arrangements for home antibiotics and the patient w as discharged to go home today in stable condition. Final Diagnoses: 1.Osteomyelitis, right foot. 2.Cellulitis, right foot. 3.Type 2 diabetes mellitus. 4.Hypertension. 5.Hyperlipidemia. 6.Coronary artery disease. 7.Paroxysmal atrial fibrillation. 8.Chronic diastolic heart failure. 9.Mild persistent asthma. 10.Gastroesophageal reflux disease. 11.Diverticulosis. NYDIA/MODL Voice ID: [id number] Report ID: [id number]
== END 2022-12-08 14:15 | disposition home health service (06) | DRG 638 ==
LOC: 4TH 18:04
PROVIDERS: ADMIT Internal Medicine; ATTEND Internal Medicine
PROC: 02HV33Z Insertion of Infusion Device into Superior Vena Cava, Percutaneous Approach (ICD-10-PCS; principal; 2022-12-07)
DX: E11.69 Type 2 diabetes mellitus with other specified complication (principal); I50.32 Chronic diastolic (congestive) heart failure; M86.8X7 Other osteomyelitis, ankle and foot; L03.115 Cellulitis of right lower limb; I11.0 Hypertensive heart disease with heart failure; E78.5 Hyperlipidemia, unspecified; I48.0 Paroxysmal atrial fibrillation; J45.30 Mild persistent asthma, uncomplicated; K21.9 Gastro-esophageal reflux disease without esophagitis; K57.90 Diverticulosis of intestine, part unspecified, without perforation or abscess without bleeding; I25.10 Atherosclerotic heart disease of native coronary artery without angina pectoris; Z88.2 Allergy status to sulfonamides; Z88.8 Allergy status to other drugs, medicaments and biological substances; Z95.2 Presence of prosthetic heart valve; Z79.84 Long term (current) use of oral hypoglycemic drugs; Z79.52 Long term (current) use of systemic steroids; Z79.02 Long term (current) use of antithrombotics/antiplatelets; Z90.49 Acquired absence of other specified parts of digestive tract; Z98.51 Tubal ligation status; Z79.899 Other long term (current) drug therapy
CPT/HCPCS: 36415; 36569; 71045; 78315; 80053; 80202; 83735; 85025; 86140; A9503; J0696; J7050; J7512

== ENCOUNTER 2023-02-24 04:15 | Inpatient (IN) | payer OTHER ==
--- OUTSIDE RECORDS SUMMARY | 2023-02-24 04:22 | XMS REPORT | Continuity of Care Document ---
:1940 Author Organization [facility] t Address 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 2015-05 Method[facility] h[facility] hoh nce 0-07 st artery artery 00:00: Hospita [...] nerve l nerve 02:47:43 l disease disease Clint (disorder) (disorder) Active Problem 12/19/2021 [facility] 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 Clint (disorder) (disorder) Active Problem 12/19/2021 [facility] 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 of [...] Type Date Date Clinician nitrofur DA Active CO RASH/SWELLIN HC A antoin G 08-25 00:00: [...] DA Active [facility] 4[facility]12 [place] 00:[facility] 00 [facility] amoxicil [...] 00 dic Hospita l nitrofur DA Active CO RASH/SWELLIN HC A antoin G 1-14 00:00: [...] 00 dic Hospita l nitrofur DA Active CO RASH/SWELLIN HC A antoin G 06-17 [place] 00:00: Orthope 00 dic Hospita l DURACEF DA Active MO RASH;FACIAL [facility] SWELLING 06-09 [place] 00:00: Orthope 00 dic [facility]ospita l cephalos cephalos Active Memori a porins porins l Clint penicill penicill Active Memori a ins ins l Clint ampicill ampicill Active Memori a in in l [place] Augmenti Augmenti Active Memori a n n l [place] sulfa sulfa Active Memoria drugs drugs l Clint cefadrox cefadrox Active Memori a il il l [place] Family History Family Member Diagnosis Comments Start Date Stop Date Source Natural father Heart disease [facility] Natural father Hypertension [facility] Natural mother Hypertension [facility] Natural mother Stroke [facility] Natural sister Hypertension [facility] Social History Social Habit Start Date Stop Date Quantity Comments Source Gender identity [facility] Sexual orientation [facility] Alcohol intake 2021-03-08 2021-03-08 Current drinker [facility] 00:00:00 00:00:00 of alcohol Hospital (finding) History of Social 2021-03-08 2021-03-[address] function 00:00:00 00:00:00 Hospital Tobacco use and 2018-03-15 2018-03-15 Smokeless tobacco [facility] exposure 00:00:00 00:00:00 non-user Hospital Alcohol Comment 2016-02-18 2016-02-18 occasional Sabianism 00:00:00 00:00:00 Hospital Sex Ass[birth year] At [birth year] Sabianism 00:00:00 00:00:00 Hospital Smoking Status Start Date Stop Date Source Social History [facility] Medications Ordered Filled Start Stop Current Ordering Indication Dosage Frequency Signature Comments Components Source Medication Medication Date Date Medication? Clinician (SIG) Name Name amLODIPine 2023-0 Yes TAKE 1 Metho di (NORVASC) 5 [...] MG tablet 00:00: Hospita 00 l carvediloL 0 Yes Take Methodi (COREG) 25 5-[address] MG tablet 00:00: Hospita 00 l metFORMIN Yes TAKE 1 Method i XR 2-[address] (GLUCOPHAGE 00:00: MOUTH Hospi ta -XR) 500 mg 00 DAILY IN l 24 hr EVENING tablet WITH MEAL metFORMIN Yes TAKE 1 Method i XR 2-[address] (GLUCOPHAGE 00:00: MOUTH Hospi ta -XR) 500 mg 00 DAILY IN l 24 hr EVENING tablet WITH MEAL amLODIPine 0 2022- No TAKE 1 Meth ginette (NORVASC) 5 2-24 11-24 TABLET (5 st mg tablet 00:00: 00:00 MG TOTAL) Ho spita 00 :00 BY MOUTH l EVERY EVENING. HOLD FOR SBP LESS THAN 120 amLODIPine 0 2022- No TAKE 1 Meth ginette (NORVASC) 5 2-24 11-24 TABLET (5 st mg tablet 00:00: 00:00 MG TOTAL) Ho spita 00 :00 BY MOUTH l EVERY EVENING. HOLD FOR SBP LESS THAN 120 amLODIPine 0 2022- No TAKE 1 Meth ginette (NORVASC) 5 -06 15-14 TABLET (5 st mg tablet 00:00: 00:00 MG TOTAL) Ho spita 00 :00 BY MOUTH l EVERY EVENING. HOLD FOR SBP LESS THAN 120 amLODIPine 0 2022- No TAKE 1 Meth ginette (NORVASC) 5 2-06 15-14 TABLET (5 st mg tablet 00:00: 00:00 [...] Yes TAKE 1 Metho di (NORVASC) 5 9-02 TABLET (5 st mg tablet 00:00: MG [...] No TAKE 1 Meth ginette (NORVASC) 5 8-15 09-02 TABLET (5 st mg tablet 00:00: 00:00 MG TOTAL) Ho spita 00 :00 BY MOUTH l EVERY EVENING. HOLD FOR SBP LESS THAN 120 amLODIPine 2021-0 2021- No TAKE 1 Meth ginette (NORVASC) 5 8-15 - TABLET (5 st mg tablet 00:00: 00:00 MG TOTAL) Ho spita 00 :00 BY MOUTH l EVERY EVENING. HOLD FOR SBP LESS THAN 120 amLODIPine 2021-0 2021- No TAKE 1 Meth ginette (NORVASC) 5 8-15 - TABLET (5 st mg tablet 00:00: 00:00 MG TOTAL) Ho spita 00 :00 BY MOUTH l EVERY EVENING. HOLD FOR SBP LESS THAN 120 carvediloL 2021-0 Yes Take [facility] (COREG) 25 6-[address] MG tablet 00:00: Hospita 00 l carvediloL 2021-0 Yes Take [facility] (COREG) 25 6-[address] MG tablet 00:00: Hospita 00 l carvediloL 2021-0 Yes Take [facility] (COREG) 25 6-[address] MG tablet 00:00: Hospita 00 l carvediloL 2021-0 Yes Take [facility] (COREG) 25 6-[address] MG tablet 00:00: Hospita 00 l carvediloL 2-0 Yes Take [facility] (COREG) 25 6-[address] MG tablet 00:00: Hospita 00 l carvediloL 2-0 2022- No Take Method i (COREG) 25 6-23 05-[address] MG tablet 00:00: 00:00 Hospita 00 :00 l carvediloL 2-0 2022- No Take Method i (COREG) 25 6-23 05-[address] MG tablet 00:00: 00:00 Hospita 00 :00 l amLODIPine 2021-0 2021- No TAKE 1 Meth ginette (NORVASC) 5 3 08-15 TABLET (5 st mg tablet 00:00: [...] 00:00: 00:00 Hospita 00 :00 l carvediloL 2021- No Take Method i (COREG) 25 07-[address] MG tablet 00:00: 00:00 [...] 00:00: 00:00 Hospita 00 :00 l carvediloL 2021- No Take Method i (COREG) 25 06-15- 37.5mg BID st MG tablet 00:00: 00:00 Hospita 00 :00 l carvediloL 2021-2021- No Take Method i (COREG) 25 06-[address] MG tablet 00:00: 00:00 Hospita 00 :00 l carvediloL 2021- No Take Method i (COREG) 25 06-[address] MG tablet 00:00: 00:00 Hospita 00 :00 l carvediloL 2021- No Take Method i (COREG) 25 06-[address] MG tablet 00:00: 00:00 Hospita 00 :00 l carvediloL 2021- No TAKE 1 Meth ginette [...] No TAKE 1 Meth ginette (NORVASC) 5 06-29 TABLET (5 st mg tablet 00:00: 00:00 MG TOTAL) Ho spita 00 :00 BY MOUTH l EVERY EVENING. HOLD FOR SBP LESS THAN 120 amLODIPine 2020-05- No TAKE 1 Meth ginette (NORVASC) 5 06-29 TABLET (5 st mg tablet 00:00: 00:00 MG TOTAL) Ho spita 00 :00 BY MOUTH l EVERY EVENING. HOLD FOR SBP LESS THAN 120 amLODIPine 2020-05- No TAKE 1 Meth ginette (NORVASC) 5 2-16 03-11 TABLET (5 st mg tablet 00:00: 00:00 MG TOTAL) Ho spita 00 :00 BY MOUTH l EVERY EVENING. HOLD FOR SBP LESS THAN 120 amLODIPine 2020-05- No TAKE 1 Meth ginette (NORVASC) 5 2-16 03-11 TABLET (5 st mg tablet 00:00: 00:00 MG TOTAL) Ho spita 00 :00 BY MOUTH l EVERY EVENING. HOLD FOR SBP LESS THAN 120 amLODIPine 2020-05- No TAKE 1 Meth ginette (NORVASC) 5 2-16 03-11 TABLET (5 st mg tablet 00:00: 00:00 MG TOTAL) Ho spita 00 :00 BY MOUTH l EVERY EVENING. HOLD FOR SBP LESS THAN 120 clopidogreL Yes Method i (PLAVIX) 75 9-15 st mg tablet 00:00: Hospita 00 l rosuvastati 0 Yes Method i n (CRESTOR) 9-15 st 20 mg 00:00: Hospita tablet 00 l clopidogreL 2020-0 Yes Method i (PLAVIX) 75 9-15 st mg tablet 00:00: Hospita 00 l rosuvastati 2020-0 Yes Method i n (CRESTOR) 9-15 st 20 mg 00:00: Hospita tablet 00 l clopidogreL 0 Yes Method i (PLAVIX) 75 9-15 st [...] mg 00:00: Hospita tablet 00 l clopidogreL Yes Method i (PLAVIX) 75 9-15 st mg tablet 00:00: Hospita 00 l rosuvastati Yes Method i n (CRESTOR) 9-15 st 20 mg 00:00: Hospita tablet 00 l amLODIPine Yes TAKE 1 Metho di (NORVASC) 5 8-30 TABLET (5 st mg tablet 00:00: MG TOTAL) Hos shaneka 00 BY MOUTH l EVERY EVENING. HOLD FOR SBP LESS THAN 120 carvediloL Yes TAKE 1 Metho di (COREG) 25 11-[address] MG tablet 00:00: MOUTH Hospita 00 TWICE A l DAY WITH FOOD carvediloL 2021- No TAKE 1 Meth ginette (COREG) 25 11-[address] MG tablet 00:00: 00:00 MOUTH Hospit a 00 :00 TWICE A l DAY WITH FOOD carvediloL 2020-2021- No TAKE 1 Meth ginette (COREG) 25 [...] 2-26 PO, Daily, l 17:47: 0 Refill(s) brimonidine 2020-0 Yes Q12H, 0 Mem oria / Timolol 2-26 Refill(s) l 17:47: CoQ10 2020-0 Yes 300 mg, Memoria 2-26 PO, Daily, l 17:47: 0 Refill(s) D3 1000 2020-0 Yes 25 Memoria 2-26 microgram, l 17:47: PO, Daily, 0 Refill(s) latanoprost 0 Yes QAM, 0 Ramana andrew 2-26 Refill(s) l 17:47: D3 1000 2020-0 Yes 25 Memoria 2-26 microgram, l 17:47: [...] Daily, l 17:47: 0 Refill(s) D3 1000 2020-0 Yes 25 Memoria 2-26 microgram, l 17:47: PO, Daily, 0 Refill(s) latanoprost 2020-0 Yes QAM, 0 Ramana andrew 2-26 Refill(s) l 17:47: brimonidine 0 Yes Q12H, 0 Mem oria / Timolol 2-26 Refill(s) l 17:47: CoQ10 0 Yes 300 mg, Memoria 2-26 PO, Daily, l 17:47: 0 Refill(s) D3 1000 2020-0 Yes 25 Memoria 2-26 microgram, l 17:47: [...] Ramana andrew 2-26 Refill(s) l 17:47: brimonidine 2020-0 Yes Q12H, 0 Mem oria / Timolol 2-26 Refill(s) l 17:47: CoQ10 2020-0 Yes 300 mg, Memoria 2-26 PO, Daily, l 17:47: 0 Refill(s) D3 1000 2020-0 Yes 25 Memoria 2-26 microgram, l 17:47: PO, Daily, Clinton 00 0 Refill(s) latanoprost Yes QAM, 0 Ramana andrew 2-26 Refill(s) l 17:47: [place] carvediloL 2020- No 25mg Q.5D Take 1 [...] tab, PO, l tablet 17:51: BID, 0 Clinton Refill(s) Rosuvastati 2019-05 Yes 5 mg = [...] tab, PO, l tablet 17:51: Daily, 0 [place] Refill(s) predniSONE 2019-05 Yes 5 mg = 1 Mem oria 5 mg oral 2-30 tab, PO, l tablet 17:51: Daily, 0 [place] 00 Refill(s) carvedilol 2019-05 Yes 25 mg [...] tab, PO, l tablet 17:51: Daily, 0 [place] Refill(s) predniSONE 2019-05 Yes 5 mg = 1 Mem oria 5 mg oral 2-30 tab, PO, l tablet 17:51: Daily, 0 [place] 00 Refill(s) carvedilol 2019-05 Yes 25 mg [...] tab, PO, l tablet 17:51: Daily, 0 [place] 00 Refill(s) carvedilol 2019-05 Yes 25 mg = 1 Me moria 25 mg oral 2-30 tab, PO, l tablet 17:51: BID, 0 [place] 00 Refill(s) Rosuvastati 2019-05 Yes 5 mg = 1 Me moria n calcium 5 2-30 tab, PO, l MG Oral 17:51: Daily, 0 Rick n Tablet 00 Refill(s) [Crestor] amLODIPine 2019-05 Yes 5 mg = 1 Mem oria 5 mg oral 2-30 tab, PO, l tablet 17:51: Daily, 0 [place] 00 Refill(s) lisinopril 2019-05 Yes 10 mg [...] tab, PO, l tablet 17:51: BID, 0 Clinton 00 Refill(s) Rosuvastati 2019-05 Yes 5 mg = 1 Me moria n calcium 5 2-30 tab, PO, l MG Oral 17:51: Daily, 0 Rick n Tablet 00 Refill(s) [Crestor] amLODIPine 2019-05 Yes 5 mg = 1 Mem oria 5 mg oral 2-30 tab, PO, l tablet 17:51: Daily, 0 [place] 00 Refill(s) lisinopril 2019-05 Yes 10 mg = 1 Me moria 10 mg oral 2-30 tab, PO, l tablet 17:51: Daily, 0 [place] 00 Refill(s) predniSONE 2019-05 Yes 5 mg = 1 Mem oria 5 mg oral 2-30 tab, PO, l tablet 17:51: Daily, 0 Clint 00 Refill(s) carvedilol 2019-05 Yes 25 mg = 1 Me moria 25 mg oral 2-30 tab, PO, l tablet 17:51: BID, 0 [place] 00 Refill(s) Rosuvastati 2019-05 Yes 5 mg [...] tab, PO, l tablet 17:51: Daily, 0 [place] 00 Refill(s) predniSONE 2019-05 Yes 5 mg [...] tab, PO, l tablet 17:51: Daily, 0 [place] 00 Refill(s) lisinopril 2019-05 Yes 10 mg [...] tab, PO, l tablet 17:51: BID, 0 [place] 00 Refill(s) Rosuvastati 2019-05 Yes 5 mg = 1 Me moria n calcium 5 2-30 tab, PO, l MG Oral 17:51: Daily, 0 Rick n Tablet 00 Refill(s) [Crestor] amLODIPine 2019-05 Yes 5 mg = 1 Mem oria 5 mg oral 2-30 tab, PO, l tablet 17:51: Daily, 0 Cilnt 00 Refill(s) lisinopril 2019-05 Yes 10 mg = 1 Me moria 10 mg oral 2-30 tab, PO, l tablet 17:51: Daily, 0 [place] 00 Refill(s) predniSONE 2019-05 Yes 5 mg = 1 Mem oria 5 mg oral 2-30 tab, PO, l tablet 17:51: Daily, 0 Clint 00 Refill(s) carvedilol 2019-05 Yes 25 mg = 1 Me moria 25 mg oral 2-30 tab, PO, l tablet 17:51: BID, 0 [place] 00 Refill(s) Rosuvastati 2019-05 Yes 5 mg = 1 Me moria n calcium 5 2-30 tab, PO, l MG Oral 17:51: Daily, 0 Rick n Tablet 00 Refill(s) [Crestor] amLODIPine 2019-05 Yes 5 mg = 1 Mem oria 5 mg oral 2-30 tab, PO, l tablet 17:51: Daily, 0 [place] 00 Refill(s) lisinopril 2019-05 Yes 10 mg = 1 Me moria 10 mg oral 2-30 tab, PO, l tablet 17:51: Daily, 0 Clint 00 Refill(s) amLODIPine 2019-05- No TAKE 1 Meth ginette (NORVASC) 5 2-17 03-15 TABLET (5 st mg tablet 00:00: 00:00 MG TOTAL) Ho spita 00 :00 BY MOUTH l EVERY EVENING. HOLD FOR SBP LESS THAN 120 pitavastati 2019-05 2020- No 4mg QD Take 4 mg Methodi [...] TAKE 1 Meth ginette (COREG) 25 1-12 -[address] MG tablet 00:00: 00:00 [...] <120 OR HR <60 pantoprazol 2019- No [id number] TAKE 1 Methodi e 7-18 12-15 TABLET [...] mouth l nightly. Hold for SBP<120 clonIDINE 2019-0 2020- No .1mg QD Take 1 Metho di (CATAPRES) 3-12 12-[address] 0.1 MG 00:00: 00:00 (0.1 mg Hospita tablet 00 :00 total) by l mouth nightly as needed for high blood pressure (SBP >160). amLODIPine 2019-0 2020- No 5mg QD Take 1 Meth ginette (NORVASC) 5 3 09-14 tablet (5 st mg tablet 00:00: 00:00 mg total) Ho spita 00 :00 by mouth l every evening. Hold for SBP<120 clopidogreL 2019-0 2020- No 75mg QD Take 1 Met hodi (PLAVIX) 75 3- 12-15 tablet (75 s t mg tablet [...] 5 MG tablet 00:00: daily. Hosp shahrzad l predniSONE 2015-05 Yes 5mg QD Take 5 mg Me thodi (DELTASONE) 0-[address] 5 MG tablet 00:00: daily. Hosp shahrzad l predniSONE 2015-05 Yes 5mg QD Take 5 mg Me thodi (DELTASONE) 0-[address] 5 MG tablet 00:00: daily. Hosp shahrzad l predniSONE 2015-05 Yes 5mg QD Take 5 mg Me thodi (DELTASONE) 0-[address] 5 MG tablet 00:00: daily. Hosp shahrzad l predniSONE 2015-05 Yes 5mg QD Take 5 mg Me thodi (DELTASONE) 0-[address] 5 MG tablet 00:00: daily. Hosp shahrzad l predniSONE 2015-05 Yes 5mg QD Take 5 mg Me thodi (DELTASONE) 0-[address] 5 MG tablet 00:00: daily. Hosp shahrzad l predniSONE 2015-05 Yes 5mg QD Take 5 mg Me thodi (DELTASONE) 0-[address] 5 MG tablet 00:00: daily. Hosp shahrzad l predniSONE 2015-05 Yes 5mg QD Take 5 mg Me thodi (DELTASONE) 0-[address] 5 MG tablet 00:00: daily. Hosp shahrzad 00 l Immunizations Ordered Filled Immunization Date Status Comments Sour e Immunization Name Name [facility]-06-15 Completed [facility] t [place]ACC[place] 00:00:[place] [id number] 2020-06-15 Completed [facility] t [place]RNA [place]ACCINATION 00:00:[place] [id number] 2020-06-15 Completed [facility] t MRNA VACCINATION 00:00:[place] [id number] 2020-06-15 Completed [facility] t MRNA VACCINATION 00:00:00 [place] [id number] 2020-06-15 Completed [facility] t MRNA VACCINATION 00:00:00 [place] [id number] 2020-06-15 Completed [facility] t MRNA VACCINATION 00:00:00 [place] [id number] 2020-06-15 Completed [facility] t MRNA VACCINATION 00:00:00 [place] [id number] 2020-05-18 Completed [facility] t MRNA VACCINATION 00:00:00 [place] [id number] 2020-05-18 Completed [facility] t MRNA VACCINATION 00:00:00 [place] [id number] 2020-05-18 Completed [facility] t MRNA VACCINATION 00:00:00 [place] [id number] 2020-05-18 Completed [facility] t MRNA VACCINATION 00:00:00 [place] [id number] 2020-05-18 Completed [facility] t MRNA VACCINATION 00:00:00 [place] [id number] 2020-05-18 Completed [facility] t MRNA VACCINATION 00:00:00 [place] [id number] 2020-05-18 Completed [facility] t MRNA VACCINATION 00:00:00 [place] [id number] Unknown Completed [facility] t MRNA VACCINATION [place] [id number] Unknown Completed [facility] VACCINATION Hospital Vital Signs Vital Name Observation Time Observation Value Comments Source Systolic blood 2022-09-05 16:46:00 137 mm[Hg] [facility] pressure Diastolic blood 2022-09-05 16:46:00 62 mm[Hg] [facility] pressure Heart rate 2022-09-05 16:46:00 62 /min [facility] Body height 2022-09-05 16:46:00 165.1 cm [facility] Body weight 2022-09-05 16:46:00 59.421 kg [facility] BMI 2022-09-05 16:46:00 21.80 kg/m2 [facility] Systolic blood 2022-03-07 16:22:00 146 mm[Hg] [facility] pressure Diastolic blood 2022-03-07 16:22:00 63 mm[Hg] [facility] pressure Heart rate 2022-03-07 16:22:00 63 /min [facility] Body height 2022-03-07 16:22:00 165.1 [facility] Body weight 2022-03-07 16:22:00 [facility] 2022-03-07 16:22:00 22.30 kg/m2 [facility] Systolic (mm Hg) 2020-12-24 16:16:00 Ramana rial Clint Diastolic (mm Hg) 2020-12-24 16:16:00 Mem orial [place] Heart Rate 2020-12-24 16:16:00 [facility] Respitory Rate 2020-12-24 16:16:00 Memori al [place] Height 2020-12-24 16:16:00 160.02 cm [facility] [place] Weight 2020-12-24 16:16:00 [facility] BMI Calculated 2020-12-24 16:16:00 Memori al [place] Systolic (mm Hg) 2020-08-25 16:15:00 Ramana rial [place] Diastolic (mm Hg) 2020-08-25 16:15:00 Mem orial Clint Heart Rate 2020-08-25 16:15:00 [facility] [place] Respitory Rate 2020-08-25 16:15:00 Memori al [place] Height 2020-08-25 16:15:00 162.56 cm [facility] [place] Weight 2020-08-25 16:15:00 [facility] BMI Calculated 2020-08-25 16:15:00 Memori al [place] Systolic blood 2020-07-27 17:02:00 163 mm[Hg] [facility] pressure Diastolic blood 2020-07-27 17:02:00 69 mm[Hg] [facility] pressure Heart rate 2020-07-27 17:02:00 70 /min [facility] Body height 2020-07-27 17:02:00 165[facility] Body weight 2020-07-27 17:02:00 61.689 kg [facility] BMI 2020-07-27 17:02:00 22.63 kg/m2 [facility] Oxygen saturation in 2020-07-27 17:02:00 92 /min [facility] Arterial blood by Pulse oximetry Systolic (mm Hg) 2020-07-09 17:34:00 Ramana rial Clint Diastolic (mm Hg) 2020-07-09 17:34:00 Mem orial [place] Heart Rate 2020-07-09 17:34:00 [facility] [place] Respitory Rate 2020-07-09 17:34:00 Memori al [place] Height 2020-07-09 17:34:00 162.56 cm [facility] Weight 2020-07-09 17:34:00 [facility] [place] BMI Calculated 2020-07-09 17:34:00 Memori al [place] Systolic (mm Hg) 2020-06-10 19:25:00 Ramana rial [place] Diastolic (mm Hg) 2020-06-10 19:25:00 Mem orial [place] Heart Rate 2020-06-10 19:25:00 [facility] Respitory Rate 2020-06-10 19:25:00 Memori al [place] Height 2020-06-10 19:25:00 165.1 cm [facility] Weight 2020-06-10 19:25:00 [facility] [place] BMI Calculated 2020-06-10 19:25:00 Memori al [place] Systolic (mm Hg) 2020-05-12 17:40:00 Ramana rial Clint Diastolic (mm Hg) 2020-05-12 17:40:00 Mem orial [place] Height 2020-05-12 17:40:00 160.02 cm [facility] Weight 2020-05-12 17:40:00 [facility] [place] BMI Calculated 2020-05-12 17:40:00 Memori al [place] Procedures Procedure Date / Time Performed Performing Clinician [facility] e US CAROTID DUPLEX 2022-09-26 19:03:53 Nettie Pfeiffer [facility] BILATERAL ECG 12-LEAD 2021-09-06 [facility]:26[facility] 2020-10-26 15:53:26 [facility] BILATERAL HC COMPLETE BLD COUNT 2020-07-28 18:58:00 Rebecca Perez [facility] W/AUTO DIFF Jeramy BASIC METABOLIC PANEL 2020-07-28 18:58:00 Rebecca Perez [facility] Jeramy ESTIMATED GFR 2020-07-28 18:58:00 Jayesandra [facility] Jeramy ECG 12-LEAD 2020-07-28 18:08:31 Ana [facility] Jeramy TTE COMPLETE, W 2020-07-28 17:16:35 Jaye [facility] CONTRAST, W DOPPLER Jeramy ([id number]) TTE COMPLETE, W 2020-04-21 20:57:53 [facility] spital CONTRAST, W DOPPLER ([id number]) Plan of Care Planned Activity Planned Date Details Comments Source Future Scheduled 2023-02-24 65+ PNEUMOCOCCAL [facility] Test 04:19:30 VACCINE (1 - PCV) [code = 65+ PNEUMOCOCCAL VACCINE (1 - PCV)] Future Scheduled 2023-02-24 SHINGLES VACCINES (1 [facility] Test 04:19:30 of 2) [code = SHINGLES VACCINES (1 of 2)] Future Scheduled 2023-02-24 RSV VACCINES > 60 YR [facility] Test 04:19:30 (1 - 1-dose 60+ series) [code = RSV VACCINES > 60 YR (1 - 1-dose 60+ series)] Future Scheduled 2023-02-24 COVID-19 VACCINE (3 - [facility] Test 04:19:30 season) [code = COVID-19 VACCINE (3 - season)] Future Scheduled 2023-02-24 INFLUENZA VACCINE (#1) [facility] Test 04:19:30 [code = INFLUENZA VACCINE (#1)] Future Scheduled 2022-12-04 65+ PNEUMOCOCCAL [facility] Test 08:08:32 VACCINE (1 - PCV) [code = 65+ PNEUMOCOCCAL VACCINE (1 - PCV)] Future Scheduled 2022-12-04 SHINGLES VACCINES (1 [facility] Test 08:08:32 of 2) [code = SHINGLES VACCINES (1 of 2)] Future Scheduled 2022-12-04 COVID-19 VACCINE (3 - [facility] Test 08:08:32 Moderna series) [code = COVID-19 VACCINE (3 - Moderna series)] Future Scheduled 2022-12-04 INFLUENZA VACCINE [facility] Test 08:08:32 [code = INFLUENZA VACCINE] Future Scheduled 2022-05-29 65+ PNEUMOCOCCAL [facility] Test 17:09:28 VACCINE (1 - PCV) [code = 65+ PNEUMOCOCCAL VACCINE (1 - PCV)] Future Scheduled 2022-05-29 SHINGLES VACCINES (1 Met [facility] Test 17:09:28 of 2) [code = SHINGLES VACCINES (1 of 2)] Future Scheduled 2022-05-29 COVID-19 VACCINE (3 - [facility] Test 17:09:28 Booster for Moderna series) [code = COVID-19 VACCINE (3 - Booster for Moderna series)] Future Scheduled 2022-05-29 INFLUENZA VACCINE Method [facility] Test 17:09:28 [code = INFLUENZA VACCINE] Future Scheduled 2022-04-27 65+ PNEUMOCOCCAL [facility] Test 13:34:28 VACCINE (1 - PCV) [code = 65+ PNEUMOCOCCAL VACCINE (1 - PCV)] Future Scheduled 2022-04-27 SHINGLES VACCINES (1 [facility] Test 13:34:28 of 2) [code = SHINGLES VACCINES (1 of 2)] Future Scheduled 2022-04-27 COVID-19 VACCINE (3 - [facility] Test 13:34:28 Booster for Moderna series) [code = COVID-19 VACCINE (3 - Booster for Moderna series)] Future Scheduled 2022-04-27 INFLUENZA VACCINE Method [facility] Test 13:34:28 [code = INFLUENZA VACCINE] Future Scheduled 2022-04-27 65+ PNEUMOCOCCAL [facility] Test 13:34:28 VACCINE (1 - PCV) [code = 65+ PNEUMOCOCCAL VACCINE (1 - PCV)] Future Scheduled 2022-04-27 SHINGLES VACCINES (1 [facility] Test 13:34:28 of 2) [code = SHINGLES VACCINES (1 of 2)] Future Scheduled 2022-04-27 COVID-19 VACCINE (3 - [facility] Test 13:34:28 Booster for Moderna series) [code = COVID-19 VACCINE (3 - Booster for Moderna series)] Future Scheduled 2022-04-27 INFLUENZA VACCINE [facility] Test 13:34:28 [code = INFLUENZA VACCINE] Future Scheduled 2022-04-27 65+ [facility]OCOCCAL [facility] Test 13:34:28 VACCINE (1 - PCV) [code = 65+ PNEUMOCOCCAL VACCINE (1 - PCV)] Future Scheduled 2022-04-27 SHINGLES VACCINES (1 Met [facility] Test 13:34:28 of 2) [code = [...] Future Scheduled 2022-04-27 SHINGLES VACCINES (1 Met [facility] Test 13:34:28 of 2) [code = [...] PPSV23)] Future Scheduled SHINGLES VACCINES (#1) [facility] [code = SHINGLES VACCINES (#1)] Future Scheduled INFLUENZA VACCINE [facility] Test [code = INFLUENZA VACCINE] Encounters Start End Encounter Admission Attending Care Care Encounter Source Date/Time Date/Time Type Type Clinicians Facility Department ID 2022-12-03 2022-12-03 Aryan Pfeiffer 1.2.840.1 [id number] Methodi 00:00:00 00:00:00 [address] 3.430.2.7 Hospit a .3.922967 l .8 2022-12-03 2022-12-03 Refill Pfeiffer, 1.2.840.1 [id number] Methodi 00:00:00 00:00:00 [address] 3.430.2.7 Hospit a .3.633571 l .8 2022-10-04 2022-10-04 Refill Pfeiffer, 1.2.840.1 [id number] Methodi 00:00:00 00:00:00 [address] 3.430.2.7 Hospit a .3.986424 l .8 2022-10-04 2022-10-04 Refill Pfeiffer, 1.2.840.1 [id number] 618547 5532 Methodi 00:00:00 00:00:00 [address] 3.430.2.7 Hospit a .3.050118 l .8 2022-09-26 2022-09-26 [facility] [id number] [address] [place] [address] 00:00:00 00:00:00 NETTIE [address] 2022-09-26 2022-09-26 Travel 1.2.840.1 1.2.343.025 0554 776744 Methodi 00:00:00 00:00:[address] 3.430.2.7 0.2.7.3.698 Ho spita .3.639932 084.8 l .8 2022-09-26 2022-09-26 Travel 1.2.840.1 1.2.286.520 6694 610796 Methodi 00:00:00 00:00:[address] 3.430.2.7 0.2.7.3.698 Ho spita .3.393978 084.8 l .8 2022-09-05 2022-09-05 Office Pfeiffer, 1.2.840.1 469419878 710538 6745 Methodi 11:00:00 14:12:54 Visit Nettie R. 45963.1.[address] 3.430.2.7 Hospit a .3.417213 l .8 2022-09-05 2022-09-05 Office Pfeiffer, 1.2.840.1 650296745 029688 4460 Methodi 11:00:00 14:12:54 Visit Nettie R. 03743.1.[address] 3.430.2.7 Hospit a .3.517063 l .8 2022-09-05 2022-09-05 Travel 1.2.840.1 1.2.507.640 1687 330835 Methodi 00:00:00 00:00:[address] 3.430.2.7 0.2.7.3.698 Ho spita .3.712957 084.8 l .8 2022-09-05 2022-09-05 Travel 1.2.840.1 1.2.166.596 5750 463806 Methodi 00:00:00 00:00:[address] 3.430.2.7 0.2.7.3.698 Ho spita .3.767462 084.8 l .8 2022-06-27 2022-06-27 Refill Kentrell, 1.2.840.1 031055909 901402 2085 Methodi 00:00:00 00:00:[address] 3.430.2.7 Hospit a .3.655246 l .8 2022-06-27 2022-06-27 Refill Kentrell, 1.2.840.1 387421297 902828 3749 Methodi 00:00:00 00:00:[address] 3.430.2.7 Hospit a .3.845667 l .8 2022-06-15 2022-06-15 Refill Kentrell, 1.2.840.1 803046747 050855 1936 Methodi 00:00:00 00:00:00 Nettie Becker 27391.1.[address] 3.430.2.7 Hospit a .3.750906 l .8 2022-06-15 2022-06-15 Refill Pfeiffer, 1.2.840.1 588063366 844356 6580 Methodi 00:00:00 00:00:00 Nettie Becker 90506.1.[address] 3.430.2.7 Hospit a .3.533798 l .8 2022-03-07 2022-03-07 Office Pfeiffer, 1.2.840.1 126125195 489515 1423 Methodi 11:10:00 14:06:43 Visit Nettie Becker 10195.1.[address] 3.430.2.7 Hospit a .3.603117 l .8 2022-03-07 2022-03-07 Office Pfeiffer, 1.2.840.1 022228119 951153 0073 Methodi 11:10:00 14:06:43 Visit Nettie Becker 47418.1.[address] 3.430.2.7 Hospit a .3.843675 l .8 2022-03-07 2022-03-07 Travel 1.2.840.1 1.2.821.851 5898 329017 Methodi 00:00:00 00:00:[address] 3.430.2.7 0.2.7.3.698 Ho spita .3.554577 084.8 l .8 2022-03-07 2022-03-07 Travel 1.2.840.1 1.2.101.514 9556 236731 Methodi 00:00:00 00:00:[address] 3.430.2.7 0.2.7.3.698 Ho spita .3.051254 084.8 l .8 2022-01-12 2022-01-12 Refill Pfeiffer, 1.2.840.1 753460834 502467 7274 Methodi 00:00:00 00:00:00 [address].1.[address] 3.430.2.7 Hospit a .3.666683 l .8 2021-12-25 2021-12-25 Refill Kentrell, 1.2.840.1 374002402 707290 4599 Methodi 00:00:00 00:00:[address] 3.430.2.7 Hospit a .3.885737 l .8 2021-12-15 2021-12-17 Outside nullFlavo MNA [id number] 55 Memoria 13:23:59 04:59:59 Medical r Neurology 02 l Records Oswaldo Jaramillo 2021-12-15 2021-12-17 Outside nullFlavo MNA [id number] Memoria 13:23:59 04:59:59 Medical r Neurology 02 l Records Oswaldo Jaramillo 2021-12-15 2021-12-16 [facility]87 [id number] 08:23:59 23:59:59 02 2021-11-02 2021-11-02 Telephone Kentrell, 1.2.840.1 [id number] 2100 761006 Methodi 00:00:00 00:00:[address] 3.430.2.7 Hospit a .3.447728 l .8 2021-10-21 2021-10-21 Refill Kentrell, 1.2.840.1 [id number] 512262 4432 Methodi 00:00:00 00:00:[address] 3.430.2.7 Hospit a .3.478073 l .8 2021-09-06 2021-09-06 Office Kentrell, 1.2.840.1 797984749 611706 6557 Methodi 11:30:00 16:14:26 Visit Nettie Becker 45585.1.[address] 3.430.2.7 Hospit a .3.825700 l .8 2021-09-06 2021-09-06 Travel 1.2.840.1 1.2.015.843 0184 194217 Methodi 00:00:00 00:00:[address] 3.430.2.7 0.2.7.3.698 Ho spita .3.331274 084.8 l .8 2021-08-25 2021-08-25 Outpatient ONESIMO Knog, [facility] [id number] 734 [facility] 08:13:00 08:13:[address] [facility] 2021-08-11 2021-08-11 Aryan Pfeiffer 1.2.840.1 937973663 664404 7299 Methodi 00:00:00 00:00:[address] 3.430.2.7 Hospit a .3.637323 l .8 2021-07-27 2021-07-27 Narciso Vazquez 1.2.840.1 307457520 2100 364156 Methodi 00:00:00 00:00:[address] 3.430.2.7 Hospit a .3.384617 l .8 2021-07-22 2021-07-22 Aryan Pfeiffer 1.2.840.1 891119941 890325 5414 Methodi 00:00:00 00:00:[address]27.[address] 3.430.2.7 Hospit a .3.478932 l .8 2021-06-30 2021-06-30 Ambulatory nullFlavo MNA 91540 33062 Memoria 16:30:00 16:30:00 Pre-Reg r Neurology 05 l Oswaldo Jaramillo 2021-06-30 2021-06-30 Ambulatory nullFlavo MNA 14324 19470 Memoria 16:30:00 16:30:00 Pre-Reg r Neurology 05 l Oswaldo Jaramillo 2021-06-30 2021-06-30 Outpatient JESSEIE LINDSEY [id number] Memoria 10:30:00 10:30:00 Hunter Jaramillo 2021-06-30 2021-06-30 Outpatient DILLON Silva 273 [id number] 10:30:00 10:30:00 Rigo Tucker 2021-06-15 2021-06-15 Refbakari Be, 1.2.840.1 [id number] 449 5588772 Methodi 00:00:00 00:00:[address] 3.430.2.7 Hospit a .3.308923 l .8 2021-06-10 2021-06-10 Wayne Pfeiffer, 1.2.840.1 806862125 2100 417355 Methodi 00:00:00 00:00:[address] 3.430.2.7 Hospit a .3.262232 l .8 2021-06-09 2021-06-09 Refbakari Pfeiffer, 1.2.840.1 563874682 639329 6823 Methodi 00:00:00 00:00:[address] 3.430.2.7 Hospit a .3.194942 l .8 2021-06-08 2021-06-08 Refbakari Pfeiffer 1.2.840.1 729043823 176162 2651 Methodi 00:00:00 00:00:[address] 3.430.2.7 Hospit a .3.859613 l .8 2021-05-27 2021-05-27 Outpatient COLIN StarkTO LETICIA [id number] [facility] 10:29:00 10:29:00 Isaiah [facility]s [facility] 2021-03-08 2021-03-08 [facility] [id number] 808 [place] 00:00:00 00:00:00 NETTIE [address] 2021-01-09 2021-01-09 Aryan Pfeiffer, 1.2.840.1 [id number] 722070 8502 Methodi 00:00:00 00:00:[address]94.[address] 3.430.2.7 Hospit a .3.020221 l .8 2020-12-24 2020-12-25 Outpatient nullFlavo MNA [id number] 59596 [facility] 16:00:00 04:59:59 r Neurology 04 l Oswaldo Jaramillo 2020-12-24 2020-12-25 Outpatient nullFlavo MNA 65732 49938 Memoria 16:00:00 04:59:59 r Neurology 04 l Oswaldo Jaramillo 2020-12-24 2020-12-24 [facility] 423 [id number] 11:00:00 23:59:59 Rigo Froilan Tucker 2020-12-24 2020-12-24 Outpatient IE [facility] [id number] 165 Memoria 11:00:00 11:00:00 04 sherly Jaramillo 2020-11-28 2020-11-28 Refill Kentrell, 1.2.840.1 [id number] 647406 5254 Methodi 00:00:00 00:00:[address] 3.430.2.7 Hospit a .3.033181 l .8 2020-10-26 2020-10-26 Travel 1.2.840.1 1.2.379.605 7620 462768 Methodi 00:00:00 00:00:[address] 3.430.2.7 0.2.7.3.698 Ho spita .3.708389 084.8 l .8 2020-10-18 2020-10-18 Refill Kentrell, 1.2.840.1 [id number] 441437 7532 Methodi 00:00:00 00:00:00 [address] 3.430.2.7 Hospit a .3.323609 l .8 2020-09-06 2020-09-06 Refill Kentrell, 1.2.840.1 [id number] 728205 2943 Methodi 00:00:00 00:00:[address] 3.430.2.7 Hospit a .3.822013 l .8 2020-08-25 2020-08-26 Outpatient nullFlavo MNA 54392 14033 Memoria 16:00:00 04:59:59 r Neurology 03 l Oswaldo Jaramillo 2020-08-25 2020-08-26 Outpatient nullFlavo MNA 90423 17996 Memoria 16:00:00 04:59:59 r Neurology 03 l Oswaldo Jaramillo 2020-08-25 2020-08-25 [facility] 600 [id number] 11:00:00 23:59:59 Rigo Aviva Tucker 2020-08-25 2020-08-25 Outpatient IE RAFA [id number] 165 Memoria 11:00:00 11:00:00 03 l [place] 2020-07-28 2020-07-28 Lab Ana, 1.2.840.1 [id number] 2232 Methodi 13:34:10 13:39:[address] Maksim 3.430.2.7 Hospit a Jeramy .3.310091 l .8 2020-07-28 2020-07-28 [facility] 1.2.840.1 [id number] 659 5477813 Methodi 12:40:16 13:29:54 plinary Rebecca 59335.1.[address] Visit Maksim 3.430.2.7 Hospit a Jeramy .3.582727 l .8 2020-07-27 2020-07-27 Travel 1.2.840.1 1.2.198.294 3974 509420 Methodi 00:00:00 00:00:[address] 3.430.2.7 0.2.7.3.698 Ho spita .3.229149 084.8 l .8 2020-06-15 2020-07-26 Clinical 1.2.840.1 886726983 52973 13521 Methodi 10:32:50 14:52:[address] 3.430.2.7 Hospit a .3.960849 l .8 2020-07-25 2020-07-25 Refbakari Pfeiffer 1.2.840.1 939977458 321744 4122 Methodi 00:00:00 00:00:00 Nettie Becker 77606.1.[address] 3.430.2.7 Hospit a .3.054266 l .8 2020-07-13 2020-07-15 Outside nullFlavo MNA [id number] 55 Memoria 14:37:12 05:59:59 Medical r Neurology 01 l Records Oswaldo Jaramillo 2020-07-13 2020-07-15 Outside nullFlavo MNA [id number] Memoria 14:37:12 05:59:59 Medical r Neurology 01 l Records Oswaldo Jaramillo 2020-07-13 2020-07-14 [facility] [id number] 08:37:12 23:59:59 2020-07-09 2020-07-10 Outpatient nullFlavo MNA 90432 04255 Memoria 17:15:00 05:59:59 r Neurology 02 l Oswaldo Jaramillo 2020-07-09 2020-07-10 Outpatient nullFlavo MNA 88558 [id number] Memoria 17:15:00 05:59:59 r Neurology 02 l Oswaldo Jaramillo 2020-07-09 2020-07-09 [facility] 165 [id number] 11:15:00 23:59:59 Rigo Truman Tucker 2020-07-09 2020-07-09 Outpatient MHIE MHIE [id number] 165 Memoria 11:15:00 11:15:00 02 sherly Jaramillo 2020-06-17 2020-06-17 Travel 1.2.840.1 1.2.053.523 3608 674089 Methodi 00:00:00 00:00:[address] 3.430.2.7 0.2.7.3.698 [facility] .3.029617 084.8 l .8 2020-06-12 2020-06-12 Refill Kentrell 1.2.840.1 [id number] 334784 3570 Methodi 00:00:00 00:00:00 Nettie Becker 25895.1.[address] 3.430.2.7 Hospit a .3.888593 l .8 2020-06-10 2020-06-11 Outpatient nullFlavo MNA 75699 [id number] Memoria 19:00:00 05:59:59 r Neurology 01 l Oswaldo Jaramillo 2020-06-10 2020-06-11 Outpatient nullFlavo MNA 66016 52539 Memoria 19:00:00 05:59:59 r Neurology 01 l Oswaldo Jaramillo 2020-06-10 2020-06-10 Outpatient Shira [facility] M[facility]ISCHER 257 [id number] 13:00:00 23:59:59 Rigo Garrett 2020-06-10 2020-06-10 Outpatient MHIE MHIE [id number] 165 Memoria 13:00:00 13:00:00 01 sherly Jaramillo 2020-05-18 2020-05-18 Clinical 1.2.840.1 [id number] 43133 15165 Methodi 11:18:07 12:02:[address] 3.430.2.7 Hospit a .3.460893 l .8 2020-05-12 2020-05-13 Outpatient nullFlavo MNA 93063 66467 Memoria 17:15:00 05:59:59 r Neurology 00 l Oswaldo Jaramillo 2020-05-12 2020-05-13 Outpatient nullFlavo MNA [id number] [id number] Memoria 17:15:00 05:59:59 r Neurology 00 l Oswaldo Jaramillo 2020-05-12 2020-05-12 [facility] 007 [id number] 11:15:00 23:59:59 Rigo 00 Garrett 2020-05-12 2020-05-12 Outpatient MHIE MHIE [id number] 165 Memoria 11:15:00 11:15:00 00 [place] 2020-04-29 2020-04-29 Refill Kentrell 1.2.840.1 [id number] 9667 Methodi 00:00:00 00:00:[address] 3.430.2.7 Hospit a .3.005982 l .8 2020-04-27 2020-04-27 Office Kentrell 1.2.840.1 [id number] 731233 1256 Methodi 10:50:00 11:50:53 Visit Nettie Becker 24315.1.[address] 3.430.2.7 Hospit a .3.333818 l .8 2020-04-27 2020-04-27 Travel 1.2.840.1 1.2.785.579 4836 956830 Methodi 00:00:00 00:00:[address] 3.430.2.7 0.2.7.3.698 Ho spita .3.713110 084.8 l .8 2020-04-21 2020-04-21 Travel 1.2.840.1 1.2.532.248 6501 000236 Methodi 00:00:00 00:00:[address] 3.430.2.7 0.2.7.3.698 Ho spita .3.011734 084.8 l .8 2020-03-25 2020-03-25 Refill Pfeiffer, 1.2.840.1 471871894 750714 0095 Methodi 00:00:00 00:00:[address] 3.430.2.7 Hospit a .3.321794 l .8 2020-01-26 2020-01-26 Orders Narciso Farfan 1.2.840.1 [id number] 2099 230343 Methodi 00:00:00 00:00:[address] 3.430.2.7 Hospit a .3.424731 l .8 2017-10-17 2017-10-18 Outpt Diag nullFlavo [facility] [id number] 11244 Memoria 17:51:00 04:59:00 Services r Outpatient 00 l Imaging [facility] 2017-10-17 2017-10-18 Outpt Diag nullFlavo [facility] 05430 00998 Memoria 17:51:00 04:59:00 Services r Outpatient 00 l Imaging [facility] 2017-10-17 2017-10-17 Outpatient Marquise 2.16.840. 2.16.840.1. 4 [id number] 12:51:00 23:59:00 Poppy Fraser 1.010945. 380538.3.61 00 3.615.24 5.24 Results Test Description Test Time Test Comments Results Result Comments Source ECG 12 lead 2021-09-06 17:57:14 Test Item Value Reference Range Interpretation Comme nts Ventricular rate (test code = 253) Atrial rate (test code = 255) SD interval (test code = 266) QRSD interval [...] 13:08,-premature ventricular complexes are no longer present- [address]2022-04-26 17:57:14 Test Item Value Reference Range Interpretation Comments Ventricular rate (test code = 253) Atrial rate (test code = 255) SD interval (test code = 266) QRSD interval [...] 13:08,-premature ventricular complexes are no longer present- [address]2022-04-26 17:57:14 Test Item Value Reference Range Interpretation Comments Ventricular rate (test code = 253) Atrial rate (test code = 255) SD interval (test code = 266) QRSD interval [...] 13:08,-premature ventricular complexes are no longer present- [address]2022-04-26 17:57:14 Test Item Value Reference Range Interpretation Comments Ventricular rate (test code = 253) Atrial rate (test code = 255) SD interval (test code = 266) QRSD interval [...] 13:08,-premature ventricular complexes are no longer present- [address]2022-04-26 17:57:14 Test Item Value Reference Range Interpretation Comments Ventricular rate (test code = 253) Atrial rate (test code = 255) SD interval (test code = 266) QRSD interval [...] 13:08,-premature ventricular complexes are no longer present- [facility] [id number] 13:52:00 [facility] : 1940 Sex: F Patient Name: HANANE HARRINGTON Unit No: [id number] EXAMS: CPT CODE: [id number] XR [facility] FOR SPINE INJ 28431 LUMBAR EPIRADICULAR INJECTION REFERRAL PHYSICIAN: Dr. Orellana [...] paresthesias. Isovue-300 contrast 0.2 mL of was i njected incrementally with frequent negative aspirations to produce each epidurogram. There were no signs of intravascular or intrathecal uptake. Bupivicaine 0.75% 0.25 mL with lidocaine 4% 0.25 mL andDecadron 5 mg was then incrementally injected with frequent negative aspirations and again there were no signs of intravascular or intrathecal uptake. The needles were removed and the patient was takento the PACU in good condition. Image: Image 1 Image: Image 2 at 1352 Reported and signed by: PREET KONG MD CC: Technologist: Michelle Kurtz(R) Transcribed D/ (3632) [email or web address] [facility] NAME: HANANE HARRINGTON SEPTEMBER [address] [facility] PHYS: Preet Paige MD [place], [place] [address] : 1940 AGE: 81 SEX: F LOC: BENJI PHONE #: [phone] EXAM DATE: 08/25/2021 [place]US: [place] [facility] [facility] [place]: [phone] RAD #: D/C DT PAGE 1 Signed Report Patient Name: HANANE HARRINGTON Unit No: [id number] EXAMS: CPT CODE: [id number] XR FL[facility]ORO FOR SPINE INJ 26591 (Continued) Orig Print D/T: S: 08/25/2021 (1054) [facility] NAME: HANANE HARRINGTON SEPTEMBER [address] [facility] PHYS: Preet Paige MD [place], [place] [address] : 1940 AGE: 81 SEX: F LOC: BENJI PHONE #: [phone] EXAM DATE: 08/25/2021 STATUS: [place] [facility] [place]: [phone] RAD #: D/C DT PAGE 2 Signed Report- XR [facility] SPINE [id number] 15:23:00 [facility] : 1940 Sex: F Patient Name: HANANE HARRINGTON Unit No: [id number] EXAMS: CPT CODE: [id number] XR [facility] SPINE [id number] LUMBAR EPIRADICULAR INJECTION REFERRAL PHYSICIAN: Kash Orellana [...] across the L3-4 disc and limited cephalad a cross the L2-3 disc. Provocation with injection was negative. Anesthetic response was positive withthe patient noting relief of her low back and radiating pain. Preinjection VAS 7/10. Postinjection VAS 0/10. Steroid response pending follow-up. ESTIMATED BLOOD LOSS: Minimal ANESTHESIA: TIVA COMPLICATIONS: None DETAILS OF PROCEDURE: After obtaining stable vital signs, informed consent and IV access, with no contraindications, the patient was taken to the operating room and placed in a prone positionwith all extremities padded and appropriate monitors placed. [...] and signed by: Isaiah Del Cid M.D. [facility] NAME: HANANE HARRINGTON SEPTEMBER [address] [facility] PHYS: Isaiah Gunter MD [place], [place] [address] : 1940 AGE: 81 SEX: F LOC: BENJI PHONE #: [phone] EXAM DATE: 05/27/2021 STATUS: REG [place] FAX #: [phone] RAD #: D/C DT PAGE 1 Signed Report (CONTINUED) Patient Name: HANANE HARRINGTON Unit No: [id number] EXAMS: CPT CODE: [id number] XR FLUORO FOR SPINE INJ 33432 (Continued) CC: Technologist: Michelle Kurtz(R) Transcribed D/ (1523) [facility] NAME: HANANE HARRINGTON SEPTEMBER [address] [place] [address] PHYS: Isaiah Gunter MD [place] [address] : 1940 AGE: 81 SEX: F LOC: BENJI PHONE #: [phone] EXAM DATE: 05/27/2021 [place]US: [place] [facility] [place]: [phone] RAD #: D/C DT PAGE 2Signed Report Patient Name: HANANE HARRINGTON Unit No: [id number] EXAMS: CPT CODE: [id number] XR FLUORO FOR SPINE INJ 07469 (Continued) Orig Print D/T: S: 05/27/2021 (1526) [facility] NAME: HANANE HARRINGTON SEPTEM[address] [place] [address] PHYS: Isaiah Gunter MD [place] [address] : 1940 AGE: 81 SEX: F LOC: BENJI PHONE #: [phone] EXAM DATE: 05/27/2021 STATUS: [place] [facility] [place] #: [phone] RAD #: D/C DT PAGE 3 Signed ReportECG 12 [id number] 03:24:53 Test Item Value Reference Range Interpretation Comments Ventricular rate (test code = 253) Atrial rate (test code = 255) SD interval (test code = 266) QRSD interval [...] of 24-JUL-2019 05:39,-premature ventricular complexes are now xcmfthe-Gvi-xfzxmgcg change in ST segment in Lateral leads- [facility]
[2023-02-24 04:52] LABS: Absolute Lymphocytes (CBC) 1.9 K/uL (0.7-4.9); Hematocrit 38.8 % (36.0-45.0); Lymphocytes % 20.9 % (15.3-44.8); MCV 84.9 fL (80-100); MPV 9.3 fL (7.6-11.3); Platelets 183 thou/uL (152-406); RBC Red Blood Cell Count 4.57 M/uL (3.86-4.86)
[2023-02-24 04:59] LABS: Protime INR 1.13
[2023-02-24] MEDS ORDERED: MORPHINE 2 MG/ML SYR ONE ×2 (05:09→06:07)
[2023-02-24] MEDS ORDERED: ONDANSETRON 4 MG/2 ML VIAL ONE (05:09)
[2023-02-24 05:31] LABS: Sodium Level 142 mEq/L (136-145)
[2023-02-24 05:32] LABS: ALT/SGPT 43 U/L (13-56); AST/SGOT 36 U/L (15-37); Albumin 2.7 g/dL (3.4-5.0); Alkaline Phosphatase 75 U/L (45-117); BUN Blood Urea Nitrogen 18 mg/dL (7-18); Bicarbonate 28 mEq/L (21-32); Bilirubin Direct < 0.1 mg/dL (0-0.2); Bilirubin Indirect, Calculated ND mg/dL (0.2-0.8); Bilirubin Total 0.3 mg/dL (0.2-1.0); Glomerular Filtration Rate 69 ml/min (=/>90); Glucose Level 124 mg/dL (74-106); Magnesium 2.3 mg/dL (1.6-2.4); NT PRO-BNP 271 pg/mL (<450); Potassium 3.8 mEq/L (3.5-5.1); Troponin High Sensitivity 13.7 pg/mL (<58.9)
[2023-02-24] MEDS ORDERED: METOCLOPRAMIDE 10 MG/2mL INJ ONE (06:06)
--- NOTE | 2023-02-24 07:47 | ER ---
Nurse's Notes [facility] Name: Yeni Mcclendon Age: 82 yrs Sex: Female : 1940 Arrival Date: 02/24/2023 Time: 04:15 Bed 8 Private MD: Diagnosis: Acute cholecystitis Presentation: 02/24 04:24 Chief complaint: EMS states: chest pain woke pt up out of her sleep, pain radiated from iw center of chest to left arm, hx of cardiac stents, was hypertensive on scene at 200 systolic, gave1 SL Nitro and 324 ASA, BP down to 100 systolic, also gave 4 Zofran for nausea. Coronavirus screen: At this time, the client does not indicate any symptoms associated with coronavirus-19. Ebola Screen: Patient negative for fever greater than or equal to 101.5 degrees Fahrenheit, and additional compatible Ebola Virus Disease symptoms Patient denies exposure to infectious person. Patient denies travel to an Ebola-affected area in the 21 days before illness onset. No symptoms or risks identified at this time. 04:24 Method Of Arrival: EMS: [facility] iw 04:24 Acuity: DENISA 3 iw 04:51 Initial Sepsis Screen: Does the patient meet any 2 criteria? No. Patient's initial rv sepsis screen is negative. Does the patient have a suspected source of infection? No. Patient's initial sepsis screen is negative. Risk Assessment: Do you want to hurt yourself or someone else? Patient reports no desire to harm self or others. Onset of symptoms was February 24, 2023. Triage Assessment: 04:51 General: Appears comfortable, Behavior is calm, cooperative. Pain: Complains of pain in rv EPIGASTRIC. Historical: - Allergies: 04:26 CEPHALOSPORINS; iw 04:26 duracef; iw 04:26 Furadantin; iw 04:26 PENICILLINS; iw 04:26 Sulfa (Sulfonamide Antibiotics); iw - Home Meds: 08:49 aspirin 81 mg Oral tablet,chewable 1 tab daily [Active]; carvedilol 37.5mg Oral tab 1 ko1 tab 2 times per day for hypertension [Active]; prednisone 5 mg Oral tab once daily [Active]; Pepcid 20 mg Oral tab 1 tab daily [Active]; rosuvastatin 20 mg oral tablet 1 tab daily for hyperlipidemia [Active]; lisinopril 10 mg Oral tab 1 tab once daily for hypertension [Active]; metformin 500 mg oral tablet 1 tab evenings [Active]; multivitamin Oral tab daily [Active]; Advair Diskus 250-50 mcg/dose Inhl dsdv 1 puff 2 times per day [Active]; brimonidine 0.15 % ophthalmic drop 1 drop twice a day [Active]; Restasis 0.05 % ophthalmic (eye) dpet 1 drop every 12 hours [Active]; latanoprost 0.005 % ophthalmic (eye) drop 1 drop once daily [Active]; - PMHx: 04:26 Asthma; High Cholesterol; Hypertension; GERD; vasculitis; temporal arteritis iw (vasculitis); - Family history:: not pertinent. - Social history:: Smoking status: unknown. Screenin:49 [facility] ED Fall Risk Assessment (Adult) History of falling in the last 3 months, rv including since admission No falls in past 3 months (0 pts) Score/Fall Risk Level 0 - 2 = Low Risk Oriented to surroundings, Maintained a safe environment, Educated pt \T\ family on fall prevention, incl call for assistance when getting out of bed, Assessed \T\ reinforced patient's understanding of fall precautions, Provided non-skid footwear, Hourly rounding (assess needs \T\ fall precautionary measures) done, Used ambulatory aids as needed (educated on \T\ assisted with), Used gait belt as appropriate. Abuse screen: Denies threats or abuse. Denies injuries from another. Nutritional screening: No deficits noted. Tuberculosis screening: No symptoms or risk factors identified. Assessment: 04:49 General: Appears comfortable, Behavior is calm, cooperative. Pain: Complains of pain in rv E[PIGASTRIC Pain does not radiate. Pain began suddenly. Neuro: Level of Consciousness is awake, alert, obeys commands, Oriented to person, place, time, situation. Cardiovascular: Capillary refill < 3 seconds Patient's skin is warm and dry. Respiratory: Airway is patent Respiratory effort is even, unlabored. GI: Abdomen is flat, non-distended, Reports upper abdominal pain, Patient currently denies nausea, vomiting. : No signs and/or symptoms were reported regarding the genitourinary system. Derm: Skin is intact. 04:52 Reassessment: PT REFUSED MORPHINE AND ZOFRAN AT THIS TIME. rv Vital Signs: 04:26 BP 126 / 54; Pulse 61; Resp 16; Temp 98; Pulse Ox 94% on R/A; iw 08:59 BP 152 / 66; Pulse 68; Resp 16; Pulse Ox 95% on R/A; ko1 ED Course: 04:20 Patient arrived in ED. la1 04:22 Christopher Mcclellan MD is Attending Physician. sp4 04:25 Triage completed. iw 04:26 Arm band placed on. iw 04:49 Patient has correct armband on for positive identification. Client placed on continuous rv cardiac and pulse oximetry monitoring. NIBP monitoring applied. manager monitoring on. 04:49 No provider procedures requiring assistance completed. Maintain EMS IV. Dressing rv intact. Good blood return noted. Site clean \T\ dry. Gauge \T\ site: 18 RAC. Patient maintains SpO2 saturation greater than 95% on room air. 04:52 Kentrell Cates RN is Primary Nurse. rv 05:14 XRAY Chest (1 view) In Process Unspecified. EDMS 06:20 CT Chest, Abdomen, Pelvis - W/Contrast In Process Unspecified. EDMS 07:45 Poncho Bajwa MD is Hospitalizing Provider. sp4 07:47 US Abdomen Limited In Process Unspecified. EDMS 15:40 Patient admitted, IV remains in place. me1 Administered Medications: 05:15 Drug: Ondansetron IVP 4 mg IVP once; over 2 minutes Route: IVP; Site: right antecubital;rv 09:01 Follow up: Response: No adverse reaction ko1 05:15 Drug: morphine IVP or IV 2 mg IVP once over 4 mins Route: IVP; Infused Over: 4 mins; rv Site: right antecubital; 09:01 Follow up: Response: No adverse reaction ko1 05:58 Drug: morphine IVP or IV 2 mg IVP once over 4 mins Route: IVP; Infused Over: 4 mins; rv Site: right forearm; 09:01 Follow up: Response: No adverse reaction ko1 05:58 Drug: metoCLOPramide IVP 10 mg IVP once; over 1 to 2 minutes Route: IVP; Site: right rv forearm; 09:00 Follow up: Response: No adverse reaction ko1 06:43 Not Given (Duplicate Order): [id number] mg PO once sp4 06:43 Not Given (Duplicate Order): [id number] mg PO once sp4 07:43 Drug: levofloxacin IVPB 750 mg 150 ml IVPB once over 90 mins Volume: 150 ml; Route: ko1 IVPB; Infused Over: 90 mins; Site: right upper arm; 09:01 Follow up: Response: No adverse reaction; IV Status: Completed infusion; IV Intake: ko1 150ml 07:50 Drug: morphine IVP or IV 4 mg IVP once over 4 mins Route: IVP; Infused Over: 4 mins; ko1 Site: right upper arm; 09:00 Follow up: Response: No adverse reaction; Pain is decreased ko1 09:02 Drug: metroNIDAZOLE IVPB 500 mg 100 ml IVPB at 200 ml/hr once over 30 mins Volume: 100 ko1 ml; Route: IVPB; Rate: 200 ml/hr; Infused Over: 30 mins; Site: right upper arm; Medication: 04:49 VIS not applicable for this client. rv Intake: 09:01 IV: 150ml; Total: 150ml. ko1 Outcome: 07:47 Decision to Hospitalize by Provider. sp4 15:33 [place] [facility] [place]:33 Condition: stable 15:39 Admitted to Med/surg accompanied by tech, via wheelchair, room 401, with chart, Report hi1 called to SELVIN Fernandez 15:39 Instructed on the need for admit, 15:59 Patient left the ED. rs5 Signatures: Dispatcher [employer] EDMS Tova Ricks RN RN iw Jeffrey Subramanian, SUPERVISOR [employer]X-C SUPERVISOR MATRIX-Cla1 Kentrell Cates RN RN rv Oliver, Kathy, RN RN ko1 Stanley Camacho RN RN rs5 Christopher Mcclellan MD MD sp4 Jennifer Velásquez RN RN me1 Corrections: (The following items were deleted from the chart) 08:56 08:49 Home Meds: amlodipine 5 mg tab 1 tab once daily; ko1 ko1
--- NOTE | 2023-02-24 07:47 | EDPHYS ---
Physician Documentation [facility] Name: Yeni Mcclendon Age: 82 yrs Sex: Female : 1940 Arrival Date: 02/24/2023 Time: 04:15 Bed 8 Private MD: ED Physician Christopher Mcclellan HPI: 02/24 04:23 This 82 yrs old Female presents to ER via Unassigned with complaints of chest sp4 pain . 04:34 Very pleasant 82-year-old female with history of multiple stents coronary artery sp4 disease and aortic valve replacement, also history of asthma hypercholesterolemia, hypertension, GERD, vasculitis, temporal arteritis, presents with EMS for cute onset epigastric pain associated with radiation into the chest, pain started acutely at 2 AM and is described as persistent and pressure type. Patient was given full dose aspirin by EMS and also nitroglycerin spray. Patient was blood pressure at home was elevated to 200 systolic blood pressure. Historical: - Allergies: 04:26 CEPHALOSPORINS; iw 04:26 duracef; iw 04:26 Furadantin; iw 04:26 PENICILLINS; iw 04:26 Sulfa (Sulfonamide Antibiotics); iw - Home Meds: 08:49 aspirin 81 mg Oral tablet,chewable 1 tab daily [Active]; carvedilol 37.5mg Oral tab 1 ko1 tab 2 times per day for hypertension [Active]; prednisone 5 mg Oral tab once daily [Active]; Pepcid 20 mg Oral tab 1 tab daily [Active]; rosuvastatin 20 mg oral tablet 1 tab daily for hyperlipidemia [Active]; lisinopril 10 mg Oral tab 1 tab once daily for hypertension [Active]; metformin 500 mg oral tablet 1 tab evenings [Active]; multivitamin Oral tab daily [Active]; Advair Diskus 250-50 mcg/dose Inhl dsdv 1 puff 2 times per day [Active]; brimonidine 0.15 % ophthalmic drop 1 drop twice a day [Active]; Restasis 0.05 % ophthalmic (eye) dpet 1 drop every 12 hours [Active]; latanoprost 0.005 % ophthalmic (eye) drop 1 drop once daily [Active]; - PMHx: 04:26 Asthma; High Cholesterol; Hypertension; GERD; vasculitis; temporal arteritis iw (vasculitis); - Family history:: not pertinent. - Social history:: Smoking status: unknown. ROS: 04:34 Constitutional: Negative for fever, chills, and weight loss, Abdomen/GI: Negative for sp4 nausea, vomiting, diarrhea, and constipation, positive for epigastric pain 04:34 All other systems are negative, Exam: 04:34 Constitutional: This is a well developed, well nourished patient who is awake, alert, sp4 and in no acute distress. Head/Face: Normocephalic, atraumatic. Eyes: Pupils equal round and reactive to light, extra-ocular motions intact. Lids and lashes normal. Conjunctiva and sclera are not injected. Cornea within normal limits. Periorbital areas with no swelling, redness, or edema. ENT: Nares patent. No nasal discharge, no septal abnormalities noted. Tympanic membranes are normal and external auditory canals are clear. Oropharynx with no redness, swelling, or masses, exudates, or evidence of obstruction, uvula midline. Mucous membranes moist. Neck: Trachea midline, no thyromegaly or masses palpated, and no cervical lymphadenopathy. Supple, full range of motion without nuchal rigidity, or vertebral point tenderness. Chest/axilla: Normal chest wall appearance and motion. Nontender with no deformity. No lesions are appreciated. Cardiovascular: Regular rate and rhythm with a normal S1 and S2. No gallops, murmurs, or rubs. Normal PMI, no JVD. No pulse deficits. Respiratory: Lungs have equal breath sounds bilaterally, clear to auscultation and percussion. No rales, rhonchi or wheezes noted. No increased work of breathing, no retractions or nasal flaring. Abdomen/GI: Soft, with normal bowel sounds. No distension or tympany. No guarding or rebound. positive epigastric tenterness Back: No spinal tenderness. No costovertebral tenderness. Skin: Warm, dry with normal turgor. Normal color with no rashes, no lesions, and no evidence of cellulitis. MS/ Extremity: Pulses equal, no cyanosis. Neurovascular intact. Full, normal range of motion. Neuro: Awake and alert, GCS 15, oriented to person, place, time, and situation. Cranial nerves II-XII grossly intact. Motor strength 5/5 in all extremities. Sensory grossly intact. Psych: Awake, alert, with orientation to person, place and time. Behavior, mood, and affect are within normal limits 04:38 ECG was reviewed by the Attending Physician. EKG time 0 436, there is sinus sp4 bradycardia, at the rate of 57, no ST elevation or depression, overall normal EKG Vital Signs: 04:26 BP 126 / 54; Pulse 61; Resp 16; Temp 98; Pulse Ox 94% on R/A; iw 08:59 BP 152 / 66; Pulse 68; Resp 16; Pulse Ox 95% on R/A; ko1 MDM: 04:32 Patient medically screened. sp4 04:34 Differential Diagnosis altered mental status, sepsis, flu. sp4 07:47 Data reviewed: vital signs, nurses notes, old medical records, lab test result(s), EKG, sp4 radiologic studies, CT scan, ultrasound. 08:04 Consideration of Admission/Observation Patient was admitted/placed on observation. sp4 Escalation of care including admission/observation considered. Management of patient was discussed with the following: Hospitalist: Discussed with Dr. Clifton with hospital medicine. Business Analytics Analyst: Discussed with Dr. Brady with general surgery. 02/25 00:48 ED course: CT abdomen - IMPRESSION: No acute intrathoracic abnormality. Chronic sp4 appearing fibrotic changes. Small hiatal hernia with nonspecific wall thickening at the GE junction. This may reflect sequela of a focal esophagitis. Cholelithiasis. Constipation. Focal pancreatic atrophy and ductal dilatation involving the distal body and tail the pancreas. No discrete pancreatic mass or fluid collection. . ED course: US abdomen - EXAM DESCRIPTION: US - Abdomen Exam Limited - 02/24/2023 7:45 am CLINICAL HISTORY: Abdominal pain. COMPARISON: 2012 FINDINGS: 3.5 centimeter stone gallbladder neck. Mild gallbladder wall thickening The biliary tree is normal caliber. IMPRESSION: Cholelithiasis Mild gallbladder wall thickening probably acute cholecystitis. 02/24 04:23 Order name: Basic Metabolic Panel; Complete Time: 05:53 sp4 02/24 04:23 Order name: CBC with Diff; Complete Time: 05:53 sp4 02/24 04:23 Order name: LFT's; Complete Time: 05:53 sp4 02/24 04:23 Order name: Magnesium; Complete Time: 05:53 sp4 02/24 04:23 Order name: NT PRO-BNP; Complete Time: 05:53 sp4 02/24 04:23 Order name: PT-INR; Complete Time: 05:53 sp4 02/24 04:23 Order name: Troponin HS; Complete Time: 05:53 sp4 02/24 04:32 Order name: Lipase; Complete Time: 05:53 sp4 02/24 04:37 Order name: COVID-19 SARS RT PCR; Complete Time: 05:53 sp4 02/24 04:37 Order name: Influenza Screen (a \T\ B); Complete Time: 05:53 sp4 02/24 11:52 Order name: Glucose, Ancillary Testing; Complete Time: 00:47 EDMS 02/24 04:23 Order name: XRAY Chest (1 view); Complete Time: 00:47 sp4 02/24 04:32 Order name: CT Chest, Abdomen, Pelvis - W/Contrast; Complete Time: 00:47 sp4 02/24 07:12 Order name: US Abdomen Limited; Complete Time: 00:47 sp4 02/24 04:23 Order name: EKG; Complete Time: 04:24 4 02/24 04:23 Order name: Cardiac monitoring; Complete Time: 04:49 4 02/24 04:23 Order name: EKG - Nurse/Tech; Complete Time: 04:49 4 02/24 04:23 Order name: IV Saline Lock; Complete Time: 04:49 sp4 02/24 04:23 Order name: Labs collected and sent; Complete Time: 04:49 4 02/24 04:23 Order name: O2 Per Protocol; Complete Time: 04:49 4 02/24 04:23 Order name: O2 Sat Monitoring; Complete Time: 04:49 sp4 EC/14 04:38 Rate is 57 beats/min. Rhythm is regular, Sinus bradycardia. QRS [place] is Normal. [place] sp4 interval is normal. QRS interval is normal. QT interval is normal. No Q waves. T waves are Normal. No ST changes noted. Clinical impression: No evidence of ischemia. Interpreted by me. Administered Medications: 05:15 Drug: Ondansetron IVP 4 mg IVP once; over 2 minutes Route: IVP; Site: right antecubital;rv 09:01 Follow up: Response: No adverse reaction ko1 05:15 Drug: morphine IVP or IV 2 mg IVP once over 4 mins Route: IVP; Infused Over: 4 mins; rv Site: right antecubital; 09:01 Follow up: Response: No adverse reaction ko1 05:58 Drug: morphine IVP or IV 2 mg IVP once over 4 mins Route: IVP; Infused Over: 4 mins; rv Site: right forearm; 09:01 Follow up: Response: No adverse reaction ko1 05:58 Drug: metoCLOPramide IVP 10 mg IVP once; over 1 to 2 minutes Route: IVP; Site: right rv forearm; 09:00 Follow up: Response: No adverse reaction ko1 06:43 Not Given (Duplicate Order): [id number] mg PO once sp4 06:43 Not Given (Duplicate Order): mg PO once sp4 07:43 Drug: levofloxacin IVPB 750 mg 150 ml IVPB once over 90 mins Volume: 150 ml; Route: ko1 IVPB; Infused Over: 90 mins; Site: right upper arm; 09:01 Follow up: Response: No adverse reaction; IV Status: Completed infusion; IV Intake: ko1 150ml 07:50 Drug: morphine IVP or IV 4 mg IVP once over 4 mins Route: IVP; Infused Over: 4 mins; ko1 Site: right upper arm; 09:00 Follow up: Response: No adverse reaction; Pain is decreased ko1 09:02 Drug: metroNIDAZOLE IVPB 500 mg 100 ml IVPB at 200 ml/hr once over 30 mins Volume: 100 ko1 ml; Route: IVPB; Rate: 200 ml/hr; Infused Over: 30 mins; Site: right upper arm; Disposition Summary: 02/24/23 07:47 Hospitalization Ordered Notes: Hospitalization Status: Inpatient Admission sp4 Provider: Poncho Bajwa sp4 Location: Telemetry/[facility] (Inpatient) sp4 Condition: Stable sp4 Problem: new sp4 Symptoms: have improved sp4 Bed/Room Type: Standard sp4 Room Assignment: 401(02/24/23 14:57) eb Diagnosis - Acute cholecystitis sp4 Forms: - Medication Reconciliation Form sp4 - SBAR form sp4 - Leadership Thank You Letter sp4 Signatures: Dispatcher [employer] Tova Long RN RN iw Aguilar, Jose, RN RN Jolynn Gerber Ronaldo, RN RN rv Oliver, Kathy, RN RN ko1 Christopher Mcclellan MD MD sp4 Corrections: (The following items were deleted from the chart) 06:42 06:37 Sling ordered. sp4 sp4 08:56 08:49 Home Meds: amlodipine 5 mg tab 1 tab once daily; ko1 ko1 14 07:47 sp4 ja1 14:57 401 [facility]
[2023-02-24] MEDS ORDERED: METRONIDAZOLE 500mg IVPB 500 MG/100 ML BAG IV ONE (07:52)
[2023-02-24] MEDS ORDERED: Levofloxacin 750mg IV 750 MG/150 ML BAG IV ONE (07:52)
[2023-02-24] MEDS ORDERED: MORPHINE 4 MG/ML SYR ONE (08:01)
--- NOTE | 2023-02-24 08:17 | RAD REPORT ---
EXAM DESCRIPTION: US - Abdomen Exam Limited - 02/24/2023 7:45 am CLINICAL HISTORY: Abdominal pain. COMPARISON: 2012 FINDINGS: 3.5 centimeter stone gallbladder neck. Mild gallbladder wall thickening The biliary tree is normal caliber. IMPRESSION: Cholelithiasis Mild gallbladder wall thickening probably acute cholecystitis
--- NOTE | 2023-02-24 08:18 | RAD REPORT ---
EXAM DESCRIPTION: CT - Chest Abdomen Pelvis W Cont - 02/24/2023 6:19 am CLINICAL HISTORY: Chest and abdominal pain COMPARISON: 2020 TECHNIQUE: Computed axial tomography of the chest, abdomen and pelvis was obtained. 100 cc Isovue-30 0 was administered intravenously. Oral contrast was not requested. This limits evaluation of bowel. All CT scans are performed using dose optimization technique as appropriate and may include automated exposure control or mA/KV adjustment according to patient size. FINDINGS: Mild chronic interstitial lung opacities No mediastinal or hilar lymphadenopathy. No pleural effusion. No pericardial effusion. Aortic stent Large gallstone gallbladder neck. Mild gallbladder wall thickening. Biliary tree within normal limits caliber Small hiatal hernia Liver, spleen, pancreas, adrenals and kidneys are unremarkable No evidence of diverticulitis No adnexal mass Spondylosis lumbar spine. Mild posterior subluxation L2 on L3 and L3 on L4 IMPRESSION: Cholelithiasis Mild gallbladder wall thickening suspicious for acute cholecystitis Exam was discussed with the Dr Mcclellan prior to this dictation
[2023-02-24] MEDS ORDERED: MORPHINE 2 MG/ML SYR IV PRN (08:28)
[2023-02-24] MEDS ORDERED: D50W 25 GM/50 ML SYRINGE IV PRN (08:43)
[2023-02-24] MEDS ORDERED: GLUCAGON 1 MG/VIAL IM PRN (08:43)
--- NOTE | 2023-02-24 08:56 | P.HP ---
Certification for Inpatient With expected LOS: <2 Midnights <Blossom Guerra - Last Filed: 02/24/23 08:57> Patient History Date of Service: 02/24/23 Primary Care Provider: Vic Hodgson Reason for admission: Abdominal pain, acute cholecystitis History of Present Illness: Inder Macdonald, a 82-year-old female with a history of asthma high cholesterol hypertension aortic valve replacement, diabetes mellitus came to the ER with complaints of abdominal pain. Pain on the epigastric area associated with the radiation to the chest, pain started around 1:30 in the morning, it describes as a persistent and a pressure type. Patient was given aspirin full dose in ER and also nitroglycerin spray. Patient denies fever, chills or weight loss. Patient denies nausea vomiting diarrhea. Positive for epigastric pain. ER course, vital signs 126/54, pulse 61, respiration 16, temperature 98, pulse ox 94% on room air. EKG is showing sinus bradycardia rate of [address] elevation, or depression, QRS axis is normal, [place] interval is normal, no evidence of ischemia. Patient reporting pain 8 out of 10 patient was given morphine 2 mg IV over 4 minutes, antibiotic levofloxacin 750 mg IVPB piggyback over 90 minutes and metronidazole [address] abdomen and pelvis showing cholelithiasis, 3.5 cm stone on gallbladder at 10:00 gallbladder neck and mild gallbladder wall thickening. Admitting the patient with the diagnosis of acute cholecystitis. - Past Medical/Surgical History Diabetic: No -: HTN -: Asthma -: GERD -: hyperlipidemia -: vasculitis -: appendectomy -: tubaligation -: tonsilectomy -: bilateral feet - Family History Father -: Cancer Notes: kidney removed; allergies; arthritis Mother -: Stroke, Other (see notes) Notes: pre-diabetic; thyroid problems. Sister -: GI disease, Other (see notes) Notes: thyroid - Social History Alcohol use: No CD- Drugs: No Caffeine use: Yes <Blossom Guerra - Last Filed: 02/24/23 08:57> Date of Service: 02/24/23 <Poncho Bajwa - Last Filed: 02/24/23 12:34> Allergies Sulfa (Sulfonamide Antibiotics) Allergy (Unknown, Verified 06/12/15 10:10) Hives nitrofurantoin [From Furadantin] Allergy (Verified 06/12/15 11:16) Unknown Duracef Allergy (Mild, Uncoded 06/12/15 11:16) Itching/Hives/Rash PENICILLINS Allergy (Mild, Uncoded 06/12/15 11:16) Itching/Hives/Rash CEPHALOSPORINS Allergy (Uncoded 06/12/15 11:16) Itching/Hives/Rash Home Medications: Aspirin [Aspirin EC 81 MG] 81 mg PO DAILY 11/17/16 Brimonidine [Alphagan P 0.15%*] 1 drops EACH EYE BID 11/17/16 Calcium Carbonate/Vitamin D3 [Calcium 600-Vit D3 400 Tablet] 1 each PO BID 11/17/16 Famotidine [Pepcid] 20 mg PO BEDTIME 11/17/16 Latanoprost Ophth [Xalatan 0.005%*] 1 gtt EACH EYE BEDTIME 11/17/16 Multivitamin [Multiple Vitamins] 1 tab PO BEDTIME 11/17/16 carvediloL [Coreg*] 1.5 tab PO BID 11/17/16 lisinopriL [Prinivil] 10 mg PO BEDTIME 11/17/16 predniSONE [Prednisone*] 5 mg PO DAILY 11/17/16 Amlodipine [Norvasc] 5 mg PO BEDTIME 01/22/21 Cyclosporine [Restasis] 1 drop EACH EYE BID 01/22/21 Fluticasone/Salmeterol [Advair 250-50 Diskus] 1 each IH BEDTIME 01/22/21 Docusate Sodium [Stool Softener] 100 mg PO BID 12/05/22 Doxycycline Monohydrate 100 mg PO BID 12/05/22 Metformin HCl [Metformin HCl ER] 500 mg PO DAILY AT SUPPER 12/05/22 Rosuvastatin Calcium [Crestor] 20 mg PO BEDTIME 12/05/22 Ubidecarenone/Vit E Acet [Co Q-10 100 mg Softgel] 1 each PO DAILY 12/05/22 Review of Systems General: Unremarkable Eyes: Other (Chronic erythema around the eyes) ENT: Unremarkable Respiratory: Unremarkable Cardiovascular: Other (Abdominal pain radiating to chest) Gastrointestinal: Abdominal Pain (Epigastric pain since this morning 1:30 AM), Constipation (Chronic constipation) Genitourinary: Unremarkable Musculoskeletal: Unremarkable Integumentary: Other (Chronic discoloration around the eyes) Neurological: Unremarkable <Blossom Guerra - Last Filed: 02/24/23 08:57> Physical Examination - Physical Exam General: Alert, Oriented x3 HEENT: Atraumatic, Normocephalic Neck: Supple, 2+ carotid pulse no bruit Respiratory: Clear to auscultation bilaterally Cardiovascular: Normal pulses, Regular rate/rhythm, Normal S1 S2, No murmurs Capillary refill: <2 Seconds Gastrointestinal: No ascites, No rebound, No guarding, Distended, Tenderness, Guarding Musculoskeletal: No clubbing, No swelling, No contractures, No erythema, No tenderness, No warmth, Other Integumentary: No rashes, No significant lesion, No tenderness/swelling, No cyanosis Neurological: Normal gait, Normal speech, Normal strength at 5/5 x4 extr, Normal tone, Sensation intact, Normal affect External genitalia: No edema, No lesions, No masses - Studies Laboratory Data (last 24 hrs) 02/24/23 02/24/23 02/24/23 04:40 04:40 04:40 WBC 9.10 Hgb 13.1 Hct 38.8 Plt Count 183 PT 12.4 INR 1.13 Sodium Potassium BUN Creatinine Glucose Magnesium Total Bilirubin AST ALT Alkaline Phosphatase Lipase 25 02/24/23 04:40 WBC Hgb Hct Plt Count PT INR Sodium 142 Potassium 3.8 BUN 18 Creatinine 0.83 Glucose 124 H Magnesium 2.3 Total Bilirubin 0.3 AST 36 ALT 43 Alkaline Phosphatase 75 Lipase Microbiology Data (last 24 hrs): 02/24/23 04:40 Nasopharnyx Influenza Type A Antigen Screen - Final 02/24/23 04:40 Nasopharnyx Influenza Type B Antigen Screen - Final <Blossom Guerra - Last Filed: 02/24/23 08:57> - Studies Laboratory Data (last 24 hrs) 02/24/23 02/24/23 02/24/23 04:40 04:40 04:40 WBC 9.10 Hgb 13.1 Hct 38.8 Plt Count 183 PT 12.4 INR 1.13 Sodium Potassium BUN Creatinine Glucose Magnesium Total Bilirubin AST ALT Alkaline Phosphatase Lipase 25 02/24/23 04:40 WBC Hgb Hct Plt Count PT INR Sodium 142 Potassium 3.8 BUN 18 Creatinine 0.83 Glucose 124 H Magnesium 2.3 Total Bilirubin 0.3 AST 36 ALT 43 Alkaline Phosphatase 75 Lipase Microbiology Data (last 24 hrs): 02/24/23 04:40 Nasopharnyx Influenza Type A Antigen Screen - Final 02/24/23 04:40 Nasopharnyx Influenza Type B Antigen Screen - Final <Poncho Bajwa - Last Filed: 02/24/23 12:34> Assessment and Plan - Plan Assessment and plan Assessment Acute cholecystitis Epigastric pain CAD Hypertension History of aortic valve replacement Diabetes mellitus type 2 GERD Hyperlipidemia Asthma Plan Assessment and plan Acute cholecystitis Epigastric pain * Acute, patient with complaints of abdominal pain on the epigastric area, radiating to the chest started this morning at 1:30 AM. * Pain medication was given in the ER * Waiting the patient for possible surgical intervention * Consulted Dr. Brady, discussed about the patient * Patient would need cardiac clearance before surgical intervention due to the cardiac history * Will start the patient on IV hydration, keep her on n.p.o. 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 Conley for the cardiac clearance Diabetes mellitus type 2 * Chronic controlled on metformin 500 p.o. twice daily * Denies hypoglycemic episodes * Started on insulin low-dose sliding scale with blood sugar check every 6 hours * Glycemic protocol * D5 half NS at 75 cc/h GERD * Chronic, controlled on famotidine at home * Will have her on Protonix at this time in the hospital * Resume famotidine on discharge * Continue GERD precautions * A1c in the morning Hyperlipidemia * Chronic controlled on simvastatin at home * Continue the current statin * Check lipid panel in a.m. Asthma * Chronic controlled on the current home medication * Denies recent exacerbation or use of rescue inhalers * Continue the current medications * Will continue to monitor her oxygen saturation and and albuterol as needed for shortness of breath and to keep the oxygen saturation above 92% CODE STATUS Full code Diet N.p.o. for now DVT prophylaxis SCDs due to the possibility of OR today Discharge Plan: Home Plan to discharge in: 48 Hours - Advance Directives Does patient have a Living Will: Yes Does patient have a Durable POA for Healthcare: No - Code Status/Comfort Care Code Status Assessed: Yes (Full code) Code Status: Full Code Physician Review: Patient Assessed, Agree with Above Assessment and Plan Critical Care: No Time Spent Managing Pts Care (In Minutes): 55 (Minutes) <Blossom Guerra - Last Filed: 02/24/23 08:57> Physician Review Additional Text: Patient admitted with sudden onset of retrosternal chest pain at 130 this morning significant history of coronary artery disease there is no abdominal tenderness no white count is a gallstone doubt cholecystitis agree with the possibility of coronary artery disease and angina seen by cardiology agree with an echocardiogram stress test we will anticoagulate her right now on aspirin resume diet resume Coreg and amlodipine <Poncho Bajwa - Last Filed: 02/24/23 12:34>
[2023-02-24] MEDS ORDERED: PANTOPRAZOLE 40 MG INJ IVP SCH (09:00)
[2023-02-24] MEDS ORDERED: Levofloxacin 750mg IV 750 MG/150 ML BAG IV SCH (09:00)
[2023-02-24] MEDS ORDERED: NA CHLORIDE 0.9% 250 ML IV SCH (09:00)
[2023-02-24] MEDS ORDERED: METRONIDAZOLE 500mg IVPB 500 MG/100 ML BAG IV SCH ×2 (09:00→17:00)
[2023-02-24] MEDS ORDERED: D5 0.45 NS 1,000 ML IV SCH (09:00)
[2023-02-24] MEDS ORDERED: NA CHLORIDE 0.9% 1,000 ML IV SCH (09:00)
[2023-02-24] MEDS ORDERED: ALBUTEROL 2.5 MG/3 ML NEB SOL NEB PRN (09:11)
[2023-02-24] MEDS ORDERED: D5 0.45 NS 1,000 ML IV ONE (09:45)
[2023-02-24] MEDS ORDERED: PANTOPRAZOLE 40 MG INJ ONE (09:45)
--- NOTE | 2023-02-24 10:37 | CON ---
Date of Consultation: 02/24/2023 Reason For Consultation: Abdominal pain. History Of Present Illness: The patient is an 82-year-old female with multiple medical problems, who had pain starting in the epigastric region with radiation to the chest, postprandial in nature and h appened acutely at 1:30 this morning. She has never had pain like this before. Pain is persistent. She denies any nausea, vomiting, diarrhea. She does have constipation. No blood in her stool. She denies any bloating, belching, or heartburn. This episode was postprandial in nature. No sore thro at, runny nose, cough, headaches, or dizziness. No chest pain. Review of Systems: Otherwise unremarkable. Past Medical History: Significant for hypertension, GERD, asthma, hyperlipidemia, vasculitis, tempor al arteritis. Past Surgical History: Multiple stents in the coronary arteries and aortic valve replacement as well as appendectomy, tubal ligation, tonsillectomy, and foot surgery. Allergies: REVIEWED. THEY INCLUDE PENICILLIN, CEPHALOSPORINS, SULFA, NITROFURANTOIN, AND DURICEF. PATIENT DOES NOT SMOKE OR DRINK ALCOHOL. Family History: Significant for stroke, kidney disease. Physical Examination: Vital Signs: Stable. She is afebrile. General: She is awake, alert, oriented x3. Head and Neck: No evidence of icterus. No neck masses. No JVD. Throat clear. Neck is supple. Chest: Clear. Heart: S1, S2. Abdomen: Soft. Positive epigastric and right upper quadrant tenderness with minimal rebound. No ri gidity or guarding. Extremities: Adequately perfused. Nontender. Neuro: Nonfocal. Diagnostic Data: CT of the abdomen and pelvis and ultrasound revealed cholelithiasis with evidence o f cholecystitis with gallbladder wall slight thickening and 3.5 cm stone in the gallbladder neck. Laboratory Data: White count is 9.1. Remainder of the CBC is within normal limits. INR is 1.13. C hemistry reviewed. LFTs are within normal limits. Lipase is within normal limits. Assessment: Acute cholecystitis, cholelithiasis in patient with coronary artery disease and __ valvular replacement. Recommendation: IV antibiotics as ordered. The patient will need cardiac clearance following which patient will proceed with laparoscopic cholecystectomy, possible open. The patient and son sadi dayami risks, benefits, alternatives and agreed to procedure. Please note, the case was discussed with Dr. Bajwa. SYED/CHRISTINA Voice ID: [id number] Report ID: [id number]
[2023-02-24] MEDS: ACETAMINOPHEN 500 MG TAB PO PRN (11:17)
[2023-02-24] MEDS: INSULIN REGULAR (HUMAN) 100 UNIT/ML SQ SCH ×3 (11:30→19:34)
[2023-02-24] MEDS ORDERED: ACETAMINOPHEN 500 MG TAB ONE (11:31)
[2023-02-24] MEDS: ASPIRIN EC 81 MG TAB PO SCH (12:29)
[2023-02-24] MEDS: AMLODIPINE 5 MG TAB PO SCH (12:31)
[2023-02-24] MEDS: carvediloL 25 MG TAB PO SCH ×3 (12:31→19:45)
--- NOTE | 2023-02-24 16:23 | CON ---
Date of Consultation: 02/24/2023 Reason For Consultation: Chest pain and cardiac preop risk assessment. History Of Present Illness: 82-year-old female, history of dyslipidemia, hypertension, coronary juan daniel ry disease, status post PCIs in the past, presented to the emergency room with retrosternal chest sahra n and epigastric pain. Also, she has some left-sided chest pain. No radiation. Denies having nause a, vomiting, or diarrhea or fever. Workup revealed acute cholecystitis, but she has been having on a nd off chest pains and I was asked to evaluate that. Currently, she is chest-pain free. Past Medical History: As outlined above in the HPI. Medications: Refer to reconciliation sheet for detailed list. Allergies: SULFA AND MACROBID. Family History: No premature coronary artery disease or cancer. Social History: She does not smoke or drink. Does not use any drugs. Review of Systems: All systems reviewed and they were negative except what mentioned in HPI. Physical Examination: Vital Signs: Reviewed. Head and Neck: Pupils are equal, reactive to light. Intact eye movements. No JVD. No cervical lym phadenopathy. Neck is supple. Thyroid is not enlarged. Lungs: Clear to auscultation bilaterally. No rhonchi, wheezing, or crackles. No accessory muscle u se. Heart: Regular rate and rhythm with the faint systolic murmur. Abdomen: Soft, nontender. Bowel sounds positive. No organomegaly. No masses or hernia. No rigidi ty or rebound. Extremities: No clubbing or cyanosis. Intact pulses. Skin: No rash. No nodule. Neurologic: Alert, awake, oriented x3. No acute focal deficits appreciated. Investigations: Ultrasound of the gallbladder showed mild wall thickening, probably acute cholecysti tis. First troponin is negative. BUN 18, creatinine 0.83, and hemoglobin is 13.1. Assessment And Recommendations: 1.Chest pain with known history of coronary artery disease, multiple stents in the past. Admit. St art on baby aspirin 81 mg daily and trend 2 more sets of cardiac enzymes. Plan to obtain an echo and a stress test early Sunday morning before proceeding with any surgical intervention. 2.Cardiac preoperative risk assessment. There are cardiac symptoms at this moment actively going on . I discussed the case with Dr. Brady. The surgery is not emergent as such. Admit and trend cardia c enzymes. Obtain stress test and echo first thing on Sunday morning and evaluate accordingly. 3.Aortic valve stenosis, status post TAVR. Exam revealing mild ejection systolic murmur. Obtain ec ho to evaluate the functionality of the aortic valve bioprosthesis. SR/MODL Voice ID: [id number] Report ID: [id number]
[2023-02-24 17:02] VITALS: BMI 21.1
--- NOTE | 2023-02-24 21:15 | RAD REPORT ---
EXAM DESCRIPTION: RAD - Chest Single View - 02/24/2023 8:30 am CLINICAL HISTORY: CHEST PAIN COMPARISON: December 07, 2022 FINDINGS: The right PICC line catheter has been removed. No consolidation, pleural effusion, or pneu mothorax. No pulmonary edema noted. The heart size and mediastinal contours are stable. IMPRESSION: No acute process. RECOMMENDATIONS: Electronically signed by: Placido Ramos MD 02/24/2023 8:00 AM CDT Due to temporary technical issues with the PACS/Fluency reporting system, reports are being signed by the in house radiologists without review as a courtesy to insure prompt reporting. The interpreting radiologist is fully responsible for the content of the report.
[2023-02-24] MEDS: MELATONIN 5 MG TABLET PO PRN (22:34)
[2023-02-25] MEDS: carvediloL 25 MG TAB PO SCH ×2 (05:21→18:00)
[2023-02-25 06:35] LABS: Absolute Lymphocytes (CBC) 1.6 K/uL (0.7-4.9); Hematocrit 40.2 % (36.0-45.0); Lymphocytes % 10.6 % (15.3-44.8); MCV 84.6 fL (80-100); MPV 9.1 fL (7.6-11.3); Platelets 184 thou/uL (152-406); RBC Red Blood Cell Count 4.75 M/uL (3.86-4.86)
[2023-02-25 06:52] LABS: Potassium 3.7 mEq/L (3.5-5.1)
[2023-02-25] MEDS: AMLODIPINE 5 MG TAB PO SCH (08:04)
[2023-02-25] MEDS: ASPIRIN EC 81 MG TAB PO SCH (08:05)
[2023-02-25] MEDS: INSULIN REGULAR (HUMAN) 100 UNIT/ML SQ SCH ×4 (08:05→19:36)
[2023-02-25] MEDS: VITAMIN D3 PO SCH ×2 (09:00→19:25)
[2023-02-25] MEDS: CALCIUM CARBONATE PO SCH ×2 (09:00→19:25)
[2023-02-25] MEDS ORDERED: Levofloxacin 750mg IV 750 MG/150 ML BAG IV SCH (09:00)
[2023-02-25] MEDS: metroNIDAZOLE 500 MG TABLET PO SCH ×3 (09:02→19:36)
[2023-02-25] MEDS: levoFLOXacin 500 MG TAB PO SCH (09:02)
[2023-02-25] MEDS: DOCUSATE NA 100 MG CAP PO SCH ×2 (09:02→19:35)
--- NOTE | 2023-02-25 09:49 | P.PN ---
Subjective Date of Service: 02/25/23 Primary Care Provider: Vic Hodgson Chief Complaint: Abdominal pain, acute cholecystitis Today patient complaining of right upper quadrant pain worse after eating denies any retrosternal chest pain Review of Systems Unremarkable Physical Examination - Vital Signs Temperature: 98.9 F Blood Pressure: 162/59 Pulse: 72 Respirations: 14 Pulse Ox (%): 99 - Physical Exam General: Alert, Oriented x3 HEENT: Atraumatic Respiratory: Clear to auscultation bilaterally Cardiovascular: No edema, Regular rate/rhythm Gastrointestinal: Tenderness (Right upper quadrant) Musculoskeletal: No clubbing, No swelling - Studies Microbiology Data (last 24 hrs): 02/24/23 04:40 Nasopharnyx Influenza Type A Antigen Screen - Final 02/24/23 04:40 Nasopharnyx Influenza Type B Antigen Screen - Final Assessment And Plan - Current Problems (Diagnosis) (1) Cholecystitis Current Visit: Yes Status: Acute Plan: Patient is 82 years of age and initially admitted with epigastric stroke retrosternal chest pain and now is complaining of right upper quadrant pain worse after eating diet has been started count is elevated ReSound possible underlying cholecystitis continue with the levofloxacin and Flagyl scheduled for an echocardiogram and stress test tomorrow stable cholecystectomy Physician Review: Patient Assessed, Agree with Above Assessment and Plan
--- NOTE | 2023-02-25 12:01 | PN ---
Date of Progress Note: 02/25/2023 Subjective: The patient is awake and alert. No complaint. Tolerating her diet. There is no abdomi nal pain. No nausea, no vomiting. No bloating, belching or heartburn. Laboratory Data: White count is 14.6 with a slight left shift. Electrolytes reviewed. Objective: Vital Signs: Stable, afebrile. Abdomen: Soft, nondistended, nontender. Positive bowel sounds. Assessment: History of abdominal pain which the patient currently does not have. She does have an e xtensive cardiac history. Plan: We will await the results of the echo and the stress test and discuss the case with the physic ians involved to see whether she needs her gallbladder removed. Based on the radiographic finding, t here was evidence of cholecystitis; however, clinically she initially had some tenderness and now she does not, so it is the case where we need to keep a close eye on based on the results tomorrow, re-e valuate and make recommendation. SYED/JOSSYL Voice ID: [id number] Report ID: [id number]
[2023-02-25] MEDS: METFORMIN ER 500 MG TAB PO SCH (16:18)
[2023-02-25] MEDS: MELATONIN 5 MG TABLET PO PRN (19:34)
[2023-02-25] MEDS: lisinopriL 10 MG TAB PO SCH (19:34)
[2023-02-25] MEDS: ACETAMINOPHEN 500 MG TAB PO PRN (19:35)
[2023-02-25] MEDS: ROSUVASTATIN 10 MG TAB PO SCH (19:35)
[2023-02-25] MEDS: FAMOTIDINE 20 MG TAB PO SCH (19:36)
[2023-02-25] MEDS: LATANOPROST 0.005% 2.5ML OPTH OPTH SCH (19:37)
[2023-02-26] MEDS: carvediloL 25 MG TAB PO SCH ×2 (05:24→18:29)
[2023-02-26 07:17] LABS: Absolute Lymphocytes (CBC) 1.3 K/uL (0.7-4.9); Hematocrit 47.8 % (36.0-45.0); Lymphocytes % 11.3 % (15.3-44.8); MCV 84.2 fL (80-100); MPV 9.9 fL (7.6-11.3); Platelets 139 thou/uL (152-406); RBC Red Blood Cell Count 5.67 M/uL (3.86-4.86)
[2023-02-26 07:19] LABS: Potassium 3.5 mEq/L (3.5-5.1)
[2023-02-26] MEDS: INSULIN REGULAR (HUMAN) 100 UNIT/ML SQ SCH ×4 (07:30→21:00)
[2023-02-26] MEDS ORDERED: REGADENOSON 0.4 MG/5 ML SYR IV ONE (07:54)
[2023-02-26] MEDS: ASPIRIN EC 81 MG TAB PO SCH (09:00)
[2023-02-26] MEDS: CALCIUM CARBONATE PO SCH ×2 (09:00→21:00)
[2023-02-26] MEDS: levoFLOXacin 500 MG TAB PO SCH (09:00)
[2023-02-26] MEDS: metroNIDAZOLE 500 MG TABLET PO SCH ×3 (09:00→20:22)
[2023-02-26] MEDS: AMLODIPINE 5 MG TAB PO SCH (09:00)
[2023-02-26] MEDS: VITAMIN D3 PO SCH ×2 (09:00→21:00)
[2023-02-26] MEDS: DOCUSATE NA 100 MG CAP PO SCH ×2 (09:00→20:22)
[2023-02-26] MEDS ORDERED: NITROGLYCERIN 0.4 MG/TAB SL ONE (10:21)
--- NOTE | 2023-02-26 11:13 | RAD REPORT ---
EXAM DESCRIPTION: NM - Rest Stress Cardiac Imaging - 02/26/2023 10:46 am CLINICAL HISTORY: CLEARANCE FOR SURGERY COMPARISON: No comparisons TECHNIQUE: The patient was administered approximately 10.5 mCi of Tc 99m Sestamibi prior to resting SPECT imaging of the heart. The patient was then administered approximately 29.9 mCi of Tc 99m Sestam ibi following exercise or pharmacologic stress. Multiplanar SPECT images were reviewed. FINDINGS: Moderate-sized stress-induced defect involving the lateral wall inferior aspect, centered on the mid segment, and extending to the junction with the inferior wall, concerning for reversible i schemia. Some reduction in uptake along the inferior wall on the stress images is favored to be artif actual. No fixed defect is seen to suggest hibernating myocardium or scarred myocardium. The end diastolic volume is 35 ml, the end systolic volume is 10 ml, and the ejection fraction is 72 %. IMPRESSION: A moderate-sized stress-induced defect involves the lateral wall predominantly at the mi d segment as above, concerning for a region of reversible ischemia. No fixed defect to suggest a hyper needing myocardium. Reduced end systolic volume. This may relate to sequelae of longstanding hypertension, for which clin ical correlation is recommended. Normal left ventricular ejection fraction.
[2023-02-26] MEDS ORDERED: ONDANSETRON 4 MG/2 ML VIAL IV PRN (11:50)
[2023-02-26] MEDS ORDERED: D5 0.9 NS 1,000 ML IV SCH (12:00)
[2023-02-26] MEDS: METFORMIN ER 500 MG TAB PO SCH (14:34)
[2023-02-26] MEDS ORDERED: NA CHLORIDE 0.9% 500 ML ONE (15:50)
[2023-02-26] MEDS ORDERED: ATROPINE SULF 1 MG/10 ML SYR IV ONE (16:15)
[2023-02-26] MEDS ORDERED: FENTANYL CITR 100 MCG/2 ML ONE (16:15)
[2023-02-26] MEDS ORDERED: MIDAZOLAM HCL 2 MG/2 ML INJ ONE (16:15)
[2023-02-26] MEDS ORDERED: TICAGRELOR 90 MG TABLET PO ONE (16:15)
[2023-02-26] MEDS ORDERED: CLOPIDOGREL 75 MG TABLET ONE (16:15)
[2023-02-26] MEDS ORDERED: ASPIRIN 325 MG TAB ONE (16:15)
[2023-02-26] MEDS ORDERED: HEPARIN 10,000 UNIT/10 ML VIAL IV ONE (16:16)
[2023-02-26] MEDS ORDERED: LIDOCAINE 1% 20 ML MDV ONE (16:16)
[2023-02-26] MEDS ORDERED: HEPA 1000U/500MLS 2,000 UNIT/1,000 ML BAG IV ONE (16:16)
[2023-02-26] MEDS ORDERED: HYDRALAZINE HCL 20 MG/ML VIAL ONE (16:37)
--- NOTE | 2023-02-26 17:02 | EKG ---
Test Date: 2023-02-26 Test Time: 10:20:35 Condemnation Engineer: GEGE MEASUREMENT RESULTS: Intervals: Rate: 94 PA: 160 QRSD: 90 QT: 350 QTc: 437 [place]: P: 77 PA: 160 QRS: 85 T: 69 INTERPRETIVE STATEMENTS: Sinus rhythm with premature atrial complexes Otherwise normal ECG Compared to ECG 02/24/2023 04:36:16 Atrial premature complex(es) now present Sinus bradycardia no longer present Myocardial infarct finding no longer present Electronically Signed On 02-26-23 17:01:05 CDT by Esteban Elena
--- NOTE | 2023-02-26 17:08 | EKG ---
Test Date: 2023-02-24 Test Time: 04:36:16 Manager Gyn: KATRINA MEASUREMENT RESULTS: Intervals: Rate: 57 LA: 172 QRSD: 92 QT: 404 QTc: 393 [place]: P: 82 LA: 172 QRS: 79 T: 73 INTERPRETIVE STATEMENTS: Sinus bradycardia Septal infarct, age undetermined Abnormal ECG Compared to ECG 01/22/2021 09:13:31 Sinus rhythm no longer present Ventricular premature complex(es) no longer present Myocardial infarct finding still present Electronically Signed On 02-26-23 17:04:58 CDT by Esteban Elena
--- NOTE | 2023-02-26 20:13 | OP ---
Date of Procedure: 02/26/2023 Surgeon: LACEY SANTOS Procedure Performed: Selective coronary angiogram. Indication: Chest pain with normal stress test. Access: Right femoral artery 6-Japanese closed with 6-Japanese Angio-Seal. Complications: None. Bleeding: Less than 20 mL. Description Of Procedure: After risks, benefits, alternatives were explained, patient agreed to proc edure and signed informal consent. Patient was brought into the cardiac catheterization laboratory, prepped and draped in sterile fashion. Then, I accessed right femoral artery using micropuncture kit , ultrasound guidance, fluoroscopy, passed 6-Japanese Filer sheath and took 6-Japanese JL4 catheter in to aortic root, engaged the left main, took standard views and then in the RCA and took standard view s and then removed the catheter and the sheath and placed a 6-Japanese Angio-Seal for closure with good hemostasis. Findings: 1.Left main; it is normal. 2.LAD; moderate size, normal. There is widely patent mid LAD stent. Diagonal branches appears to b e with luminal irregularities. 3.Left circumflex; luminal irregularities. No significant disease. 4.RCA; widely patent proximal RCA stent. Conclusion: 1.Widely patent RCA and LAD stent. 2.Mild coronary artery disease, otherwise. Plan: Medical management. SR/MODL Voice ID: [id number] Report ID: [id number]
[2023-02-26] MEDS: lisinopriL 10 MG TAB PO SCH (20:23)
[2023-02-26] MEDS: ROSUVASTATIN 10 MG TAB PO SCH (20:25)
[2023-02-26] MEDS: FAMOTIDINE 20 MG TAB PO SCH (20:25)
--- NOTE | 2023-02-26 20:40 | PN ---
Date of Progress Note: 02/26/2023 Subjective: Seen by bedside and she had an episode of chest pain during the stress test and then she became chest pain free. Still has right epigastric discomfort. Review of Systems: Chest pain and epigastric discomfort as above. No nausea, vomiting, or diarrhea. No shortness of br eath. All other systems were reviewed, they were negative. Objective: Vital Signs: Reviewed. Head and Neck: Pupils are equal, reactive to light. Intact eye movements. No JVD. No cervical lym phadenopathy. Neck is supple. Thyroid is not enlarged. Lungs: Clear to auscultation bilaterally. No rhonchi, wheezing, or crackles. No accessory muscle u se. Heart: Regular rate and rhythm. No extra sounds. Abdomen: Soft, nontender. Bowel sounds positive. No organomegaly. No masses or hernia. No rigidi ty or rebound. Extremities: No edema, clubbing or cyanosis. Intact pulses. Skin: No rash. No nodule. Neurologic: Alert, awake, oriented x3. No acute focal deficits appreciated. Investigations: BUN 13, creatinine 0.76. Troponins are all negative and stress test showed stress-i nduced ischemia of the lateral wall, status post coronary angiogram and no significant disease was fo und. She has a stent in the LAD and stent in the RCA are patent. Assessment And Recommendations: 1.Chest pain. It seems to be noncardiac. I did coronary angiogram on her today and no significant obstructive coronary artery disease is present. Her symptom is likely due to gallbladder. See below . 2.Preoperative risk assessment. I reviewed her echo. She has aortic valve bioprosthesis that is fu nctioning very well. Ejection fraction is normal and no significant coronary artery disease. She is at low cardiac risk to proceed with cholecystectomy as planned. 3.Hypertension. Blood pressure is controlled. Cardiology will sign off from the case and she will follow up with her primary corporate learning consultant as an out patient. SR/JOSSYL Voice ID: [id number] Report ID: [id number]
[2023-02-26] MEDS: LATANOPROST 0.005% 2.5ML OPTH OPTH SCH (21:00)
[2023-02-26] MEDS ORDERED: DULERA 200/5 (MOMETASONE/FORMOTEROL) INHALER IH SCH (21:00)
--- NOTE | 2023-02-26 21:04 | PN ---
Date of Progress Note: 02/26/2023 Subjective: Patient was admitted to the hospital a couple of days ago with right upper quadrant abdo roman pain. After she arrived in the emergency room, she was admitted to the hospital and was manage d by hospitalist team. When I saw her this morning, her son was with her at bedside. She denies any fever, chills, but continues to have right upper quadrant abdominal pain and all the test results fr om this hospital admissions reviewed with the patient and the patient's son. Objective: Vital Signs: This morning, temperature 97.4, pulse 74, respiratory rate 16, blood pressu re 140/54, oxygen saturation 92% on room air. HEENT: Unremarkable. Lungs: Clear to auscultation. Heart: Sounds normal. Abdomen: Soft, bowel sounds normal. No guarding, rigidity, or distention, but presence of mild-to-m oderate tenderness in right upper quadrant. Extremities: No leg edema. Right dorsum foot exam, third toe has very minimal area of redness. Ove rall significantly better than before and has presence of callus on the right foot plantar aspect. Laboratory Data: Abdominal ultrasound shows gallstones with mild gallbladder wall thickening. CAT s can of abdomen and pelvis also shows gallstones with mild gallbladder wall thickening. Impression: 1.Gallstones with acute cholecystitis. 2.Hypertension. 3.Type 2 diabetes mellitus. 4.Chronic diastolic heart failure. 5.Coronary artery disease. 6.Hyperlipidemia. 7.Mild persistent asthma. 8.Gastroesophageal reflux disease. 9.Diverticulosis. 10.Hyperlipidemia. Plan: We will go ahead and continue current antibiotics, which is Levaquin. Continue to follow with general surgeon, Dr. Brady and manager furniture, Dr. Elena, was planning to do stress test and echocard iogram and once we get cardiac clearance, then the patient will have gallbladder surgery. She is n.p .o. and order was written for IV fluid D5 normal saline for maintenance IV fluid. Had some nausea to day and Zofran was ordered and details of plan of treatment discussed with her. Leg exercises were t aught to her today as she should start exercising her legs while lying down in the bed and consult Ph ysical Therapy to help ambulate the patient. I will see her tomorrow for followup. NYDIA/MODL Voice ID: [id number] Report ID: [id number]
[2023-02-26] MEDS ORDERED: predniSONE 20 MG TAB PO ONE (21:35)
--- NOTE | 2023-02-26 22:34 | RAD REPORT ---
EXAM DESCRIPTION: US - Lower Extremity Artery [facility] [employer] - 02/26/2023 10:16 pm CLINICAL HISTORY: numbness Pain and swelling COMPARISON: No comparisons FINDINGS: Right lower extremity arterial system was interrogated using Doppler technique. There is d iffusely blunted monophasic waveforms throughout the right lower extremity arterial system. No comple te occlusion seen. IMPRESSION: Diffusely monophasic waveforms which are significantly blunted throughout the right lowe r extremity arterial system suggests significant inflow stenosis.
[2023-02-26 23:56] VITALS: TEMP 99.2
[2023-02-27 04:38] LABS: Absolute Lymphocytes (CBC) 0.7 K/uL (0.7-4.9); Hematocrit 39.4 % (36.0-45.0); Lymphocytes % 6.2 % (15.3-44.8); MCV 84.7 fL (80-100); MPV 9.5 fL (7.6-11.3); Platelets 194 thou/uL (152-406); RBC Red Blood Cell Count 4.65 M/uL (3.86-4.86)
[2023-02-27 04:48] LABS: Potassium 3.6 mEq/L (3.5-5.1)
[2023-02-27 05:31] LABS: Blood Morphology Comment NOT SEEN (NOT SEEN); Platelet Estimate ADEQ
[2023-02-27] MEDS: carvediloL 25 MG TAB PO SCH (05:34)
[2023-02-27] MEDS ORDERED: HEPA 1000U/500MLS 2,000 UNIT/1,000 ML BAG IV ONE (07:08)
[2023-02-27] MEDS ORDERED: LIDOCAINE 1% 20 ML MDV ONE (07:09)
[2023-02-27] MEDS ORDERED: FENTANYL CITR 100 MCG/2 ML ONE (07:10)
[2023-02-27] MEDS ORDERED: HEPARIN 10,000 UNIT/10 ML VIAL IV ONE (07:11)
[2023-02-27] MEDS ORDERED: MIDAZOLAM HCL 2 MG/2 ML INJ ONE (07:11)
--- NOTE | 2023-02-27 07:22 | ECHO ---
HEIGHT: 5 ft 5 in WEIGHT: 127 lb 0 oz DATE OF STUDY: 02/26/[address]: Poncho Bajwa MD 2-DIMENSIONAL: YES M.MODE: YES DOPPLER: YES COLOR FLOW: YES TDS: PORTABLE: YES DEFINITY: BUBBLE STUDY: DIAGNOSIS: HISTORY OF CORONARY ARTERY DISEASE CARDIAC HISTORY: CATHERIZATION: YES SURGERY: PROSTHETIC VALVE: TAVR PACEMAKER: MEASUREMENTS (cm) DIASTOLIC (NORMALS) SYSTOLIC (NORMALS) IVSd 1.1 (0.6-1.2) LA Diam 3.0 (1.9-4.0) LVEF 68% LVIDd 3.2 (3.5-5.7) LVIDs 2.0 (2.0-3.5) %FS 37% LVPWd 1.3 (0.6-1.2) Ao Diam 2.2 (2.0-3.7) 2 DIMENSIONAL ASSESSMENT: RIGHT ATRIUM: NORMAL LEFT ATRIUM: NORMAL RIGHT VENTRICLE: NORMAL LEFT VENTRICLE: NORMAL TRICUSPID VALVE: MILD TRICUSPID REGURGITATION MITRAL VALVE: MILD TRICUSPID REGURGITATION PULMONIC VALVE: NORMAL AORTIC VALVE: BIOPROSTHESIS IS PRESENT PERICARDIAL EFFUSION: NONE AORTIC ROOT: NORMAL LEFT VENTRICULAR WALL MOTION: NORMAL DOPPLER/COLOR FLOW: SEE BELOW COMMENTS: 1. NORMAL LEFT VENTRICULAR EJECTION FRACTION 60-65% WITH NORMAL WALL MOTION 2. GRADE I DIASTOLIC DYSFUNCTION 3. AORTIC VALVE BIOPROTHESIS IS PRESENT AND FUNCTIONING NORMAL 4. MILD TRICUSPID REGURGITATION 5. MILD MITRAL REGURGITATION TECHNOLOGIST: CARY ESCALONA
[2023-02-27] MEDS ORDERED: NA CHLORIDE 0.9% 500 ML ONE (07:31)
[2023-02-27] MEDS ORDERED: D10W 125 ML IV PRN (07:51)
--- NOTE | 2023-02-27 07:53 | TREADPHA ---
DX: CORONARY ARTERY DISEASE Date of Study: 02/26/2023 Ht: 5' 5 " Wt: 127 lb 0 oz Consulting Physician: TOM MEDICATIONS: TYLENOL, NORVASC, ASPIRIN, COREG, DEXTROSE, COLACE, MORPHINE, CRESTOR, MELATONIN, GLUCOPHAGE, FLAGYL HISTORY: 82 YEAR OLD FEMALE WITH COMPLAINTS OF CHEST PAIN. HISTORY OF VALVE REPLACEMENT, STENTS IN HEART, DIABETES MELLITUS, HYPERLIPIDMIA TYPE 2, HYPERLIPIDEMIA, DENIES SMOKING, ALCOHOL USE, OR DRUG USE. PHYSICIAL EXAMINATION: RESTING B.P.: 181/76 RESTING H.R.: 83 RESTING EKG: NORMAL SINUS RHYTHM WITH PREMATURE VENTRICULAR COMPLAINCE. PROTOCOL: PHARMACOLOGIC EXERCISE TIME: 3:30 B.P. AT PEAK STRESS: 121/51 IMPRESSION: LEXISCAN INJECTED. CARDIOLITE GIVEN PER PROTOCOL. SEE NUCLEAR MEDICINE REPORT. OCCASIONAL PREMATURE VENTRICULAR COMPLIANCE OR PREMATURE ATRIAL COMPLIANCE NOTED THROUGHOUT PROCEDURE. NO ELECTROCARDIOGRAM CHANGES WITH LEXISCAN.
[2023-02-27] MEDS ORDERED: ALTEPLASE 100 ML IV ONE (08:00)
[2023-02-27] MEDS ORDERED: Levofloxacin500mg IV 500 MG/100 ML BAG IV SCH (08:00)
[2023-02-27] MEDS ORDERED: HEPA 1000U/500MLS 1,000 UNIT/500 ML BAG IV ONE ×2 (08:35→09:14)
[2023-02-27] MEDS ORDERED: HEPARIN/D5W 25,000 UNIT/500 ML BAG IV SCH (10:00)
[2023-02-27 10:49] VITALS: BP 144/59; O2SAT 95
--- NOTE | 2023-02-27 15:56 | OP ---
Date of Procedure: 02/27/2023 Surgeon: LACEY SANTOS Procedures Performed: 1.Right common femoral artery angiogram. 2.Balloon angioplasty of acute thrombosis of the right common femoral artery. Indication: Acute thrombosis of the right common femoral artery. Access: Left common femoral artery 7-Gambian sheath was kept in place. Complications: None. Bleeding: Less than 20 mL. Description Of Procedure: After risks, benefits, alternatives were explained, patient agreed to proc edure and signed informal consent. Patient was brought into the cardiac catheterization laboratory, prepped and draped in usual sterile fashion. Then I accessed left common femoral artery using microp uncture kit, ultrasound guidance, and fluoroscopy, placed a 6-Gambian [place] sheath and then with an Omni Flush catheter and [place] Advantage wire across the other side and then exchanged for a 6-Gambian destination sheath placed within the right external artery and then performed angiogram. There was a thrombus with a 99% occlusion of the right common femoral artery, but there is a SOHAM-1 flow in the profunda and the SFA. Wire was advanced without difficulties and I used 5 x 40 mm balloon twice, bu t there was no flow established, still has like a SOHAM-1 flow. I discussed the case with Vascular Cooper rgery and decided to stop here, left the sheath in place, exchanged for 7-Gambian [place] sheath and transferred the patient by helicopter to the OR for open cutdown and thrombectomy. 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 Conclusion: Acute thrombosis of the right common femoral artery with partial flow establishment with angioplasty. Plan: Transfer for immediate surgical intervention. /CHRISTINA Voice ID: [id number] Report ID: [id number]
--- NOTE | 2023-02-27 21:02 | DS ---
Date of Discharge: 02/27/2023 Disposition: Patient was transferred via air ambulance for higher level of care to another facility. Physical Examination: Vital Signs: This morning, last vital signs temperature 99.2, pulse 84, respiratory rate 16, blood p ressure 130/51, oxygen saturation 90%. HEENT: Unremarkable. Lungs: Clear to auscultation. Heart: Sounds normal. Abdomen: Soft. Bowel sounds normal. No guarding, rigidity, distention. Presence of mild right upp er quadrant tenderness. No rebound tenderness. Bowel sounds normoactive. Extremities: Right foot is cold to touch. Left foot warm to touch. No evidence of any cyanosis or gangrene of the feet. Laboratory Data: Upon admission, white count 9.1, hemoglobin 13.1, platelets 183. Last blood work t yulia, white count 11.4, hemoglobin 12.8, platelets 194. Last chemistry today, sodium 139, potassium 3.6, chloride 108, bicarb 26, BUN 12, creatinine 0.79, glucose 213. Hospital Course: This is an 82-year-old very pleasant female patient who was admitted to the [facility] with abdominal pain. Please see history and physical exam for more details. The patient was evalu ated in the emergency room. She was admitted to the hospital, had gallstones and acute cholecystitis as noted on ultrasound as well as CAT scan of abdomen. She was admitted to the hospital. Consultat ion was requested from Dr. Brady as well as Dr. Elena. Patient received antibiotics for cholecystit is and she had an echocardiogram as well as stress test and her stress test came back abnormal, so Dr Jaylen Elena did cardiac cath on her yesterday showing presence of stent in the RCA and LAD and stent was patent and there was no other significant coronary artery disease problem. So, plan was for patient to have her gallbladder surgery today after getting clearance from Dr. Elena late yesterday. Early this morning, nurse from cardiac cath informed me that during nighttime, patient's leg right foot wa s noted to be cool to touch and early this morning, Dr. Elena had planned to take her back to cardia c metallurgical lab technician because there was possibility and concern about acute vascular limb ischemia as she had ca rdiac CT from right groin. After cardiac cath today Dr. Elena called me and informed me that there was significant stenosis with thrombus in the right femoral artery. He was able to establish some fl ow back. He immediately arranged for patient to be life flighted to tertiary care center and he comm unicated with vascular surgeon for immediate intervention in form of thrombectomy. Depending on how she is after the procedure, we will need to make a decision about timing of the gallbladder surgery. Yesterday evening, I did give her 1 dose of prednisone 20 mg by mouth as she takes normally 5 mg pre dnisone every day. Final Diagnoses: 1.Gallstones with acute cholecystitis. 2.Coronary artery disease. 3.Thrombus, right femoral artery. 4.Hypertension. 5.Hyperlipidemia. 6.Type 2 diabetes mellitus. 7.Chronic diastolic heart failure. 8.Gastroesophageal reflux disease. 9.Diverticulosis. NYDIA/MODL Voice ID: [id number] Report ID: [id number]
== END 2023-02-27 09:40 | disposition short-term general hospital (02) | DRG 424 ==
LOC: ER 04:15 → ERHOLD 08:20 → 4TH 15:46
PROVIDERS: ADMIT Internal Medicine Sleep Medicine; ATTEND Internal Medicine
PROC: 4A023N7 Measurement of Cardiac Sampling and Pressure, Left Heart, Percutaneous Approach (ICD-10-PCS; 2023-02-26)
PROC: B2111ZZ Fluoroscopy of Multiple Coronary Arteries using Low Osmolar Contrast (ICD-10-PCS; 2023-02-26)
PROC: 047K3ZZ Dilation of Right Femoral Artery, Percutaneous Approach (ICD-10-PCS; principal; 2023-02-27)
PROC: B41F1ZZ Fluoroscopy of Right Lower Extremity Arteries using Low Osmolar Contrast (ICD-10-PCS; 2023-02-27)
DX: K80.00 Calculus of gallbladder with acute cholecystitis without obstruction (principal); I50.32 Chronic diastolic (congestive) heart failure; I82.411 Acute embolism and thrombosis of right femoral vein; I11.0 Hypertensive heart disease with heart failure; I35.0 Nonrheumatic aortic (valve) stenosis; E78.00 Pure hypercholesterolemia, unspecified; J45.30 Mild persistent asthma, uncomplicated; K21.9 Gastro-esophageal reflux disease without esophagitis; K57.90 Diverticulosis of intestine, part unspecified, without perforation or abscess without bleeding; I25.10 Atherosclerotic heart disease of native coronary artery without angina pectoris; Z88.0 Allergy status to penicillin; Z95.2 Presence of prosthetic heart valve; Z88.8 Allergy status to other drugs, medicaments and biological substances; Z95.5 Presence of coronary angioplasty implant and graft; Z88.2 Allergy status to sulfonamides; Z88.1 Allergy status to other antibiotic agents; Z79.82 Long term (current) use of aspirin; Z90.49 Acquired absence of other specified parts of digestive tract; Z98.51 Tubal ligation status; Z79.02 Long term (current) use of antithrombotics/antiplatelets; Z79.52 Long term (current) use of systemic steroids; Z79.84 Long term (current) use of oral hypoglycemic drugs; Z79.899 Other long term (current) drug therapy; Z20.822 Contact with and (suspected) exposure to COVID-19
CPT/HCPCS: 36415; 71045; 71260; 74177; 76705; 76937; 78452; 80048; 80061; 80076; 82947; 83036; 83690; 83735; 83880; 84484; 85025; 85610; 87635; 87804; 93005; 93017; 93306; 93454; 93926; 99285; A9500; C1760; C1893; C9113; G0269; J0360; J0461; J2001; J2250; J2270; J2405; J2765; J2785; J2997; J3010; J3535; J7040; J7042; J7512; J7799; Q9966; Q9967